=== PATIENT | female | born 1965 | race African-American/Black ===

== ENCOUNTER 2016-03-13 13:42 | Inpatient (IN) | payer MEDICARE, OTHER ==
[~2016-03-13] VITALS: Ht 157.5 cm; Wt 138.0 kg
[~2016-03-13 13:42] MED LIST: ALBUAER3 INH; ALPR0.5T3 PO; BUME1TAB26 PO; CYCL1TAB29 PO; FLUTI110I INH; GABA800T PO; MORP1SOL PO; OMEP20TA PO; TERA1CAP3 PO; WARF-20 PO
[2016-03-13 13:47] VITALS: BP 153/72; PULSE 105; RESP 17; TEMP 98.3; O2SAT 100
[2016-03-13] MEDS ORDERED: SODIUM CHLORIDE 0.9% FLUSH 5 ML FLUSH IVF PRN (14:15)
--- NOTE | 2016-03-13 14:19 | PD ---
HPI Chief Complaint: Dizziness Time Seen by Provider: 13:55 Travel History International Travel<30 days: No Contact w/Intl Traveler<30days: No Traveled to known affect area: No History of Present Illness HPI The patient is a 50-year-old [place] female who presents emergency department via EMS for dizziness and generalized weakness. The patient states her symptoms started last night with dizziness. The patient then developed right sided weakness and numbness. The patient states that her symptoms improve last night, however, returned this morning. The patient states that she notices right facial droop, worse than normal on the right side as well as right arm and right leg weakness. The patient is unable to ambulate, but does transition at home with her daughter. However, patient was too weak this morning to transition secondary to the weakness and numbness of the right arm and leg. The patient also complains of dizziness and vertigo. She denies any current headache. The patient denies any previous history of CVA or TIA. The patient states her primary physician is Dr. Junior Magdaleno. Symptoms are moderate, there are no known alleviating or exacerbating factors. 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) Endocrine: No Gastrointestinal Disorders: Yes (IBS) GERD: Yes Glaucoma: No Genitourinary: Yes (STRESS INCONTINENCE/ URINARY RETENTION ) Hepatitis: No Hiatal Hernia: Yes Hypertension: No Immune Disorder: No Implanted Vascular Access Dvce: Yes Kidney Stones: No Medical other: No Musculoskeletal: Yes Neurologic: No Psychiatric: No Reproductive: No Respiratory: Yes (asthma) Immunizations Current: No Migraines: No Renal Failure: No Seizures: No Sickle Cell Disease: No Sleep Apnea: Yes Thyroid Disease: No Ulcer: No PNEUMOCCOCAL Vaccine (Year): 2 ?: Not Menopausal: Yes : 2 Para: 2 Past Surgical History Abdominal Surgery: Yes (GASTRIC BYPASS 1997, LAP MARIA G) AICD: No Arteriovenous Shunt: No Body Medical Devices: DILAUDID pump implanted in left abd.; HARDWARE IN SPINE Cardiac Surgery: Yes (CARDIAC CATH (NO INTERVENTION)) Cholecystectomy: Yes (IN 1987) Ear Surgery: No Endocrine Surgery: No Eye Surgery: No Genitourinary Surgery: No Gynecologic Surgery: No Insulin Pump: No Joint Replacement: No Neurologic Surgery: No Oral Surgery: No Pacemaker: No Thoracic Surgery: No Other Surgery: Yes (DILAUDID PUMP) Social History Alcohol Use: No Tobacco Use: No Substance Use: No Allergies-Medications (Allergen,Severity, Reaction): Coded Allergies: MRI PRECAUTION (Verified Adverse Reaction, Severe, SPINAL CORD STIMULATOR , 02/01/16) PER DR BOND Reported Meds & Prescriptions Reported Meds & Active Scripts Active Reported Alprazolam 0.5 Mg Tab 0.5 Mg PO Q8H PRN Morphine Sulfate PF Inj (Morphine Sulfate/Sodium Chloride) 0.5 Mg/Ml Syr 7.5 Ml PO Q4HR Flovent Hfa 12 GM Inh (Fluticasone Propionate) 110 Mcg/Act Inh 2 Puff INH BID Proair Hfa 8.5 GM Inh (Albuterol Sulfate) 90 Mcg/Act Aer 2 Puff INH Q4-6H PRN 108 mcg/actuation Omeprazole 20 Mg Tab 20 Mg PO BID Bumex (Bumetanide) 1 Mg Tab 1 Mg PO BID Terazosin (Terazosin HCl) 1 Mg Cap 1 Mg PO TID Flexeril (Cyclobenzaprine HCl) 10 Mg Tab 10 Mg PO TID PRN Warfarin 4 Mg Tab 8 Mg PO DAILY Gabapentin 800 Mg Tab 800 Mg PO QID PRN Review of Systems Except as stated in HPI: all other systems reviewed are Neg General / Constitutional: No: Fever HENT: Positive: Headaches, Vertigo, No: Lightheadedness Cardiovascular: No: Chest Pain or Discomfort Respiratory: No: Shortness of Breath Gastrointestinal: No: Vomiting Genitourinary: Positive: Other (chronic indwelling Wilks catheter) Musculoskeletal: Positive: Weakness Neurologic: Positive: Weakness, Dizziness, Focal Abnormalities, Paresthesia, Sensory Disturbance Physical Exam Narrative GENERAL: Awake, alert, pleasant 50-year-old female who appears her stated age and is in no acute respiratory distress. SKIN: Warm and dry. HEAD: Atraumatic. Normocephalic. EYES: Pupils equal and round. Pupils are 3 mm bilateral and reactive. EOMs are intact. Patient is able to see fingers at a distance of 2 feet without difficulty. ENT: No nasal bleeding or discharge. Mucous membranes pink and moist. NECK: Trachea midline. No JVD. CARDIOVASCULAR: Regular rate and rhythm. No murmur appreciated. RESPIRATORY: No accessory muscle use. Clear to auscultation. Breath sounds equal bilaterally. GASTROINTESTINAL: Abdomen soft, obese, no rebound tenderness. Indwelling Wilks catheter. MUSCULOSKELETAL: Bilateral lower extremity edema. NEUROLOGICAL: Awake and alert. Mild right sided facial droop. Mild difference in right nasolabial fold. No drift of the upper extremity. Unable to raise the right leg off of the bed. Sensation is decreased sensation of the right arm and right leg when compared to the left. No dysarthria noted. PSYCHIATRIC: Appropriate mood and affect; insight and judgment normal. Data Data Last Documented VS Vital Signs Date Time Temp Pulse Resp B/P Pulse Ox O2 Delivery O2 Flow Rate FiO2 03/13/16 15:32 93 Room Air 03/13/16 15:20 90 18 154/67 2 03/13/16 13:47 98.3 Orders Electrocardiogram (03/13/16 ) Prothrombin Time / Inr (Pt) (03/13/16 14:12) Act Partial Throm Time (Ptt) (03/13/16 14:12) Complete Blood Count With Diff (03/13/16 14:12) Comprehensive Metabolic Panel (03/13/16 14:12) Creatine Kinase (Cpk) (03/13/16 14:12) Troponin I (03/13/16 14:12) Urinalysis - C+S If Indicated (03/13/16 14:12) Ct Brain W/O Iv Contrast(Rout) (03/13/16 14:12) Chest, Single Ap (03/13/16 14:12) Ecg Monitoring (03/13/16 14:12) Iv Access Insert/Monitor (03/13/16 14:12) Oximetry (03/13/16 14:12) Sodium Chloride 0.9% Flush (Ns Flush) (03/13/16 14:15) Potassium Chloride Eff (K-Lyte Cl Eff) (03/13/16 15:30) Aspirin Chew (Aspirin Chew) (03/13/16 15:30) Admit Order (Ed Use Only) (03/13/16 15:43) Labs Laboratory Tests Test 03/13/16 03/13/16 14:21 14:24 White Blood Count 8.6 TH/MM3 Red Blood Count 4.45 MIL/MM3 Hemoglobin 12.0 GM/DL Hematocrit 37.2 % Mean Corpuscular Volume 83.7 FL Mean Corpuscular Hemoglobin 26.9 PG Mean Corpuscular Hemoglobin 32.1 % Concent Red Cell Distribution Width 14.8 % Platelet Count 255 TH/MM3 Mean Platelet Volume 8.1 FL Neutrophils (%) (Auto) 82.5 % Lymphocytes (%) (Auto) 12.0 % Monocytes (%) (Auto) 4.9 % Eosinophils (%) (Auto) 0.3 % Basophils (%) (Auto) 0.3 % Neutrophils # (Auto) 7.1 TH/MM3 Lymphocytes # (Auto) 1.0 TH/MM3 Monocytes # (Auto) 0.4 TH/MM3 Eosinophils # (Auto) 0.0 TH/MM3 Basophils # (Auto) 0.0 TH/MM3 CBC Comment DIFF FINAL Differential Comment Prothrombin Time 50.1 SEC Prothromb Time International 4.3 RATIO Ratio Activated Partial 45.8 SEC Thromboplast Time Sodium Level 138 MEQ/L Potassium Level 3.1 MEQ/L Chloride Level 98 MEQ/L Carbon Dioxide Level 33.2 MEQ/L Anion Gap 7 MEQ/L Blood Urea Nitrogen 12 MG/DL Creatinine 0.83 MG/DL Estimat Glomerular Filtration 88 ML/MIN Rate Random Glucose 101 MG/DL Calcium Level 8.4 MG/DL Total Bilirubin 0.5 MG/DL Aspartate Amino Transf 23 U/L (AST/SGOT) Alanine Aminotransferase 14 U/L (ALT/SGPT) Alkaline Phosphatase 117 U/L Total Creatine Kinase 142 U/L Troponin I LESS THAN 0.02 NG/ML Total Protein 9.0 GM/DL Albumin 3.0 GM/DL Urine Color LIGHT-YELLOW Urine Turbidity HAZY Urine pH 6.0 Urine Specific [place] 1.006 Urine Protein NEG mg/dL Urine Glucose (UA) NEG mg/dL Urine Ketones NEG mg/dL Urine Occult Blood TRACE Urine Nitrite NEG Urine Bilirubin NEG Urine Urobilinogen LESS THAN 2.0 MG/DL Urine Leukocyte Esterase MOD Urine RBC 16 /hpf Urine WBC 2 /hpf Urine Squamous Epithelial 2 /hpf Cells Urine Bacteria RARE /hpf Urine Hyaline Casts 1 /lpf Urine Mucus FEW /lpf Urine Yeast (Budding) MOD Microscopic Urinalysis Comment CULT NOT INDICATED MDM Medical Decision Making Medical Screen Exam Complete: Yes Emergency Medical Condition: Yes Medical Record Reviewed: Yes Interpretation(s) EKG reveals sinus rhythm with first-degree AV block, NE 231 ms. Nonspecific T- wave changes. Laboratory Tests Test 03/13/16 03/13/16 14:21 14:24 White Blood Count 8.6 TH/MM3 Red Blood Count 4.45 MIL/MM3 Hemoglobin 12.0 GM/DL Hematocrit 37.2 % Mean Corpuscular Volume 83.7 FL Mean Corpuscular Hemoglobin 26.9 PG Mean Corpuscular Hemoglobin 32.1 % Concent Red Cell Distribution Width 14.8 % Platelet Count 255 TH/MM3 Mean Platelet Volume 8.1 FL Neutrophils (%) (Auto) 82.5 % Lymphocytes (%) (Auto) 12.0 % Monocytes (%) (Auto) 4.9 % Eosinophils (%) (Auto) 0.3 % Basophils (%) (Auto) 0.3 % Neutrophils # (Auto) 7.1 TH/MM3 Lymphocytes # (Auto) 1.0 TH/MM3 Monocytes # (Auto) 0.4 TH/MM3 Eosinophils # (Auto) 0.0 TH/MM3 Basophils # (Auto) 0.0 TH/MM3 CBC Comment DIFF FINAL Differential Comment Prothrombin Time 50.1 SEC Prothromb Time International 4.3 RATIO Ratio Activated Partial 45.8 SEC Thromboplast Time Sodium Level 138 MEQ/L Potassium Level 3.1 MEQ/L Chloride Level 98 MEQ/L Carbon Dioxide Level 33.2 MEQ/L Anion Gap 7 MEQ/L Blood Urea Nitrogen 12 MG/DL Creatinine 0.83 MG/DL Estimat Glomerular Filtration 88 ML/MIN Rate Random Glucose 101 MG/DL Calcium Level 8.4 MG/DL Total Bilirubin 0.5 MG/DL Aspartate Amino Transf 23 U/L (AST/SGOT) Alanine Aminotransferase 14 U/L (ALT/SGPT) Alkaline Phosphatase 117 U/L Total Creatine Kinase 142 U/L Troponin I LESS THAN 0.02 NG/ML Total Protein 9.0 GM/DL Albumin 3.0 GM/DL Urine Color LIGHT-YELLOW Urine Turbidity HAZY Urine pH 6.0 Urine Specific [place] 1.006 Urine Protein NEG mg/dL Urine Glucose (UA) NEG mg/dL Urine Ketones NEG mg/dL Urine Occult Blood TRACE Urine Nitrite NEG Urine Bilirubin NEG Urine Urobilinogen LESS THAN 2.0 MG/DL Urine Leukocyte Esterase MOD Urine RBC 16 /hpf Urine WBC 2 /hpf Urine Squamous Epithelial 2 /hpf Cells Urine Bacteria RARE /hpf Urine Hyaline Casts 1 /lpf Urine Mucus FEW /lpf Urine Yeast (Budding) MOD Microscopic Urinalysis Comment CULT NOT INDICATED Last Impressions Head CT 03/13/16 1412 Signed Impressions: Service Date/Time: March 14:50 - CONCLUSION: No acute disease. Edy Severino MD Chest X-Ray 03/13/16 1412 Signed Impressions: Service Date/Time: March 14:11 - CONCLUSION: No acute disease. Lori Gleason MD Differential Diagnosis Differential diagnosis includes TIA, CVA, intracranial hemorrhage, subdural hemorrhage, hypocalcemia, transient neurologic deficit, vertigo. Narrative Course IV was established, labs are drawn and sent, and the patient was placed on cardiac telemetry monitoring and continuous pulse oximetry monitoring. EKG was ordered and interpreted. CT of the brain was ordered. Stroke alert was not called as the patient's symptoms started last night and have been transient on and off, and then once again worsen this morning, greater than 6 hours ago, as it started at 4:30 AM with dizziness. However, headache did start last night. The patient's CT the brain is negative for hemorrhage, INR slightly high at 4.3. The patient has right sided weakness/numbness and is unable to transition. The patient may have suffered a CVA/TIA. Patient will need neurology evaluation, possible echocardiogram, telemetry monitoring, and PT/OT assessment. Patient's primary physician is Dr. Junior Magdaleno, through [facility], therefore, the on-call [facility] physician was paged for admission/ observation. Physician Communication Physician Communication The on-call [facility] physician was paged for admission. I discussed the patient Dr. Serna who agrees with admission. Diagnosis Primary Impression: CVA (cerebral vascular accident) Qualified Code: I63.9 - Cerebrovascular accident (CVA), unspecified mechanism Admitting Information Admitting Physician Requests: Admit Condition: Stable Ivan Saini MD Mar 13, 2016 14:19
--- NOTE | 2016-03-13 14:36 | RADRPT ---
EXAM DATE/TIME: 03/13/2016 14:11 [facility] COMPARISON: CT THORAX W/O CONTRAST, April 30, 2015, 11:09. US LEG RIGHT VENOUS DOPPLER, October 21, 2015, 14:0 9. INDICATIONS : Short of breath. MEDICAL HISTORY : None. SURGICAL HISTORY : None. ENCOUNTER: Initial ACUITY: 2 days PAIN SCORE: 0/10 LOCATION: Bilateral chest FINDINGS: Stable elevation of the right hemidiaphragm with adjacent compressive atelectasis. The imaged right l jaren apex appears clear. The left hemithorax is clear. The heart size is grossly normal. Osseous struc tures are unremarkable. CONCLUSION: No acute disease. Lori Gleason MD on March 13, 2016 at 14:33 Board Certified Radiologist. This report was verified electronically.
[2016-03-13 14:39] LABS: AUTOMATED NEUTROPHIL # 7.1 TH/MM3 (1.8-7.7); BASOPHIL % 0.3 % (0.0-2.0); EOSINOPHIL % 0.3 % (0.0-4.0); HEMATOCRIT 37.2 % (35.0-46.0); HEMO FLAGS DIFF FINAL; MEAN CELL VOLUME 83.7 FL (80.0-100.0); MEAN CORPUSCULAR HEMOGLOBIN 26.9 PG (27.0-34.0); MEAN CORPUSCULAR HGB CONC 32.1 % (32.0-36.0); MONO % 4.9 % (0.0-8.0); NEUT % 82.5 % (16.0-70.0); PLATELET COUNT 255 TH/MM3 (150-450); RED BLOOD COUNT 4.45 MIL/MM3 (4.00-5.30); RED CELL DISTRIBUTION WIDTH 14.8 % (11.6-17.2); WHITE BLOOD COUNT 8.6 TH/MM3 (4.0-11.0)
[2016-03-13 14:41] LABS: BACTERIA, URINE RARE /hpf; BLOOD, URINE TRACE (NEG); COMMENT (UR) CULT NOT INDICATED; CULTURE IF INDICATED CULT NOT INDICATED; GLUCOSE,URINE NEG (NEG); HYALINE CAST, URINE 1 /lpf (RARE); KETONE, URINE NEG (NEG); MUCUS URINE FEW /lpf (OCC); NITRITE,URINE NEG (NEG); SQUAMOUS EPITHELIAL CELL URINE 2 /hpf (0-5); URINE COLOR LIGHT-YELLOW (YELLW/STRAW)
[2016-03-13 14:46] LABS: APTT (PATIENT) 45.8 SEC (24.3-30.1); INTERNATIONAL NORMALIZED RATIO 4.3 RATIO; PROTHROMBIN TIME - PATIENT 50.1 SEC (9.8-11.6)
[2016-03-13 15:06] LABS: ALKALINE PHOSPHATASE 117 U/L (45-117); ALT (GPT) 14 U/L (10-53); ANION GAP 7 MEQ/L (5-15); AST (GOT) 23 U/L (15-37); BICARBONATE 33.2 MEQ/L (21.0-32.0); BLOOD UREA NITROGEN 12 MG/DL (7-18); CHLORIDE 98 MEQ/L (98-107); CREATINE KINASE 142 U/L (26-192); GLOMERULAR FILTRATION RATE 88 ML/MIN (>89); SODIUM (NA) 138 MEQ/L (136-145); TOTAL BILIRUBIN ADULT 0.5 MG/DL (0.2-1.0)
[2016-03-13 15:10] LABS: POTASSIUM 3.1 MEQ/L (3.5-5.1)
--- NOTE | 2016-03-13 15:14 | RADRPT ---
EXAM DATE/TIME: 03/13/2016 14:50 [facility] COMPARISON: CT BRAIN W/O CONTRAST, December 17, 2013, 0:50. INDICATIONS : Cephalgia with dizziness. RADIATION DOSE: 56.35 CTDIvol (mGy) MEDICAL HISTORY : Cardiovascular disease. Chronic obstructive pulmonary disease. SURGICAL HISTORY : Gastric bypass. Cholecystectomy.C1 fusion. ENCOUNTER: Initial ACUITY: 1 day PAIN SCALE: 3/10 LOCATION: cranial TECHNIQUE: Multiple contiguous axial images were obtained of the head. Using automated exposure control and adj ustment of the mA and/or kV according to patient size, radiation dose was kept as low as reasonably a chievable to obtain optimal diagnostic quality images. FINDINGS: CEREBRUM: The ventricles are normal for age. No evidence of midline shift, mass lesion, hemorrhage or acute in farction. No extra-axial fluid collections are seen. POSTERIOR FOSSA: The cerebellum and brainstem are intact. The 4th ventricle is midline. The cerebellopontine angle i s unremarkable. EXTRACRANIAL: The visualized portion of the orbits is intact. SKULL: The calvaria is intact. No evidence of skull fracture. CONCLUSION: No acute disease. Edy Severino MD on March 13, 2016 at 15:09 Board Certified Radiologist. This report was verified electronically.
[2016-03-13 15:20] VITALS: BP 154/67; PULSE 90; RESP 18; O2SAT 98
[2016-03-13] MEDS ORDERED: POTASSIUM CHLORIDE 25 MEQ EFFERVESCENT TAB PO ONE (15:30)
[2016-03-13] MEDS ORDERED: ASPIRIN 81 MG CHEW TAB CHEW ONE (15:30)
[2016-03-13 15:32] VITALS: O2SAT 93
--- NOTE | 2016-03-13 17:14 | HHI.HP ---
HPI Service [facility] Hospitalists Primary Care Physician Junior Magdaleno Admission Diagnosis right sided weakness Chief Complaint: right side weakness Travel History International Travel<30 Days: No Contact w/Intl Traveler <30 Da: No Traveled to Known Affected Are: No History of Present Illness Pt is 50 with chronic back pain and implanted pain pump. She had low back surgery in and had hardware placed. Pt in wheelchair bound with left foot drop and chronic weakness in rle. She says that chronic parasthesia and numbness was present until injuring her back a few months ago..then parasthesia resolved and her "bladder stopped working". Now she had chronic indwelling mosquera being followed by [facility]. Yesterday she had right side headache and neck pains. She had intermittent numbness/weakness of rue and some new weakness of her chronically weak right foot.She also complaint of some heaviness over right chest when breathing. her inr was supratherapeutic. ct head neg for cva. Review of Systems Other right side weakness Past Family Social History Past Medical History chronic lymphedema failed back syndrome with implanted pain pump multiple past laminectomies obstructive sleep apnea irritable bowel syndrome chronic headaches chronic low back pain gastroparesis GERD history of DVTs and bilateral pulmonary emboli COPD gastric bypass 2) cholecystectomy history of spinal surgery Reported Medications Alprazolam 0.5 Mg Tab 0.5 Mg PO Q8H PRN Morphine Sulfate PF Inj (Morphine Sulfate/Sodium Chloride) 0.5 Mg/Ml Syr 7.5 Ml PO Q4HR Flovent Hfa 12 GM Inh (Fluticasone Propionate) 110 Mcg/Act Inh 2 Puff INH BID Proair Hfa 8.5 GM Inh (Albuterol Sulfate) 90 Mcg/Act Aer 2 Puff INH Q4-6H PRN 108 mcg/actuation Omeprazole 20 Mg Tab 20 Mg PO BID Bumex (Bumetanide) 1 Mg Tab 1 Mg PO BID Terazosin (Terazosin HCl) 1 Mg Cap 1 Mg PO TID Flexeril (Cyclobenzaprine HCl) 10 Mg Tab 10 Mg PO TID PRN Warfarin 4 Mg Tab 8 Mg PO DAILY Gabapentin 800 Mg Tab 800 Mg PO QID PRN Allergies: Coded Allergies: MRI PRECAUTION (Verified Adverse Reaction, Severe, SPINAL CORD STIMULATOR , 02/01/16) PER DR BOND Family History nc Social History no etoh/tob Physical Exam Vital Signs nad oriented neuro. no facial droop.cn 2-12 grossly intact no rue weakness. chronic weakness in both legs. foot drop left chronic weak plantar and dorsiflexion of rle heart reg lung cta abd s/nt ext no edema Vital Signs Date Time Temp Pulse Resp B/P Pulse Ox O2 Delivery O2 Flow Rate FiO2 03/13/16 15:32 93 Room Air 03/13/16 15:20 90 18 154/67 98 Nasal Cannula 2 03/13/16 13:55 97 19 97 2 03/13/16 13:47 98.3 105 17 153/72 100 Laboratory Laboratory Tests Test 03/13/16 03/13/16 14:21 14:24 White Blood Count 8.6 Red Blood Count 4.45 Hemoglobin 12.0 Hematocrit 37.2 Mean Corpuscular Volume 83.7 Mean Corpuscular Hemoglobin 26.9 Mean Corpuscular Hemoglobin 32.1 Concent Red Cell Distribution Width 14.8 Platelet Count 255 Mean Platelet Volume 8.1 Neutrophils (%) (Auto) 82.5 Lymphocytes (%) (Auto) 12.0 Monocytes (%) (Auto) 4.9 Eosinophils (%) (Auto) 0.3 Basophils (%) (Auto) 0.3 Neutrophils # (Auto) 7.1 Lymphocytes # (Auto) 1.0 Monocytes # (Auto) 0.4 Eosinophils # (Auto) 0.0 Basophils # (Auto) 0.0 CBC Comment DIFF FINAL Differential Comment Prothrombin Time 50.1 Prothromb Time International 4.3 Ratio Activated Partial 45.8 Thromboplast Time Sodium Level 138 Potassium Level 3.1 Chloride Level 98 Carbon Dioxide Level 33.2 Anion Gap 7 Blood Urea Nitrogen 12 Creatinine 0.83 Estimat Glomerular Filtration 88 Rate Random Glucose 101 Calcium Level 8.4 Total Bilirubin 0.5 Aspartate Amino Transf 23 (AST/SGOT) Alanine Aminotransferase 14 (ALT/SGPT) Alkaline Phosphatase 117 Total Creatine Kinase 142 Troponin I LESS THAN 0.02 Total Protein 9.0 Albumin 3.0 Urine Color LIGHT-YELLOW Urine Turbidity HAZY Urine pH 6.0 Urine Specific [place] 1.006 Urine Protein NEG Urine Glucose (UA) NEG Urine Ketones NEG Urine Occult Blood TRACE Urine Nitrite NEG Urine Bilirubin NEG Urine Urobilinogen LESS THAN 2.0 Urine Leukocyte Esterase MOD Urine RBC 16 Urine WBC 2 Urine Squamous Epithelial 2 Cells Urine Bacteria RARE Urine Hyaline Casts 1 Urine Mucus FEW Urine Yeast (Budding) MOD Microscopic Urinalysis Comment CULT NOT INDICATED Result Diagram: 03/13/16 1421 03/13/16 1421 Assessment and Plan Problem List: (1) Neurological deficit, transient Status: Acute Plan: Pt is 50 with chronic back pain and implanted pain pump. She had low back surgery in and had hardware placed. Pt in wheelchair bound with left foot drop and chronic weakness in rle. She says that chronic parasthesia and numbness was present until injuring her back a few months ago..then parasthesia resolved and her "bladder stopped working". Now she had chronic indwelling mosquera being followed by [facility]. Yesterday she had right side headache and neck pains. She had intermittent numbness/weakness of rue and some new weakness of her chronically weak right foot.She also complaint of some heaviness over right chest when breathing. her inr was supratherapeutic. ct head neg for cva. I don't believe she had a tia or cva neurology is consulted and neuroimaging is likely to evaluate her spinal column. will hold the coumadin and recheck inr dvt prophylaxis PT eval pain control ordered. (2) Spinal stenosis Status: Chronic Plan: see above (3) Supratherapeutic INR Status: Acute Plan: see above (4) Chronic pain Status: Chronic Plan: chronic back pain has implanted morphine pump (5) Anxiety Status: Chronic (6) COPD (chronic obstructive pulmonary disease) Status: Chronic (7) Obese Status: Chronic Physician Certification 2 Midnight Certification Type: Admission for Inpatient Services Order for Inpatient Services 3The services are ordered in accordance with Medicare regulations or non- Medicare payer requirements, as applicable. In the case of services not specified as inpatient-only, they are appropriately provided as inpatient services in accordance with the 2-midnight benchmark. Estimated LOS (days): 3 3 days is the estimated time the patient will need to remain in the hospital, assuming treatment plan goals are met and no additional complications. Post-Hospital Plan: Not yet determined Arben Serna MD Mar 13, 2016 17:14
[2016-03-13] MEDS ORDERED: GABAPENTIN 400 MG CAP PO PRN (17:30)
[2016-03-13 18:00] VITALS: BP 126/99; PULSE 83; RESP 18; O2SAT 97
[2016-03-13] MEDS: BUMETANIDE 1 MG TAB PO SCH (19:24)
[2016-03-13] MEDS: TERAZOSIN HCL 1 MG CAP PO SCH (19:24)
[2016-03-13 19:26] VITALS: BP 129/87; PULSE 83; RESP 18; O2SAT 97
[2016-03-13 21:54] VITALS: BP 117/83; PULSE 87; RESP 18; TEMP 97.5; O2SAT 93
[2016-03-13] MEDS: PANTOPRAZOLE SOD 20 MG DELAYED RELEASE TAB PO SCH (23:25)
[2016-03-13] MEDS: ALPRAZolam 0.5 MG TAB PO PRN (23:25)
[2016-03-13] MEDS: CYCLOBENZAPRINE HCL 10 MG TAB PO PRN (23:25)
[2016-03-14] VITALS (7 sets, daily range): BP systolic 99–115; BP diastolic 58–71; PULSE 84–99; RESP 16–18; TEMP 96.9–97.9; O2SAT 93–97
--- NOTE | 2016-03-14 00:27 | RADRPT ---
EXAM DATE/TIME: 03/13/2016 23:48 [facility] COMPARISON: No previous studies available for comparison. INDICATIONS : Neck pain, evaluate for spinal hematoma. RADIATION DOSE: 35.65 CTDIvol (mGy) MEDICAL HISTORY : Hernia, hiatal. Gastroesophageal reflux disease. Deep venous thrombosis.COPD, CHF SURGICAL HISTORY : Cholecystectomy. cardiac cath, pain pump, spinal fusion/rods, gastric bypass ENCOUNTER: Initial ACUITY: 1 day PAIN SCALE: 10/10 LOCATION: neck TECHNIQUE: Volumetric scanning of the cervical spine was performed. Multiplanar reconstructions in the sagittal, coronal and oblique axial planes were performed. Using automated exposure control and adjustment o f the mA and/or kV according to patient size, radiation dose was kept as low as reasonably achievable to obtain optimal diagnostic quality images. FINDINGS: Sagittal images demonstrate normal vertebral body alignment and curvature though the cervical lordosi s is pronounced.. The odontoid is intact. The occipital condyles and lateral masses of C1 are intact. Axial images were performed from C2-C3 to C7-T1. C2-C3: A small central protrusion is present impinging on the thecal sac but not significantly deforming the cord. There is no significant spinal canal stenosis. The neural foramina are clear bilaterally. C3-C4: There is uncovertebral joint hypertrophy on the right side. There is moderate right sided neural fora hola narrowing. C4-C5: There is uncovertebral joint hypertrophy on the right side. There is mild right sided neural foramina l narrowing. There is no significant spinal canal stenosis. C5-C6: There is osteophytic ridging asymmetric to the right. There is uncovertebral joint hypertrophy on the right side. There is mild right sided neural foraminal narrowing. There is mild spinal canal stenosi s asymmetric to the right. C6-C7: No significant abnormalities identified. C7-T1: No significant abnormalities identified. CONCLUSION: 1. Multilevel degenerative disc disease asymmetric to the right with mild stenosis maximal at C5-C6. 2. There is no evidence of acute fracture. Fernando Hook MD on March 14, 2016 at 0:21 Board Certified Radiologist. This report was verified electronically.
--- NOTE | 2016-03-14 00:43 | RADRPT ---
EXAM DATE/TIME: 03/13/2016 23:56 [facility] COMPARISON: CHEST SINGLE AP, March 13, 2016, 14:11. INDICATIONS : Back pain, evaluate for spinal hematoma. RADIATION DOSE: 36.18 CTDIvol (mGy) ; Combined studies - Thoracic Spine/Lumbar Spine MEDICAL HISTORY : Deep venous thrombosis. Gastroesophageal reflux disease. Hernia, hiatal.CHF, COPD SURGICAL HISTORY : Cholecystectomy. cardiac cath, gastric bypass, spinal fusion/rods, pain pump ENCOUNTER: Initial ACUITY: 1 day PAIN SCALE: 10/10 LOCATION: back TECHNIQUE: Volumetric scanning of the lumbar spine was performed. Multiplanar reconstructions in the sagittal, coronal and oblique axial planes were performed. Using automated exposure control and adjustment of the mA and/or kV according to patient size, radiation dose was kept as low as reasonably achievable t o obtain optimal diagnostic quality images. FINDINGS: Sagittal images demostrate normal vertebral body alignment and curvature. No fractures are identified . Axial images performed from T12-L1 through L5-S1. Moderate scoliotic deformity is present to the le ft with a rotatory component with the apex at L2-L3. There is anterior and posterior fusion with pedi shaw screws and interbody graft from L4-S1. Intrathecal infusion catheter is present. Tip is at the th oracolumbar junction. No epidural hematoma is identified but MRI is a more sensitive test. T12-L1: Posterior fusion is present. There is no significant spinal canal stenosis. The neural foramina are c lear bilaterally. L1-L2: There is posterior fusion with severe hypertrophy of the ligamentum flavum causing moderate to marked spinal canal stenosis. L2-L3: Severe ligament flavum hypertrophy causes moderate to marked stenosis. There is broad-based annular b ulge of the disc. L3-L4: There is mild annular bulge of the disc. There is moderate facet arthritis bilaterally with ligamentu m flavum hypertrophy. There is mild spinal canal stenosis. L4-L5: There is no significant spinal canal stenosis. Laminectomy defect is present. The neural foramina are clear bilaterally. L5-S1: There is no significant spinal canal stenosis. Laminectomy defect is present. The neural foramina are clear bilaterally. CONCLUSION: 1. Severe spinal canal stenosis at L2-L3 and slightly less prominent at L1-L2 secondary to severely h ypertrophied ligamentum flavum. 2. Post surgical changes in the lower lumbar spine without stenosis. No hematoma is identified. Fernando Hook MD on March 14, 2016 at 0:32 Board Certified Radiologist. This report was verified electronically.
--- NOTE | 2016-03-14 00:53 | RADRPT ---
EXAM DATE/TIME: 03/13/2016 23:56 [facility] COMPARISON: No previous studies available for comparison. INDICATIONS : Back pain, evaluate for spinal hematoma. RADIATION DOSE: 36.18 CTDIvol (mGy) ; Combined studies - Thoracic Spine/Lumbar Spine MEDICAL HISTORY : Gastroesophageal reflux disease. Deep venous thrombosis. Hernia, hiatal.CHF, COPD SURGICAL HISTORY : Cholecystectomy. cardiac cath, gastric bypass, spinal fusion/rods, pain pump ENCOUNTER: Initial ACUITY: 1 day PAIN SCALE: 10/10 LOCATION: back TECHNIQUE: Volumetric scanning of the thoracic spine was performed. Multiplanar reconstructions in the sagittal , coronal and oblique axial planes were performed. Using automated exposure control and adjustment o f the mA and/or kV according to patient size, radiation dose was kept as low as reasonably achievable to obtain optimal diagnostic quality images. FINDINGS: Sagittal images demonstrate normal vertebral body alignment and curvature. No focal area of marrow re placement are identified. The cord itself is normal in caliber and signal intensity. The conus termin ates normally. Axial images were performed from T1-T2 through T12-L1. There is mild scoliotic deformi ty convex to the right. Intrathecal catheter terminates at the thoracolumbar junction. There is marke d elevation of the right hemidiaphragm with right basilar atelectasis. T1-T2: No significant abnormalities identified. T2-T3: No significant abnormalities identified. T3-T4: There is no significant spinal canal stenosis. There is ligamentum flavum hypertrophy in the midline. T4-T5: There is mild facet arthritis bilaterally. There is no significant spinal canal stenosis. T5-T6: There is mild facet arthritis bilaterally. The neural foramina are clear bilaterally. T6-T7: There is mild facet arthritis bilaterally. There is no significant spinal canal stenosis. T7-T8: There is central osteophytic spur. There is mild spinal canal stenosis. T8-T9: There is no evidence of disc protrusion or spinal canal stenosis. There is mild facet arthritis bilat erally. T9-T10: No significant abnormalities identified. T10-T11: There is mild facet arthritis bilaterally. Mild ligamentum flavum calcification is presentThere is mi ld left sided neural foraminal narrowing. T11-T12: There is mild spinal canal stenosis. Prominent ligamentum flavum calcification is present. There is m ild neural foraminal narrowing bilaterally. T12-L1: There is mild spinal canal stenosis. Extensive calcification of ligamentum flavum is present. CONCLUSION: 1. Mild stenosis in the lower lumbar spine at T11-12 and T12-L1 secondary to hypertrophic ligamentum flavum. There are similar findings at the T7-T8 level. Fernando Hook MD on March 14, 2016 at 0:41 Board Certified Radiologist. This report was verified electronically.
[2016-03-14 06:58] LABS: INTERNATIONAL NORMALIZED RATIO 4.2 RATIO; PROTHROMBIN TIME - PATIENT 49.9 SEC (9.8-11.6)
[2016-03-14] MEDS: CYCLOBENZAPRINE HCL 10 MG TAB PO PRN (08:22)
[2016-03-14] MEDS: ALPRAZolam 0.5 MG TAB PO PRN ×2 (08:22→17:08)
[2016-03-14] MEDS: TERAZOSIN HCL 1 MG CAP PO SCH ×3 (08:23→17:09)
[2016-03-14] MEDS: BUMETANIDE 1 MG TAB PO SCH ×2 (08:23→17:09)
[2016-03-14] MEDS: PANTOPRAZOLE SOD 20 MG DELAYED RELEASE TAB PO SCH ×2 (08:24→21:44)
[2016-03-14] MEDS: FLUTICASONE PROPIONATE 110 MCG/ACT 12 GM INHALER INH SCH ×2 (08:25→21:45)
[2016-03-14 09:34] LABS: BICARBONATE 28.6 MEQ/L (21.0-32.0); POTASSIUM 4.1 MEQ/L (3.5-5.1)
--- NOTE | 2016-03-14 15:37 | HHI.PR ---
Subjective Remarks no new events overnight Objective Vitals heart reg lung cta abd s/nt ext no edema mosquera no facial droop, no rue weakness dorsi/plantar flexion seems at baseline on right chronic left drop foot. Vital Signs Date Time Temp Pulse Resp B/P Pulse Ox O2 Delivery O2 Flow Rate FiO2 03/14/16 13:16 97.3 84 18 115/71 97 03/14/16 12:43 84 03/14/16 08:29 97.3 86 18 115/62 94 03/14/16 04:42 96.9 88 18 101/58 94 03/14/16 00:56 97.5 95 16 99/61 93 03/13/16 21:54 97.5 87 18 117/83 93 03/13/16 19:26 83 18 129/87 97 Nasal Cannula 2 03/13/16 18:00 83 18 126/99 97 Nasal Cannula 2 03/13/16 03/13/16 03/14/16 15:00 23:00 07:00 Output Total 1150 ml Balance -1150 ml Output Urine Total 1150 ml # Bowel Movements 0 Result Diagram: 03/13/16 1421 03/14/16 0836 A/P Problem List: (1) Neurological deficit, transient Status: Acute Plan: Pt is 50 with chronic back pain and implanted pain pump. She had low back surgery in [place] and had hardware placed. Pt in wheelchair bound with left foot drop and chronic weakness in rle. She says that chronic parasthesia and numbness was present until injuring her back a few months ago..then parasthesia resolved and her "bladder stopped working". Now she had chronic indwelling mosquera being followed by urollogy. Yesterday she had right side headache and neck pains. She had intermittent numbness/weakness of rue and some new weakness of her chronically weak right foot.She also complaint of some heaviness over right chest when breathing. her inr was supratherapeutic. ct head neg for cva. I don't believe she had a tia or cva neurology is consulted and neuroimaging of her spinal column ordered per neurology confirms some areas of stenosis but most severe in lumbar spine..which is probably not new and wouldn't account for all of her presenting sx's....await official neuro consult and decide on disposition will hold the coumadin and recheck inr dvt prophylaxis PT eval pain control ordered. (2) Spinal stenosis Status: Chronic Plan: see above (3) Supratherapeutic INR Status: Acute Plan: see above (4) Chronic pain Status: Chronic Plan: chronic back pain has implanted morphine pump (5) Anxiety Status: Chronic (6) COPD (chronic obstructive pulmonary disease) Status: Chronic (7) Obese Status: Chronic Arben Serna MD Mar 14, 2016 15:37
[2016-03-14] MEDS: ACETAMINOPHEN/HYDROcodone 325 MG/7.5 MG TAB PO PRN ×2 (15:38→21:45)
--- NOTE | 2016-03-14 16:44 | MB ---
cc: KEV CAMPBELL M.D. DATE OF CONSULTATION: 03/14/2016 DATE OF : 1965, 50 years old. REASON FOR CONSULTATION: Facial droop, right side. 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 Has chronic left foot drop, chronic weakness, only transfers, does not ambulate. He states the other day. She woke up feeling her head was very heavy, she open her eyes and the room was spinning. She started feeling some numbness in her face in her right arm that has resolved except for minimal tingling. She states in the tips of the fingers and knee of the antecubital region of her right arm. She states that she has a pain pump that is compatible with an MRI and has had that before [facility] they will not do it here. She states that she is out of medicine in her pain pump and is going through what she describes as withdrawal symptoms sweating from not getting her medicine. 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 HOME MEDICATIONS: Alprazolam. Morphine Flovent ProAir. Omeprazole Bumex Terazosin Flexeril Warfarin Gabapentin. ALLERGIES NO MEDICATION ALLERGIES. As stated MRI precautions. However, she stating that she has had MRIs in the past with her pain pump except the fact that she needs to have the pain doctor evaluate for malfunction. FAMILY HISTORY Noncontributory. SOCIAL HISTORY , does not smoke or drink. PHYSICAL EXAMINATION: VITAL SIGNS: On exam vitals were temperature is 97.3, pulse 84, respiratory rate 18, blood pressure 115/71 satting at 97%. NECK: Neck is supple. There are no bruits. HEART: The heart is regular. IN GENERAL: She has a she is a 50-year-old woman, morbidly obese, lying in bed in no distress. HEAD, EYES, EARS, NOSE, AND THROAT: Her pupils reactive. His nose nystagmus. Face symmetrical. Tongue is midline. NEUROLOGIC: She has chronic weakness in the legs with severe with significant edema chronic left foot drop. Reflexes are blunted throughout. Toes right toe tends to go up, this is likely old, Left toe downgoing. She cannot lift her legs off the bed arms or moving his strength is symmetrical bilaterally. I do not see any significant drift. Cerebellar is normal. Gait is withheld. LABORATORY FINDINGS: I am able to assess her labs today. CBC is really unremarkable. Coag panel. Her INR on admission was 4.3 today is 4.2. Urinalysis no cultures indicated. Chemistries today, calcium is a bit low 7.9 yesterday, potassium was low, today is normal. GFR is 114 IMAGING STUDIES Chest x-ray No acute process. CT HEAD No acute process as well. CT spine multilevel degenerative disease asymmetric the right with mild stenosis maximally C5-C6 no fracture. Lumbar spine; Severe canal stenosis, L2-3, As well as L1-2 secondary to hypertrophic Ligamentum flavum. postsurgical changes seen. No hematoma. Thoracic spine mild stenosis lower lumbar T11-12, C12-L1 IMPRESSION 50-year-old woman with chronic low back pain with some dysesthesias to the right face and arm. Onset was she did have a headache the day this occurred, there may be a complicated migraine. Certainly I do not think she has had a stroke. However, her INR is supratherapuetic. Continue her Coumadin for DVT, PE history and just will obtain a CT of the [place] to make sure that there is no intracranial stenosis. Vertebral basilar disease given that she has some vertigo may have very well been just his peripheral vertigo. Continue her home medicines that she does not withdrawal from pain medication. She will need to see her pain doctor to refill her pump. Get her out of bed in the wheelchair and if her CTA is normal discharge planning she can certainly if compatible have an MRI as an outpatient to further delineate any chronic findings. Thank you MD OSORIO Lynne/kwabena /4:19 PM /4:33 PM
--- NOTE | 2016-03-14 16:53 | EKG ---
Date Performed: 03/13/2016 Time Performed: 13:57:22 PTAGE: 50 years EKG: Sinus rhythm WITH FIRST DEGREE AV BLOCK MODERATE INTRAVENTRICULAR CONDUCTION DELAY NONSPECIFIC T-WAVE ABNORMALITY Prolongation of the QT interval for the heart rate. When compared to previous tracing, there has bee n some slight Variation in ST-T wave changes, but no other significant serial Change. ABNORMAL ECG PREVIOUS TRACING : 04/30/2015 11.42 DOCTOR: Mavis Clemens Interpretating Date/Time 03/14/2016 16:53:03
[2016-03-15] VITALS (7 sets, daily range): BP systolic 104–132; BP diastolic 56–70; PULSE 73–102; RESP 16–20; TEMP 96–97.8; O2SAT 94–99
[2016-03-15] MEDS: ACETAMINOPHEN/HYDROcodone 325 MG/7.5 MG TAB PO PRN ×4 (04:07→20:12)
[2016-03-15] MEDS: ALPRAZolam 0.5 MG TAB PO PRN (04:07)
[2016-03-15] MEDS: CYCLOBENZAPRINE HCL 10 MG TAB PO PRN (06:56)
[2016-03-15] MEDS: BUMETANIDE 1 MG TAB PO SCH ×2 (08:15→17:35)
[2016-03-15] MEDS: TERAZOSIN HCL 1 MG CAP PO SCH ×3 (08:15→17:35)
[2016-03-15] MEDS: FLUTICASONE PROPIONATE 110 MCG/ACT 12 GM INHALER INH SCH ×2 (08:16→20:12)
[2016-03-15] MEDS: PANTOPRAZOLE SOD 20 MG DELAYED RELEASE TAB PO SCH ×2 (08:16→20:12)
[2016-03-15 09:06] LABS: INTERNATIONAL NORMALIZED RATIO 3.1 RATIO; PROTHROMBIN TIME - PATIENT 36.2 SEC (9.8-11.6)
[2016-03-15] MEDS ORDERED: IOHEXOL 350 MG/ML 10 ML VIAL (for RAD DIAG) IV ONE (10:04)
--- NOTE | 2016-03-15 10:53 | RADRPT ---
EXAM DATE/TIME: 03/15/2016 09:29 [facility] COMPARISON: No previous studies available for comparison. INDICATIONS : Right side weakness; evaluate for occlusion. IV CONTRAST: 100 cc Omnipaque 350 (iohexol) IV RADIATION DOSE: 14.75 CTDIvol (mGy) MEDICAL HISTORY : Cardiovascular disease. Deep venous thrombosis. Chronic obstructive pulmonary disease. SURGICAL HISTORY : None. ENCOUNTER: Initial ACUITY: 3 days PAIN SCALE: 0/10 LOCATION: Cranial TECHNIQUE: Volumetric scanning was performed using a multi-row detector CT scanner. The data was post processed with a variety of visualization algorithms including full volume maximum intensity projection, multi -planar sliding thin slab reformation, curved planar reformation, and surface rendering techniques. Using automated exposure control and adjustment of the mA and/or kV according to patient size, radiat ion dose was kept as low as reasonably achievable to obtain optimal diagnostic quality images. FINDINGS: CTA of the brain was performed with 3D reconstructions. The IV contrast is limited. Both vertebral arteries are patent. They form a normal sized basilar artery. The basilar bifurcatio n gives bilaterally small posterior cerebral vessels. There is a prominent left posterior communicat ing artery contributing a significant amount of the flow to the left posterior cerebral circulation. The P2 segments are small bilaterally. The internal carotid arteries are both patent. The left ICA bifurcation is unremarkable. The right middle cerebral artery and right anterior cerebral artery are both small. Even on the source images, the right middle cerebral artery is quite small. Because of the poor contrast opacification, it is difficult for the reformatted images. On the axial source images, there may be some developing hypodensity to the right side of the brain. CONCLUSION: 1. The right middle cerebral artery is quite small although it is a suboptimal study due to poor con trast opacification of the vessels. Correlate for right middle cerebral artery stroke. 2. Small but intact left middle and anterior cerebral arteries. Sav Givens MD on March 15, 2016 at 10:44 Board Certified Radiologist. This report was verified electronically.
--- NOTE | 2016-03-15 11:17 | HHI.PR ---
Subjective Remarks crying. says her right lat neck/back painful and at times makes it hard to swallow Objective Vitals crying neck supple no swelling or pain to palpation over right lat neck or upper shoulder/back moving rue/and rle baseline chronic mosquera Vital Signs Date Time Temp Pulse Resp B/P Pulse Ox O2 Delivery O2 Flow Rate FiO2 03/15/16 08:53 81 03/15/16 08:49 96.1 79 20 132/67 95 03/15/16 04:00 96.8 73 16 109/70 98 03/14/16 20:09 97.9 99 18 112/64 94 03/14/16 17:01 97.5 86 18 112/68 94 03/14/16 16:39 18 03/14/16 13:16 97.3 84 18 115/71 97 03/14/16 12:43 84 03/14/16 03/14/16 03/15/16 15:00 23:00 07:00 Output Total 300 ml Balance -300 ml Output Urine Total 300 ml Result Diagram: 03/13/16 1421 03/14/16 0836 A/P Problem List: (1) Neurological deficit, transient Status: Acute Plan: Pt is 50 with chronic back pain and implanted pain pump. She had low back surgery in and had hardware placed. Pt in wheelchair bound with left foot drop and chronic weakness in rle. She says that chronic parasthesia and numbness was present until injuring her back a few months ago..then parasthesia resolved and her "bladder stopped working". Now she had chronic indwelling mosquera being followed by urollogy. Yesterday she had right side headache and neck pains. She had intermittent numbness/weakness of rue and some new weakness of her chronically weak right foot.She also complaint of some heaviness over right chest when breathing. her inr was supratherapeutic. ct head neg for cva. I don't believe she had a tia or cva neurology is consulted and neuroimaging of her spinal column ordered per neurology confirms some areas of stenosis but most severe in lumbar spine..which is probably not new and wouldn't account for all of her presenting sx's..neurology evaluating her today with cta head. will hold the coumadin and recheck inr dvt prophylaxis PT eval pain control ordered...pt says her pain pump is empty and she needs to f/u this week at [facility] to refill it. (2) Spinal stenosis Status: Chronic Plan: see above (3) Supratherapeutic INR Status: Acute Plan: see above (4) Chronic pain Status: Chronic Plan: chronic back pain has implanted morphine pump (5) Anxiety Status: Chronic (6) COPD (chronic obstructive pulmonary disease) Status: Chronic (7) Obese Status: Chronic Arben Serna MD Mar 15, 2016 11:16
[2016-03-15] MEDS ORDERED: methylPREDNISolone SOD SUCC 125 MG/2 ML VIAL IV PUSH ONE (14:00)
[2016-03-16 00:45] VITALS: BP 129/79; PULSE 94; RESP 19; TEMP 98.1; O2SAT 95
[2016-03-16] MEDS: CYCLOBENZAPRINE HCL 10 MG TAB PO PRN ×3 (01:26→14:59)
[2016-03-16] MEDS: ALPRAZolam 0.5 MG TAB PO PRN (01:29)
[2016-03-16] MEDS: ACETAMINOPHEN/HYDROcodone 325 MG/7.5 MG TAB PO PRN ×3 (04:16→15:00)
[2016-03-16 04:30] VITALS: BP 120/68; PULSE 100; RESP 18; TEMP 98; O2SAT 94
[2016-03-16 08:52] VITALS: BP 134/84; PULSE 90; RESP 20; TEMP 95.6; O2SAT 94
[2016-03-16] MEDS: BUMETANIDE 1 MG TAB PO SCH ×2 (08:55→18:00)
[2016-03-16] MEDS: TERAZOSIN HCL 1 MG CAP PO SCH ×3 (08:55→18:00)
[2016-03-16] MEDS: PANTOPRAZOLE SOD 20 MG DELAYED RELEASE TAB PO SCH (08:55)
[2016-03-16] MEDS: FLUTICASONE PROPIONATE 110 MCG/ACT 12 GM INHALER INH SCH (08:55)
--- NOTE | 2016-03-16 11:40 | HHI.PR ---
Subjective Remarks says the solumedrol relieved all of her prsenting sx's and she wants to go home. Objective Vitals heart reg lung cta abd s/nt ext no edema mosquera Vital Signs Date Time Temp Pulse Resp B/P Pulse Ox O2 Delivery O2 Flow Rate FiO2 03/16/16 08:52 95.6 90 20 134/84 94 03/16/16 04:30 98.0 100 18 120/68 94 03/16/16 00:45 98.1 94 19 129/79 95 03/15/16 22:39 99 03/15/16 20:45 97.8 102 17 128/67 94 03/15/16 16:19 96.0 84 20 104/56 95 03/15/16 12:51 96.5 85 20 111/58 99 03/15/16 03/15/16 03/16/16 15:00 23:00 07:00 Intake Total 1010 ml 800 ml Output Total 850 ml 550 ml 400 ml Balance -850 ml 460 ml 400 ml Intake Oral 1010 ml 800 ml Output Urine Total 850 ml 550 ml 400 ml # Bowel Movements 0 0 Result Diagram: 03/13/16 1421 03/14/16 0836 A/P Problem List: (1) Neurological deficit, transient Status: Acute Plan: Pt is 50 with chronic back pain and implanted pain pump. She had low back surgery in [place] 1990s and had hardware placed. Pt in wheelchair bound with left foot drop and chronic weakness in rle. She says that chronic parasthesia and numbness was present until injuring her back a few months ago..then parasthesia resolved and her "bladder stopped working". Now she had chronic indwelling mosquera being followed by urollogy. Yesterday she had right side headache and neck pains. She had intermittent numbness/weakness of rue and some new weakness of her chronically weak right foot.She also complaint of some heaviness over right chest when breathing. her inr was supratherapeutic. ct head neg for cva. I don't believe she had a tia or cva neurology is consulted and neuroimaging of her spinal column ordered per neurology confirms some areas of stenosis but most severe in lumbar spine..which is probably not new and wouldn't account for all of her presenting sx's.. cta noted resume coumadin dvt prophylaxis PT eval pt today says her sx's are resolved after the dose of solumedrol she has pain meds at home but will call her pain doctor for refill on pump this week (2) Spinal stenosis Status: Chronic Plan: see above (3) Supratherapeutic INR Status: Acute Plan: see above (4) Chronic pain Status: Chronic Plan: chronic back pain has implanted morphine pump (5) Anxiety Status: Chronic (6) COPD (chronic obstructive pulmonary disease) Status: Chronic (7) Obese Status: Chronic Arben Serna MD Mar 16, 2016 11:39
--- NOTE | 2016-03-16 11:40 | HHI.DCPOC ---
Discharge Care Plan Diagnosis: (1) Neurological deficit, transient (2) Supratherapeutic INR (3) Spinal stenosis (4) COPD (chronic obstructive pulmonary disease) (5) Urinary retention (6) Chronic back pain Goals to Promote Your Health * To prevent worsening of your condition and complications * To maintain your health at the optimal level Directions to Meet Your Goals Take your medications as prescribed Follow your dietary instruction Follow activity as directed Keep your appointments as scheduled Take your immunizations and boosters as scheduled If your symptoms worsen call your PCP, if no PCP go to Urgent Care Center or Emergency Room Smoking is Dangerous to Your Health. Avoid second hand smoke Call the 24-hour hour crisis hotline for domestic abuse at Arben Serna MD Mar 16, 2016 11:40
[2016-03-16 12:53] VITALS: BP 136/72; PULSE 86; RESP 20; TEMP 96.4; O2SAT 91
[2016-03-16 17:26] VITALS: BP 101/60; PULSE 110; RESP 20; TEMP 97.6; O2SAT 96
== END 2016-03-16 19:19 | disposition home or self-care (01) | DRG 93 ==
LOC: NEPA 13:42 → NEDA 15:44 → N05A 21:22
PROVIDERS: ADMIT Hospitalist; ATTEND Hospitalist
DX: R29.818 Other symptoms and signs involving the nervous system (principal); K31.84 Gastroparesis; J44.9 Chronic obstructive pulmonary disease, unspecified; G89.29 Other chronic pain; M21.372 Foot drop, left foot; R79.1 Abnormal coagulation profile; F41.9 Anxiety disorder, unspecified; E66.9 Obesity, unspecified; Z99.3 Dependence on wheelchair; M48.06 Spinal stenosis, lumbar region; G47.33 Obstructive sleep apnea (adult) (pediatric); H81.399 Other peripheral vertigo, unspecified ear; J45.909 Unspecified asthma, uncomplicated; K21.9 Gastro-esophageal reflux disease without esophagitis; K58.9 Irritable bowel syndrome, unspecified; M19.90 Unspecified osteoarthritis, unspecified site; Z86.711 Personal history of pulmonary embolism; Z98.1 Arthrodesis status; Z98.84 Bariatric surgery status
CPT/HCPCS: 70450; 70496; 71010; 72125; 72128; 72131; 76937; 80048; 80053; 81001; 82550; 84484; 85025; 85610; 85730; 93005; J2930; Q9967

== ENCOUNTER 2016-04-16 01:18 | Inpatient (IN) | payer MEDICARE, OTHER ==
[~2016-04-16] VITALS: Ht 157.5 cm; Wt 138.9 kg
[2016-04-16] VITALS (7 sets, daily range): BP systolic 103–148; BP diastolic 68–95; PULSE 81–120; RESP 18–25; TEMP 97.9–98.3; O2SAT 92–98
[2016-04-16] MEDS ORDERED: METO25TA3 PO (01:28)
--- NOTE | 2016-04-16 01:39 | PD ---
HPI Chief Complaint: Back/ Neck Pain or Injury Time Seen by Provider: 01:21 Travel History International Travel<30 days: No Contact w/Intl Traveler<30days: No Traveled to known affect area: No History of Present Illness HPI The patient is a 50 year old female who presents to the [facility] emergency department with a history of back pain that she reports became severe and hour and a half prior to arrival. She reports that at the onset she did take her usual dose of morphine and Flexeril. The patient reports that the pain was not improving, therefore ambulance services were called. Ambulance services reported to the patient's nurse on intake that the patient was noted to have a pressure ulcer on her back that the patient was not aware of and that the patient had purulent urine noted and her catheter bag that was empty prior to arrival. The same catheter has been in place for approximately one month. The patient is followed by Dr. Santos for urinary retention that she reports began approximately 4 months ago. 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 She has an implanted pain pump. The patient reports that this pain is different. She reports that the pain is in the low back and present more on the right side. She denies having any known fevers, however the shoe associate reported that her temperature was 99.7 axillary. Related to the patient's prior back surgeries and back pain the patient is not able to weight-bear at all on her legs. She uses an electric wheelchair to get around. The patient lives at home with her family. The patient denies cough, congestion, neck pain, chest pain, shortness of breath, abdominal pain, vomiting, diarrhea, new neurologic symptoms. 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 Hx Anticoagulant Therapy: Yes (warfarin) Anemia: Yes Arthritis: Yes Asthma: No Autoimmune Disease: No Blood Disorders: No Anxiety: Yes Depression: Yes Heart Rhythm Problems: No Cancer: No Cardiac Catheterization: Yes (NORMAL REPORTS ) Cardiovascular Problems: Yes High Cholesterol: No Chest Pain: No Congestive Heart Failure: Yes COPD: Yes Cerebrovascular Accident: No Diabetes: No Diminished Hearing: No Deep Vein Thrombosis: Yes (BILATERAL LOWER EXT) Endocrine: No Gastrointestinal Disorders: Yes (IBS) GERD: Yes Glaucoma: No Genitourinary: Yes (STRESS INCONTINENCE/ URINARY RETENTION ) Hepatitis: No Hiatal Hernia: Yes Hypertension: No Immune Disorder: No Implanted Vascular Access Dvce: Yes Kidney Stones: No Musculoskeletal: Yes Neurologic: No Psychiatric: No Reproductive: No Respiratory: Yes (asthma) Immunizations Current: No Migraines: No Renal Failure: No Seizures: No Sickle Cell Disease: No Sleep Apnea: Yes Thyroid Disease: No Ulcer: No PNEUMOCCOCAL Vaccine (Year): 2 Menopausal: Yes : 2 Para: 2 Past Surgical History Narrative Surgical The patient's past surgical history is significant for multiple past laminectomies, implanted pain pump placement, gastric bypass, cholecystectomy. Abdominal Surgery: Yes (GASTRIC BYPASS 1997, LAP MARIA G) AICD: No Arteriovenous Shunt: No Body Medical Devices: DILAUDID pump implanted in left abd.; HARDWARE IN SPINE Cardiac Surgery: Yes (CARDIAC CATH (NO INTERVENTION)) Cholecystectomy: Yes (IN 1987) Ear Surgery: No Endocrine Surgery: No Eye Surgery: No Genitourinary Surgery: No Gynecologic Surgery: No Insulin Pump: No Joint Replacement: No Neurologic Surgery: No Oral Surgery: No Pacemaker: No Thoracic Surgery: No Other Surgery: Yes (DILAUDID PUMP) Social History Alcohol Use: No Tobacco Use: No Substance Use: No Allergies-Medications (Allergen,Severity, Reaction): Coded Allergies: MRI PRECAUTION (Verified Adverse Reaction, Severe, SPINAL CORD STIMULATOR , 04/16/16) PER DR BOND Reported Meds & Prescriptions Reported Meds & Active Scripts Active Reported Metoprolol Tartrate 25 Mg Tab 25 Mg PO BID Alprazolam 0.5 Mg Tab 0.5 Mg PO Q8H PRN Morphine Sulfate PF Inj (Morphine Sulfate/Sodium Chloride) 0.5 Mg/Ml Syr 7.5 Ml PO Q4HR Flovent Hfa 12 GM Inh (Fluticasone Propionate) 110 Mcg/Act Inh 2 Puff INH BID Proair Hfa 8.5 GM Inh (Albuterol Sulfate) 90 Mcg/Act Aer 2 Puff INH Q4-6H PRN 108 mcg/actuation Omeprazole 20 Mg Tab 20 Mg PO BID Flexeril (Cyclobenzaprine HCl) 10 Mg Tab 10 Mg PO TID PRN Warfarin 4 Mg Tab 8 Mg PO DAILY Gabapentin 800 Mg Tab 800 Mg PO QID PRN Review of Systems Except as stated in HPI: all other systems reviewed are Neg General / Constitutional: No: Fever Eyes: No: Visual changes HENT: No: Headaches Cardiovascular: No: Chest Pain or Discomfort Respiratory: No: Shortness of Breath Gastrointestinal: Positive: Constipation, Other (last bowel movement was 4 days ago), No: Nausea, Vomiting, Diarrhea, Abdominal Pain, Changes in Bowel Habits, Loss of Appetite Genitourinary: Positive: Flank Pain, Other (cloudy urine in her Wilks catheter bag), No: Dysuria Musculoskeletal: Positive: Myalgias, Pain Skin: No Rash Neurologic: No: Weakness Psychiatric: No: Depression Endocrine: No: Polydipsia Hematologic/Lymphatic: No: Easy Bruising Physical Exam Narrative General: The patient is a well-developed well-nourished female in no acute distress patient has a sinus tachycardia noted on the monitor at 119, O2 saturation on room air is 88. Head and Neck exam: Head is normocephalic atraumatic. Eyes: EOMI, pupils are equal round and reactive to light. Nose: Midline septum with pink mucous membranes Mouth: Dentition unremarkable. Moist mucus membranes. Posterior oropharynx is not erythematous. No tonsillar hypertrophy. Uvula midline. Airway patent. Neck: No palpable lymphadenopathy. No nuchal rigidity. No thyromegaly. Cardiovascular: Sinus tachycardia in the low 100 without murmurs, gallops, or rubs. No pulse deficit to the extremities and simultaneous auscultation and palpation of her radial artery. Lungs: Decreased air movement in the bases, no wheezes, rhonchi, or crackles are audible Abdomen: Soft, without tenderness to palpation in all 4 quadrants of the abdomen. No guarding, rebound, or rigidity. Normal bowel sounds are audible. No tenderness on palpation of McBurney's point. Negative Bob's sign. Extremities: No clubbing or cyanosis. The patient has trace to 1+ pedal edema bilateral lower extremities. 2+ pulses in bilateral upper extremities. Back: No spinous process tenderness to palpation. No costovertebral angle tenderness to palpation. The patient was rolled from side to side to fully examine her back. The patient is noted to have an abrasion, superficial on the right buttock, no areas of ulceration or drainage. Skin Exam: No rash noted. Intact skin that is warm and dry. Data Data Last Documented VS Vital Signs Date Time Temp Pulse Resp B/P Pulse Ox O2 Delivery O2 Flow Rate FiO2 04/16/16 01:35 120 25 144/95 96 Orders Complete Blood Count With Diff (04/16/16 01:27) Comprehensive Metabolic Panel (04/16/16 01:27) C-Reactive Protein (Crp) (04/16/16 01:27) Lipase (04/16/16 01:27) Urinalysis - C+S If Indicated (04/16/16 01:27) Chest, Single Ap (04/16/16 01:27) Iv Access Insert/Monitor (04/16/16 01:27) Ecg Monitoring (04/16/16 01:27) Oximetry (04/16/16 01:27) Lactic Acid Sepsis Protocol (04/16/16 01:56) Blood Culture (04/16/16 01:56) Urinary Catheter Insert/Apply (04/16/16 02:29) Sodium Chlorid 0.9% 500 Ml Inj (Ns 500 M (04/16/16 02:30) Morphine Inj (Morphine Inj) (04/16/16 02:30) Ondansetron Inj (Zofran Inj) (04/16/16 02:30) Ct Abd/Pel W/O Iv Contrast (04/16/16 03:58) Cefepime Inj (Maxipime Inj) (04/16/16 03:59) Admit Order (Ed Use Only) (04/16/16 04:09) Labs Laboratory Tests Test 04/16/16 04/16/16 04/16/16 02:20 02:45 03:30 White Blood Count 18.5 TH/MM3 Red Blood Count 4.12 MIL/MM3 Hemoglobin 11.2 GM/DL Hematocrit 34.1 % Mean Corpuscular Volume 82.7 FL Mean Corpuscular Hemoglobin 27.2 PG Mean Corpuscular Hemoglobin 32.9 % Concent Red Cell Distribution Width 14.6 % Platelet Count 330 TH/MM3 Mean Platelet Volume 7.9 FL Neutrophils (%) (Auto) 88.9 % Lymphocytes (%) (Auto) 3.8 % Monocytes (%) (Auto) 6.8 % Eosinophils (%) (Auto) 0.1 % Basophils (%) (Auto) 0.4 % Neutrophils # (Auto) 16.4 TH/MM3 Lymphocytes # (Auto) 0.7 TH/MM3 Monocytes # (Auto) 1.3 TH/MM3 Eosinophils # (Auto) 0.0 TH/MM3 Basophils # (Auto) 0.1 TH/MM3 CBC Comment DIFF FINAL Differential Comment Sodium Level 140 MEQ/L Potassium Level 3.4 MEQ/L Chloride Level 100 MEQ/L Carbon Dioxide Level 32.2 MEQ/L Anion Gap 8 MEQ/L Blood Urea Nitrogen 25 MG/DL Creatinine 1.47 MG/DL Random Glucose 159 MG/DL Calcium Level 8.6 MG/DL Total Bilirubin 0.7 MG/DL Aspartate Amino Transf 13 U/L (AST/SGOT) Alanine Aminotransferase 8 U/L (ALT/SGPT) Alkaline Phosphatase 111 U/L C-Reactive Protein 21.40 MG/DL Total Protein 8.4 GM/DL Albumin 2.3 GM/DL Lipase 47 U/L Lactic Acid Level 1.2 mmol/L Urine Color LIGHT-BROWN Urine Turbidity CLOUDY Urine pH 8.5 Urine Specific [place] 1.035 Urine Protein 300 mg/dL Urine Glucose (UA) 150 mg/dL Urine Ketones NEG mg/dL Urine Occult Blood LARGE Urine Nitrite NEG Urine Bilirubin NEGATIVE Urine Urobilinogen LESS THAN 2.0 MG/DL Urine Leukocyte Esterase SMALL Urine RBC /hpf Urine WBC 155 /hpf Urine WBC Clumps FEW Urine Squamous Epithelial 5 /hpf Cells Urine Bacteria FEW /hpf Urine Mucus FEW /lpf Microscopic Urinalysis Comment CULTURE INDICATED MDM Medical Decision Making Medical Screen Exam Complete: Yes Emergency Medical Condition: Yes Medical Record Reviewed: Yes Interpretation(s) Last Impressions Abdomen/Pelvis CT 04/16/16 0358 Signed Impressions: Service Date/Time: Saturday, April 16, 2016 04:53 - CONCLUSION: 1. No evidence of acute abdominal or pelvic process. No masses are identified. 2. Constipation 3. Right lower lobe atelectasis versus pneumonia. Fernando Hook MD Chest X-Ray 04/16/16 0127 Signed Impressions: Service Date/Time: Saturday, April 16, 2016 01:43 - CONCLUSION: 1. Cardiomegaly. Subsegmental atelectasis right base. Fernando Hook MD Differential Diagnosis Exacerbation of chronic back pain, versus pyelonephritis, versus kidney stone, versus sepsis Narrative Course During the course of the patients emergency department visit, the patients history, examination, and differential diagnosis were reviewed with the patient. The patient had IV access obtained and blood work sent for analysis. The patient was placed on a environmental monitoring specialist with oximetry and blood pressure monitoring. The patient was provided morphine for pain, Zofran for nausea. Normal saline 500 mL bolus 1. The patient was started on cefepime 2 g IV after white count was noted to be elevated and the patient met sepsis criteria. A 30 mL per KG IV fluid bolus was ordered. The patients laboratory studies were reviewed and remarkable for a white count of 18.5, hemoglobin 11.2, platelets 3:30 with 88.9 neutrophils, CMP is remarkable for potassium of 3.4, CO2 32.2, BUN 25, creatinine 1.47, glucose 159 , AST 13, ALT 8, C-reactive protein 21.4, lipase 47, lactic acid 1.2, urinalysis shows small leukocyte esterase innumerable rbc's wbc's 1 55 units clumps noted to bacteria, culture indicated. Radiology studies were reviewed and remarkable for a chest x-ray that shows cardiomegaly, subsegmental atelectasis at the right base, CT scan of the abdomen and pelvis shows no evidence of acute abdominal or pelvic process, no masses are identified, constipation is noted, right lower lobe atelectasis versus pneumonia noted. The patients results were discussed with the patient, including the plan of care. I explained that further testing and/ or monitoring is indicated based on the patients history, examination, and/ or laboratory findings. Therefore, I recommended admission for additional evaluation. The patient expressed understanding and was agreeable with this plan. The patient was admitted to the hospital in stable condition and sent to a bed under the care of the [facility]. Sepsis Criteria SIRS Criteria (2 or more): Heart rate over 90, RR > 20 or PaCO2 < 32, WBC > 49101, < 4000 or > 10% bands Sepsis Criteria (SIRS+source): Infect source susp/known Criteria Outcome: Meets SIRS criteria, Meets sepsis criteria Physician Communication Physician Communication the patient's case was discussed with Dr. Clement who did agree to admit the patient to Dr. Knight service. Diagnosis Primary Impression: Sepsis Qualified Code: A41.9 - Sepsis, due to unspecified organism Additional Impression: Urinary tract infection Qualified Code: T83.511A - Urinary tract infection associated with indwelling urethral catheter, initial encounter Admitting Information Admitting Physician Requests: Admit Olya Iniguez MD Apr 16, 2016 01:39
--- NOTE | 2016-04-16 02:16 | RADRPT ---
EXAM DATE/TIME: 04/16/2016 01:43 [facility] COMPARISON: CT THORACIC SPINE W/O CONTRAST, March 13, 2016, 23:56. CHEST SINGLE AP, [facility] 2016, 14:11. INDICATIONS : Patient has been constipated for four days. She states pain in back and chest start ing yesterday, 04/15. MEDICAL HISTORY : Deep venous thrombosis. Gastroesophageal reflux disease. Hernia, SURGICAL HISTORY : Cholecystectomy. cardiac cath, gastric bypass, spinal fusion/rods, pain pum p ENCOUNTER: Initial ACUITY: 1 day PAIN SCORE: 8/10 LOCATION: Bilateral Back and Chest. FINDINGS: The cardiac silhouette is enlarged in transverse diameter. There is elevation of the right hemidiaphr agm. There has been no significant change when compared to the prior exam. There is subsegmental atel ectasis in the right base.No effusions are identified. CONCLUSION: 1. Cardiomegaly. Subsegmental atelectasis right base. Fernando Hook MD on April 16, 2016 at 2:13 Board Certified Radiologist. This report was verified electronically.
[2016-04-16] MEDS ORDERED: MORPHINE SULFATE 4 MG/ML INJ IV PUSH ONE (02:30)
[2016-04-16] MEDS ORDERED: SODIUM CHLORID 0.9% 500 ML INJ 500 ML IV ONE (02:30)
[2016-04-16] MEDS ORDERED: ONDANSETRON HCL 4 MG/2 ML VIAL IV PUSH ONE (02:30)
[2016-04-16 02:38] LABS: AUTOMATED NEUTROPHIL # 16.4 TH/MM3 (1.8-7.7); BASOPHIL # 0.1 TH/MM3 (0-0.2); BASOPHIL % 0.4 % (0.0-2.0); EOSINOPHIL % 0.1 % (0.0-4.0); HEMATOCRIT 34.1 % (35.0-46.0); HEMO FLAGS DIFF FINAL; LYMPH % 3.8 % (9.0-44.0); LYMPHOCYTE # 0.7 TH/MM3 (1.0-4.8); MEAN CELL VOLUME 82.7 FL (80.0-100.0); MEAN CORPUSCULAR HEMOGLOBIN 27.2 PG (27.0-34.0); MEAN CORPUSCULAR HGB CONC 32.9 % (32.0-36.0); MONO % 6.8 % (0.0-8.0); NEUT % 88.9 % (16.0-70.0); PLATELET COUNT 330 TH/MM3 (150-450); RED BLOOD COUNT 4.12 MIL/MM3 (4.00-5.30); RED CELL DISTRIBUTION WIDTH 14.6 % (11.6-17.2); WHITE BLOOD COUNT 18.5 TH/MM3 (4.0-11.0)
[2016-04-16 03:06] LABS: ALT (GPT) 8 U/L (10-53); ANION GAP 8 MEQ/L (5-15); AST (GOT) 13 U/L (15-37); BICARBONATE 32.2 MEQ/L (21.0-32.0); BLOOD UREA NITROGEN 25 MG/DL (7-18); CHLORIDE 100 MEQ/L (98-107); POTASSIUM 3.4 MEQ/L (3.5-5.1); SODIUM (NA) 140 MEQ/L (136-145)
[2016-04-16 03:13] LABS: ALKALINE PHOSPHATASE 111 U/L (45-117); TOTAL BILIRUBIN ADULT 0.7 MG/DL (0.2-1.0)
[2016-04-16] MEDS ORDERED: CEFEPIME INJ 2,000 MG in SODIUM CHLORIDE 0.9% INJ 100 ML IV STA (03:59)
[2016-04-16 04:10] LABS: BACTERIA, URINE FEW /hpf; MUCUS URINE FEW /lpf (OCC); SQUAMOUS EPITHELIAL CELL URINE 5 /hpf (0-5)
[2016-04-16] MEDS ORDERED: SODIUM CHLOR 0.9% 1000 ML INJ 900 ML IV ONE (04:12)
[2016-04-16] MEDS ORDERED: SODIUM CHLOR 0.9% 1000 ML INJ 1,000 ML IV ONE ×3 (04:12)
[2016-04-16 04:13] LABS: BLOOD, URINE LARGE (NEG); GLUCOSE,URINE 150 mg/dL (NEG); KETONE, URINE NEG (NEG); NITRITE,URINE NEG (NEG); PH, URINE 8.5 (5.0-8.5); URINE COLOR LIGHT-BROWN (YELLW/STRAW)
[2016-04-16 04:14] LABS: COMMENT (UR) CULTURE INDICATED; CULTURE IF INDICATED CULTURE INDICATED
[2016-04-16] MEDS ORDERED: SODIUM CHLOR 0.9% 1000 ML INJ 1,000 ML IV SCH (04:30)
[2016-04-16] MEDS ORDERED: MORPHINE SULFATE 4 MG/ML INJ IV PRN ×2 (04:30)
[2016-04-16] MEDS ORDERED: NALOXONE HCL 0.4 MG/ML AMP IV PRN (04:30)
--- NOTE | 2016-04-16 05:19 | RADRPT ---
EXAM DATE/TIME: 04/16/2016 04:53 [facility] COMPARISON: CT ABDOMEN & PELVIS W/O CONTRAST, June 01, 2011, 22:07. INDICATIONS : Back pain, evaluate for renal stone. ORAL CONTRAST: No oral contrast ingested. RADIATION DOSE: 32.19 CTDIvol (mGy) MEDICAL HISTORY : Cardiovascular disease. Deep venous thrombosis. Hernia, hiatal.GERD SURGICAL HISTORY : Fusion, lumbar. Gastric bypass. Cholecystectomy. ENCOUNTER: Initial ACUITY: 1 day PAIN SCALE: 10/10 LOCATION: Back TECHNIQUE: Volumetric scanning of the abdomen and pelvis was performed. Using automated exposure control and ad justment of the mA and/or kV according to patient size, radiation dose was kept as low as reasonably achievable to obtain optimal diagnostic quality images. FINDINGS: There is right lower lobe atelectasis versus pneumonia. The left lung is free of acute parenchymal op acity. Moderate scoliotic deformity is present to the left with a rotatory component with the apex at L2-L3 intrathecal pain pump is present with the reservoir in the left lower quadrant. The liver and spleen are normal in size and no focal defects are identified. There is elevation of th e right hemidiaphragm. The gallbladder is absent. The pancreas demonstrates normal contour without ev idence of mass or ductal dilatation. The adrenal glands and kidneys appear normal bilaterally. No hyd ronephrosis or mass lesions are identified. Examination of the pelvis demonstrates no evidence of free fluid or pelvic mass. No abnormally enlarg ed inguinal or retroperitoneal lymph nodes are present. A Wilks catheter is present within the bladde r which does not allow for evaluation. There is a large amount of fecal material throughout the colon consistent with constipation. CONCLUSION: 1. No evidence of acute abdominal or pelvic process. No masses are identified. 2. Constipation 3. Right lower lobe atelectasis versus pneumonia. Fernando Hook MD on April 16, 2016 at 5:12 Board Certified Radiologist. This report was verified electronically.
[2016-04-16] MEDS ORDERED: POTASSIUM CHLORIDE 20 MEQ CONTROLLED RELEASE TAB PO ONE (06:15)
[2016-04-16] MEDS ORDERED: ALPRAZolam 0.5 MG TAB PO PRN (06:15)
[2016-04-16] MEDS ORDERED: RESP: ALBUTEROL 2.5 MG/3 ML NEB (PRN) NEB (06:45)
[2016-04-16] MEDS: SODIUM CHLOR 0.9% 1000 ML INJ 1,000 ML IV SCH ×3 (08:58→23:40)
[2016-04-16] MEDS: GABAPENTIN 400 MG CAP PO SCH ×2 (08:58→20:53)
[2016-04-16] MEDS: METOPROLOL TARTRATE 25 MG TAB PO SCH ×2 (08:58→20:53)
[2016-04-16] MEDS: PANTOPRAZOLE SOD 20 MG DELAYED RELEASE TAB PO SCH ×2 (08:59→20:53)
--- NOTE | 2016-04-16 10:12 | MH ---
cc: CAROLANN VASQUEZ M.D. DATE OF ADMISSION: 04/16/2016 DATE OF : 1965 ADMISSION DIAGNOSIS 1. Possible sepsis. 2. Possible left pyelonephritis. 3. Urinary tract infection. 4. Leukocytosis. 5. COPD/asthma. 6. Morbid obesity. 7. Gastroesophageal reflux disease/hiatal hernia. 8. Chronic low back pain with failed back syndrome and prior lumbar surgery on more than one occasion. 9. History of borderline sleep apnea. 10.Irritable bowel syndrome. 11.Osteoarthritis. 12.History of chronic DVT and history of pulmonary embolism on chronic warfarin therapy. PERTINENT HISTORY This is a 50-year-old black female with chronic low back pain who has a pain pump that she gets Dilaudid through. She started with worsening left lower back pain in the left CVA area yesterday that became much more severe. She had no nausea or vomiting. No abdominal pain. She has a chronic indwelling catheter for about four to five months due to inability to urinate. She sees Dr. Santos. She is overdue on changing her catheter, been over a month since it was changed out. She had no obvious fever. Her temperature was 99.7 axillary when the ambulance picked her up. In the ED she had tachycardia of 120. Pulse ox was good at 96%. Her white count was elevated at 18.5. There was concern that she had sepsis syndrome and possible urosepsis and was admitted. For this reason she was given cefepime in the ED. She has no pulmonary symptoms, no diarrhea, no chest pain. PAST MEDICAL HISTORY 1. COPD/asthma; she states from secondhand smoke. 2. 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 3. Questionable diagnosis of sleep apnea. She states she was never told she needed CPAP. 4. Gastroesophageal reflux disease/hiatal hernia. 5. Anxiety. 6. Gastritis on a prior EGD in 2009. 7. Chronic back problems with left foot drop and weakness in both lower extremities, pretty much to the point that she is not ambulatory and uses an electric wheelchair. 8. Chronic pain, on a chronic pain pump with Dilaudid that she sees . 9. Arthritis. She has never been treated for hypertension, diabetes or thyroid disease. No cancer. No liver or kidney disease. No peptic ulcer disease. She denies any colon disease but states she has had a colonoscopy. Denies any polyps. Denies having had a stroke. No seizures. PAST SURGICAL HISTORY 1. Gastric bypass in the . 2. Cardiac cath 05/19/2008 that showed widely patent coronary arteries. 3. Colonoscopy around 2 years ago. 4. Open cholecystectomy. 5. At least 3-4 lumbar surgeries, the last one around 2012 according to the patient. 6. Placement of a Dilaudid pump for several years. ALLERGIES None. MEDICATIONS 1. Metoprolol 25 mg twice a day. 2. Albuterol nebulizer solution at home that she uses maybe once a day. 3. Albuterol inhaler that she uses 1-2 times a day. 4. Flovent HFA inhaler 110 mcg, two puffs twice a day. 5. Omeprazole 20 mg twice a day. 6. Flexeril 10 mg, 2-3 times a day for back spasm. 7. Gabapentin 800 mg four times a day. 8. Warfarin, total dose of 6 mg a day, takes a 4 mg tablet daily and two 1 mg tablets daily. She was on bumetanide in the past but has been off of that. She was on terazosin in the past but was stopped by the counter tacker, Dr. Clemons, who she had seen recently. FAMILY HISTORY Her mother is living at 75, has diabetes and hypothyroidism. Father at 87 with complications of diabetes. SOCIAL HISTORY She has never smoked, does not use alcohol, is on Disability. She has had two children. REVIEW OF SYSTEMS GENERAL: She is not aware of any fever, chills or sweats. HEENT: Denies any sore throat or runny nose. No visual complaints. CARDIOVASCULAR: No chest pain or palpitations. PULMONARY: Denies any cough or wheezing. GI: She recently had some constipation and took some magnesium citrate. Her last bowel movement was yesterday. No vomiting. No heartburn. No melena or rectal bleeding. : She has a catheter in place that apparently was showing foul-looking urine. EXTREMITIES: Denies any edema. She has weakness in her legs. NEUROLOGIC: No headache or new complaints. PHYSICAL EXAMINATION GENERAL: A morbidly obese female in no acute distress. VITAL SIGNS: Her vital signs done earlier, pulses 120, respiration 25, blood pressure 144/95. O2 sat was 96%. HEENT: TMs clear. Pupils equal. Sclera non-icteric. Nose negative. Mouth without inflammation or lesion. NECK: Without JVD. Has a transmitted murmur heard in the left carotid. HEART: Regular rate and rhythm with a grade 1-2/6 systolic murmur at the left upper sternal border. LUNGS: Clear. ABDOMEN: Soft. No significant tenderness. BACK: She has some tenderness that is mild to moderate in the left CVA region. EXTREMITIES: No edema. Pulses palpated. SKIN: Without rash. NEUROLOGIC: No weakness in the upper extremities. She has some weakness in the lower extremities and decreased sensation in the lower extremities. LABORATORY White count 18.5, hemoglobin 11.2, hematocrit 34.1; 88.9% neutrophils, 3.8% lymphocytes. Urinalysis: 155 wbc's, few bacteria, few clumps. Sodium 140, potassium 3.4, chloride 100, CO2 32.2, BUN 25, creatinine 1.47, glucose 159. C-reactive protein was elevated. Total protein 8.4, albumin 2.3, lipase 47, lactic acid 1.2, calcium 8.6, bilirubin 0.7, AST and ALT normal. IMAGING A CT scan of the abdomen showed no evidence of acute abdominal or pelvic process. There was noted to be some right lower lobe atelectasis versus pneumonia. Her chest x-ray showed just some subsegmental atelectasis of the right base and some cardiomegaly. ASSESSMENT As noted. PLAN 1. She has been admitted and put on cefepime IV for possible urosepsis. Blood cultures have been done. Urine culture has been sent as well. 2. She will be maintained on her home meds. Her warfarin will serve as her DVT prophylaxis. 3. Will check a PT/INR. 4. She will be continued on her pain medication. She does use morphine orally as needed as well; she did not know the milligrams. 5. She will be maintained on her inhalers for her COPD/asthma. I Will put her on an albuterol nebulizer solution q.6h. as needed. Dr. Miguel Knight will be seeing her later today. MD KOMAL Cooney/DESMOND /5:54 AM /9:39 AM
[2016-04-16] MEDS: FLUTICASONE PROPIONATE 110 MCG/ACT 12 GM INHALER INH SCH ×2 (10:25→23:40)
[2016-04-16 12:28] LABS: INTERNATIONAL NORMALIZED RATIO 1.3 RATIO
--- NOTE | 2016-04-16 13:09 | EC ---
Study Study Date:04/16/2016 STUDY CONCLUSIONS SUMMARY - Procedure narrative: Transthoracic echocardiography. Image quality was fair. Scanning was performed from the parasternal, apical, and subcostal acoustic windows. - Left ventricle: The cavity size was normal. Wall thickness was normal. Systolic function was normal. The estimated ejection fraction was in the range of 60% to 65%. Although no diagnostic regional wall motion abnormality was identified, this possibility cannot be completely excluded on the basis of this study. - Right ventricle: Apical and subcostal views inadequate, cannot rule out right ventricular enlargement. If LV function is below 40, please consider prescribing an ACEI or ARB or document rationale for non-use. PROCEDURE DATA STUDY STATUS: Elective. Procedure: Transthoracic echocardiography. Image quality was fair. Scanning was performed from the parasternal, apical, and subcostal acoustic windows. Study completion: The patient tolerated the procedure well. Transthoracic echocardiography. M-mode, complete 2D, complete spectral Doppler, and color Doppler. Height: Height: 62in. Weight: Weight: 286.4lb. Body mass index: BMI: 52.5kg/m^2. Body surface area: BSA: 2.23m^2. Patient status: Inpatient. CARDIAC ANATOMY LEFT VENTRICLE: The cavity size was normal. Wall thickness was normal. Systolic function was normal. The estimated ejection fraction was in the range of 60% to 65%. Although no diagnostic regional wall motion abnormality was identified, this possibility cannot be completely excluded on the basis of this study. AORTIC VALVE: Trileaflet; normal thickness leaflets. Doppler: Transvalvular velocity was within the normal range. There was no stenosis. No regurgitation. Valve area: 2.5cm^2(VTI). Indexed valve area: 1.12cm^2/m^2 (VTI). Valve area: 2.32cm^2 (Vmax). Indexed valve area: 1.04cm^2/m^2 (Vmax). Mean gradient: 2mm Hg (S). AORTA: Aortic root: The aortic root was normal in size. MITRAL VALVE: Structurally normal valve. Doppler: Transvalvular velocity was within the normal range. There was no evidence for stenosis. No regurgitation. Peak gradient: 2mm Hg (D). LEFT ATRIUM: The atrium was normal in size. RIGHT VENTRICLE: Apical and subcostal views inadequate, cannot rule out right ventricular enlargement. PULMONIC VALVE: Doppler: Transvalvular velocity was within the normal range. There was no evidence for stenosis. No regurgitation. TRICUSPID VALVE: Structurally normal valve. Doppler: Transvalvular velocity was within the normal range. No regurgitation. PULMONARY ARTERY: The main pulmonary artery was normal-sized. Systolic pressure was within the normal range. RIGHT ATRIUM: The atrium was normal in size. PERICARDIUM: There was no pericardial effusion. SYSTEMIC VEINS: Inferior vena cava: The vessel was normal in size. Patient weight: 286.4lb _Ejection fraction:_ 65-75% _Fractional shortening:_ 32% up to 5Kg 5-11.5Kg 11.6-22.9Kg 23-45Kg 45-57Kg Aortic Root 7-13 <17 13-22 17-27 17-27 LA diam 6-13 <23 24-38 33-47 37-40 RVID 10-17 7-15 7-15 7-18 8-17 LVIDd 12-22 <32 24-38 33-47 37-40 LVPW 2-4 3-6 5-7 6-8 7-8 IVS 2-4 3-6 5-7 6-8 7-8 BASIC MEASUREMENTS ADULT NORMAL Left ventricle LV internal dimension, ED, chordal 46 mm 43-52 level, PLAX LV internal dimension, ES, chordal 28.7 mm 23-38 level, PLAX Fractional shortening, chordal level, 38 % >29 PLAX LV posterior wall thickness, ED 9.78 mm IVS/LVPW ratio, ED 0.99 <1.3 Ventricular septum Septal thickness, ED 9.72 mm Aortic valve Leaflet separation 17 mm 15-26 Aorta Root diameter, ED 33 mm Left atrium Anterior-posterior dimension 35 mm Anterior-posterior dimension index 1.57 cm/m^2 <2.2 BASIC MEASUREMENTS ADULT NORMAL Aortic valve Leaflet separation 17 mm 15-26 DOPPLER MEASUREMENTS ADULT NORMAL Aortic valve Peak velocity, S 96.5 cm/s Mean velocity, S 70.1 cm/s VTI, S 14.7 cm Mean gradient, S 2 mm Hg Valve area, VTI 2.5 cm^2 Valve area index, VTI 1.12 cm^2/m^2 Valve area, Vmax 2.32 cm^2 Valve area index, Vmax 1.04 cm^2/m^2 Mitral valve Peak E-wave velocity 72.1 cm/s Peak A-wave velocity 57.3 cm/s Peak gradient, D 2 mm Hg Peak E/A ratio 1.3 Pulmonic valve Peak velocity, S 79 cm/s LEGEND: Mean values are shown as u=mean value. Asterisk (*) mcdonald values outside specified normal range. Prepared and signed by Tevin Prince [id number]
[2016-04-16] MEDS: WARFARIN SOD 6 MG TAB PO SCH (18:07)
[2016-04-16] MEDS: CEFEPIME INJ 2,000 MG in SODIUM CHLORIDE 0.9% INJ 100 ML IV SCH (18:09)
[2016-04-16] MEDS: CYCLOBENZAPRINE HCL 10 MG TAB PO PRN (21:05)
[2016-04-17 05:32] VITALS: BP 106/57; PULSE 82; RESP 18; TEMP 98.1; O2SAT 94
[2016-04-17] MEDS: SODIUM CHLOR 0.9% 1000 ML INJ 1,000 ML IV SCH ×3 (06:15→21:35)
[2016-04-17] MEDS: CEFEPIME INJ 2,000 MG in SODIUM CHLORIDE 0.9% INJ 100 ML IV SCH ×2 (06:16→18:36)
[2016-04-17 06:49] LABS: AUTOMATED NEUTROPHIL # 9.8 TH/MM3 (1.8-7.7); BASOPHIL # 0.1 TH/MM3 (0-0.2); BASOPHIL % 0.4 % (0.0-2.0); EOSINOPHIL # 0.2 TH/MM3 (0-0.4); EOSINOPHIL % 1.6 % (0.0-4.0); HEMATOCRIT 29.6 % (35.0-46.0); HEMO FLAGS DIFF FINAL; LYMPH % 12.7 % (9.0-44.0); LYMPHOCYTE # 1.6 TH/MM3 (1.0-4.8); MEAN CELL VOLUME 84.6 FL (80.0-100.0); MEAN CORPUSCULAR HEMOGLOBIN 26.3 PG (27.0-34.0); MEAN CORPUSCULAR HGB CONC 31.1 % (32.0-36.0); MONO % 8.2 % (0.0-8.0); NEUT % 77.1 % (16.0-70.0); PLATELET COUNT 269 TH/MM3 (150-450); RED CELL DISTRIBUTION WIDTH 15.2 % (11.6-17.2); WHITE BLOOD COUNT 12.7 TH/MM3 (4.0-11.0)
[2016-04-17 07:00] LABS: BICARBONATE 29.7 MEQ/L (21.0-32.0); POTASSIUM 3.6 MEQ/L (3.5-5.1)
[2016-04-17 08:00] VITALS: BP 100/57; PULSE 82; RESP 20; TEMP 98.2; O2SAT 95
[2016-04-17] MEDS: METOPROLOL TARTRATE 25 MG TAB PO SCH ×2 (09:57→21:35)
[2016-04-17] MEDS: PANTOPRAZOLE SOD 20 MG DELAYED RELEASE TAB PO SCH ×2 (09:57→21:35)
[2016-04-17] MEDS: GABAPENTIN 400 MG CAP PO SCH ×2 (09:57→21:35)
[2016-04-17] MEDS: FLUTICASONE PROPIONATE 110 MCG/ACT 12 GM INHALER INH SCH ×2 (09:58→21:36)
[2016-04-17 12:00] VITALS: BP_SYST 102; BP_SYST 126; BP_DIAS 49; BP_DIAS 68; PULSE 75; PULSE 86; RESP 20; TEMP 97.5; TEMP 97.9; O2SAT 95; O2SAT 96
[2016-04-17] MEDS: CYCLOBENZAPRINE HCL 10 MG TAB PO PRN ×2 (14:04→21:35)
[2016-04-17 16:00] VITALS: BP 113/66; PULSE 82; RESP 20; TEMP 98.3; O2SAT 97
[2016-04-17] MEDS ORDERED: MORPHINE SULFATE 4 MG/ML INJ IV PRN (16:30)
--- NOTE | 2016-04-17 17:14 | HHI.PR ---
Subjective Remarks No fever or chills. Pt is tolerating PO intake. Objective Vitals Vital Signs Date Time Temp Pulse Resp B/P Pulse Ox O2 Delivery O2 Flow Rate FiO2 04/17/16 12:00 97.5 86 20 126/68 95 04/17/16 12:00 97.9 75 20 102/49 96 04/17/16 08:00 98.2 82 20 100/57 95 04/17/16 05:32 98.1 82 18 106/57 94 04/17/16 05:32 Room Air 04/16/16 23:49 Room Air 04/16/16 23:49 97.9 81 18 108/68 94 04/16/16 19:42 Room Air 04/16/16 19:42 98.3 87 18 103/72 92 04/16/16 18:09 92 18 148/72 98 Nasal Cannula 2 04/16/16 04/16/16 04/17/16 15:00 23:00 07:00 Intake Total 240 ml 480 ml Output Total 750 ml 300 ml Balance -510 ml 180 ml Intake Oral 240 ml 480 ml Output Urine Total 750 ml 300 ml # Bowel Movements 0 0 Result Diagram: 04/17/16 0608 04/17/16 0608 Imaging Last Impressions Abdomen/Pelvis CT 04/16/16 0358 Signed Impressions: Service Date/Time: Saturday, April 16, 2016 04:53 - CONCLUSION: 1. No evidence of acute abdominal or pelvic process. No masses are identified. 2. Constipation 3. Right lower lobe atelectasis versus pneumonia. Fernando Hook MD Chest X-Ray 04/16/16 0127 Signed Impressions: Service Date/Time: Saturday, April 16, 2016 01:43 - CONCLUSION: 1. Cardiomegaly. Subsegmental atelectasis right base. Fernando Hook MD Objective Remarks GENERAL: This is a well-nourished, well-developed patient, in no apparent distress. CARDIOVASCULAR: Regular rate and rhythm without murmurs, gallops, or rubs. RESPIRATORY: Clear to auscultation. Breath sounds equal bilaterally. No wheezes , rales, or rhonchi. GASTROINTESTINAL: Abdomen soft, non-tender, nondistended. Normal active bowel sounds MUSCULOSKELETAL: Extremities without clubbing, cyanosis, or edema. NEURO: Alert & Oriented x4 to person, place, time, situation. Moves all ext x4 A/P Problem List: (1) Bacteremia Status: Acute Plan: - Pt has chronic indwelling catheter x 5months d/t inability to urinate - Pt follows with Dr. Santos - Pt was overdue on changing her catheter - Pt also with h/o dilaudid pain pump - Cefepime (started 04/16/16) - Blood Cx Aerobic (04/16/16) --> gram positive cocci, staph epidermis - Blood Cx anaerobic (04/16/16) --> gram positive cocci x 2 bottles - Urine Cx (04/16/16) --> Group D enterococcus - request ID consult (2) Urinary tract infection Status: Acute Plan: - see above (3) COPD (chronic obstructive pulmonary disease) Status: Chronic Plan: - flovent - albuterol Neb prn Problem Qualifiers (1) Urinary tract infection: Qualified Code: T83.511A - Urinary tract infection associated with indwelling urethral catheter, initial encounter Conner Knight DO Apr 17, 2016 17:14
[2016-04-17] MEDS ORDERED: ACETAMINOPHEN/HYDROcodone 325 MG/5 MG TAB PO ONE (17:30)
[2016-04-17] MEDS: WARFARIN SOD 6 MG TAB PO SCH (18:33)
[2016-04-17 20:00] VITALS: BP 115/78; PULSE 74; RESP 20; TEMP 98.1; O2SAT 95
[2016-04-18] VITALS (8 sets, daily range): BP systolic 95–115; BP diastolic 54–66; PULSE 67–83; RESP 18–20; TEMP 97–98.1; O2SAT 94–97
[2016-04-18] MEDS: SODIUM CHLOR 0.9% 1000 ML INJ 1,000 ML IV SCH ×3 (04:09→21:43)
[2016-04-18] MEDS: CEFEPIME INJ 2,000 MG in SODIUM CHLORIDE 0.9% INJ 100 ML IV SCH (04:09)
[2016-04-18 08:45] LABS: AUTOMATED NEUTROPHIL # 5.6 TH/MM3 (1.8-7.7); BASOPHIL % 0.5 % (0.0-2.0); EOSINOPHIL # 0.2 TH/MM3 (0-0.4); EOSINOPHIL % 2.1 % (0.0-4.0); HEMATOCRIT 26.8 % (35.0-46.0); HEMO FLAGS DIFF FINAL; LYMPH % 17.5 % (9.0-44.0); LYMPHOCYTE # 1.4 TH/MM3 (1.0-4.8); MEAN CORPUSCULAR HGB CONC 32.2 % (32.0-36.0); MONO % 8.2 % (0.0-8.0); NEUT % 71.7 % (16.0-70.0); PLATELET COUNT 254 TH/MM3 (150-450); RED BLOOD COUNT 3.19 MIL/MM3 (4.00-5.30); RED CELL DISTRIBUTION WIDTH 14.7 % (11.6-17.2); WHITE BLOOD COUNT 7.8 TH/MM3 (4.0-11.0)
[2016-04-18] MEDS: GABAPENTIN 400 MG CAP PO SCH ×2 (09:17→21:37)
[2016-04-18] MEDS: FLUTICASONE PROPIONATE 110 MCG/ACT 12 GM INHALER INH SCH ×2 (09:17→21:43)
[2016-04-18] MEDS: PANTOPRAZOLE SOD 20 MG DELAYED RELEASE TAB PO SCH ×2 (09:17→21:37)
[2016-04-18] MEDS: METOPROLOL TARTRATE 25 MG TAB PO SCH (09:17)
[2016-04-18 09:20] LABS: BICARBONATE 26.3 MEQ/L (21.0-32.0)
[2016-04-18 09:21] LABS: POTASSIUM 3.4 MEQ/L (3.5-5.1)
--- NOTE | 2016-04-18 14:39 | PD.CONS ---
History of Present Illness Service Infectious disease Consult Requested By Dr. Ester Knight Reason for Consult Evaluate patient with positive blood culture Primary Care Physician Junior Magdaleno Diagnoses: History of Present Illness Patient seen and examined. Records reviewed. Patient is a 50-year-old female presented to the hospital complaining of pain on the left side of her abdomen and goes to the left flank. It progressively worsened so she presented to the hospital for further evaluation and treatment. She denies any nausea or vomiting. Patient has a chronic Wilks catheter in place in the last 4 months due to inability to urinate. She follows with a urologist, and has not really been tried on a voiding trial. Highest temperature has been 99.7 in the emergency room. Her Wilks catheter gets change once a month but it has been overdue for change. When she came in it was change. Her urinalysis showed evidence of UTI. She had some leukocytosis. She has not had any fever since admission. 2 blood cultures done on admission is growing coag negative staph, final ID is still pending. Urine culture is growing enterococcus. CT of the abdomen and pelvis did not show any intra-abdominal process for infection. She denies any respiratory complaint. Patient has a pain pump on the left side which was last changed in 2012. She has not really had any problem with it. The last time it was filled was in January 2016. Patient states that the pain she had on admission has resolved. Infectious disease consultation is requested to evaluate the patient. Review of Systems Constitutional: DENIES: Fever, Chills Eyes: DENIES: Eye pain Ears, nose, mouth, throat: DENIES: Nasal discharge, Oral lesions, Throat pain, Ear Pain, Sinus Pain, Toothache Respiratory: DENIES: Cough, Shortness of breath Cardiovascular: DENIES: Chest pain, Palpitations Gastrointestinal: DENIES: Abdominal pain, Diarrhea, Nausea, Vomiting, Difficulty Swallowing Genitourinary: DENIES: Hematuria Musculoskeletal: COMPLAINS OF: Joint pain, Back pain Integumentary: DENIES: Rash Neurologic: COMPLAINS OF: Localized weakness, DENIES: Headache Psychiatric: DENIES: Hallucinations Past Family Social History Allergies: Coded Allergies: MRI PRECAUTION (Verified Adverse Reaction, Severe, SPINAL CORD STIMULATOR , 04/16/16) PER DR BOND Past Medical History COPD/asthma 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 Questionable diagnosis of sleep apnea. She states she was never told she needed CPAP. Gastroesophageal reflux disease/hiatal hernia. Anxiety. Gastritis on a prior EGD in 2009. Chronic back problems with left foot drop and weakness in both lower extremities , pretty much to the point that she is not ambulatory and uses an electric wheelchair. Chronic pain, on a chronic pain pump with Dilaudid Arthritis. Past Surgical History Gastric bypass in the . Cardiac cath 05/19/2008 that showed widely patent coronary arteries. Colonoscopy around 2 years ago. Open cholecystectomy. At least 3-4 lumbar surgeries Placement of a Dilaudid pump for several years. Active Ordered Medications Albuterol Xanax Cefepime Flexeril Flovent Neurontin Lopressor Morphine Protonix Coumadin Social History , on disability No smoking history Alcohol abuse No illicit drug use Physical Exam Vital Signs Vital Signs Date Time Temp Pulse Resp B/P Pulse Ox O2 Delivery O2 Flow Rate FiO2 04/18/16 12:00 97.5 71 18 95/66 94 04/18/16 08:05 69 04/18/16 08:00 97.8 68 18 103/56 96 04/18/16 04:00 97.8 68 20 100/57 96 04/18/16 04:00 Room Air 04/18/16 00:00 Room Air 04/18/16 00:00 97.3 67 20 98/64 96 04/17/16 20:00 98.1 74 20 115/78 95 04/17/16 20:00 Room Air 04/17/16 16:00 98.3 82 20 113/66 97 Physical Exam GENERAL: This is an obese, well-developed female, awake and alert, in no apparent distress. SKIN: Cool and dry. No generalized rash or ecchymosis. HEAD: Atraumatic. Normocephalic. No temporal or scalp tenderness. EYES: [place] conjunctivae, no petechia or hemorrhage. Pupils equal round and reactive. Extraocular motions intact. No scleral icterus. No injection or drainage. ENT: Nose without bleeding, or purulent drainage. Moist oral mucosa. Throat without erythema, or exudate. Uvula midline. Airway patent. NECK: Trachea midline. No JVD or lymphadenopathy. Supple, nontender, no meningeal signs. CARDIOVASCULAR: Regular rate and rhythm without murmurs, gallops, or rubs. RESPIRATORY: Clear to auscultation. Breath sounds equal bilaterally. No wheezes , rales, or rhonchi. Decreased breath sounds at the bases. GASTROINTESTINAL: Abdomen soft, obese, non-tender, nondistended. Bowel sounds are present and normoactive. No hepato-splenomegaly, or palpable masses. No guarding. No rebound. Her pain pump is in the left lower quadrant, with no evidence of infection. MUSCULOSKELETAL: Extremities without clubbing, cyanosis. Has bilateral pedal edema. No calf tenderness. Negative Homans sign bilaterally. NEUROLOGICAL: Awake and alert. Cranial nerves II through XII intact. No Babinski. No ankle clonus. PSYCH: Normal affect, calm and cooperative. LINE: PIV with no evidence of infection Laboratory Laboratory Tests Test 04/18/16 07:41 White Blood Count 7.8 Red Blood Count 3.19 Hemoglobin 8.6 Hematocrit 26.8 Mean Corpuscular Volume 84.0 Mean Corpuscular Hemoglobin 27.0 Mean Corpuscular Hemoglobin 32.2 Concent Red Cell Distribution Width 14.7 Platelet Count 254 Mean Platelet Volume 8.0 Neutrophils (%) (Auto) 71.7 Lymphocytes (%) (Auto) 17.5 Monocytes (%) (Auto) 8.2 Eosinophils (%) (Auto) 2.1 Basophils (%) (Auto) 0.5 Neutrophils # (Auto) 5.6 Lymphocytes # (Auto) 1.4 Monocytes # (Auto) 0.6 Eosinophils # (Auto) 0.2 Basophils # (Auto) 0.0 CBC Comment DIFF FINAL Differential Comment Sodium Level 141 Potassium Level 3.4 Chloride Level 106 Carbon Dioxide Level 26.3 Anion Gap 9 Blood Urea Nitrogen 19 Creatinine 1.08 Estimat Glomerular Filtration 65 Rate Random Glucose 85 Calcium Level 7.9 Magnesium Level 2.0 Date/Time Procedure Status Source Growth 04/18/16 11:19 Aerobic Blood Culture Received Blood Peripheral Pending 04/18/16 11:19 Anaerobic Blood Culture Received Blood Peripheral Pending 04/16/16 03:30 Urine Culture - Final Complete Urine Random Urine Enterococcus Faecalis 04/16/16 02:50 Aerobic Blood Culture - Preliminary Resulted Blood Peripheral Staph Sp Coagulase Negative 04/16/16 02:50 Anaerobic Blood Culture - Preliminary Resulted Staph Sp Coagulase Negative Result Diagram: 04/18/16 0741 04/18/16 0741 Imaging RADIOLOGY STUDIES/FILMS REVIEWED Last Impressions Abdomen/Pelvis CT 04/16/16 0358 Signed Impressions: Service Date/Time: Saturday, April 16, 2016 04:53 - CONCLUSION: 1. No evidence of acute abdominal or pelvic process. No masses are identified. 2. Constipation 3. Right lower lobe atelectasis versus pneumonia. Fernando Hook MD Chest X-Ray 04/16/16 0127 Signed Impressions: Service Date/Time: Saturday, April 16, 2016 01:43 - CONCLUSION: 1. Cardiomegaly. Subsegmental atelectasis right base. Fernando Hook MD Assessment and Plan Assessment and Plan IMPRESSION Wilks associated UTI, culture with enterococcus Coag negative staph bacteremia, question true versus contaminant Chronic pain syndrome, has a pain pump Obesity RECOMMENDATION Repeat blood cultures will be ordered Repeat UA and culture Change antibiotic to vancomycin Follow cultures Monitor progress I will determine course of antibiotics depending on the results of the workup and cultures Will follow along with you. Thank you for this consultation Discussed Condition With Explained plan to the patient Sylvia Posadas MD Apr 18, 2016 14:39
[2016-04-18] MEDS: MORPHINE SULFATE 4 MG/ML INJ IV PRN (15:34)
[2016-04-18] MEDS: WARFARIN SOD 6 MG TAB PO SCH (15:34)
[2016-04-18] MEDS ORDERED: Vancomycin Consult Pharmacy 1 EA OTHER SCH (16:15)
--- NOTE | 2016-04-18 16:40 | HHI.PR ---
Subjective Remarks Pt has been afebrile BP has been low/normal today Pt does not ambulate, chronically wheelchair bound Objective Vitals Vital Signs Date Time Temp Pulse Resp B/P Pulse Ox O2 Delivery O2 Flow Rate FiO2 04/18/16 12:00 97.5 71 18 95/66 94 04/18/16 08:05 69 04/18/16 08:00 97.8 68 18 103/56 96 04/18/16 04:00 97.8 68 20 100/57 96 04/18/16 04:00 Room Air 04/18/16 00:00 Room Air 04/18/16 00:00 97.3 67 20 98/64 96 04/17/16 20:00 98.1 74 20 115/78 95 04/17/16 20:00 Room Air 04/17/16 04/17/16 04/18/16 15:00 23:00 07:00 Intake Total 720 ml 1491 ml 400 ml Output Total 500 ml 125 ml 700 ml Balance 220 ml 1366 ml -300 ml Intake Oral 720 ml 360 ml 400 ml IV Total 1131 ml Output Urine Total 500 ml 125 ml 700 ml # Bowel Movements 0 0 Result Diagram: 04/18/16 0741 04/18/16 0741 Other Results Laboratory Tests Test 04/17/16 04/18/16 06:08 07:41 White Blood Count 12.7 TH/MM3 7.8 TH/MM3 Red Blood Count 3.50 MIL/MM3 3.19 MIL/MM3 Hemoglobin 9.2 GM/DL 8.6 GM/DL Hematocrit 29.6 % 26.8 % Mean Corpuscular Volume 84.6 FL 84.0 FL Mean Corpuscular Hemoglobin 26.3 PG 27.0 PG Mean Corpuscular Hemoglobin 31.1 % 32.2 % Concent Red Cell Distribution Width 15.2 % 14.7 % Platelet Count 269 TH/MM3 254 TH/MM3 Mean Platelet Volume 8.0 FL 8.0 FL Neutrophils (%) (Auto) 77.1 % 71.7 % Lymphocytes (%) (Auto) 12.7 % 17.5 % Monocytes (%) (Auto) 8.2 % 8.2 % Eosinophils (%) (Auto) 1.6 % 2.1 % Basophils (%) (Auto) 0.4 % 0.5 % Neutrophils # (Auto) 9.8 TH/MM3 5.6 TH/MM3 Lymphocytes # (Auto) 1.6 TH/MM3 1.4 TH/MM3 Monocytes # (Auto) 1.0 TH/MM3 0.6 TH/MM3 Eosinophils # (Auto) 0.2 TH/MM3 0.2 TH/MM3 Basophils # (Auto) 0.1 TH/MM3 0.0 TH/MM3 CBC Comment DIFF FINAL DIFF FINAL Differential Comment Sodium Level 138 MEQ/L 141 MEQ/L Potassium Level 3.6 MEQ/L 3.4 MEQ/L Chloride Level 102 MEQ/L 106 MEQ/L Carbon Dioxide Level 29.7 MEQ/L 26.3 MEQ/L Anion Gap 6 MEQ/L 9 MEQ/L Blood Urea Nitrogen 25 MG/DL 19 MG/DL Creatinine 1.49 MG/DL 1.08 MG/DL Estimat Glomerular Filtration 45 ML/MIN 65 ML/MIN Rate Random Glucose 90 MG/DL 85 MG/DL Calcium Level 8.3 MG/DL 7.9 MG/DL Magnesium Level 2.0 MG/DL Imaging Last Impressions Abdomen/Pelvis CT 04/16/16 0358 Signed Impressions: Service Date/Time: Saturday, April 16, 2016 04:53 - CONCLUSION: 1. No evidence of acute abdominal or pelvic process. No masses are identified. 2. Constipation 3. Right lower lobe atelectasis versus pneumonia. Fernando Hook MD Chest X-Ray 04/16/16 0127 Signed Impressions: Service Date/Time: Saturday, April 16, 2016 01:43 - CONCLUSION: 1. Cardiomegaly. Subsegmental atelectasis right base. Fernando Hook MD Objective Remarks General: NAD, AAOx3 Chest: CTA Cardiac: Regular Abd: +BS, soft obese, nontender Ext: Bilateral pedal edema A/P Problem List: (1) Bacteremia Status: Acute Plan: - Pt has chronic indwelling catheter x 5months d/t inability to urinate - Pt follows with Dr. Santos - Pt was overdue on changing her catheter - Pt also with h/o Dilaudid pain pump - Cefepime (started 04/16/16--04/18/16) - Blood Cx Aerobic (04/16/16) --> Staph sp coagulase negative, staph epidermis - Blood Cx anaerobic (04/16/16) --> Staph sp coagulase negative x 2 bottles - Urine Cx (04/16/16) --> Enterococcus faecalis - Appreciate ID consultation - Antibiotics changed to Vancomycin (started 04/18/16) - Repeat blood cultures (04/18/16) pending. - Repeat UA and culture - Pt has been afebrile - Pts BP has been low today with systolic BP in the 90's, decrease Metoprolol to 12.5mg po daily and monitor. - DVT prophylaxis with SCDs (2) Urinary tract infection Status: Acute Plan: - see above (3) COPD (chronic obstructive pulmonary disease) Status: Chronic Plan: - flovent - albuterol Neb prn Assessment and Plan Patient examined. Assessment and plan formulated with Mary Mackenzie PA-C. I agree with the above. Problem Qualifiers (1) Urinary tract infection: Qualified Code: T83.511A - Urinary tract infection associated with indwelling urethral catheter, initial encounter Mary Mackenzie Apr 18, 2016 16:40 Conner Knight DO Apr 19, 2016 14:48
[2016-04-18] MEDS ORDERED: POTASSIUM CHLORIDE 20 MEQ CONTROLLED RELEASE TAB PO ONE (16:45)
[2016-04-18] MEDS ORDERED: PILL SPLITTER OTHER PRN (17:00)
[2016-04-18] MEDS ORDERED: VANCOMYCIN INJ 1,500 MG in SODIUM CHLORID 0.9% 500 ML INJ 500 ML IV ONE (17:00)
[2016-04-18 18:24] LABS: INTERNATIONAL NORMALIZED RATIO 1.9 RATIO; PROTHROMBIN TIME - PATIENT 21.4 SEC (9.8-11.6)
[2016-04-19] VITALS: BP 110/60; PULSE 78; RESP 18; TEMP 98.2; O2SAT 93
[2016-04-19 04:00] VITALS: BP 144/68; PULSE 86; RESP 19; TEMP 98.6; O2SAT 93
[2016-04-19] MEDS: SODIUM CHLOR 0.9% 1000 ML INJ 1,000 ML IV SCH ×2 (06:15→12:33)
[2016-04-19 08:00] VITALS: BP 110/62; PULSE 87; PULSE 92; RESP 20; TEMP 98.5; O2SAT 94
[2016-04-19] MEDS ORDERED: VANCOMYCIN INJ 1,800 MG in SODIUM CHLORID 0.9% 500 ML INJ 500 ML IV SCH (08:00)
[2016-04-19 08:19] LABS: AUTOMATED NEUTROPHIL # 5.9 TH/MM3 (1.8-7.7); BASOPHIL % 0.5 % (0.0-2.0); EOSINOPHIL # 0.1 TH/MM3 (0-0.4); EOSINOPHIL % 1.9 % (0.0-4.0); HEMATOCRIT 29.1 % (35.0-46.0); HEMO FLAGS DIFF FINAL; LYMPH % 12.2 % (9.0-44.0); MEAN CORPUSCULAR HEMOGLOBIN 26.3 PG (27.0-34.0); MEAN CORPUSCULAR HGB CONC 31.3 % (32.0-36.0); MONO % 11.6 % (0.0-8.0); NEUT % 73.8 % (16.0-70.0); PLATELET COUNT 263 TH/MM3 (150-450); RED BLOOD COUNT 3.47 MIL/MM3 (4.00-5.30); RED CELL DISTRIBUTION WIDTH 15.1 % (11.6-17.2)
[2016-04-19 08:24] LABS: PROTHROMBIN TIME - PATIENT 22.9 SEC (9.8-11.6)
[2016-04-19 08:41] LABS: BICARBONATE 28.3 MEQ/L (21.0-32.0); MAGNESIUM 1.9 MG/DL (1.5-2.5); POTASSIUM 3.7 MEQ/L (3.5-5.1)
[2016-04-19] MEDS: PANTOPRAZOLE SOD 20 MG DELAYED RELEASE TAB PO SCH ×2 (09:13→22:11)
[2016-04-19] MEDS: FLUTICASONE PROPIONATE 110 MCG/ACT 12 GM INHALER INH SCH ×2 (09:13→22:11)
[2016-04-19] MEDS: GABAPENTIN 400 MG CAP PO SCH ×2 (09:13→22:11)
[2016-04-19] MEDS: METOPROLOL TARTRATE 25 MG TAB PO SCH (09:13)
[2016-04-19] MEDS: MORPHINE SULFATE 4 MG/ML INJ IV PRN ×3 (09:20→22:12)
[2016-04-19 12:00] VITALS: BP 101/68; PULSE 85; RESP 20; TEMP 97.8; O2SAT 96
--- NOTE | 2016-04-19 14:52 | HHI.PR ---
Subjective Remarks Pt c/o nausea but NO vomiting. NO diarrhea Pt states that she had abdominal pain last night which is improved today. However, pt has no appetite and has only been drinking liquids today. Objective Vitals Vital Signs Date Time Temp Pulse Resp B/P Pulse Ox O2 Delivery O2 Flow Rate FiO2 04/19/16 12:00 97.8 85 20 101/68 96 04/19/16 08:00 98.5 92 20 110/62 94 04/19/16 04:00 98.6 86 19 144/68 93 04/19/16 00:00 98.2 78 18 110/60 93 04/18/16 21:45 78 04/18/16 20:00 98.1 83 19 115/54 94 04/18/16 16:00 97.0 73 18 107/66 97 04/18/16 04/18/16 04/19/16 15:00 23:00 07:00 Intake Total 960 ml 1567 ml 280 ml Output Total 1000 ml 425 ml 350 ml Balance -40 ml 1142 ml -70 ml Intake Oral 960 ml 320 ml 280 ml IV Total 1247 ml Output Urine Total 1000 ml 425 ml 350 ml # Bowel Movements 0 0 Result Diagram: 04/19/16 0740 04/19/16 0740 Imaging Last Impressions Abdomen/Pelvis CT 04/16/16 0358 Signed Impressions: Service Date/Time: Saturday, April 16, 2016 04:53 - CONCLUSION: 1. No evidence of acute abdominal or pelvic process. No masses are identified. 2. Constipation 3. Right lower lobe atelectasis versus pneumonia. Fernando Hook MD Chest X-Ray 04/16/16 0127 Signed Impressions: Service Date/Time: Saturday, April 16, 2016 01:43 - CONCLUSION: 1. Cardiomegaly. Subsegmental atelectasis right base. Fernando Hook MD Objective Remarks General: NAD, AAOx3 Chest: CTA Cardiac: Regular Abd: +BS, soft obese, nontender Ext: Bilateral pedal edema A/P Problem List: (1) Bacteremia Status: Acute Plan: - comgmt with ID - Pt has chronic indwelling catheter x 5months d/t inability to urinate - Pt follows with Dr. Santos - Pt was overdue on changing her catheter - Pt also with h/o Dilaudid pain pump - Cefepime (started 04/16/16--04/18/16) - Blood Cx Aerobic (04/16/16) --> Staph sp coagulase negative, staph epidermis - Blood Cx anaerobic (04/16/16) --> Staph sp coagulase negative x 2 bottles - Urine Cx (04/16/16) --> Enterococcus faecalis - Repeat Blood Cx (04/18/16) --> NO growth at 1 day - repeat UA/Cx --> pending - Antibiotics changed to Vancomycin (started 04/18/16) - Pt has been afebrile - Pts BP has been low today with systolic BP in the 90's, decrease Metoprolol to 12.5mg po daily (parameters written) - observe BP readings - Will d/w ID on 04/21/16 - anticipate discharge 04/21 - DVT prophylaxis with SCDs (2) Urinary tract infection Status: Acute Plan: - see above (3) COPD (chronic obstructive pulmonary disease) Status: Chronic Plan: - flovent - albuterol Neb prn (4) Nausea Status: Acute Plan: - abdominal pain last night, but improved today - Pt tolerate PO liquids only - CBC, BMP (04/19) --> WNL this AM - obtain lipase - obtain KUB - continue PPI - observe Problem Qualifiers (1) Urinary tract infection: Qualified Code: T83.511A - Urinary tract infection associated with indwelling urethral catheter, initial encounter Conner nKight DO Apr 19, 2016 14:52
[2016-04-19] MEDS ORDERED: ONDANSETRON HCL 4 MG/2 ML VIAL IV PUSH PRN (15:15)
[2016-04-19] MEDS: 1/2 NS + KCL 20 MEQ INJ 1,000 ML IV SCH (15:37)
[2016-04-19] MEDS: WARFARIN SOD 6 MG TAB PO SCH (15:37)
[2016-04-19 16:00] VITALS: BP 99/57; PULSE 84; RESP 20; TEMP 97.7; O2SAT 95
--- NOTE | 2016-04-19 16:11 | RADRPT ---
EXAM DATE/TIME: 04/19/2016 15:25 [facility] COMPARISON: No previous studies available for comparison. INDICATIONS : Abdominal pain. MEDICAL HISTORY : None. SURGICAL HISTORY : Cholecystectomy. Appendectomy. Pain stimulator, left. ENCOUNTER: Initial ACUITY: 3 days PAIN SCORE: 4/10 LOCATION: Bilateral abdomen. FINDINGS: Supine view of the abdomen was performed. Bowel gas pattern is nonspecific without evidence for obstr uction or free air. Elevated right hemidiaphragm previous fusion lower lumbar spine. Scoliosis. Infus ion pump catheter is seen extending into the upper lumbar spinal canal. CONCLUSION: 1. Nonspecific bowel gas pattern without evidence for obstruction or free air. Cheo Mcdonald MD on April 19, 2016 at 16:08 Board Certified Radiologist. This report was verified electronically.
[2016-04-19 19:58] LABS: BACTERIA, URINE MOD /hpf; BLOOD, URINE TRACE (NEG); GLUCOSE,URINE NEG (NEG); HYALINE CAST, URINE 4 /lpf (RARE); KETONE, URINE NEG (NEG); MUCUS URINE FEW /lpf (OCC); NITRITE,URINE NEG (NEG); SQUAMOUS EPITHELIAL CELL URINE 9 /hpf (0-5); URINE COLOR YELLOW (YELLW/STRAW)
[2016-04-19 19:59] LABS: COMMENT (UR) CATH-CULTURE IND; CULTURE IF INDICATED CATH CULTURE IND
[2016-04-19 20:00] VITALS: BP 132/56; PULSE 99; RESP 18; TEMP 97.6; O2SAT 98
[2016-04-20] VITALS: BP 105/59; PULSE 103; RESP 18; TEMP 98.2; O2SAT 97
[2016-04-20] MEDS: 1/2 NS + KCL 20 MEQ INJ 1,000 ML IV SCH (04:47)
[2016-04-20] MEDS: SODIUM CHLOR 0.9% 1000 ML INJ 1,000 ML IV SCH ×2 (06:15→14:13)
[2016-04-20 08:00] VITALS: BP 109/60; PULSE 86; RESP 18; TEMP 97.3; O2SAT 100
[2016-04-20] MEDS: VANCOMYCIN INJ 1,800 MG in SODIUM CHLORID 0.9% 500 ML INJ 500 ML IV SCH (08:16)
[2016-04-20] MEDS: GABAPENTIN 400 MG CAP PO SCH ×2 (08:21→20:18)
[2016-04-20] MEDS: PANTOPRAZOLE SOD 20 MG DELAYED RELEASE TAB PO SCH ×2 (08:21→20:18)
[2016-04-20] MEDS: FLUTICASONE PROPIONATE 110 MCG/ACT 12 GM INHALER INH SCH ×2 (08:21→20:18)
[2016-04-20] MEDS: METOPROLOL TARTRATE 25 MG TAB PO SCH (08:29)
[2016-04-20 10:08] LABS: AUTOMATED NEUTROPHIL # 3.6 TH/MM3 (1.8-7.7); BASOPHIL % 0.5 % (0.0-2.0); EOSINOPHIL # 0.2 TH/MM3 (0-0.4); EOSINOPHIL % 3.7 % (0.0-4.0); HEMATOCRIT 33.3 % (35.0-46.0); HEMO FLAGS DIFF FINAL; MEAN CELL VOLUME 84.1 FL (80.0-100.0); MEAN CORPUSCULAR HEMOGLOBIN 26.8 PG (27.0-34.0); MEAN CORPUSCULAR HGB CONC 31.8 % (32.0-36.0); MONO % 8.9 % (0.0-8.0); NEUT % 55.9 % (16.0-70.0); PLATELET COUNT 323 TH/MM3 (150-450); RED BLOOD COUNT 3.96 MIL/MM3 (4.00-5.30); RED CELL DISTRIBUTION WIDTH 15.1 % (11.6-17.2); WHITE BLOOD COUNT 6.4 TH/MM3 (4.0-11.0)
[2016-04-20 10:37] LABS: BICARBONATE 26.7 MEQ/L (21.0-32.0); MAGNESIUM 1.7 MG/DL (1.5-2.5); POTASSIUM 3.7 MEQ/L (3.5-5.1)
[2016-04-20 12:00] VITALS: BP 133/85; PULSE 84; RESP 22; TEMP 98.2; O2SAT 99
[2016-04-20] MEDS: MORPHINE SULFATE 4 MG/ML INJ IV PRN ×2 (13:11→22:09)
[2016-04-20] MEDS: WARFARIN SOD 6 MG TAB PO SCH (15:22)
--- NOTE | 2016-04-20 15:23 | HHI.PR ---
Subjective Remarks Abdominal pain improved Pt is tolerating PO intake. Objective Vitals Vital Signs Date Time Temp Pulse Resp B/P Pulse Ox O2 Delivery O2 Flow Rate FiO2 04/20/16 12:00 98.2 84 22 133/85 99 04/20/16 08:00 97.3 86 18 109/60 100 04/20/16 00:00 98.2 103 18 105/59 97 04/19/16 20:00 97.6 99 18 132/56 98 04/19/16 16:00 97.7 84 20 99/57 95 04/19/16 04/19/16 04/20/16 15:00 23:00 07:00 Intake Total 2403 ml 2053 ml 588 ml Output Total 650 ml 700 ml 450 ml Balance 1753 ml 1353 ml 138 ml Intake Oral 720 ml 480 ml 120 ml IV Total 1683 ml 1573 ml 468 ml Output Urine Total 650 ml 700 ml 450 ml # Bowel Movements 0 0 Result Diagram: 04/20/16 0903 04/20/16 0903 Imaging Last Impressions Abdomen/Pelvis CT 04/16/16 0358 Signed Impressions: Service Date/Time: Saturday, April 16, 2016 04:53 - CONCLUSION: 1. No evidence of acute abdominal or pelvic process. No masses are identified. 2. Constipation 3. Right lower lobe atelectasis versus pneumonia. Fernando Hook MD Chest X-Ray 04/16/16 0127 Signed Impressions: Service Date/Time: Saturday, April 16, 2016 01:43 - CONCLUSION: 1. Cardiomegaly. Subsegmental atelectasis right base. Fernando Hook MD Objective Remarks General: NAD, AAOx3 Chest: CTA Cardiac: Regular Abd: +BS, soft obese, nontender Ext: Bilateral pedal edema A/P Problem List: (1) Bacteremia Status: Acute Plan: - comgmt with ID - Pt has chronic indwelling catheter x 5months d/t inability to urinate - Pt follows with Dr. Santos - Pt was overdue on changing her catheter - Pt also with h/o Dilaudid pain pump - Cefepime (started 04/16/16--04/18/16) - Blood Cx Aerobic (04/16/16) --> Staph sp coagulase negative, staph epidermis - Blood Cx anaerobic (04/16/16) --> Staph sp coagulase negative x 2 bottles - Urine Cx (04/16/16) --> Enterococcus faecalis - Repeat Blood Cx (04/18/16) --> NO growth at 2 day - repeat UA/Cx (04/19/16) --> pending - Antibiotics changed to Vancomycin (started 04/18/16) - Pt has been afebrile - Pts BP has been low today with systolic BP in the 90's, decrease Metoprolol to 12.5mg po daily (parameters written) - Will d/w ID on 04/21/16 - anticipate discharge 04/21 - DVT prophylaxis with SCDs (2) Urinary tract infection Status: Acute Plan: - see above (3) COPD (chronic obstructive pulmonary disease) Status: Chronic Plan: - flovent - albuterol Neb prn (4) Nausea Status: Resolved Plan: - abdominal pain improved - tolerating PO intake - KUB (04/19/16) --> NO acute findings - labs --> WNL - continue PPI - observe Problem Qualifiers (1) Urinary tract infection: Qualified Code: T83.511A - Urinary tract infection associated with indwelling urethral catheter, initial encounter Conner Knight DO Apr 20, 2016 15:23
[2016-04-20 16:00] VITALS: BP 132/77; PULSE 93; RESP 20; TEMP 98.3; O2SAT 98
[2016-04-20 20:00] VITALS: BP 161/58; PULSE 93; RESP 18; TEMP 98.2; O2SAT 95
[2016-04-21] VITALS: BP 112/64; PULSE 94; RESP 18; TEMP 98.1; O2SAT 95
[2016-04-21 04:00] VITALS: BP 118/58; PULSE 94; RESP 20; TEMP 97.8; O2SAT 100
[2016-04-21 08:00] VITALS: BP 118/58; PULSE 98; RESP 20; TEMP 97.4; O2SAT 95
[2016-04-21] MEDS: GABAPENTIN 400 MG CAP PO SCH (09:32)
[2016-04-21] MEDS: METOPROLOL TARTRATE 25 MG TAB PO SCH (09:32)
[2016-04-21] MEDS: MORPHINE SULFATE 4 MG/ML INJ IV PRN (09:32)
[2016-04-21] MEDS: PANTOPRAZOLE SOD 20 MG DELAYED RELEASE TAB PO SCH (09:32)
[2016-04-21] MEDS: FLUTICASONE PROPIONATE 110 MCG/ACT 12 GM INHALER INH SCH (09:34)
[2016-04-21] MEDS: VANCOMYCIN INJ 1,800 MG in SODIUM CHLORID 0.9% 500 ML INJ 500 ML IV SCH (09:34)
--- NOTE | 2016-04-21 10:38 | HHI.PR ---
Subjective Remarks doing ok. no new complaints. some nausea but no vomiting. Objective Vitals heart reg lung cta abd s/nt ext no pitting mosquera Vital Signs Date Time Temp Pulse Resp B/P Pulse Ox O2 Delivery O2 Flow Rate FiO2 04/21/16 08:00 97.4 98 20 118/58 95 04/21/16 04:00 97.8 94 20 118/58 100 04/21/16 00:00 98.1 94 18 112/64 95 04/20/16 20:00 98.2 93 18 161/58 95 04/20/16 16:00 98.3 93 20 132/77 98 04/20/16 12:00 98.2 84 22 133/85 99 04/20/16 04/20/16 04/21/16 15:00 23:00 07:00 Intake Total 1000 ml 480 ml 360 ml Output Total 1500 ml 650 ml 750 ml Balance -500 ml -170 ml -390 ml Intake Oral 1000 ml 480 ml 360 ml Output Urine Total 1500 ml 650 ml 750 ml # Bowel Movements 0 0 0 Result Diagram: 04/20/1690204/20/16 09 Imaging Last Impressions Abdomen/Pelvis CT 04/16/16 0358 Signed Impressions: Service Date/Time: Saturday, April 16, 2016 04:53 - CONCLUSION: 1. No evidence of acute abdominal or pelvic process. No masses are identified. 2. Constipation 3. Right lower lobe atelectasis versus pneumonia. Fernando Hook MD Chest X-Ray 04/16/16 0127 Signed Impressions: Service Date/Time: Saturday, April 16, 2016 01:43 - CONCLUSION: 1. Cardiomegaly. Subsegmental atelectasis right base. Fernando Hook MD A/P Problem List: (1) Urinary tract infection Status: Acute Plan: - comgmt with ID - Pt has chronic indwelling catheter x 5months d/t inability to urinate/ retention - Pt follows with Dr. Santos - Pt was overdue on changing her catheter - Pt also with h/o Dilaudid pain pump - Cefepime (started 04/16/16--04/18/16) - Blood Cx Aerobic (04/16/16) --> Staph sp coagulase negative, staph epidermis - Blood Cx anaerobic (04/16/16) --> Staph sp coagulase negative x 2 bottles - Urine Cx (04/16/16) --> Enterococcus faecalis - Repeat Blood Cx (04/18/16) --> NO growth to date - repeat UA/Cx (04/19/16) --> pending - Antibiotics changed to Vancomycin (started 04/18/16) - will await ID f/u today and decide on discharge abx regimen. (2) Bacteremia Status: Acute Plan: see above (3) COPD (chronic obstructive pulmonary disease) Status: Chronic Plan: - flovent - albuterol Neb prn (4) Nausea Status: Resolved Plan: -could be related to the infection. or abx. Problem Qualifiers (1) Urinary tract infection: Qualified Code: T83.511A - Urinary tract infection associated with indwelling urethral catheter, initial encounter Arben Serna MD Apr 21, 2016 10:38
[2016-04-21 12:00] VITALS: BP 127/82; PULSE 80; RESP 20; TEMP 98.2; O2SAT 92
--- NOTE | 2016-04-21 12:17 | HHI.DCPOC ---
Discharge Care Plan Diagnosis: (1) UTI (lower urinary tract infection) (2) Urinary retention (3) Nausea Goals to Promote Your Health * To prevent worsening of your condition and complications * To maintain your health at the optimal level Directions to Meet Your Goals Take your medications as prescribed Follow your dietary instruction Follow activity as directed Keep your appointments as scheduled Take your immunizations and boosters as scheduled If your symptoms worsen call your PCP, if no PCP go to Urgent Care Center or Emergency Room Smoking is Dangerous to Your Health. Avoid second hand smoke Call the 24-hour hour crisis hotline for domestic abuse at Arben Serna MD Apr 21, 2016 12:16
[2016-04-21] MEDS ORDERED: AMOX500C PO (12:22)
[2016-04-21] MEDS ORDERED: ZOFR4TAB PO (12:22)
[2016-04-21] MEDS ORDERED: WARF-60 PO (12:24)
[2016-04-22] MEDS ORDERED: PHARMACY ORDERED LAB XX ONE (08:45)
--- NOTE | 2016-05-29 20:36 | HHI.DS ---
Discharge Summary Admission Date Apr 16, 2016 at 04:11 Discharge Date: Apr 21, 2016 Admitting Diagnosis Sepsis, UTI (1) Urinary tract infection Diagnosis: Principal (2) Bacteremia Diagnosis: Principal (3) COPD (chronic obstructive pulmonary disease) Diagnosis: Secondary (4) Nausea Diagnosis: Secondary Hospital Course - Pt has chronic indwelling catheter x 5months d/t inability to urinate/ retention - Pt follows with Dr. Pan - Pt was overdue on changing her catheter - Pt also with h/o Dilaudid pain pump - Cefepime (started 04/16/16--04/18/16) - Blood Cx Aerobic (04/16/16) --> Staph sp coagulase negative, staph epidermis - Blood Cx anaerobic (04/16/16) --> Staph sp coagulase negative x 2 bottles - Urine Cx (04/16/16) --> Enterococcus faecalis - Repeat Blood Cx (04/18/16) --> NO growth to date -- Antibiotics changed to Vancomycin (started 04/18/16) then amoxacillin per ID for 1 more week at time of d/c Pt Condition on Discharge: Stable Discharge Disposition: Discharge Home Discharge Instructions DIET: Follow Instructions for: Heart Healthy Diet Activities you can perform: Regular-No Restrictions Follow up Referrals: PCP Follow-up - [address] teri [facility] - [address] pan New Medications: Amoxicillin (Amoxicillin) 500 Mg Cap 500 MG PO TID Infection Days 7 Ref 0 CAP Ondansetron (Zofran) 4 Mg Tab 4 MG PO Q6HR PRN NAUSEA OR VOMITING #15 Ref 0 TAB Continued Medications: Albuterol 8.5 GM Inh (Proair Hfa 8.5 GM Inh) 90 Mcg/Act Aer 2 PUFF INH Q4-6H 108 mcg/actuation PRN SHORTNESS OF BREATH #1 Ref 0 INHALER Alprazolam (Alprazolam) 0.5 Mg Tab 0.5 MG PO Q8H PRN ANXIETY Ref 0 TAB Cyclobenzaprine (Flexeril) 10 Mg Tab 10 MG PO TID PRN back pain #t Ref 0 TAB Fluticasone 12 GM Inh (Flovent Hfa 12 GM Inh) 110 Mcg/Act Inh 2 PUFF INH BID Asthma Management #1 Ref 0 INHALER Gabapentin (Gabapentin) 800 Mg Tab 800 MG PO QID PRN qid #90 Ref 0 TAB Metoprolol Tartrate (Metoprolol Tartrate) 25 Mg Tab 25 MG PO BID #60 Ref 0 TAB Morphine Sulfate PF Inj (Morphine Sulfate PF Inj) 0.5 Mg/Ml Syr 7.5 ML PO Q4HR Omeprazole (Omeprazole) 20 Mg Tab 20 MG PO BID #30 Ref 0 TAB Warfarin (Warfarin) 6 Mg Tab 6 MG PO DAILY Blood Clot Prevention #30 Ref 0 TAB Arben Serna MD May 29, 2016 20:36
== END 2016-04-21 16:20 | disposition home or self-care (01) | DRG 699 ==
LOC: NEPE 01:18 → NEDA 04:11 → NEDH 07:37 → N04B 18:30
PROVIDERS: ADMIT Hospitalist; ATTEND Hospitalist
PROC: 0T2BX0Z Change Drainage Device in Bladder, External Approach (ICD-10-PCS; principal; 2016-04-16)
DX: T83.511A Infection and inflammatory reaction due to indwelling urethral catheter, initial encounter (principal); Z68.43 Body mass index [BMI] 50.0-59.9, adult; R78.81 Bacteremia; J44.9 Chronic obstructive pulmonary disease, unspecified; E66.01 Morbid (severe) obesity due to excess calories; B95.2 Enterococcus as the cause of diseases classified elsewhere; R33.9 Retention of urine, unspecified; G89.4 Chronic pain syndrome; M96.1 Postlaminectomy syndrome, not elsewhere classified; Z98.1 Arthrodesis status; Z96.89 Presence of other specified functional implants; M21.372 Foot drop, left foot; Z99.3 Dependence on wheelchair; J45.909 Unspecified asthma, uncomplicated; G47.33 Obstructive sleep apnea (adult) (pediatric); K44.9 Diaphragmatic hernia without obstruction or gangrene; K21.9 Gastro-esophageal reflux disease without esophagitis; K58.9 Irritable bowel syndrome, unspecified; M19.90 Unspecified osteoarthritis, unspecified site; Z79.01 Long term (current) use of anticoagulants; Z86.711 Personal history of pulmonary embolism; Z86.718 Personal history of other venous thrombosis and embolism; F41.9 Anxiety disorder, unspecified; Z98.84 Bariatric surgery status; S30.810A Abrasion of lower back and pelvis, initial encounter; X58.XXXA Exposure to other specified factors, initial encounter
CPT/HCPCS: 71010; 74000; 74176; 76937; 80048; 80053; 81001; 83605; 83690; 83735; 85025; 85610; 86140; 86403; 87040; 87077; 87086; 87106; 87186; 87205; 93306; 96361; 96374; 96375; J0692; J2270; J2405; J3370; J7030; J7040

== ENCOUNTER 2016-11-27 07:25 | Emergency (ER) | payer MEDICARE, OTHER ==
[~2016-11-27] VITALS: Ht 165.1 cm; Wt 160.0 kg
[~2016-11-27 07:25] MED LIST changes: +AMOX500C PO; -BUME1TAB26 PO; +METO25TA3 PO; -TERA1CAP3 PO; -WARF-20 PO; +WARF-60 PO; +ZOFR4TAB PO
[2016-11-27 07:30] VITALS: BP 138/78; PULSE 82; RESP 18; TEMP 97.4; O2SAT 95
--- NOTE | 2016-11-27 07:48 | PD ---
HPI Chief Complaint: Complaint Time Seen by Provider: 07:39 Travel History International Travel<30 days: No Contact w/Intl Traveler<30days: No Traveled to known affect area: No History of Present Illness HPI 51-year-old female complains of urinary retention, nausea, lower abdominal discomfort. 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 Patient states that she history of frequent UTI. Patient states that she has decreasing urinary output for the past 3 days. Patient complaint generalized malaise and nausea. Patient denies any vomiting or diarrhea. Patient denies any headache. Patient denies any chest pain or shortness of breath. Patient states that she has low abdominal discomfort. Patient has been treated for UTI recently. Patient was put on antibiotic, Macrodantin. Last dose of antibiotic is today. Patient has history of COPD/asthma, morbid obesity, GERD, chronic back pain, sleep apnea, IBS, osteoarthritis, chronic DVT and PE. Patient was on Coumadin now on Eliquis PFS Past Medical History Hx Anticoagulant Therapy: Yes (warfarin) Anemia: Yes Arthritis: Yes Asthma: Yes Autoimmune Disease: No Blood Disorders: No Anxiety: Yes Depression: No Heart Rhythm Problems: No Cancer: No Cardiac Catheterization: Yes (NORMAL REPORTS ) Cardiovascular Problems: Yes Cerebral Palsy: No High Cholesterol: No Chemotherapy: No Chest Pain: No Congestive Heart Failure: Yes COPD: Yes Cerebrovascular Accident: No Diabetes: No Diminished Hearing: No Deep Vein Thrombosis: Yes (BILATERAL LOWER EXT) Endocrine: No Gastrointestinal Disorders: Yes (IBS) GERD: Yes Glaucoma: No Genitourinary: No Hepatitis: No Hiatal Hernia: No Hypertension: No Immune Disorder: No Implanted Vascular Access Dvce: Yes Kidney Stones: No Musculoskeletal: Yes Neurologic: No Psychiatric: No Reproductive: No Respiratory: Yes Immunizations Current: No Migraines: No Radiation Therapy: No Renal Failure: No Seizures: No Sickle Cell Disease: No Sleep Apnea: No Thyroid Disease: No Ulcer: No Tetanus Vaccination: > 5 Years Influenza Vaccination: Yes PNEUMOCCOCAL Vaccine (Year): 2 ?: Not Menopausal: Yes : 2 Para: 2 Past Surgical History Abdominal Surgery: Yes (gallbladder) AICD: No Arteriovenous Shunt: No Body Medical Devices: Pain pump Cardiac Surgery: No Cholecystectomy: Yes Ear Surgery: No Endocrine Surgery: No Eye Surgery: No Genitourinary Surgery: No Gynecologic Surgery: No Insulin Pump: No Joint Replacement: No Neurologic Surgery: No Oral Surgery: No Pacemaker: No Thoracic Surgery: No Other Surgery: Yes (DILAUDID PUMP) Social History Alcohol Use: No Tobacco Use: No Substance Use: No Allergies-Medications (Allergen,Severity, Reaction): Coded Allergies: MRI PRECAUTION (Verified Adverse Reaction, Severe, SPINAL CORD STIMULATOR , 08/28/16) PER DR BOND Reported Meds & Prescriptions Reported Meds & Active Scripts Active Cipro (Ciprofloxacin HCl) 500 Mg Tab 500 Mg PO BID Reported Eliquis (Apixaban) 2.5 Mg Tab 2.5 Mg PO BID Metoprolol Tartrate 25 Mg Tab 25 Mg PO BID Alprazolam 0.5 Mg Tab 0.5 Mg PO Q8H PRN Morphine Sulfate PF Inj (Morphine Sulfate/Sodium Chloride) 0.5 Mg/Ml Syr 7.5 Ml PO Q4HR Flovent Hfa 12 GM Inh (Fluticasone Propionate) 110 Mcg/Act Inh 2 Puff INH BID Proair Hfa 8.5 GM Inh (Albuterol Sulfate) 90 Mcg/Act Aer 2 Puff INH Q4-6H PRN 108 mcg/actuation Omeprazole 20 Mg Tab 20 Mg PO BID Flexeril (Cyclobenzaprine HCl) 10 Mg Tab 10 Mg PO TID PRN Gabapentin 800 Mg Tab 800 Mg PO QID PRN Review of Systems General / Constitutional: No: Fever Eyes: No: Visual changes HENT: No: Headaches Cardiovascular: No: Chest Pain or Discomfort Respiratory: No: Shortness of Breath Gastrointestinal: Positive: Nausea, Abdominal Pain Genitourinary: No: Dysuria Musculoskeletal: No: Pain Skin: No Rash Neurologic: No: Weakness Psychiatric: No: Depression Endocrine: No: Polydipsia Hematologic/Lymphatic: No: Easy Bruising Physical Exam Narrative GENERAL: Well-nourished, well-developed patient. SKIN: Focused skin assessment warm/dry. HEAD: Normocephalic. EYES: No scleral icterus. No injection or drainage. NECK: Supple, trachea midline. No JVD or lymphadenopathy. CARDIOVASCULAR: Regular rate and rhythm without murmurs, gallops, or rubs. RESPIRATORY: Breath sounds equal bilaterally. No accessory muscle use. GASTROINTESTINAL: Abdomen soft, non-tender, nondistended. MUSCULOSKELETAL: No cyanosis, or edema. BACK: Nontender without obvious deformity. No CVA tenderness. Neurologic exam: Patient is paraplegic. Data Data Last Documented VS Vital Signs Date Time Temp Pulse Resp B/P (MAP) Pulse Ox O2 Delivery O2 Flow Rate FiO2 11/27/16 11:14 87 18 145/76 (99) 96 Room Air 11/27/16 07:30 97.4 Orders Orders Complete Blood Count With Diff (11/27/16 07:39) Comprehensive Metabolic Panel (11/27/16 07:39) Prothrombin Time / Inr (Pt) (11/27/16 07:39) Act Partial Throm Time (Ptt) (11/27/16 07:39) Lipase (11/27/16 07:39) Urinalysis - C+S If Indicated (11/27/16 07:39) Iv Access Insert/Monitor (11/27/16 07:39) Ecg Monitoring (11/27/16 07:39) Oximetry (11/27/16 07:39) Urinary Catheter Insert/Apply (11/27/16 07:39) Urine Culture (11/27/16 08:22) Levofloxacin (Levaquin) (11/27/16 13:15) Labs Laboratory Tests Test 11/27/16 08:15 11/27/16 08:22 White Blood Count 8.9 TH/MM3 Red Blood Count 4.08 MIL/MM3 Hemoglobin 11.3 GM/DL Hematocrit 35.0 % Mean Corpuscular Volume 85.9 FL Mean Corpuscular Hemoglobin 27.7 PG Mean Corpuscular Hemoglobin Concent 32.3 % Red Cell Distribution Width 14.7 % Platelet Count 234 TH/MM3 Mean Platelet Volume 8.1 FL Neutrophils (%) (Auto) 81.1 % Lymphocytes (%) (Auto) 13.0 % Monocytes (%) (Auto) 5.3 % Eosinophils (%) (Auto) 0.3 % Basophils (%) (Auto) 0.3 % Neutrophils # (Auto) 7.2 TH/MM3 Lymphocytes # (Auto) 1.2 TH/MM3 Monocytes # (Auto) 0.5 TH/MM3 Eosinophils # (Auto) 0.0 TH/MM3 Basophils # (Auto) 0.0 TH/MM3 CBC Comment DIFF FINAL Differential Comment Prothrombin Time 11.1 SEC Prothromb Time International Ratio 1.0 RATIO Activated Partial Thromboplast Time 26.3 SEC Blood Urea Nitrogen 15 MG/DL Creatinine 0.95 MG/DL Random Glucose 137 MG/DL Total Protein 8.4 GM/DL Albumin 3.1 GM/DL Calcium Level 8.3 MG/DL Alkaline Phosphatase 103 U/L Aspartate Amino Transf (AST/SGOT) 17 U/L Alanine Aminotransferase (ALT/SGPT) 14 U/L Total Bilirubin 0.3 MG/DL Sodium Level 138 MEQ/L Potassium Level 3.5 MEQ/L Chloride Level 100 MEQ/L Carbon Dioxide Level 30.9 MEQ/L Anion Gap 7 MEQ/L Estimat Glomerular Filtration Rate 75 ML/MIN Lipase 52 U/L Urine Color LIGHT-YELLOW Urine Turbidity HAZY Urine pH 5.5 Urine Specific [place] 1.007 Urine Protein NEG mg/dL Urine Glucose (UA) NEG mg/dL Urine Ketones NEG mg/dL Urine Occult Blood TRACE Urine Nitrite NEG Urine Bilirubin NEG Urine Urobilinogen LESS THAN 2.0 MG/DL Urine Leukocyte Esterase LARGE Urine RBC 19 /hpf Urine WBC /hpf Urine WBC Clumps MOD Urine Squamous Epithelial Cells 2 /hpf Urine Bacteria MOD /hpf Microscopic Urinalysis Comment CULTURE INDICATED MDM Medical Decision Making Medical Screen Exam Complete: Yes Emergency Medical Condition: Yes Interpretation(s) CBC within normal limit. CMP within normal limits. UA positive for WBC and RBC and bacteria. Differential Diagnosis Differential diagnosis including urinary retention, UTI, pyelonephritis. Narrative Course 51-year-old female, paraplegic, complains of low abdominal discomfort and decreasing urine output for the past 3 days. Patient being treated for UTI. Levaquin 750 mg by mouth given. Diagnosis Primary Impression: UTI (lower urinary tract infection) Patient Instructions: General Instructions Additional Instructions: Cipro as directed. Follow-up with personal physician. Return if worse. Med/Other Pt SpecificInfo: Prescription(s) given Scripts Ciprofloxacin (Cipro) 500 Mg Tab 500 MG PO BID for Infection, #14 TAB 0 Refills Prov: Ermias Matthews MD 11/27/16 Disposition: 01 DISCHARGE HOME Condition: Stable Ermias Matthews MD Nov 27, 2016 07:47
[2016-11-27 08:39] VITALS: RESP 18; O2SAT 96
[2016-11-27 08:42] LABS: AUTOMATED NEUTROPHIL # 7.2 TH/MM3 (1.8-7.7); BASOPHIL % 0.3 % (0.0-2.0); EOSINOPHIL % 0.3 % (0.0-4.0); HEMO FLAGS DIFF FINAL; LYMPHOCYTE # 1.2 TH/MM3 (1.0-4.8); MEAN CELL VOLUME 85.9 FL (80.0-100.0); MEAN CORPUSCULAR HEMOGLOBIN 27.7 PG (27.0-34.0); MEAN CORPUSCULAR HGB CONC 32.3 % (32.0-36.0); MONO % 5.3 % (0.0-8.0); NEUT % 81.1 % (16.0-70.0); PLATELET COUNT 234 TH/MM3 (150-450); RED BLOOD COUNT 4.08 MIL/MM3 (4.00-5.30); RED CELL DISTRIBUTION WIDTH 14.7 % (11.6-17.2); WHITE BLOOD COUNT 8.9 TH/MM3 (4.0-11.0)
[2016-11-27 08:50] LABS: APTT (PATIENT) 26.3 SEC (24.3-30.1); PROTHROMBIN TIME - PATIENT 11.1 SEC (9.8-11.6)
[2016-11-27 08:55] LABS: BACTERIA, URINE MOD /hpf; BLOOD, URINE TRACE (NEG); COMMENT (UR) CULTURE INDICATED; CULTURE IF INDICATED CULTURE INDICATED; GLUCOSE,URINE NEG (NEG); KETONE, URINE NEG (NEG); NITRITE,URINE NEG (NEG); PH, URINE 5.5 (5.0-8.5); SQUAMOUS EPITHELIAL CELL URINE 2 /hpf (0-5); URINE COLOR LIGHT-YELLOW (YELLW/STRAW)
[2016-11-27 09:02] LABS: ANION GAP 7 MEQ/L (5-15); AST (GOT) 17 U/L (15-37); BICARBONATE 30.9 MEQ/L (21.0-32.0); BLOOD UREA NITROGEN 15 MG/DL (7-18); CHLORIDE 100 MEQ/L (98-107); GLOMERULAR FILTRATION RATE 75 ML/MIN (>89); POTASSIUM 3.5 MEQ/L (3.5-5.1); SODIUM (NA) 138 MEQ/L (136-145)
[2016-11-27 09:03] LABS: ALT (GPT) 14 U/L (10-53)
[2016-11-27 09:05] LABS: ALKALINE PHOSPHATASE 103 U/L (45-117); TOTAL BILIRUBIN ADULT 0.3 MG/DL (0.2-1.0)
[2016-11-27 11:14] VITALS: BP 145/76; PULSE 87; RESP 18; O2SAT 96
[2016-11-27] MEDS ORDERED: APIX2.5T PO (13:09)
[2016-11-27] MEDS ORDERED: CIPR-9 PO (13:10)
[2016-11-27] MEDS ORDERED: LEVOFLOXACIN 750 MG TAB PO ONE (13:15)
== END 2016-11-27 15:21 | disposition home or self-care (01) ==
LOC: NEPE 07:25
DX: N39.0 Urinary tract infection, site not specified (principal); B96.89 Other specified bacterial agents as the cause of diseases classified elsewhere; R11.0 Nausea; D64.9 Anemia, unspecified; J45.909 Unspecified asthma, uncomplicated; Z79.01 Long term (current) use of anticoagulants
CPT/HCPCS: 51702; 80053; 81001; 83690; 85025; 85610; 85730; 87077; 87086; 87186

== ENCOUNTER 2017-06-05 01:14 | Observation (INO) | payer MEDICARE, OTHER ==
[2017-06-05] VITALS (8 sets, daily range): BP systolic 125–177; BP diastolic 64–96; PULSE 65–96; RESP 14–20; TEMP 97.4–98.6; O2SAT 94–100
[~2017-06-05] VITALS: Ht 157.5 cm; Wt 140.0 kg
[~2017-06-05 01:14] MED LIST changes: -AMOX500C PO; +APIX2.5T PO; +CIPR-9 PO; +CYCL10TA PO; -CYCL1TAB29 PO; -OMEP20TA PO; +OMEP20TA93 PO; -WARF-60 PO; -ZOFR4TAB PO
[2017-06-05] MEDS ORDERED: CEFEPIME INJ 2,000 MG in SODIUM CHLORIDE 0.9% INJ 100 ML IV ONE (02:00)
[2017-06-05 02:20] LABS: AUTOMATED NEUTROPHIL # 3.5 TH/MM3 (1.8-7.7); BASOPHIL % 0.5 % (0.0-2.0); EOSINOPHIL # 0.1 TH/MM3 (0-0.4); HEMATOCRIT 31.2 % (35.0-46.0); HEMOGLOBIN 10.1 GM/DL (11.6-15.3); LYMPH % 29.6 % (9.0-44.0); LYMPHOCYTE # 1.7 TH/MM3 (1.0-4.8); MEAN CELL VOLUME 88.3 FL (80.0-100.0); MEAN CORPUSCULAR HEMOGLOBIN 28.5 PG (27.0-34.0); MEAN CORPUSCULAR HGB CONC 32.3 % (32.0-36.0); MEAN PLATELET VOLUME 8.2 FL (7.0-11.0); MONO % 7.6 % (0.0-8.0); MONOCYTE # 0.4 TH/MM3 (0-0.9); NEUT % 60.3 % (16.0-70.0); PLATELET COUNT 273 TH/MM3 (150-450); RED BLOOD COUNT 3.53 MIL/MM3 (4.00-5.30); RED CELL DISTRIBUTION WIDTH 15.6 % (11.6-17.2); WHITE BLOOD COUNT 5.9 TH/MM3 (4.0-11.0)
[2017-06-05 02:26] LABS: BACTERIA, URINE MANY /hpf; BILIRUBIN, URINE NEG (NEG); BLOOD, URINE NEG (NEG); GLUCOSE,URINE NEG (NEG); KETONE, URINE NEG (NEG); NITRITE,URINE NEG (NEG); PH, URINE 6.5 (5.0-8.5); RENAL EPITHELIAL CELLS <1 /hpf; SQUAMOUS EPITHELIAL CELL URINE 4 /hpf (0-5); URINE COLOR YELLOW (YELLW/STRAW); URINE LEUKOCYTE ESTERASE MOD (NEG)
[2017-06-05 02:36] LABS: ALBUMIN 2.6 GM/DL (3.4-5.0); ALT (GPT) 11 U/L (10-53); AST (GOT) 18 U/L (15-37); BLOOD UREA NITROGEN 10 MG/DL (7-18); CALCIUM 8.4 MG/DL (8.5-10.1); CHLORIDE 109 MEQ/L (98-107); CREATININE 0.76 MG/DL (0.50-1.00); GLOMERULAR FILTRATION RATE 97 ML/MIN (>89); GLUCOSE,RANDOM 91 MG/DL (74-106); SODIUM (NA) 145 MEQ/L (136-145)
--- NOTE | 2017-06-05 02:37 | PD ---
HPI Chief Complaint: Medical Clearance Time Seen by Provider: 01:45 Travel History International Travel<30 days: No Contact w/Intl Traveler<30days: No Traveled to known affect area: No History of Present Illness HPI pt is paraylsis and bed bound from spine injury and has had recurrent UTI and is currently on Macrobid for last five days for a UTI pt is more and more somnolent over last few days inspite of Macrobid PO , pt has had resistant bacteria in Urine before , pt also has a morphine pump inplantation , , she feels her somnolence is due to Urinary infection. Pt is lethargic but responsive and can fully awake to answer questions appropriately . pt reports that when she is geetting a UTI she can't feel the symptoms until it has progressed to sepsis. , no fever in ER . made complaint is lethargy , not improving with PO antibiotics ... PFSH Past Medical History Hx Anticoagulant Therapy: Yes (warfarin) Anemia: Yes Arthritis: Yes Asthma: Yes Autoimmune Disease: No Blood Disorders: No Anxiety: Yes Depression: No Heart Rhythm Problems: No Cancer: No Cardiac Catheterization: Yes (NORMAL REPORTS ) Cardiovascular Problems: Yes Cerebral Palsy: No High Cholesterol: No Chemotherapy: No Chest Pain: No Congestive Heart Failure: Yes COPD: Yes Cerebrovascular Accident: No Diabetes: No Diminished Hearing: No Deep Vein Thrombosis: Yes (BILATERAL LOWER EXT) Endocrine: No Gastrointestinal Disorders: Yes (IBS) GERD: Yes Glaucoma: No Genitourinary: No Hepatitis: No Hiatal Hernia: No Hypertension: No Immune Disorder: No Implanted Vascular Access Dvce: Yes Kidney Stones: No Musculoskeletal: Yes Neurologic: No Psychiatric: No Reproductive: No Respiratory: Yes Immunizations Current: No Migraines: No Radiation Therapy: No Renal Failure: No Seizures: No Sickle Cell Disease: No Sleep Apnea: No Thyroid Disease: No Ulcer: No PNEUMOCCOCAL Vaccine (Year): 2 ?: Not Menopausal: Yes : 2 Para: 2 Past Surgical History Abdominal Surgery: Yes (gallbladder) AICD: No Arteriovenous Shunt: No Body Medical Devices: Pain pump Cardiac Surgery: No Cholecystectomy: Yes Ear Surgery: No Endocrine Surgery: No Eye Surgery: No Genitourinary Surgery: No Gynecologic Surgery: No Insulin Pump: No Joint Replacement: No Neurologic Surgery: Yes (spinal cord) Oral Surgery: No Pacemaker: No Thoracic Surgery: No Other Surgery: Yes (DILAUDID PUMP) Social History Alcohol Use: No Tobacco Use: No Substance Use: No Allergies-Medications (Allergen,Severity, Reaction): Coded Allergies: MRI PRECAUTION (Verified Adverse Reaction, Severe, SPINAL CORD STIMULATOR , 06/05/17) PER DR VARUN camejo (Verified Adverse Reaction, Intermediate, Nausea/Vomitting, 06/07/17) Reported Meds & Prescriptions Reported Meds & Active Scripts Active Reported Bumetanide 2 Mg Tab 2 Mg PO BID Eliquis (Apixaban) 2.5 Mg Tab 2.5 Mg PO BID Alprazolam 0.5 Mg Tab 0.5 Mg PO Q8H PRN Morphine Sulfate PF Inj (Morphine Sulfate/Sodium Chloride) 0.5 Mg/Ml Syr 7.5 Ml PO Q4HR PRN Flovent Hfa 12 GM Inh (Fluticasone Propionate) 110 Mcg/Act Inh 2 Puff INH BID Proair Hfa 8.5 GM Inh (Albuterol Sulfate) 90 Mcg/Act Aer 2 Puff INH Q4-6H PRN 108 mcg/actuation Omeprazole 20 Mg Tab 20 Mg PO BID Flexeril (Cyclobenzaprine HCl) 10 Mg Tab 10 Mg PO TID PRN Gabapentin 800 Mg Tab 800 Mg PO QID Review of Systems Except as stated in HPI: all other systems reviewed are Neg Neurologic: Positive: Weakness (lethargy) Physical Exam Narrative GENERAL: very lethargic somnolent arousable but quick to fall asleep SKIN: Warm and dry. HEAD: Atraumatic. Normocephalic. EYES: Pupils equal and round. No scleral icterus. No injection or drainage. ENT: No nasal bleeding or discharge. Mucous membranes pink and moist. NECK: Trachea midline. No JVD. CARDIOVASCULAR: Regular rate and rhythm. RESPIRATORY: No accessory muscle use. Clear to auscultation. Breath sounds equal bilaterally. GASTROINTESTINAL: Abdomen morbidly obese in diaper . MUSCULOSKELETAL: Extremities decreased sensation and weakness to lower extremities left worse than Right NEUROLOGICAL: Awake but lethargic--> due to opioid pump overdosing or lethargic from UROSEPSIS OR COMBINATION .Psych lethargic but arouasble and OX3 Data Data Last Documented VS Vital Signs Date Time Temp Pulse Resp B/P (MAP) Pulse Ox O2 Delivery O2 Flow Rate FiO2 06/05/17 01:21 97.8 80 14 149/84 (105) 100 Orders Orders Urinalysis - C+S If Indicated (06/05/17 01:47) Complete Blood Count With Diff (06/05/17 01:47) Comprehensive Metabolic Panel (06/05/17 01:47) Lactic Acid (06/05/17 01:48) Blood Culture (06/05/17 01:48) Cefepime Inj (Maxipime Inj) (06/05/17 02:00) Urine Culture (06/05/17 01:40) Admit Order (Ed Use Only) (06/05/17 04:36) Labs Laboratory Tests Test 06/05/17 01:40 06/05/17 01:50 Urine Color YELLOW Urine Turbidity HAZY Urine pH 6.5 Urine Specific [place] 1.022 Urine Protein TRACE mg/dL Urine Glucose (UA) NEG mg/dL Urine Ketones NEG mg/dL Urine Occult Blood NEG Urine Nitrite NEG Urine Bilirubin NEG Urine Urobilinogen 4.0 MG/DL Urine Leukocyte Esterase MOD Urine RBC 1 /hpf Urine WBC 37 /hpf Urine Squamous Epithelial Cells 4 /hpf Urine Renal Epithelial Cells <1 /hpf Urine Bacteria MANY /hpf Microscopic Urinalysis Comment CULTURE INDICATED White Blood Count 5.9 TH/MM3 Red Blood Count 3.53 MIL/MM3 Hemoglobin 10.1 GM/DL Hematocrit 31.2 % Mean Corpuscular Volume 88.3 FL Mean Corpuscular Hemoglobin 28.5 PG Mean Corpuscular Hemoglobin Concent 32.3 % Red Cell Distribution Width 15.6 % Platelet Count 273 TH/MM3 Mean Platelet Volume 8.2 FL Neutrophils (%) (Auto) 60.3 % Lymphocytes (%) (Auto) 29.6 % Monocytes (%) (Auto) 7.6 % Eosinophils (%) (Auto) 2.0 % Basophils (%) (Auto) 0.5 % Neutrophils # (Auto) 3.5 TH/MM3 Lymphocytes # (Auto) 1.7 TH/MM3 Monocytes # (Auto) 0.4 TH/MM3 Eosinophils # (Auto) 0.1 TH/MM3 Basophils # (Auto) 0.0 TH/MM3 CBC Comment DIFF FINAL Differential Comment Blood Urea Nitrogen 10 MG/DL Creatinine 0.76 MG/DL Random Glucose 91 MG/DL Total Protein 8.1 GM/DL Albumin 2.6 GM/DL Calcium Level 8.4 MG/DL Alkaline Phosphatase 84 U/L Aspartate Amino Transf (AST/SGOT) 18 U/L Alanine Aminotransferase (ALT/SGPT) 11 U/L Total Bilirubin 0.2 MG/DL Sodium Level 145 MEQ/L Potassium Level 3.4 MEQ/L Chloride Level 109 MEQ/L Carbon Dioxide Level 31.0 MEQ/L Anion Gap 5 MEQ/L Estimat Glomerular Filtration Rate 97 ML/MIN Lactic Acid Level 1.1 mmol/L MDM Medical Decision Making Medical Screen Exam Complete: Yes Emergency Medical Condition: Yes Differential Diagnosis urosepsis causing lethargy or dilaudid implanted pump causing somnolence or combination causing decreased mental alertness Narrative Course UTI treated with cefipime due to prior resistance in micro cultures that I have reviewed in her PMH records Diagnosis Primary Impression: Urinary tract infection Additional Impression: Paralysis of both lower limbs Scripts Linezolid (Linezolid) 600 Mg Tab 600 MG PO Q12H for Infection for 10 Days, #20 TAB 0 Refills Prov: Mary Mackenzie 06/07/17 Metoprolol Tartrate (Metoprolol Tartrate) 25 Mg Tab 12.5 MG PO BID for tachycardia, #60 TAB 0 Refills Prov: Mary Mackenzie 06/07/17 Ronan Figueroa MD Jun 05, 2017 02:37
[2017-06-05 02:38] LABS: ALKALINE PHOSPHATASE 84 U/L (45-117); TOTAL BILIRUBIN ADULT 0.2 MG/DL (0.2-1.0); TOTAL PROTEIN 8.1 GM/DL (6.4-8.2)
[2017-06-05] MEDS ORDERED: NS + KCL 20 MEQ INJ 1,000 ML IV SCH (05:00)
[2017-06-05] MEDS ORDERED: RESP: ALBUTEROL 2.5 MG/IPRATROPIUM 0.5 MG NEB (PRN) NEB (05:00)
--- NOTE | 2017-06-05 08:59 | HHI.HP ---
HPI Service [facility] Hospitalists Primary Care Physician Junior Magdaleno D.O. Admission Diagnosis uti lethargic Chief Complaint: Decreased UOP and lethargy Travel History International Travel<30 Days: No Contact w/Intl Traveler <30 Da: No Traveled to Known Affected Are: No History of Present Illness Mrs. Cook is a 51 y/o AAF with HTN, asthma, morbid obesity, chronic back pain with implanted Dilaudid pump, and is bed bound with limited use of her LE reportedly related to previous failed back surgeries. She has had issues in the past with urinary retention and recurrent UTIs. She has required prolonged Gibbs catheter use in the past as well but reports that the last time she needed a Gibbs was around 01/2017. She follows with Dr. Santos as an outpt. Pt [place] [facility] [place] with decreased UOP and increased lethargy. She states that she has been receiving care at home from [facility] and has been treated recently for recurrent UTIs over the last several months. She has been prescribed Nitrofurantoin and Macrobid and had been receiving Rocephin injections as well. She states that the last time she took antibiotics for the UTI was around a week ago. Pt states that over the last 2 days she has had decreased UOP and has felt increasingly lethargic. She states that these symptoms are typically what happens when she has a worsening UTI. She denies any urinary urgency, urinary frequency or foul smelling urine. She denies any fevers or chills, nausea/vomiting, abdominal pain, constipation or diarrhea. She reports that around 3-4 weeks ago she had to have her pain pump moved because it was starting to erode through the skin. She states that she did not have a Gibbs placed during that surgery. In the ED pt had UA retrieved via in and out cath which noted moderate amount of leukocyte esterase and many bacteria. Urine culture is pending. Blood cultures were drawn. Pt was started on IV Cefepime. Review of Systems Constitutional: DENIES: Fever, Chills Eyes: DENIES: Vision loss Ears, nose, mouth, throat: DENIES: Hearing loss Respiratory: DENIES: Cough, Sputum production, Shortness of breath Cardiovascular: DENIES: Chest pain, Dyspnea on Exertion, Lower Extremity Edema (chronic) Gastrointestinal: DENIES: Abdominal pain, Nausea, Vomiting Genitourinary: COMPLAINS OF: Dysuria Musculoskeletal: COMPLAINS OF: Back pain (chronic), DENIES: Neck pain Integumentary: DENIES: Rash Neurologic: DENIES: Headache, Localized weakness, Paresthesias Psychiatric: DENIES: Confusion Past Family Social History Past Medical History HTN Diabetes mellitus, diet controlled Anxiety Asthma Chronic back pain/post-laminectomy syndrome and has implanted Dilaudid pain pump Failed back syndrome and prior lumbar spine surgeries IBD Osteoarthritis Myelomalacia Peripheral neuropathy GERD Morbid obesity Chronic anemia Hx of DVT in upper and lower extremities and hx of PE on Eliquis Hx of recurrent UTI and hx of urinary retention Past Surgical History Gastric bypass in the Cholecystectomy Lumbar spine surgeries Dilaudid pain pump implantation and recent surgery to move the pump as it had started eroding through her skin. Reported Medications -Eliquis 2.5 Mg PO BID -Metoprolol Tartrate 25 Mg PO BID -Alprazolam 0.5 Mg PO Q8H PRN -Morphine Sulfate PF Inj 7.5 Ml PO Q4HR PRN -Flovent Hfa 12 GM Inh 110 Mcg/Act Inh 2 Puff INH BID -Proair Hfa 8.5 GM Inh 90 Mcg/Act Aer 2 Puff INH Q4-6H PRN -Omeprazole 20 Mg PO BID -Flexeril 10 Mg PO TID PRN -Gabapentin 800 Mg PO QID ?Bumex 2mg BID Allergies: Coded Allergies: MRI PRECAUTION (Verified Adverse Reaction, Severe, SPINAL CORD STIMULATOR , 06/05/17) PER DR BOND Family History Father at 87 y/o related to complications from diabetes Social History Denies any alcohol, tobacco or illicit drug use Pt is and has two children She is on disability Physical Exam Vital Signs Vital Signs Date Time Temp Pulse Resp B/P (MAP) Pulse Ox O2 Delivery O2 Flow Rate FiO2 06/05/17 07:42 97.4 68 17 134/80 (98) 95 06/05/17 05:56 65 14 125/82 (96) 98 06/05/17 01:21 97.8 80 14 149/84 (105) 100 Physical Exam GENERAL: This is a morbidly obese female, in no apparent distress. SKIN: No rashes, ecchymoses or lesions. Cool and dry. HEENT: Atraumatic. Normocephalic. No temporal or scalp tenderness. No scleral icterus. Airway patent. NECK: Trachea midline, supple, nontender. CARDIO: Regular. RESP: CTA bilaterally. No wheezes, rales, or rhonchi. ABD: Abdomen soft, obese, non-tender, nondistended. WHSS in left mid abdomen EXT: Chronic bilateral LE edema. NEURO: Awake and alert. Motor and sensory grossly within normal limits. Normal speech. Laboratory Laboratory Tests Test 06/05/17 01:40 06/05/17 01:50 Urine Color YELLOW Urine Turbidity HAZY Urine pH 6.5 Urine Specific [place] 1.022 Urine Protein TRACE Urine Glucose (UA) NEG Urine Ketones NEG Urine Occult Blood NEG Urine Nitrite NEG Urine Bilirubin NEG Urine Urobilinogen 4.0 Urine Leukocyte Esterase MOD Urine RBC 1 Urine WBC 37 Urine Squamous Epithelial Cells 4 Urine Renal Epithelial Cells <1 Urine Bacteria MANY Microscopic Urinalysis Comment CULTURE INDICATED White Blood Count 5.9 Red Blood Count 3.53 Hemoglobin 10.1 Hematocrit 31.2 Mean Corpuscular Volume 88.3 Mean Corpuscular Hemoglobin 28.5 Mean Corpuscular Hemoglobin Concent 32.3 Red Cell Distribution Width 15.6 Platelet Count 273 Mean Platelet Volume 8.2 Neutrophils (%) (Auto) 60.3 Lymphocytes (%) (Auto) 29.6 Monocytes (%) (Auto) 7.6 Eosinophils (%) (Auto) 2.0 Basophils (%) (Auto) 0.5 Neutrophils # (Auto) 3.5 Lymphocytes # (Auto) 1.7 Monocytes # (Auto) 0.4 Eosinophils # (Auto) 0.1 Basophils # (Auto) 0.0 CBC Comment DIFF FINAL Differential Comment Blood Urea Nitrogen 10 Creatinine 0.76 Random Glucose 91 Total Protein 8.1 Albumin 2.6 Calcium Level 8.4 Alkaline Phosphatase 84 Aspartate Amino Transf (AST/SGOT) 18 Alanine Aminotransferase (ALT/SGPT) 11 Total Bilirubin 0.2 Sodium Level 145 Potassium Level 3.4 Chloride Level 109 Carbon Dioxide Level 31.0 Anion Gap 5 Estimat Glomerular Filtration Rate 97 Lactic Acid Level 1.1 Date/Time Source Procedure Growth Status 06/05/17 02:00 Blood Peripheral Aerobic Blood Culture Pending Received 06/05/17 02:00 Blood Peripheral Anaerobic Blood Culture Pending Received 06/05/17 01:40 Urine Clean Catch Urine Culture Pending Received Result Diagram: 06/05/17 0150 06/05/17 0150 Caprini VTE Risk Assessment Caprini Risk Assessment Model Point Value = 1 Point Value = 2 Point Value = 3 Point Value = 5 Age 41-60 Minor surgery BMI > 25 kg/m2 Swollen legs Varicose veins or History of unexplained or recurrent spontaneous Oral contraceptives or hormone replacement Sepsis (< 1 month) Serious lung disease, including pneumonia (< 1 month) Abnormal pulmonary function Acute myocardial infarction Congestive heart failure (< 1 month) History of inflammatory bowel disease Medical patient at bed rest Age 61-74 Arthroscopic surgery Major open surgery (> 45 min) Laparoscopic surgery (> 45 min) Malignancy Confined to bed (> 72 hours) Immobilizing plaster cast Central venous access Age >= 75 History of VTE Family history of VTE Factor V Leiden Prothrombin [id number] Lupus anticoagulant Anticardiolipin antibodies Elevated serum homocysteine Heparin-induced thrombocytopenia Other congenital or acquired thrombophilia Stroke (< 1 month) Elective arthroplasty Hip, pelvis, or leg fracture Acute spinal cord injury (< 1 month) Prophylaxis Regimen Total Risk Factor Score Risk Level Prophylaxis Regimen 0-1 Low Early ambulation 2 Moderate Order ONE of the following: *Sequential Compression Device (SCD) *Heparin 5000 units SQ BID 3-4 Higher Order ONE of the following medications: *Heparin 5000 units SQ TID *Enoxaparin/Lovenox 40 mg SQ daily (WT < 150 kg, CrCl > 30 mL/min) *Enoxaparin/Lovenox 30 mg SQ daily (WT < 150 kg, CrCl > 10-29 mL/min) *Enoxaparin/Lovenox 30 mg SQ BID (WT < 150 kg, CrCl > 30 mL/min) AND/OR *Sequential Compression Device (SCD) 5 or more Highest Order ONE of the following medications: *Heparin 5000 units SQ TID (Preferred with Epidurals) *Enoxaparin/Lovenox 40 mg SQ daily (WT < 150 kg, CrCl > 30 mL/min) *Enoxaparin/Lovenox 30 mg SQ daily (WT < 150 kg, CrCl > 10-29 mL/min) *Enoxaparin/Lovenox 30 mg SQ BID (WT < 150 kg, CrCl > 30 mL/min) AND *Sequential Compression Device (SCD) Assessment and Plan Problem List: (1) Urinary tract infection ICD Codes: N39.0 - Urinary tract infection, site not specified Status: Acute Plan: UTI, hx of recurrent UTI Urinary retention - Pt is a 51 y/o AAF with HTN, asthma, morbid obesity, chronic back pain with implanted Dilaudid pump, and is bed bound with limited use of her LE reportedly related to previous failed back surgeries. She has had issues in the past with urinary retention and recurrent UTIs. She has required prolonged Gibbs catheter use in the past as well but reports that the last time she needed a Gibbs was around 01/2017. - Pt [place] [facility] [place] with decreased UOP and increased lethargy. She states that she has recently treated for recurrent UTIs over the last several months and has been prescribed Nitrofurantoin, Macrobid and had received Rocephin injections as well. She states that the last time she took antibiotics for the UTI was around a week ago. In March 2017 outpt urine culture grew out Vancomycin resistant Enterococcus faecium. She had a repeat output UA in May 07, 2017 that did not grow out any specific organism. - Pt states that over the last 2 days she has had decreased UOP and has felt increasingly lethargic. - In the ED pt had UA retrieved via in and out cath which noted moderate amount of leukocyte esterase and many bacteria. - Urine culture is pending. - Blood cultures were drawn and are pending. - Pt was started on IV Cefepime. - IVF started - Bladder scan as pt reports that she has not had much urine output in 3 days and has been eating and drinking normally. Renal function is stable. - Repeat labs in AM - PT evaluation - Supportive care - DVT prophylaxis Hx of DVT/PE - Cont. home dose of Eliquis HTN - Cont. pts Metoprolol - She reports that she is on Bumex 2mg po BID as well Chronic back pain with implanted Dilaudid pain pump LE weakness, chronic - PT evaluation - Pt reports that since her pain pump was replaced about 3-4 weeks ago she has been able to move her LE more than previously - Pt is normally either bed bound and uses a motorized scooter to get around Diabetes Mellitus, diet controlled - Pt is diet controlled (2) Urinary retention ICD Codes: R33.9 - Retention of urine, unspecified Status: Acute (3) Chronic back pain ICD Codes: M54.9 - Dorsalgia, unspecified; G89.29 - Other chronic pain Status: Chronic (4) Paraparesis of both lower limbs ICD Codes: G82.20 - Paraplegia, unspecified Status: Chronic (5) Anxiety ICD Codes: F41.9 - Anxiety Status: Chronic Assessment and Plan Patient examined. Assessment and plan formulated with Mary Mackenzie PA-C. I agree with the above. uti with mental status change and lethargy. hx MDR uti's. f/u cx and adjust as needed 1000cc urine ret. gibbs ordered. Mary Mackenzie Jun 05, 2017 08:59 Arben Serna MD Jun 05, 2017 13:31
[2017-06-05] MEDS: APIXABAN 2.5 MG TABLET PO SCH ×2 (09:18→23:30)
[2017-06-05] MEDS: FLUTICASONE PROPIONATE 110 MCG/ACT 12 GM INHALER INH SCH ×2 (09:18→23:28)
[2017-06-05] MEDS: PANTOPRAZOLE SOD 20 MG DELAYED RELEASE TAB PO SCH ×2 (09:19→23:29)
[2017-06-05] MEDS: METOPROLOL TARTRATE 25 MG TAB PO SCH ×2 (09:19→23:30)
[2017-06-05] MEDS ORDERED: CYCLOBENZAPRINE HCL 10 MG TAB PO PRN (13:00)
[2017-06-05] MEDS ORDERED: BUME2TAB PO (13:00)
[2017-06-05] MEDS ORDERED: MORPHINE SULFATE PO PRN (13:00)
[2017-06-05] MEDS: GABAPENTIN 400 MG CAP PO SCH ×3 (14:51→23:30)
[2017-06-05] MEDS: CEFEPIME INJ 2,000 MG in SODIUM CHLORIDE 0.9% INJ 100 ML IV SCH (14:51)
[2017-06-05] MEDS: ALPRAZolam 0.5 MG TAB PO PRN (17:40)
[2017-06-05] MEDS: BUMETANIDE 1 MG TAB PO SCH (23:37)
[2017-06-06] VITALS (7 sets, daily range): BP systolic 91–117; BP diastolic 50–65; PULSE 71–96; RESP 16–20; TEMP 98–98.5; O2SAT 94–96
[2017-06-06] MEDS: CEFEPIME INJ 2,000 MG in SODIUM CHLORIDE 0.9% INJ 100 ML IV SCH ×2 (02:06→13:41)
--- NOTE | 2017-06-06 08:36 | HHI.PR ---
Subjective Remarks Pt feeling better this morning. She had out about 4450mL of urine since Wilks was placed yesterday evening. Pt has been afebrile BP is low this morning Reports that her back pain is about the same as it usually is, not any worse. Objective Vitals Vital Signs Date Time Temp Pulse Resp B/P (MAP) Pulse Ox O2 Delivery O2 Flow Rate FiO2 06/06/17 04:11 98.3 72 20 100/57 (71) 94 06/06/17 00:53 75 16 108/59 (75) 94 06/05/17 23:25 96 18 95 06/05/17 22:49 98.0 75 20 127/64 (85) 94 06/05/17 20:13 98.6 85 20 146/73 (97) 97 06/05/17 15:44 97.8 68 20 172/96 (121) 97 06/05/17 11:34 98.0 65 18 177/93 (121) 95 06/06/17 06/06/17 06/07/17 15:00 23:00 07:00 Output Total 750 ml Balance -750 ml Output Urine Total 750 ml Result Diagram: 06/05/17 0150 06/05/17 0150 Other Results Laboratory Tests Test 06/05/17 01:40 06/05/17 01:50 Urine Color YELLOW Urine Turbidity HAZY Urine pH 6.5 Urine Specific [place] 1.022 Urine Protein TRACE mg/dL Urine Glucose (UA) NEG mg/dL Urine Ketones NEG mg/dL Urine Occult Blood NEG Urine Nitrite NEG Urine Bilirubin NEG Urine Urobilinogen 4.0 MG/DL Urine Leukocyte Esterase MOD Urine RBC 1 /hpf Urine WBC 37 /hpf Urine Squamous Epithelial Cells 4 /hpf Urine Renal Epithelial Cells <1 /hpf Urine Bacteria MANY /hpf Microscopic Urinalysis Comment CULTURE INDICATED White Blood Count 5.9 TH/MM3 Red Blood Count 3.53 MIL/MM3 Hemoglobin 10.1 GM/DL Hematocrit 31.2 % Mean Corpuscular Volume 88.3 FL Mean Corpuscular Hemoglobin 28.5 PG Mean Corpuscular Hemoglobin Concent 32.3 % Red Cell Distribution Width 15.6 % Platelet Count 273 TH/MM3 Mean Platelet Volume 8.2 FL Neutrophils (%) (Auto) 60.3 % Lymphocytes (%) (Auto) 29.6 % Monocytes (%) (Auto) 7.6 % Eosinophils (%) (Auto) 2.0 % Basophils (%) (Auto) 0.5 % Neutrophils # (Auto) 3.5 TH/MM3 Lymphocytes # (Auto) 1.7 TH/MM3 Monocytes # (Auto) 0.4 TH/MM3 Eosinophils # (Auto) 0.1 TH/MM3 Basophils # (Auto) 0.0 TH/MM3 CBC Comment DIFF FINAL Differential Comment Blood Urea Nitrogen 10 MG/DL Creatinine 0.76 MG/DL Random Glucose 91 MG/DL Total Protein 8.1 GM/DL Albumin 2.6 GM/DL Calcium Level 8.4 MG/DL Alkaline Phosphatase 84 U/L Aspartate Amino Transf (AST/SGOT) 18 U/L Alanine Aminotransferase (ALT/SGPT) 11 U/L Total Bilirubin 0.2 MG/DL Sodium Level 145 MEQ/L Potassium Level 3.4 MEQ/L Chloride Level 109 MEQ/L Carbon Dioxide Level 31.0 MEQ/L Anion Gap 5 MEQ/L Estimat Glomerular Filtration Rate 97 ML/MIN Lactic Acid Level 1.1 mmol/L Objective Remarks General: NAD, AAOx3 Chest: CTA bilaterally Cardica: Regular Abd: +BS, soft ND/NT Ext: Bilateral LE edema, chronic A/P Problem List: (1) Urinary tract infection ICD Codes: N39.0 - Urinary tract infection, site not specified Status: Acute Plan: UTI, hx of recurrent UTI Urinary retention - Pt is a 51 y/o AAF with HTN, asthma, morbid obesity, chronic back pain with implanted Dilaudid pump, and is bed bound with limited use of her LE reportedly related to previous failed back surgeries. She has had issues in the past with urinary retention and recurrent UTIs. She has required prolonged Wilks catheter use in the past as well but reports that the last time she needed a Wilks was around 01/2017. - Pt presented to the ED at [facility] on 06/05/17 with decreased UOP and increased lethargy. She states that she has recently treated for recurrent UTIs over the last several months and has been prescribed Nitrofurantoin, Macrobid and had received Rocephin injections as well. She states that the last time she took antibiotics for the UTI was around a week ago. In March 2017 outpt urine culture grew out Vancomycin resistant Enterococcus faecium. She had a repeat output UA in May 07, 2017 that did not grow out any specific organism. - Pt states that over the last 2 days she has had decreased UOP and has felt increasingly lethargic. - In the ED pt had UA retrieved via in and out cath which noted moderate amount of leukocyte esterase and many bacteria. - Urine culture is pending. - Blood cultures were drawn and are pending. - Pt was started on IV Cefepime. - Wilks placed on 06/05 with 4450mL of urine output overnight - Repeat labs this AM - PT evaluation - Supportive care - DVT prophylaxis Hx of DVT/PE - Cont. home dose of Eliquis HTN - Cont. pts Metoprolol - She reports that she is on Bumex 2mg po BID as well Chronic back pain with implanted Dilaudid pain pump LE weakness, chronic - PT evaluation - Pt reports that since her pain pump was replaced about 3-4 weeks ago she has been able to move her LE more than previously - Pt is normally either bed bound and uses a motorized scooter to get around Diabetes Mellitus, diet controlled - Pt is diet controlled (2) Urinary retention ICD Codes: R33.9 - Retention of urine, unspecified Status: Acute (3) Chronic back pain ICD Codes: M54.9 - Dorsalgia, unspecified; G89.29 - Other chronic pain Status: Chronic (4) Paraparesis of both lower limbs ICD Codes: G82.20 - Paraplegia, unspecified Status: Chronic (5) Anxiety ICD Codes: F41.9 - Anxiety Status: Chronic Mary Mackenzie Jun 06, 2017 08:36
[2017-06-06] MEDS: GABAPENTIN 400 MG CAP PO SCH ×4 (10:02→19:57)
[2017-06-06] MEDS: FLUTICASONE PROPIONATE 110 MCG/ACT 12 GM INHALER INH SCH ×2 (10:03→19:59)
[2017-06-06] MEDS: METOPROLOL TARTRATE 25 MG TAB PO SCH ×2 (10:03→19:59)
[2017-06-06] MEDS: BUMETANIDE 1 MG TAB PO SCH ×2 (10:03→19:59)
[2017-06-06] MEDS: APIXABAN 2.5 MG TABLET PO SCH ×2 (10:03→19:58)
[2017-06-06] MEDS: PANTOPRAZOLE SOD 20 MG DELAYED RELEASE TAB PO SCH ×2 (10:03→19:57)
[2017-06-06] MEDS: MORPHINE SULFATE 2 MG/ML SYRINGE IV PRN ×2 (10:09→20:03)
[2017-06-06 12:15] LABS: AUTOMATED NEUTROPHIL # 3.4 TH/MM3 (1.8-7.7); BASOPHIL % 0.4 % (0.0-2.0); EOSINOPHIL # 0.1 TH/MM3 (0-0.4); EOSINOPHIL % 1.5 % (0.0-4.0); HEMATOCRIT 31.9 % (35.0-46.0); HEMOGLOBIN 10.3 GM/DL (11.6-15.3); LYMPH % 25.3 % (9.0-44.0); LYMPHOCYTE # 1.3 TH/MM3 (1.0-4.8); MEAN CELL VOLUME 88.2 FL (80.0-100.0); MEAN CORPUSCULAR HEMOGLOBIN 28.4 PG (27.0-34.0); MEAN CORPUSCULAR HGB CONC 32.2 % (32.0-36.0); MEAN PLATELET VOLUME 8.2 FL (7.0-11.0); MONO % 8.3 % (0.0-8.0); MONOCYTE # 0.4 TH/MM3 (0-0.9); NEUT % 64.5 % (16.0-70.0); PLATELET COUNT 274 TH/MM3 (150-450); RED BLOOD COUNT 3.62 MIL/MM3 (4.00-5.30); RED CELL DISTRIBUTION WIDTH 15.6 % (11.6-17.2); WHITE BLOOD COUNT 5.3 TH/MM3 (4.0-11.0)
[2017-06-06 12:33] LABS: BICARBONATE 29.2 MEQ/L (21.0-32.0); CALCIUM 8.1 MG/DL (8.5-10.1); CREATININE 0.75 MG/DL (0.50-1.00)
[2017-06-06] MEDS ORDERED: POTASSIUM CHLORIDE 20 MEQ CONTROLLED RELEASE TAB PO ONE (13:45)
[2017-06-06] MEDS: ALPRAZolam 0.5 MG TAB PO PRN (13:48)
[2017-06-06] MEDS: POTASSIUM CHLORIDE 10 MEQ CAP PO SCH (19:58)
[2017-06-06] MEDS ORDERED: POTASSIUM CHLORIDE 10 MEQ CAP PO SCH (21:00)
[2017-06-07] MEDS: CEFEPIME INJ 2,000 MG in SODIUM CHLORIDE 0.9% INJ 100 ML IV SCH ×2 (02:32→13:25)
[2017-06-07 02:36] VITALS: BP 106/59; PULSE 74; RESP 18; TEMP 97.8; O2SAT 92
[2017-06-07] MEDS: FLUTICASONE PROPIONATE 110 MCG/ACT 12 GM INHALER INH SCH (07:57)
[2017-06-07] MEDS: GABAPENTIN 400 MG CAP PO SCH ×2 (07:58→13:25)
[2017-06-07] MEDS: METOPROLOL TARTRATE 25 MG TAB PO SCH (07:58)
[2017-06-07] MEDS: PANTOPRAZOLE SOD 20 MG DELAYED RELEASE TAB PO SCH (07:59)
[2017-06-07] MEDS: APIXABAN 2.5 MG TABLET PO SCH (07:59)
[2017-06-07] MEDS: BUMETANIDE 1 MG TAB PO SCH (07:59)
[2017-06-07 08:00] VITALS: BP 105/51; PULSE 77; RESP 18; TEMP 98.1; O2SAT 93
[2017-06-07] MEDS: POTASSIUM CHLORIDE 10 MEQ CAP PO SCH (08:00)
--- NOTE | 2017-06-07 09:09 | HHI.PR ---
Subjective Remarks No new complaints Pt is anxious for discharge Mosquera cath in place with about 100cc of urine presently in bag Afebrile Objective Vitals Vital Signs Date Time Temp Pulse Resp B/P (MAP) Pulse Ox O2 Delivery O2 Flow Rate FiO2 06/07/17 08:00 98.1 77 18 105/51 (69) 93 06/07/17 02:36 97.8 74 18 106/59 (75) 92 06/06/17 22:50 98.1 71 16 96/54 (68) 95 06/06/17 19:38 98.0 96 20 113/51 (71) 94 06/06/17 16:00 98.2 77 18 91/54 (66) 95 06/06/17 12:00 98.5 76 18 100/50 (67) 96 06/06/17 10:41 20 Result Diagram: 06/06/17 1109 06/06/17 1109 Other Results Laboratory Tests Test 06/06/17 11:09 White Blood Count 5.3 TH/MM3 Red Blood Count 3.62 MIL/MM3 Hemoglobin 10.3 GM/DL Hematocrit 31.9 % Mean Corpuscular Volume 88.2 FL Mean Corpuscular Hemoglobin 28.4 PG Mean Corpuscular Hemoglobin Concent 32.2 % Red Cell Distribution Width 15.6 % Platelet Count 274 TH/MM3 Mean Platelet Volume 8.2 FL Neutrophils (%) (Auto) 64.5 % Lymphocytes (%) (Auto) 25.3 % Monocytes (%) (Auto) 8.3 % Eosinophils (%) (Auto) 1.5 % Basophils (%) (Auto) 0.4 % Neutrophils # (Auto) 3.4 TH/MM3 Lymphocytes # (Auto) 1.3 TH/MM3 Monocytes # (Auto) 0.4 TH/MM3 Eosinophils # (Auto) 0.1 TH/MM3 Basophils # (Auto) 0.0 TH/MM3 CBC Comment DIFF FINAL Differential Comment Blood Urea Nitrogen 9 MG/DL Creatinine 0.75 MG/DL Random Glucose 104 MG/DL Calcium Level 8.1 MG/DL Sodium Level 141 MEQ/L Potassium Level 3.2 MEQ/L Chloride Level 105 MEQ/L Carbon Dioxide Level 29.2 MEQ/L Anion Gap 7 MEQ/L Estimat Glomerular Filtration Rate 98 ML/MIN Objective Remarks General: NAD, AAOx3 Chest: CTA bilaterally Cardica: Regular Abd: +BS, soft ND/NT Ext: Bilateral LE edema, chronic A/P Problem List: (1) Urinary tract infection ICD Codes: N39.0 - Urinary tract infection, site not specified Status: Acute Plan: UTI, hx of recurrent UTI Urinary retention - Pt is a 51 y/o AAF with HTN, asthma, morbid obesity, chronic back pain with implanted Dilaudid pump, and is bed bound with limited use of her LE reportedly related to previous failed back surgeries. She has had issues in the past with urinary retention and recurrent UTIs. She has required prolonged Mosquera catheter use in the past as well but reports that the last time she needed a Mosquera was around 01/2017. - Pt presented to the ED at [facility] on 06/05/17 with decreased UOP and increased lethargy. She states that she has recently treated for recurrent UTIs over the last several months and has been prescribed Nitrofurantoin, Macrobid and had received Rocephin injections as well. She states that the last time she took antibiotics for the UTI was around a week ago. In March 2017 outpt urine culture grew out Vancomycin resistant Enterococcus faecium. She had a repeat output UA in May 07, 2017 that did not grow out any specific organism. - Pt states that over the last 2 days she has had decreased UOP and has felt increasingly lethargic. - In the ED pt had UA retrieved via in and out cath which noted moderate amount of leukocyte esterase and many bacteria. - Urine culture growing VRE. Sensitivity to Zyvox and Daptomycin - Blood cultures with NGTD - Pt was started on IV Cefepime at admission. - Once culture sensitivities resulted Abx were changed to Zyvox 600mg Q12H, first dose given prior to discharge. - pt will continue on Zyvox for 10 days. CBC and BMP to be checked on with results to Dr. Magdaleno. - Mosquera placed on 06/05 and pt to be discharged with Mosquera and will followup with Dr. Santos in the next week with regards to removing the Mosquera cath. Hx of DVT/PE - Cont. home dose of Eliquis HTN Hx of tachycardia - Cont. pts Metoprolol, but decrease dose to 12.5mg po BID as pts BP has been low/normal and HR has been controlled. Pt questioning why she was started on Metoprolol so outpt records reviewed and this was started in 04/2016 due to tachycardia but was also recommended to be stopped on Terazosin and Bumex at that time. Pt is still taking her Bumex and therefore we will have her followup with her PCP, Dr. Magdaleno, and address continuation of the Metoprolol as an otupt. - Cont. Bumex 2mg po BID Chronic back pain with implanted Dilaudid pain pump LE weakness, chronic - PT evaluation - Pt reports that since her pain pump was replaced about 3-4 weeks ago she has been able to move her LE more than previously - Pt is normally either bed bound and uses a motorized scooter to get around Diabetes Mellitus, diet controlled - Pt is diet controlled (2) Urinary retention ICD Codes: R33.9 - Retention of urine, unspecified Status: Acute (3) Chronic back pain ICD Codes: M54.9 - Dorsalgia, unspecified; G89.29 - Other chronic pain Status: Chronic (4) Paraparesis of both lower limbs ICD Codes: G82.20 - Paraplegia, unspecified Status: Chronic (5) Anxiety ICD Codes: F41.9 - Anxiety Status: Chronic Assessment and Plan Patient examined. Assessment and plan formulated with Mary Mackenzie PA-C. I agree with the above. enterococcus uti with 1000ml urine retention d/c with mosquera and close urology f/u and removal await final sensitivity on cx today then d/c home with [facility] she has [facility] home doc Mary Mackenzie Jun 07, 2017 09:09 Arben Serna MD Jun 07, 2017 12:51
--- NOTE | 2017-06-07 09:12 | HHI.FF ---
Face to Face Verification Diagnosis: (1) Urinary retention (2) UTI (lower urinary tract infection) (3) Chronic back pain (4) Anxiety (5) Obese (6) COPD (chronic obstructive pulmonary disease) Physical Therapy Order: Evaluate and Treat, Improve ambulation, Strength and gait training Home Health Nursing Order: Nursing assessment with vital signs Wilks catheter maintenance Instructions: CBC and BMP to be checked on 06/11/17 with results to be sent to her PCP , Dr. Magdaleno. I have seen patient Asha Cook on 06/07/17. My clinical findings support the need for the requested home health care services because: Deconditioned w/ increased weakness Limited ability to care for self I certify that my clinical findings support that this patient is homebound because: Unsteady gait/balance Mary Mackenzie Jun 07, 2017 09:12 Conner Knight DO Jun 09, 2017 13:17
[2017-06-07] MEDS: MORPHINE SULFATE 2 MG/ML SYRINGE IV PRN ×2 (09:34→13:29)
[2017-06-07 11:27] LABS: BICARBONATE 28.1 MEQ/L (21.0-32.0); CALCIUM 8.3 MG/DL (8.5-10.1); CREATININE 0.86 MG/DL (0.50-1.00)
[2017-06-07 12:00] VITALS: BP 113/57; PULSE 80; RESP 18; TEMP 98.2; O2SAT 96
[2017-06-07] MEDS ORDERED: METO25TA3 PO (13:10)
[2017-06-07] MEDS ORDERED: LINE1TAB PO (14:35)
--- NOTE | 2017-06-07 14:41 | HHI.DCPOC ---
Discharge Care Plan Diagnosis: (1) UTI (lower urinary tract infection) (2) Urinary retention (3) COPD (chronic obstructive pulmonary disease) (4) Obese (5) Chronic back pain (6) Anxiety Goals to Promote Your Health * To prevent worsening of your condition and complications * To maintain your health at the optimal level Directions to Meet Your Goals Take your medications as prescribed Follow your dietary instruction Follow activity as directed Keep your appointments as scheduled Take your immunizations and boosters as scheduled If your symptoms worsen call your PCP, if no PCP go to Urgent Care Center or Emergency Room Smoking is Dangerous to Your Health. Avoid second hand smoke Call the 24-hour hour crisis hotline for domestic abuse at Mary Mackenzie Jun 07, 2017 14:41
[2017-06-07] MEDS ORDERED: POTA10TA2 PO (14:47)
[2017-06-07] MEDS ORDERED: LINEZOLID 600 MG TAB PO ONE (15:00)
[2017-06-07] MEDS ORDERED: METOPROLOL TARTRATE 25 MG TAB PO SCH (21:00)
== END 2017-06-07 17:11 | disposition home or self-care (01) ==
LOC: NEPE 01:14 → NEDA 04:38 → NEDH 08:34 → NEPFCDU 15:35
PROVIDERS: ADMIT Hospitalist; ATTEND Hospitalist
DX: N39.0 Urinary tract infection, site not specified (principal); R33.9 Retention of urine, unspecified; B95.2 Enterococcus as the cause of diseases classified elsewhere; J44.9 Chronic obstructive pulmonary disease, unspecified; M54.9 Dorsalgia, unspecified; G89.29 Other chronic pain; F41.9 Anxiety disorder, unspecified; G82.20 Paraplegia, unspecified; R00.0 Tachycardia, unspecified; I11.0 Hypertensive heart disease with heart failure; I50.9 Heart failure, unspecified; E66.01 Morbid (severe) obesity due to excess calories; Z68.43 Body mass index [BMI] 50.0-59.9, adult; E11.9 Type 2 diabetes mellitus without complications
CPT/HCPCS: 80048; 80053; 81001; 83605; 85025; 87040; 87077; 87086; 87186; 96361; 96365; 96366; 96375; 96376; 97163; 99285; G0378; G8987; G8988; J0692; J2270; J3480

== ENCOUNTER 2017-06-12 13:56 | Observation (INO) | payer MEDICARE, OTHER ==
[~2017-06-12] VITALS: Ht 157.5 cm; Wt 142.0 kg
[~2017-06-12 13:56] MED LIST changes: +BUME2TAB PO; -CIPR-9 PO; +LINE1TAB PO; +POTA10TA2 PO
[2017-06-12 14:00] VITALS: BP 146/93; PULSE 117; RESP 20; RESP 24; TEMP 98.3; O2SAT 97
[2017-06-12] MEDS ORDERED: TERA1CAP3 PO (14:42)
[2017-06-12] MEDS ORDERED: BETH25TA2 PO (14:42)
[2017-06-12 14:43] VITALS: PULSE 116; RESP 17; O2SAT 100
[2017-06-12 15:10] LABS: AUTOMATED NEUTROPHIL # 4.5 TH/MM3 (1.8-7.7); BASOPHIL % 0.4 % (0.0-2.0); EOSINOPHIL # 0.1 TH/MM3 (0-0.4); EOSINOPHIL % 1.7 % (0.0-4.0); HEMATOCRIT 35.4 % (35.0-46.0); HEMOGLOBIN 11.4 GM/DL (11.6-15.3); LYMPH % 27.8 % (9.0-44.0); MEAN CELL VOLUME 88.4 FL (80.0-100.0); MEAN CORPUSCULAR HEMOGLOBIN 28.4 PG (27.0-34.0); MEAN CORPUSCULAR HGB CONC 32.2 % (32.0-36.0); MEAN PLATELET VOLUME 8.3 FL (7.0-11.0); MONO % 7.5 % (0.0-8.0); MONOCYTE # 0.5 TH/MM3 (0-0.9); NEUT % 62.6 % (16.0-70.0); PLATELET COUNT 300 TH/MM3 (150-450); RED BLOOD COUNT 4.01 MIL/MM3 (4.00-5.30); RED CELL DISTRIBUTION WIDTH 15.7 % (11.6-17.2); WHITE BLOOD COUNT 7.2 TH/MM3 (4.0-11.0)
[2017-06-12 15:37] LABS: ALBUMIN 3.3 GM/DL (3.4-5.0); AST (GOT) 34 U/L (15-37); BICARBONATE 29.5 MEQ/L (21.0-32.0); BLOOD UREA NITROGEN 27 MG/DL (7-18); CALCIUM 9.1 MG/DL (8.5-10.1); CHLORIDE 99 MEQ/L (98-107); CREATININE 1.34 MG/DL (0.50-1.00); GLOMERULAR FILTRATION RATE 50 ML/MIN (>89); GLUCOSE,RANDOM 102 MG/DL (74-106); SODIUM (NA) 139 MEQ/L (136-145)
[2017-06-12 15:40] LABS: ALKALINE PHOSPHATASE 107 U/L (45-117); ALT (GPT) 19 U/L (10-53); TOTAL BILIRUBIN ADULT 0.3 MG/DL (0.2-1.0); TOTAL PROTEIN 9.7 GM/DL (6.4-8.2)
[2017-06-12] MEDS ORDERED: SODIUM CHLOR 0.9% 1000 ML INJ 1,000 ML IV SCH ×2 (15:45→18:00)
[2017-06-12] MEDS ORDERED: SODIUM CHLORID 0.9% 500 ML INJ 500 ML IV ONE (15:45)
--- NOTE | 2017-06-12 15:47 | RADRPT ---
EXAM DATE/TIME: 06/12/2017 14:45 [place] COMPARISON: CT ABDOMEN & PELVIS W/O CONTRAST, April 16, 2016, 4:53. CT THORAX W/O CONTRAST, April 30, 2015 , 11:09. CT ABDOMEN & PELVIS W/O CONTRAST, April 16, 2016, 4:53CHEST SINGLE AP, April 16, 2016 , 1:43. INDICATIONS : Wheezing. MEDICAL HISTORY : Chronic obstructive pulmonary disease. SURGICAL HISTORY : Cholecystectomy. Appendectomy. Pain stimulator, ENCOUNTER: Initial ACUITY: 2 days PAIN SCORE: 0/10 LOCATION: Bilateral chest FINDINGS: Persistent elevation of the right hemidiaphragm with a focal 1.5 cm nodular opacity in the right lowe r lung zone. Cardiomediastinal contours are within normal limits. Bony thorax is intact. CONCLUSION: 1. Chronic elevation of the right hemidiaphragm. 2. 1.5 cm nodular opacity in the right lower lung zone in a region of recent airspace consolidation. Consider CT examination on outpatient basis for further evaluation. Manuel Cummings MD on June 12, 2017 at 15:06 Board Certified Radiologist. This report was verified electronically.
[2017-06-12 16:03] LABS: BACTERIA, URINE OCC /hpf; BILIRUBIN, URINE NEG (NEG); BLOOD, URINE MOD (NEG); GLUCOSE,URINE NEG (NEG); HYALINE CAST, URINE 30 /lpf (RARE); KETONE, URINE NEG (NEG); NITRITE,URINE NEG (NEG); SQUAMOUS EPITHELIAL CELL URINE 1 /hpf (0-5); URINE COLOR YELLOW (YELLW/STRAW); URINE LEUKOCYTE ESTERASE TRACE (NEG)
--- NOTE | 2017-06-12 16:37 | PD ---
HPI Chief Complaint: Abnormal Results Time Seen by Provider: 14:28 Travel History International Travel<30 days: No Contact w/Intl Traveler<30days: No Traveled to known affect area: No History of Present Illness HPI This is a 51-year-old female with a history of spinal cord injury with resultant neurogenic bladder and bilateral lower extremity weakness, recent UTI , who is was sent here by her primary care physician for abnormal labs. Patient reportedly was recently admitted to the hospital for UTI and altered mental status. At that time patient was found to have a resistant urinary tract infection. She was sent home on Zyvox. Patient presents today stating that she had blood work drawn yesterday and was told by her primary care doctor to come to the hospital for admission for increasing creatinine. Patient had normal creatinine when she was discharged. PFSH Past Medical History Hx Anticoagulant Therapy: Yes (warfarin) Anemia: Yes Arthritis: Yes Asthma: Yes (inhaler) Autoimmune Disease: No Blood Disorders: No Anxiety: Yes Depression: No Heart Rhythm Problems: No Cancer: No Cardiac Catheterization: Yes (NORMAL REPORTS ) Cardiovascular Problems: Yes Cerebral Palsy: No High Cholesterol: Yes Chemotherapy: No Chest Pain: No Congestive Heart Failure: No COPD: Yes Cerebrovascular Accident: No Diabetes: No Diminished Hearing: No Deep Vein Thrombosis: Yes (BILATERAL LOWER EXT) Endocrine: No Gastrointestinal Disorders: Yes (IBS) GERD: Yes Glaucoma: No Genitourinary: Yes (RETENTION, UTI) Hepatitis: No Hiatal Hernia: No Hypertension: Yes Immune Disorder: No Implanted Vascular Access Dvce: Yes Kidney Stones: No Musculoskeletal: Yes (degenerative disc disease) Neurologic: No Psychiatric: Yes Reproductive: No Respiratory: Yes Immunizations Current: No Migraines: No Radiation Therapy: No Renal Failure: No Seizures: No Sickle Cell Disease: No Sleep Apnea: No Thyroid Disease: No Ulcer: No Tetanus Vaccination: > 5 Years Influenza Vaccination: Yes PNEUMOCCOCAL Vaccine (Year): 2 ?: Not Menopausal: Yes : 2 Para: 2 Past Surgical History Abdominal Surgery: Yes (gallbladder) AICD: No Arteriovenous Shunt: No Body Medical Devices: PAIN PUMP, ANDRES RODS Cardiac Surgery: No Cholecystectomy: Yes Ear Surgery: No Endocrine Surgery: No Eye Surgery: No Genitourinary Surgery: No Gynecologic Surgery: No Insulin Pump: No Joint Replacement: No Neurologic Surgery: Yes (spinal cord) Oral Surgery: No Pacemaker: No Thoracic Surgery: No Other Surgery: Yes (DILAUDID PUMP) Social History Alcohol Use: No Tobacco Use: No Substance Use: No Allergies-Medications (Allergen,Severity, Reaction): Coded Allergies: MRI PRECAUTION (Verified Adverse Reaction, Severe, SPINAL CORD STIMULATOR , 06/05/17) PER DR VARUN camejo (Verified Adverse Reaction, Intermediate, Nausea/Vomitting, 06/07/17) Reported Meds & Prescriptions Reported Meds & Active Scripts Active Linezolid 600 Mg Tab 600 Mg PO Q12H 10 Days Metoprolol Tartrate 25 Mg Tab 12.5 Mg PO BID Reported Bethanechol 25 Mg Tab 25 Mg PO Q8HR Terazosin (Terazosin HCl) 1 Mg Cap 1 Mg PO HS Potassium Chloride ER (Potassium Chloride) 10 Meq Tab 10 Meq PO DAILY Bumetanide 2 Mg Tab 2 Mg PO BID Eliquis (Apixaban) 2.5 Mg Tab 2.5 Mg PO BID Alprazolam 0.5 Mg Tab 0.5 Mg PO Q8H PRN Morphine Sulfate PF Inj (Morphine Sulfate/Sodium Chloride) 0.5 Mg/Ml Syr 7.5 Ml PO Q4HR PRN Flovent Hfa 12 GM Inh (Fluticasone Propionate) 110 Mcg/Act Inh 2 Puff INH BID Proair Hfa 8.5 GM Inh (Albuterol Sulfate) 90 Mcg/Act Aer 2 Puff INH Q4-6H PRN 108 mcg/actuation Omeprazole 20 Mg Tab 20 Mg PO BID Flexeril (Cyclobenzaprine HCl) 10 Mg Tab 10 Mg PO TID PRN Gabapentin 800 Mg Tab 800 Mg PO QID Review of Systems Except as stated in HPI: all other systems reviewed are Neg General / Constitutional: No: Fever, Chills HENT: No: Headaches, Lightheadedness Cardiovascular: No: Chest Pain or Discomfort, Palpitations Respiratory: No: Cough, Shortness of Breath Gastrointestinal: No: Nausea, Vomiting, Abdominal Pain Genitourinary: Positive: Other (Wilks catheter in place being treated for UTI) , No: Dysuria (Patient does not feel herself urinate) Musculoskeletal: Positive: Weakness (Bilateral lower extremity secondary to old spinal cord injury) Neurologic: Positive: Other (Neurogenic bladder) Physical Exam Narrative GENERAL: Well-developed well-nourished obese female in no acute respiratory distress. SKIN: Focused skin assessment warm/dry. HEAD: Atraumatic. Normocephalic. EYES: Pupils equal and round. No scleral icterus. No injection or drainage. ENT: No nasal bleeding or discharge. Mucous membranes pink and moist. NECK: Trachea midline. Supple. CARDIOVASCULAR: Heart rate 120. Sinus tach on the monitor. No murmur appreciated. RESPIRATORY: No accessory muscle use. Clear to auscultation. Breath sounds equal bilaterally. GASTROINTESTINAL: Abdomen soft, obese, non-tender. MUSCULOSKELETAL: Bilateral chronic edema. No deformity. NEUROLOGICAL: Awake and alert. No obvious cranial nerve deficits. Patient has paralysis of her bilateral lower extremities from her previous back issues. PSYCHIATRIC: Appropriate mood and affect; insight and judgment normal. Data Data Last Documented VS Vital Signs Date Time Temp Pulse Resp B/P (MAP) Pulse Ox O2 Delivery O2 Flow Rate FiO2 06/12/17 14:43 116 17 100 Room Air 06/12/17 14:00 98.3 146/93 (110) Orders Orders Complete Blood Count With Diff (06/12/17 14:28) Comprehensive Metabolic Panel (06/12/17 14:28) Urinalysis - C+S If Indicated (06/12/17 14:28) Chest, Single Ap (06/12/17 14:28) Iv Access Insert/Monitor (06/12/17 14:28) Ecg Monitoring (06/12/17 14:28) Oximetry (06/12/17 14:28) Sodium Chlorid 0.9% 500 Ml Inj (Ns 500 M (06/12/17 15:45) Sodium Chlor 0.9% 1000 Ml Inj (Ns 1000 M (06/12/17 15:45) Urine Culture (06/12/17 14:45) Admit Order (Ed Use Only) (06/12/17 16:52) Labs Laboratory Tests Test 06/12/17 14:40 06/12/17 14:45 White Blood Count 7.2 TH/MM3 Red Blood Count 4.01 MIL/MM3 Hemoglobin 11.4 GM/DL Hematocrit 35.4 % Mean Corpuscular Volume 88.4 FL Mean Corpuscular Hemoglobin 28.4 PG Mean Corpuscular Hemoglobin Concent 32.2 % Red Cell Distribution Width 15.7 % Platelet Count 300 TH/MM3 Mean Platelet Volume 8.3 FL Neutrophils (%) (Auto) 62.6 % Lymphocytes (%) (Auto) 27.8 % Monocytes (%) (Auto) 7.5 % Eosinophils (%) (Auto) 1.7 % Basophils (%) (Auto) 0.4 % Neutrophils # (Auto) 4.5 TH/MM3 Lymphocytes # (Auto) 2.0 TH/MM3 Monocytes # (Auto) 0.5 TH/MM3 Eosinophils # (Auto) 0.1 TH/MM3 Basophils # (Auto) 0.0 TH/MM3 CBC Comment DIFF FINAL Differential Comment Blood Urea Nitrogen 27 MG/DL Creatinine 1.34 MG/DL Random Glucose 102 MG/DL Total Protein 9.7 GM/DL Albumin 3.3 GM/DL Calcium Level 9.1 MG/DL Alkaline Phosphatase 107 U/L Aspartate Amino Transf (AST/SGOT) 34 U/L Alanine Aminotransferase (ALT/SGPT) 19 U/L Total Bilirubin 0.3 MG/DL Sodium Level 139 MEQ/L Potassium Level 4.1 MEQ/L Chloride Level 99 MEQ/L Carbon Dioxide Level 29.5 MEQ/L Anion Gap 11 MEQ/L Estimat Glomerular Filtration Rate 50 ML/MIN Urine Color YELLOW Urine Turbidity HAZY Urine pH 6.0 Urine Specific [place] 1.022 Urine Protein 300 mg/dL Urine Glucose (UA) NEG mg/dL Urine Ketones NEG mg/dL Urine Occult Blood MOD Urine Nitrite NEG Urine Bilirubin NEG Urine Urobilinogen 2.0 MG/DL Urine Leukocyte Esterase TRACE Urine RBC 63 /hpf Urine WBC 21 /hpf Urine Squamous Epithelial Cells 1 /hpf Urine Bacteria OCC /hpf Urine Hyaline Casts 30 /lpf Microscopic Urinalysis Comment CULTURE INDICATED MDM Medical Decision Making Medical Screen Exam Complete: Yes Emergency Medical Condition: Yes Differential Diagnosis Acute renal failure versus metabolic derangement versus persistent UTI Narrative Course 51-year-old female with a history of paralysis to bilateral lower extremity secondary to an old spinal injury, recent UTI, tachycardia, spinal stenosis, neurogenic bladder, who presents at the request of her primary care physician for admission for increasing creatinine. Patient had normal creatinine of 0.8 on discharge from the hospital last week. Her creatinine here is 1.37. Her BUN is also elevated. She has been started on IV fluids. She has been given a 500 cc bolus and is currently at 125 cc/h. Urinalysis shows persistent UTI despite being on Zyvox. There is a call out to the [facility] hospitalist, Dr. Miguel Knight. Patient will be continued on IV fluids. Antibiotic decision will be discussed with Dr. Knight. Diagnosis Primary Impression: Acute kidney injury Additional Impressions: Persistent UTI Paralysis of both lower limbs Tachycardia Chronic pain Spinal stenosis Admitting Information Admitting Physician Requests: Observation Rupesh Dobson MD Jun 12, 2017 16:37
[2017-06-12] MEDS ORDERED: ONDANSETRON HCL 4 MG/2 ML VIAL IVP PRN (17:15)
[2017-06-12] MEDS ORDERED: ALBUTEROL SULFATE 90 MCG/ACT HFA 8 GM INHALER INH PRN (17:15)
[2017-06-12] MEDS ORDERED: MAGNESIUM HYDROXIDE SUSP 30 ML CUP PO PRN (17:15)
[2017-06-12] MEDS ORDERED: NALOXONE HCL 0.4 MG/ML AMP IV PUSH PRN (17:15)
[2017-06-12] MEDS ORDERED: CYCLOBENZAPRINE HCL 10 MG TAB PO PRN (17:15)
[2017-06-12] MEDS ORDERED: SODIUM CHLORIDE 0.9% FLUSH 10 ML FLUSH IV FLUSH PRN (17:15)
[2017-06-12] MEDS ORDERED: ACETAMINOPHEN 325 MG TAB PO PRN (17:15)
--- NOTE | 2017-06-12 17:16 | HHI.HP ---
HPI Service [facility] Hospitalists Primary Care Physician Junior Magdaleno D.O. Admission Diagnosis acute kidney injury, persistant uti, history of neurogenic bladder Chief Complaint: sent by PCP Travel History International Travel<30 Days: No Contact w/Intl Traveler <30 Da: No Traveled to Known Affected Are: No History of Present Illness Mrs. Cook is a 51 y/o AAF with HTN, asthma, morbid obesity, chronic back pain with implanted Dilaudid pump, and is bed bound with limited use of her LE reportedly related to previous failed back surgeries. She has had issues in the past with urinary retention and recurrent UTIs. She has required prolonged Gibbs catheter use in the past as well but reports that the last time she needed a Gibbs was around 01/2017. She follows with Dr. Santos as an outpt. Patient was treated at [facility] from 06/05/17 to 06/07/17 for UTI. Urine culture 06/05 grew VRE. Sensitivity to Zyvox and Daptomycin Patient discharged home on Zyvox for 10 days. Patient's outpatient labs revealed elevated BUN and creatine. Patient was then sent by her PCP to the ER for further evaluation and treatment. Patient reports she feels well and offers no complaints at this time. Patient denies fever, chills, N/V/D/C, chest pain or SOB. Review of Systems Constitutional: DENIES: Fatigue, Fever, Chills Eyes: DENIES: Blurred vision, Vision loss, Double Vision Respiratory: DENIES: Cough, Sputum production, Shortness of breath Cardiovascular: DENIES: Chest pain, Dyspnea on Exertion, Lower Extremity Edema Gastrointestinal: DENIES: Abdominal pain, Constipation, Diarrhea, Nausea, Vomiting Neurologic: DENIES: Abnormal gait, Headache, Speech Problems Psychiatric: DENIES: Anxiety, Confusion, Depression Past Family Social History Past Medical History HTN Diabetes mellitus, diet controlled Anxiety Asthma Chronic back pain/post-laminectomy syndrome and has implanted Dilaudid pain pump Failed back syndrome and prior lumbar spine surgeries IBD Osteoarthritis Myelomalacia Peripheral neuropathy GERD Morbid obesity Chronic anemia Hx of DVT in upper and lower extremities and hx of PE on Eliquis Hx of recurrent UTI and hx of urinary retention Past Surgical History Gastric bypass in the Cholecystectomy Lumbar spine surgeries Dilaudid pain pump implantation and recent surgery to move the pump as it had started eroding through her skin. Reported Medications Linezolid 600 Mg Tab 600 Mg PO Q12H 10 Days Metoprolol Tartrate 25 Mg Tab 12.5 Mg PO BID Bethanechol 25 Mg Tab 25 Mg PO Q8HR Terazosin (Terazosin HCl) 1 Mg Cap 1 Mg PO HS Potassium Chloride ER (Potassium Chloride) 10 Meq Tab 10 Meq PO DAILY Bumetanide 2 Mg Tab 2 Mg PO BID Eliquis (Apixaban) 2.5 Mg Tab 2.5 Mg PO BID Alprazolam 0.5 Mg Tab 0.5 Mg PO Q8H PRN Morphine Sulfate PF Inj (Morphine Sulfate/Sodium Chloride) 0.5 Mg/Ml Syr 7.5 Ml PO Q4HR PRN Flovent Hfa 12 GM Inh (Fluticasone Propionate) 110 Mcg/Act Inh 2 Puff INH BID Proair Hfa 8.5 GM Inh (Albuterol Sulfate) 90 Mcg/Act Aer 2 Puff INH Q4-6H PRN 108 mcg/actuation Omeprazole 20 Mg Tab 20 Mg PO BID Flexeril (Cyclobenzaprine HCl) 10 Mg Tab 10 Mg PO TID PRN Gabapentin 800 Mg Tab 800 Mg PO QID Allergies: Coded Allergies: MRI PRECAUTION (Verified Adverse Reaction, Severe, SPINAL CORD STIMULATOR , 06/05/17) PER DR VARUN camejo (Verified Adverse Reaction, Intermediate, Nausea/Vomitting, 06/07/17) Family History Father at 87 y/o related to complications from diabetes Social History Denies any alcohol, tobacco or illicit drug use Pt is and has two children She is on disability Physical Exam Vital Signs Vital Signs Date Time Temp Pulse Resp B/P (MAP) Pulse Ox O2 Delivery O2 Flow Rate FiO2 06/12/17 14:43 116 17 100 Room Air 06/12/17 14:33 118 20 98 Room Air 06/12/17 14:00 98.3 117 24 146/93 (110) 97 Physical Exam GENERAL: This is a morbidly obese female, in no apparent distress. SKIN: No rashes, ecchymoses or lesions. Cool and dry. HEENT: Atraumatic. Normocephalic. No temporal or scalp tenderness. No scleral icterus. Airway patent. NECK: Trachea midline, supple, nontender. CARDIO: Regular. RESP: CTA bilaterally. No wheezes, rales, or rhonchi. ABD: Abdomen soft, obese, non-tender, nondistended. WHSS in left mid abdomen EXT: Chronic bilateral LE edema. NEURO: Awake and alert. 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 Laboratory Laboratory Tests Test 06/12/17 14:40 06/12/17 14:45 White Blood Count 7.2 Red Blood Count 4.01 Hemoglobin 11.4 Hematocrit 35.4 Mean Corpuscular Volume 88.4 Mean Corpuscular Hemoglobin 28.4 Mean Corpuscular Hemoglobin Concent 32.2 Red Cell Distribution Width 15.7 Platelet Count 300 Mean Platelet Volume 8.3 Neutrophils (%) (Auto) 62.6 Lymphocytes (%) (Auto) 27.8 Monocytes (%) (Auto) 7.5 Eosinophils (%) (Auto) 1.7 Basophils (%) (Auto) 0.4 Neutrophils # (Auto) 4.5 Lymphocytes # (Auto) 2.0 Monocytes # (Auto) 0.5 Eosinophils # (Auto) 0.1 Basophils # (Auto) 0.0 CBC Comment DIFF FINAL Differential Comment Blood Urea Nitrogen 27 Creatinine 1.34 Random Glucose 102 Total Protein 9.7 Albumin 3.3 Calcium Level 9.1 Alkaline Phosphatase 107 Aspartate Amino Transf (AST/SGOT) 34 Alanine Aminotransferase (ALT/SGPT) 19 Total Bilirubin 0.3 Sodium Level 139 Potassium Level 4.1 Chloride Level 99 Carbon Dioxide Level 29.5 Anion Gap 11 Estimat Glomerular Filtration Rate 50 Urine Color YELLOW Urine Turbidity HAZY Urine pH 6.0 Urine Specific [place] 1.022 Urine Protein 300 Urine Glucose (UA) NEG Urine Ketones NEG Urine Occult Blood MOD Urine Nitrite NEG Urine Bilirubin NEG Urine Urobilinogen 2.0 Urine Leukocyte Esterase TRACE Urine RBC 63 Urine WBC 21 Urine Squamous Epithelial Cells 1 Urine Bacteria OCC Urine Hyaline Casts 30 Microscopic Urinalysis Comment CULTURE INDICATED Date/Time Source Procedure Growth Status 06/12/17 14:45 Urine Clean Catch Urine Culture Pending Received Result Diagram: 06/12/17 1440 06/12/17 1440 Imaging Last Impressions Chest X-Ray 06/12/17 1428 Signed Impressions: Service Date/Time: Monday, June 12, 2017 14:45 - CONCLUSION: 1. Chronic elevation of the right hemidiaphragm. 2. 1.5 cm nodular opacity in the right lower lung zone in a region of recent airspace consolidation. Consider CT examination on outpatient basis for further evaluation. MD Demetrius Bradley VTE Risk Assessment Capalbert VTE Risk Assessment: Mod/High Risk (score >= 2) Caprini Risk Assessment Model Point Value = 1 Point Value = 2 Point Value = 3 Point Value = 5 Age 41-60 Minor surgery BMI > 25 kg/m2 Swollen legs Varicose veins or History of unexplained or recurrent spontaneous Oral contraceptives or hormone replacement Sepsis (< 1 month) Serious lung disease, including pneumonia (< 1 month) Abnormal pulmonary function Acute myocardial infarction Congestive heart failure (< 1 month) History of inflammatory bowel disease Medical patient at bed rest Age 61-74 Arthroscopic surgery Major open surgery (> 45 min) Laparoscopic surgery (> 45 min) Malignancy Confined to bed (> 72 hours) Immobilizing plaster cast Central venous access Age >= 75 History of VTE Family history of VTE Factor V Leiden Prothrombin [id number] Lupus anticoagulant Anticardiolipin antibodies Elevated serum homocysteine Heparin-induced thrombocytopenia Other congenital or acquired thrombophilia Stroke (< 1 month) Elective arthroplasty Hip, pelvis, or leg fracture Acute spinal cord injury (< 1 month) Prophylaxis Regimen Total Risk Factor Score Risk Level Prophylaxis Regimen 0-1 Low Early ambulation 2 Moderate Order ONE of the following: *Sequential Compression Device (SCD) *Heparin 5000 units SQ BID 3-4 Higher Order ONE of the following medications: *Heparin 5000 units SQ TID *Enoxaparin/Lovenox 40 mg SQ daily (WT < 150 kg, CrCl > 30 mL/min) *Enoxaparin/Lovenox 30 mg SQ daily (WT < 150 kg, CrCl > 10-29 mL/min) *Enoxaparin/Lovenox 30 mg SQ BID (WT < 150 kg, CrCl > 30 mL/min) AND/OR *Sequential Compression Device (SCD) 5 or more Highest Order ONE of the following medications: *Heparin 5000 units SQ TID (Preferred with Epidurals) *Enoxaparin/Lovenox 40 mg SQ daily (WT < 150 kg, CrCl > 30 mL/min) *Enoxaparin/Lovenox 30 mg SQ daily (WT < 150 kg, CrCl > 10-29 mL/min) *Enoxaparin/Lovenox 30 mg SQ BID (WT < 150 kg, CrCl > 30 mL/min) AND *Sequential Compression Device (SCD) Assessment and Plan Problem List: (1) Acute kidney injury ICD Codes: N17.9 - Acute kidney failure, unspecified Status: Acute Plan: MICHAEL UTI, hx of recurrent UTI Urinary retention - Pt is a 51 y/o AAF with HTN, asthma, morbid obesity, chronic back pain with implanted Dilaudid pump, and is bed bound with limited use of her LE reportedly related to previous failed back surgeries. She has had issues in the past with urinary retention and recurrent UTIs. She has required prolonged Gibbs catheter use in the past as well. Last Gibbs change was 06/05/17 - Patient was treated at [facility] from 06/05/17 to 06/07/17 for UTI. Patient discharged home on Zyvox for 10 days - Urine culture 06/05 grew VRE. Sensitivity to Zyvox and Daptomycin - BMP to be 06/11/17 revealed MICHAEL patient was then sent to the ER by PCP - Patient has not yet followup with Dr. Santos, will have patient follow up as outpatient after DC - continue Zyvox - IV hydration - Hold bumex - recheck BMP in AM, if renal function improved plan to DC in AM DVT prophylaxis patient on Eliquis (2) Hx of deep venous thrombosis ICD Codes: Z86.718 - Personal history of other venous thrombosis and embolism Plan: Hx of DVT/PE - Cont. home dose of Eliquis (3) Tachycardia ICD Codes: R00.0 - Tachycardia, unspecified Plan: Tachycardia - Cont. pts Metoprolol 12.5mg po BID as (4) Chronic back pain ICD Codes: M54.9 - Dorsalgia, unspecified; G89.29 - Other chronic pain Status: Chronic Plan: Chronic back pain with implanted Dilaudid pain pump LE weakness, chronic - Chronic indwelling pain pump - Pt is normally either bed bound and uses a motorized scooter to get around (5) Diabetes mellitus ICD Codes: E11.9 - Type 2 diabetes mellitus without complications Plan: Diabetes Mellitus, diet controlled - Pt is diet controlled Assessment and Plan Patient examined. Assessment and plan formulated with Elva Culp PA-C. I agree with the above. - increased cr likely d/t diuretics - hold bumex - hydrate overnight - repeat labs in AM - if pt remains stable, anticipate d/c to home with HHC in AM - IVFs overnight. Elva Culp Jun 12, 2017 17:16 Conner Knight DO Jun 12, 2017 22:25
[2017-06-12 18:32] VITALS: BP 148/86; TEMP 97.8
[2017-06-12] MEDS ORDERED: PILL SPLITTER OTHER PRN (19:15)
[2017-06-12 20:00] VITALS: BP 109/67; PULSE 103; RESP 20; TEMP 97.8; O2SAT 91
[2017-06-12] MEDS: ALPRAZolam 0.5 MG TAB PO PRN (20:42)
[2017-06-12] MEDS: BETHANECHOL CHL 25 MG TAB PO SCH (20:43)
[2017-06-12] MEDS: APIXABAN 2.5 MG TABLET PO SCH (20:43)
[2017-06-12] MEDS: LINEZOLID 600 MG TAB PO SCH (20:43)
[2017-06-12] MEDS: GABAPENTIN 400 MG CAP PO SCH (20:43)
[2017-06-12] MEDS: DOCUSATE SODIUM 50 MG/SENNA 8.6 MG TAB PO SCH (20:43)
[2017-06-12] MEDS: PANTOPRAZOLE SOD 20 MG DELAYED RELEASE TAB PO SCH (20:43)
[2017-06-12] MEDS: METOPROLOL TARTRATE 25 MG TAB PO SCH (20:43)
[2017-06-12] MEDS: SODIUM CHLORIDE 0.9% FLUSH 10 ML FLUSH IV FLUSH SCH (20:44)
[2017-06-12] MEDS ORDERED: FLUTICASONE PROPIONATE 110 MCG/ACT 12 GM INHALER INH SCH (21:00)
[2017-06-12] MEDS ORDERED: TERAZOSIN HCL 1 MG CAP PO SCH (21:00)
[2017-06-12] MEDS: MORPHINE SULFATE ORAL SOLN 10 MG/0.5 ML SYRINGE PO PRN (22:29)
[2017-06-13] VITALS: BP 108/61; PULSE 84; RESP 18; TEMP 97.4; O2SAT 92
[2017-06-13] MEDS: BETHANECHOL CHL 25 MG TAB PO SCH ×2 (04:32→13:44)
[2017-06-13] MEDS: MORPHINE SULFATE ORAL SOLN 10 MG/0.5 ML SYRINGE PO PRN ×3 (05:10→14:59)
[2017-06-13 06:10] LABS: BICARBONATE 28.2 MEQ/L (21.0-32.0); CREATININE 1.41 MG/DL (0.50-1.00)
[2017-06-13 08:00] VITALS: BP 101/56; PULSE 81; RESP 19; TEMP 97; O2SAT 100
[2017-06-13] MEDS: PANTOPRAZOLE SOD 20 MG DELAYED RELEASE TAB PO SCH (08:56)
[2017-06-13] MEDS: APIXABAN 2.5 MG TABLET PO SCH (08:56)
[2017-06-13] MEDS: ALPRAZolam 0.5 MG TAB PO PRN (08:56)
[2017-06-13] MEDS: GABAPENTIN 400 MG CAP PO SCH (08:56)
[2017-06-13] MEDS: METOPROLOL TARTRATE 25 MG TAB PO SCH (08:56)
[2017-06-13] MEDS: LINEZOLID 600 MG TAB PO SCH (08:56)
[2017-06-13] MEDS: DOCUSATE SODIUM 50 MG/SENNA 8.6 MG TAB PO SCH (08:56)
[2017-06-13] MEDS: SODIUM CHLORIDE 0.9% FLUSH 10 ML FLUSH IV FLUSH SCH (09:00)
--- NOTE | 2017-06-13 10:47 | HHI.DCPOC ---
Discharge Care Plan Diagnosis: (1) UTI (lower urinary tract infection) (2) Urinary retention (3) Acute kidney injury Goals to Promote Your Health * To prevent worsening of your condition and complications * To maintain your health at the optimal level Directions to Meet Your Goals Take your medications as prescribed Follow your dietary instruction Follow activity as directed Keep your appointments as scheduled Take your immunizations and boosters as scheduled If your symptoms worsen call your PCP, if no PCP go to Urgent Care Center or Emergency Room Smoking is Dangerous to Your Health. Avoid second hand smoke Call the 24-hour hour crisis hotline for domestic abuse at Elva Culp Jun 13, 2017 10:47
--- NOTE | 2017-06-13 10:49 | HHI.FF ---
Face to Face Verification Diagnosis: (1) Urinary tract infection (2) Acute kidney injury (3) Urinary retention Physical Therapy Order: Strength and gait training Instructions: Continue current HHC and PT Home Health Nursing Order: Medical education Nursing assessment with vital signs Wilks catheter maintenance Instructions: Continue current HHC and PT BMP in 1 week with results to PCP Dr. Magdaleno I have seen patient Asha Cook on 06/13/17. My clinical findings support the need for the requested home health care services because: Ltd mobility - disease progression Limited ability to care for self I certify that my clinical findings support that this patient is homebound because: Unsafe to leave home unassisted Elva Culp Jun 13, 2017 10:49 Conner nKight DO Jun 13, 2017 17:00
[2017-06-13 12:00] VITALS: BP 102/54; PULSE 71; RESP 17; TEMP 97.9; O2SAT 93
--- NOTE | 2017-06-13 14:39 | HHI.DS ---
Discharge Summary Admission Date Jun 12, 2017 at 17:00 Discharge Date: Jun 13, 2017 Admitting Diagnosis acute kidney injury, persistant uti, history of neurogenic bladder (1) Acute kidney injury Diagnosis: Principal ICD Codes: N17.9 - Acute kidney failure, unspecified Status: Acute (2) Hx of deep venous thrombosis Diagnosis: Secondary ICD Codes: Z86.718 - Personal history of other venous thrombosis and embolism (3) Tachycardia Diagnosis: Secondary ICD Codes: R00.0 - Tachycardia, unspecified (4) Chronic back pain Diagnosis: Secondary ICD Codes: M54.9 - Dorsalgia, unspecified; G89.29 - Other chronic pain Status: Chronic (5) Diabetes mellitus Diagnosis: Secondary ICD Codes: E11.9 - Type 2 diabetes mellitus without complications Consultants none Procedures none Brief History Mrs. Cook is a 51 y/o AAF with HTN, asthma, morbid obesity, chronic back pain with implanted Dilaudid pump, and is bed bound with limited use of her LE reportedly related to previous failed back surgeries. She has had issues in the past with urinary retention and recurrent UTIs. She has required prolonged Gibbs catheter use in the past as well but reports that the last time she needed a Gibbs was around 01/2017. She follows with Dr. Santos as an outpt. Patient was treated at [facility] from 06/05/17 to 06/07/17 for UTI. Urine culture 06/05 grew VRE. Sensitivity to Zyvox and Daptomycin Patient discharged home on Zyvox for 10 days. Patient's outpatient labs revealed elevated BUN and creatine. Patient was then sent by her PCP to the ER for further evaluation and treatment. Patient reports she feels well and offers no complaints at this time. Patient denies fever, chills, N/V/D/C, chest pain or SOB. CBC/BMP: 06/12/17 1440 06/13/17 0430 Significant Findings Laboratory Tests Test 06/12/17 14:40 06/12/17 14:45 06/13/17 04:30 Hemoglobin 11.4 GM/DL (11.6-15.3) Blood Urea Nitrogen 27 MG/DL (7-18) 24 MG/DL (7-18) Creatinine 1.34 MG/DL (0.50-1.00) 1.41 MG/DL (0.50-1.00) Total Protein 9.7 GM/DL (6.4-8.2) Albumin 3.3 GM/DL (3.4-5.0) Estimat Glomerular Filtration Rate 50 ML/MIN (>89) 47 ML/MIN (>89) Urine Turbidity HAZY (CLEAR) Urine Protein 300 mg/dL (NEG-TRACE) Urine Occult Blood MOD (NEG) Urine Leukocyte Esterase TRACE (NEG) Urine RBC 63 /hpf (0-3) Urine WBC 21 /hpf (0-5) Urine Bacteria OCC /hpf (NONE) Calcium Level 8.0 MG/DL (8.5-10.1) Imaging Last Impressions Chest X-Ray 06/12/17 5958 Signed Impressions: Service Date/Time: Monday, June 12, 2017 14:45 - CONCLUSION: 1. Chronic elevation of the right hemidiaphragm. 2. 1.5 cm nodular opacity in the right lower lung zone in a region of recent airspace consolidation. Consider CT examination on outpatient basis for further evaluation. Manuel Cummings MD PE at Discharge GENERAL: This is a morbidly obese female, in no apparent distress. SKIN: No rashes, ecchymoses or lesions. Cool and dry. HEENT: Atraumatic. Normocephalic. No temporal or scalp tenderness. No scleral icterus. Airway patent. NECK: Trachea midline, supple, nontender. CARDIO: Regular. RESP: CTA bilaterally. No wheezes, rales, or rhonchi. ABD: Abdomen soft, obese, non-tender, nondistended. WHSS in left mid abdomen EXT: Chronic bilateral LE edema. NEURO: Awake and alert. 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 She has had issues in the past with urinary retention and recurrent UTIs. She has required prolonged Gibbs catheter use in the past as well. Last Gibbs change was 06/05/17 - Patient was treated at [facility] from 06/05/17 to 06/07/17 for UTI. Patient discharged home on Zyvox for 10 days - Urine culture 06/05 grew VRE. Sensitivity to Zyvox and Daptomycin - BMP to be 06/11/17 revealed MICHAEL patient was then sent to the ER by PCP - Patient has not yet followup with Dr. Santos, will have patient follow up as outpatient after DC - on admission BUN 27, creatinine 1.34, GFR 50 -> (06/13) BUN 24, creatinine 1.41 , GFR 47 - continue Zyvox - IV hydration while in hospital, encourage PO hydration after DC - decrease bumex to 2 mg once a day - recheck BMP in 2-3 days with results to PCP DVT prophylaxis patient on Eliquis Hx of DVT/PE - Cont. home dose of Eliquis Tachycardia - Cont. pts Metoprolol 12.5mg po BID as Chronic back pain with implanted Dilaudid pain pump LE weakness, chronic - Chronic indwelling pain pump - Pt is normally either bed bound and uses a motorized scooter to get around Diabetes Mellitus, diet controlled - Pt is diet controlled Pt Condition on Discharge: Stable Discharge Disposition: Disch w/ Home Health Serv Discharge Instructions DIET: Follow Instructions for: Diabetic Diet, Weight Management Activities you can perform: Regular-No Restrictions Follow up Referrals: PCP Follow-up - [address] Magdaleno [facility] - 3-[address] Santos New Orders: BASIC METABOLIC PROF - 2-3 Days New Medications: Bumetanide (Bumetanide) 2 Mg Tab 2 MG PO DAILY for fluid retention, #7 TAB 0 Refills Continued Medications: Albuterol 8.5 GM Inh (Proair Hfa 8.5 GM Inh) 90 Mcg/Act Aer 2 PUFF INH Q4-6H PRN for SHORTNESS OF BREATH, #1 INHALER 0 Refills 108 mcg/actuation Alprazolam (Alprazolam) 0.5 Mg Tab 0.5 MG PO Q8H PRN for ANXIETY, TAB 0 Refills Apixaban (Eliquis) 2.5 Mg Tab 2.5 MG PO BID for Blood Clot Prevention, TAB 0 Refills Bethanechol (Bethanechol) 25 Mg Tab 25 MG PO Q8HR for Urinary Symptom Managemen, TAB 0 Refills Cyclobenzaprine (Flexeril) 10 Mg Tab 10 MG PO TID PRN for back spasm, #t TAB 0 Refills Fluticasone 12 GM Inh (Flovent Hfa 12 GM Inh) 110 Mcg/Act Inh 2 PUFF INH BID for Asthma Management, #1 INHALER 0 Refills Gabapentin (Gabapentin) 800 Mg Tab 800 MG PO QID, #90 TAB 0 Refills Linezolid (Linezolid) 600 Mg Tab 600 MG PO Q12H for Infection for 10 Days, #20 TAB 0 Refills Metoprolol Tartrate (Metoprolol Tartrate) 25 Mg Tab 12.5 MG PO BID for tachycardia, #60 TAB 0 Refills Morphine Sulfate PF Inj (Morphine Sulfate PF Inj) 0.5 Mg/Ml Syr 7.5 ML PO Q4HR PRN for PAIN SCALE 4 TO 10 Omeprazole (Omeprazole) 20 Mg Tab 20 MG PO BID, #30 TAB 0 Refills Terazosin (Terazosin) 1 Mg Cap 1 MG PO HS, #30 CAP 0 Refills Discontinued Medications: Bumetanide (Bumetanide) 2 Mg Tab 2 MG PO BID, TAB 0 Refills Potassium Chloride ER (Potassium Chloride ER) 10 Meq Tab 10 MEQ PO DAILY for Electrolyte Replacement, #30 TAB 0 Refills Additional Information Patient examined. Assessment and plan formulated with Elva Culp PA-C. I agree with the above. Elva Culp Jun 13, 2017 14:39 Conner Knight DO Jun 16, 2017 10:20
[2017-06-13 16:00] VITALS: BP 102/53; PULSE 78; RESP 18; TEMP 98; O2SAT 98
[2017-06-13] MEDS ORDERED: BUME2TAB PO (17:01)
[2017-06-13] MEDS ORDERED: GABAPENTIN 400 MG CAP PO SCH (21:00)
== END 2017-06-13 18:58 | disposition home or self-care (01) ==
LOC: NEPC 13:56 → NEDA 17:00 → N07A 18:42
PROVIDERS: ADMIT Hospitalist; ATTEND Hospitalist
DX: N39.0 Urinary tract infection, site not specified (principal); B96.89 Other specified bacterial agents as the cause of diseases classified elsewhere; N17.9 Acute kidney failure, unspecified; N31.9 Neuromuscular dysfunction of bladder, unspecified; R00.0 Tachycardia, unspecified; G82.20 Paraplegia, unspecified; M54.9 Dorsalgia, unspecified; G89.29 Other chronic pain; R53.1 Weakness; I10 Essential (primary) hypertension; J44.9 Chronic obstructive pulmonary disease, unspecified; E11.9 Type 2 diabetes mellitus without complications; E66.01 Morbid (severe) obesity due to excess calories; E78.00 Pure hypercholesterolemia, unspecified; K21.9 Gastro-esophageal reflux disease without esophagitis; M48.00 Spinal stenosis, site unspecified; Z74.01 Bed confinement status; Z79.01 Long term (current) use of anticoagulants; Z86.718 Personal history of other venous thrombosis and embolism; Z83.3 Family history of diabetes mellitus; Z86.711 Personal history of pulmonary embolism; Z98.84 Bariatric surgery status; Z68.43 Body mass index [BMI] 50.0-59.9, adult
CPT/HCPCS: 71045; 80048; 80053; 81001; 85025; 87077; 87086; 87186; 96360; 96361; 99285; G0378; J7030; J7040

== ENCOUNTER 2017-07-17 14:33 | Inpatient (IN) | payer MEDICARE, OTHER ==
[~2017-07-17] VITALS: Ht 157.5 cm; Wt 136.2 kg
[2017-07-17] VITALS (9 sets, daily range): BP systolic 96–138; BP diastolic 44–58; PULSE 78–106; RESP 16–20; TEMP 99.2–103.1; O2SAT 93–99
[~2017-07-17 14:33] MED LIST changes: +BETH25TA2 PO; -POTA10TA2 PO; +TERA1CAP3 PO
[2017-07-17] MEDS ORDERED: SODIUM CHLOR 0.9% 1000 ML INJ 1,000 ML IV ONE ×2 (14:41→17:00)
[2017-07-17] MEDS ORDERED: PIPERACIL-TAZO 4.5 GM PREMIX 100 ML IV STA (14:41)
[2017-07-17] MEDS ORDERED: ACETAMINOPHEN 325 MG TAB PO ONE (14:45)
--- NOTE | 2017-07-17 15:10 | PD ---
HPI Chief Complaint: Fever Time Seen by Provider: 14:41 Travel History International Travel<30 days: No Contact w/Intl Traveler<30days: No Traveled to known affect area: No History of Present Illness HPI 51-year-old female patient with history of multiple medical issues, presents to the ER today brought in by EMS because she has not been feeling well and according to the family is appearing more disoriented, feeling weak. She appears fatigued but denies any chest pains or other issues. EMS had gotten an initial EKG and had ST elevations seen on V1 and V2 concerning for possible ST elevation MA although the changes look equivocal and no ST depressions were identified. STEMI alert was initially called by EMS. It was noted in the ER that she is running a fever of 102. However, case was discussed with Dr. Clemons , patient's public service director and he states that the patient likely has other issues going on with her altered mental status and does not think that ST elevation MA is the cause of her current issues. He states that we should continue with the altered mental status and septic workup first and that need to be treated first. Modifying Factors: None Associated Signs & Symptoms: Altered mental status, fevers Risk Factors: Multiple medical issues, diabetic PFSH Past Medical History Medical History: Unable to Obtain Hx Anticoagulant Therapy: Yes (warfarin) Anemia: Yes Arthritis: Yes Asthma: Yes Autoimmune Disease: No Blood Disorders: No Anxiety: Yes Depression: No Heart Rhythm Problems: No Cancer: No Cardiac Catheterization: Yes Cardiovascular Problems: Yes Cerebral Palsy: No High Cholesterol: Yes Chemotherapy: No Chest Pain: No Congestive Heart Failure: No COPD: Yes Cerebrovascular Accident: No Diabetes: No Diminished Hearing: No Deep Vein Thrombosis: Yes (BILATERAL LOWER EXT) Endocrine: No Gastrointestinal Disorders: Yes GERD: Yes Glaucoma: No Genitourinary: Yes Hepatitis: No Hiatal Hernia: No Hypertension: Yes Immune Disorder: No Implanted Vascular Access Dvce: Yes Kidney Stones: No Musculoskeletal: Yes Neurologic: No Psychiatric: Yes Reproductive: No Respiratory: Yes Immunizations Current: No Migraines: No Radiation Therapy: No Renal Failure: No Seizures: No Sickle Cell Disease: No Sleep Apnea: No Thyroid Disease: No Ulcer: No Tetanus Vaccination: > 5 Years Influenza Vaccination: Yes PNEUMOCCOCAL Vaccine (Year): 2 ?: Not Menopausal: Yes : 2 Para: 2 Past Surgical History Surgical History: Unable to Obtain Abdominal Surgery: Yes (gallbladder) AICD: No Arteriovenous Shunt: No Body Medical Devices: PAIN PUMP, ANDRES RODS Cardiac Surgery: No Cholecystectomy: Yes Ear Surgery: No Endocrine Surgery: No Eye Surgery: No Genitourinary Surgery: No Gynecologic Surgery: No Insulin Pump: No Joint Replacement: No Neurologic Surgery: Yes (SPINAL CORD/ANDRES RODS) Oral Surgery: No Pacemaker: No Thoracic Surgery: No Other Surgery: Yes (DILAUDID PUMP) Social History Alcohol Use: No Tobacco Use: No Substance Use: No Allergies-Medications (Allergen,Severity, Reaction): Coded Allergies: MRI PRECAUTION (Verified Adverse Reaction, Severe, SPINAL CORD STIMULATOR , 06/05/17) PER DR BOND egg (Verified Adverse Reaction, Intermediate, Nausea/Vomitting, 06/07/17) Reported Meds & Prescriptions Reported Meds & Active Scripts Active Bumetanide 2 Mg Tab 2 Mg PO DAILY Metoprolol Tartrate 25 Mg Tab 12.5 Mg PO BID Reported Bethanechol 25 Mg Tab 25 Mg PO Q8HR Terazosin (Terazosin HCl) 1 Mg Cap 1 Mg PO HS Eliquis (Apixaban) 2.5 Mg Tab 2.5 Mg PO BID Alprazolam 0.5 Mg Tab 0.5 Mg PO Q8H PRN Morphine Sulfate PF Inj (Morphine Sulfate/Sodium Chloride) 0.5 Mg/Ml Syr 7.5 Ml PO Q4HR PRN Flovent Hfa 12 GM Inh (Fluticasone Propionate) 110 Mcg/Act Inh 2 Puff INH BID Proair Hfa 8.5 GM Inh (Albuterol Sulfate) 90 Mcg/Act Aer 2 Puff INH Q4-6H PRN 108 mcg/actuation Omeprazole 20 Mg Tab 20 Mg PO BID Flexeril (Cyclobenzaprine HCl) 10 Mg Tab 10 Mg PO TID PRN Gabapentin 800 Mg Tab 800 Mg PO QID Review of Systems ROS Limitations: Altered Mental Status Physical Exam Narrative GENERAL: Well-developed middle-age obese female patient currently and moderate distress. Awake and lethargic. SKIN: Focused skin assessment warm/dry. HEAD: Atraumatic. Normocephalic. EYES: Pupils equal and round. No scleral icterus. No injection or drainage. ENT: No nasal bleeding or discharge. Mucous membranes pink and moist. NECK: Trachea midline. No JVD. CARDIOVASCULAR: Regular rate and rhythm. No murmur appreciated. RESPIRATORY: No accessory muscle use. Clear to auscultation. Breath sounds equal bilaterally. GASTROINTESTINAL: Abdomen soft, non-tender, nondistended. Hepatic and splenic margins not palpable. MUSCULOSKELETAL: No obvious deformities. No clubbing. No cyanosis. No edema. NEUROLOGICAL: Awake and alert. No obvious cranial nerve deficits. Motor grossly within normal limits. Normal speech. PSYCHIATRIC: Appropriate mood and affect; insight and judgment normal. Data Data Last Documented VS Vital Signs Date Time Temp Pulse Resp B/P (MAP) Pulse Ox O2 Delivery O2 Flow Rate FiO2 07/17/17 17:00 99.8 96 16 102/49 (66) 96 07/17/17 16:00 Room Air 07/17/17 14:49 2.00 Orders Orders Sepsis Workup Initiated (07/17/17 ) Complete Blood Count With Diff (07/17/17 14:41) Comprehensive Metabolic Panel (07/17/17 14:41) Prothrombin Time / Inr (Pt) (07/17/17 14:41) Act Partial Throm Time (Ptt) (07/17/17 14:41) Lactic Acid Sepsis Protocol (07/17/17 14:41) Ckmb (Isoenzyme) Profile (07/17/17 14:41) Troponin I (07/17/17 14:41) Urinalysis - C+S If Indicated (07/17/17 14:41) Blood Culture (07/17/17 14:41) Chest, Single Ap (07/17/17 14:41) Blood Glucose (07/17/17 14:41) Ecg Monitoring (07/17/17 14:41) Iv Access Insert/Monitor (07/17/17 14:41) Oximetry (07/17/17 14:41) Oxygen Administration (07/17/17 14:41) Acetaminophen (Tylenol) (07/17/17 14:45) Ct Brain W/O Iv Contrast(Rout) (07/17/17 14:41) Sodium Chlor 0.9% 1000 Ml Inj (Ns 1000 M (07/17/17 14:41) Piperacil-Tazo 4.5 Gm Premix (Zosyn 4.5 (07/17/17 14:41) Urine Culture (07/17/17 14:50) CKMB (07/17/17 14:45) CKMB% (07/17/17 14:45) Sodium Chlor 0.9% 1000 Ml Inj (Ns 1000 M (07/17/17 17:00) Admit Order (Ed Use Only) (07/17/17 16:54) Labs Laboratory Tests Test 07/17/17 14:45 07/17/17 14:50 Blood Urea Nitrogen 19 MG/DL Creatinine 1.42 MG/DL Random Glucose 99 MG/DL Total Protein 8.7 GM/DL Albumin 2.8 GM/DL Calcium Level 7.8 MG/DL Alkaline Phosphatase 111 U/L Aspartate Amino Transf (AST/SGOT) 19 U/L Alanine Aminotransferase (ALT/SGPT) 14 U/L Total Bilirubin 0.6 MG/DL Sodium Level 138 MEQ/L Potassium Level 3.4 MEQ/L Chloride Level 100 MEQ/L Carbon Dioxide Level 29.3 MEQ/L Anion Gap 9 MEQ/L Estimat Glomerular Filtration Rate 47 ML/MIN Total Creatine Kinase 183 U/L Creatine Kinase MB 0.6 NG/ML Troponin I LESS THAN 0.02 NG/ML White Blood Count 15.2 TH/MM3 Red Blood Count 4.09 MIL/MM3 Hemoglobin 11.2 GM/DL Hematocrit 35.5 % Mean Corpuscular Volume 86.7 FL Mean Corpuscular Hemoglobin 27.3 PG Mean Corpuscular Hemoglobin Concent 31.6 % Red Cell Distribution Width 14.7 % Platelet Count 283 TH/MM3 Mean Platelet Volume 9.2 FL Neutrophils (%) (Auto) 76.2 % Lymphocytes (%) (Auto) 13.1 % Monocytes (%) (Auto) 10.2 % Eosinophils (%) (Auto) 0.3 % Basophils (%) (Auto) 0.2 % Neutrophils # (Auto) 11.6 TH/MM3 Lymphocytes # (Auto) 2.0 TH/MM3 Monocytes # (Auto) 1.6 TH/MM3 Eosinophils # (Auto) 0.1 TH/MM3 Basophils # (Auto) 0.0 TH/MM3 CBC Comment DIFF FINAL Differential Comment Prothrombin Time 12.7 SEC Prothromb Time International Ratio 1.3 RATIO Activated Partial Thromboplast Time 30.8 SEC Urine Color YELLOW Urine Turbidity CLOUDY Urine pH 6.0 Urine Specific [place] 1.020 Urine Protein 300 mg/dL Urine Glucose (UA) NEG mg/dL Urine Ketones TRACE mg/dL Urine Occult Blood LARGE Urine Nitrite NEG Urine Bilirubin SMALL Urine Urobilinogen 4.0 MG/DL Urine Leukocyte Esterase LARGE Urine RBC 35 /hpf Urine WBC /hpf Urine WBC Clumps MANY Urine Squamous Epithelial Cells 5 /hpf Urine Bacteria MANY /hpf Urine Hyaline Casts 37 /lpf Urine Mucus FEW /lpf Urine Yeast (Budding) OCC Microscopic Urinalysis Comment CATH-CULTURE IND Lactic Acid Level 1.3 mmol/L MDM Medical Decision Making Medical Screen Exam Complete: Yes Emergency Medical Condition: Yes Medical Record Reviewed: Yes Interpretation(s) EKG shows sinus tachycardia rate of [address] elevations notable in the septal leads. I am not seeing significant ST depressions. Laboratory Tests Test 07/17/17 14:45 07/17/17 14:50 Blood Urea Nitrogen 19 MG/DL (7-18) Creatinine 1.42 MG/DL (0.50-1.00) Total Protein 8.7 GM/DL (6.4-8.2) Albumin 2.8 GM/DL (3.4-5.0) Calcium Level 7.8 MG/DL (8.5-10.1) Potassium Level 3.4 MEQ/L (3.5-5.1) Estimat Glomerular Filtration Rate 47 ML/MIN (>89) Troponin I LESS THAN 0.02 NG/ML White Blood Count 15.2 TH/MM3 (4.0-11.0) Hemoglobin 11.2 GM/DL (11.6-15.3) Mean Corpuscular Hemoglobin Concent 31.6 % (32.0-36.0) Neutrophils (%) (Auto) 76.2 % (16.0-70.0) Monocytes (%) (Auto) 10.2 % (0.0-8.0) Neutrophils # (Auto) 11.6 TH/MM3 (1.8-7.7) Monocytes # (Auto) 1.6 TH/MM3 (0-0.9) Prothrombin Time 12.7 SEC (9.8-11.6) Activated Partial Thromboplast Time 30.8 SEC (24.3-30.1) Urine Turbidity CLOUDY (CLEAR) Urine Protein 300 mg/dL (NEG-TRACE) Urine Ketones TRACE mg/dL (NEG) Urine Occult Blood LARGE (NEG) Urine Bilirubin SMALL (NEG) Urine Urobilinogen 4.0 MG/DL (LESS THAN Urine Leukocyte Esterase LARGE (NEG) Urine RBC 35 /hpf (0-3) Urine WBC Clumps MANY (NONE) Urine Bacteria MANY /hpf (NONE) Urine Mucus FEW /lpf (OCC) Urine Yeast (Budding) OCC (NONE) Last [address] 07/17/17 1441 Signed Impressions: Service Date/Time: Monday, July 17, 2017 15:41 - CONCLUSION: Normal examination. José Miguel Brown MD Chest X-Ray 07/17/17 1441 Signed Impressions: Service Date/Time: Monday, July 17, 2017 14:57 - CONCLUSION: 1. Very low lung volumes which significantly limit evaluation for early airspace process. 2. Persistent elevation of the right hemidiaphragm with minimal airspace disease at the lung bases which may be due to suboptimal lung expansion. Manuel Cummings MD Differential Diagnosis ST elevation MA versus non-ST elevation MA versus electrolyte abnormalities versus dehydration versus sepsis versus acute intracranial processes Narrative Course Lab work shows significant leukocytosis with UTI concerning for underlying UTI and sepsis. IV antibiotics were initiated after cultures were drawn. Her temperature is 103 here and she was given Tylenol as well in the ER. Cardiac enzymes are negative. EKG did show changes which was discussed with cardiology , and they do not think that this is secondary to cardiac causes at this point. My plan would be to admit the patient for further treatment. Case was discussed with Dr. Serna for admission. Diagnosis Primary Impression: Urinary tract infection Additional Impression: Sepsis Admitting Information Admitting Physician Requests: Admit Pina Witt MD July 17, 2017 15:10
[2017-07-17 15:25] LABS: AUTOMATED NEUTROPHIL # 11.6 TH/MM3 (1.8-7.7); BASOPHIL % 0.2 % (0.0-2.0); EOSINOPHIL # 0.1 TH/MM3 (0-0.4); EOSINOPHIL % 0.3 % (0.0-4.0); HEMATOCRIT 35.5 % (35.0-46.0); HEMOGLOBIN 11.2 GM/DL (11.6-15.3); LYMPH % 13.1 % (9.0-44.0); MEAN CELL VOLUME 86.7 FL (80.0-100.0); MEAN CORPUSCULAR HEMOGLOBIN 27.3 PG (27.0-34.0); MEAN CORPUSCULAR HGB CONC 31.6 % (32.0-36.0); MEAN PLATELET VOLUME 9.2 FL (7.0-11.0); MONO % 10.2 % (0.0-8.0); MONOCYTE # 1.6 TH/MM3 (0-0.9); NEUT % 76.2 % (16.0-70.0); PLATELET COUNT 283 TH/MM3 (150-450); RED BLOOD COUNT 4.09 MIL/MM3 (4.00-5.30); RED CELL DISTRIBUTION WIDTH 14.7 % (11.6-17.2); WHITE BLOOD COUNT 15.2 TH/MM3 (4.0-11.0)
--- NOTE | 2017-07-17 15:25 | RADRPT ---
EXAM DATE/TIME: 07/17/2017 14:57 [facility] COMPARISON: CHEST SINGLE AP, June 12, 2017, 14:45. INDICATIONS : Fever and shortness of breath. MEDICAL HISTORY : Cardiovascular disease. SURGICAL HISTORY : Cholecystectomy. ENCOUNTER: Initial ACUITY: 1 day PAIN SCORE: 0/10 LOCATION: chest FINDINGS: Low lung volumes which accentuate interstitial markings. Bibasilar airspace disease with significant elevated right hemidiaphragm. Cardiomediastinal contours are within normal limits given differences i n technique. Remainder of exam is unchanged. CONCLUSION: 1. Very low lung volumes which significantly limit evaluation for early airspace process. 2. Persistent elevation of the right hemidiaphragm with minimal airspace disease at the lung bases wh ich may be due to suboptimal lung expansion. Manuel Cummings MD on July 17, 2017 at 15:18 Board Certified Radiologist. This report was verified electronically.
[2017-07-17 15:39] LABS: BACTERIA, URINE MANY /hpf; BILIRUBIN, URINE SMALL (NEG); BLOOD, URINE LARGE (NEG); GLUCOSE,URINE NEG (NEG); HYALINE CAST, URINE 37 /lpf (RARE); KETONE, URINE TRACE mg/dL (NEG); MUCUS URINE FEW /lpf (OCC); NITRITE,URINE NEG (NEG); SQUAMOUS EPITHELIAL CELL URINE 5 /hpf (0-5); URINE COLOR YELLOW (YELLW/STRAW); URINE LEUKOCYTE ESTERASE LARGE (NEG); WHITE BLOOD CELL CLUMPS MANY
[2017-07-17 15:51] LABS: ALBUMIN 2.8 GM/DL (3.4-5.0); ALT (GPT) 14 U/L (10-53); AST (GOT) 19 U/L (15-37); BICARBONATE 29.3 MEQ/L (21.0-32.0); BLOOD UREA NITROGEN 19 MG/DL (7-18); CALCIUM 7.8 MG/DL (8.5-10.1); CREATININE 1.42 MG/DL (0.50-1.00); GLOMERULAR FILTRATION RATE 47 ML/MIN (>89); GLUCOSE,RANDOM 99 MG/DL (74-106)
[2017-07-17 15:57] LABS: ALKALINE PHOSPHATASE 111 U/L (45-117); CHLORIDE 100 MEQ/L (98-107); SODIUM (NA) 138 MEQ/L (136-145); TOTAL BILIRUBIN ADULT 0.6 MG/DL (0.2-1.0); TOTAL PROTEIN 8.7 GM/DL (6.4-8.2); TROPONIN I LESS THAN 0.02 NG/ML (0.02-0.05)
--- NOTE | 2017-07-17 16:41 | RADRPT ---
EXAM DATE/TIME: 07/17/2017 15:41 [facility] COMPARISON: CT BRAIN W/O CONTRAST, March 13, 2016, 14:50. INDICATIONS : Altered mental status. RADIATION DOSE: 64.63 CTDIvol (mGy) MEDICAL HISTORY : Cardiovascular disease. Hypertension. Deep venous thrombosis. SURGICAL HISTORY : Gastric bypass. ENCOUNTER: Initial ACUITY: 1 day PAIN SCALE: 5/10 LOCATION: Bilateral cranial TECHNIQUE: Multiple contiguous axial images were obtained of the head. Using automated exposure control and adj ustment of the mA and/or kV according to patient size, radiation dose was kept as low as reasonably a chievable to obtain optimal diagnostic quality images. DICOM format image data is available electro nically for review and comparison. FINDINGS: CEREBRUM: The ventricles are normal for age. No evidence of midline shift, mass lesion, hemorrhage or acute in farction. No extra-axial fluid collections are seen. POSTERIOR FOSSA: The cerebellum and brainstem are intact. The 4th ventricle is midline. The cerebellopontine angle i s unremarkable. EXTRACRANIAL: The visualized portion of the orbits is intact. SKULL: The calvaria is intact. No evidence of skull fracture. CONCLUSION: Normal examination. José Miguel Brown MD on July 17, 2017 at 16:39 Board Certified Radiologist. This report was verified electronically.
[2017-07-17 16:56] LABS: INTERNATIONAL NORMALIZED RATIO 1.3 RATIO; PROTHROMBIN TIME - PATIENT 12.7 SEC (9.8-11.6)
--- NOTE | 2017-07-17 17:11 | HHI.HP ---
HPI Service [facility] Hospitalists Primary Care Physician Junior Magdaleno D.O. Admission Diagnosis UTI/sepsis/altered mental status Chief Complaint: Abnormal urine, lethargy Travel History International Travel<30 Days: No Contact w/Intl Traveler <30 Da: No Traveled to Known Affected Are: No History of Present Illness Mrs. Cook is a 51 y/o AAF with HTN, asthma, morbid obesity, chronic back pain with implanted Dilaudid pump, and is bed bound with limited use of her LE reportedly related to previous failed back surgeries. She has had issues in the past with urinary retention and recurrent UTIs. In May 2017 she had VRE which was treated with Vyvox/ Pt had a Wilks cath placed during that admission and she follows with Dr. Santos for this. Pt reports that she had a Wilks catheter change on Thursday. She felt that she had some more cloudy urine starting about a week ago, prior to the Wilks change. She did not notice any improvement after the Wilks change. She started running some fevers yesterday and was more lethargic. Denies any vomiting or diarrhea but has not been eating or drinking much. She is very lethargic at the time of the examination but able to provide some history. She has had some nausea with taking her medications. Pt was brought to the ED at [facility] on 07/17/17 due to increased lethargy and weakness. Pt was noted to have a fever of 103 in the ED. her WBC count was 15.2. She was noted to have some MICHAEL with Cr 1.42 and BUN 19. Initially prior to arrival EMS had gotten an initial EKG and had ST elevations seen on V1 and V2 concerning for possible ST elevation VT although the changes look equivocal and there were no ST depressions identified. Per the ER documentation, the case was discussed between the ED physician and Dr. Clemons, the patient's tone artist apprentice , and he felt that the patient likely has other issues going on with her altered mental status and does not think that ST elevation VT is the cause of her current issues. Pt denies any chest pain, palpitations, SOB, dizziness or headache. Pt is being admitted for UTI and possible sepsis. Review of Systems Constitutional: COMPLAINS OF: Fatigue, Fever Cardiovascular: COMPLAINS OF: Lower Extremity Edema (chronic), DENIES: Chest pain, Palpitations Gastrointestinal: COMPLAINS OF: Nausea, DENIES: Abdominal pain, Diarrhea, Vomiting Genitourinary: DENIES: Hematuria Integumentary: DENIES: Rash Neurologic: DENIES: Headache Psychiatric: DENIES: Confusion Past Family Social History Past Medical History HTN Diabetes mellitus, diet controlled Anxiety Asthma Chronic back pain/post-laminectomy syndrome and has implanted Dilaudid pain pump Failed back syndrome and prior lumbar spine surgeries IBD Osteoarthritis Myelomalacia Peripheral neuropathy GERD Morbid obesity Chronic anemia Hx 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 Reported Medications Bumetanide 2 Mg Tab 2 Mg PO DAILY Metoprolol Tartrate 25 Mg Tab 12.5 Mg PO BID Bethanechol 25 Mg Tab 25 Mg PO Q8HR Terazosin (Terazosin HCl) 1 Mg Cap 1 Mg PO HS Eliquis (Apixaban) 2.5 Mg Tab 2.5 Mg PO BID Alprazolam 0.5 Mg Tab 0.5 Mg PO Q8H PRN Morphine Sulfate PF Inj (Morphine Sulfate/Sodium Chloride) 0.5 Mg/Ml Syr 7.5 Ml PO Q4HR PRN Flovent Hfa 12 GM Inh (Fluticasone Propionate) 110 Mcg/Act Inh 2 Puff INH BID Proair Hfa 8.5 GM Inh (Albuterol Sulfate) 90 Mcg/Act Aer 2 Puff INH Q4-6H PRN 108 mcg/actuation Omeprazole 20 Mg Tab 20 Mg PO BID Flexeril (Cyclobenzaprine HCl) 10 Mg Tab 10 Mg PO TID PRN Gabapentin 800 Mg Tab 800 Mg PO QID Allergies: Coded Allergies: MRI PRECAUTION (Verified Adverse Reaction, Severe, SPINAL CORD STIMULATOR , 06/05/17) PER DR VARUN camejo (Verified Adverse Reaction, Intermediate, Nausea/Vomitting, 06/07/17) Family History Father at 87 y/o related to complications from diabetes Social History Denies any alcohol, tobacco or illicit drug use Pt is and has two children She is on disability Physical Exam Vital Signs Vital Signs Date Time Temp Pulse Resp B/P (MAP) Pulse Ox O2 Delivery O2 Flow Rate FiO2 07/17/17 16:00 98 18 96/44 (61) 99 Room Air 07/17/17 15:00 106 18 104/53 (70) 99 Room Air 07/17/17 14:51 106 18 99 Room Air 07/17/17 14:49 16 93 Room Air 07/17/17 14:49 98 Nasal Cannula 2.00 07/17/17 14:44 97 Nasal Cannula 3.00 07/17/17 14:44 97 3.00 07/17/17 14:41 103.1 106 16 138/58 (84) 99 Physical Exam GENERAL: This is an obese female, lethargic, NAD SKIN: No rashes, ecchymoses or lesions. Cool and dry. HEENT: Atraumatic. Normocephalic. No temporal or scalp tenderness. No scleral icterus. Airway patent. NECK: Trachea midline, supple, nontender. CARDIO: Regular. RESP: CTA bilaterally. No wheezes, rales, or rhonchi. ABD: +BS, soft, obese, non-tender, nondistended. : Wilks in place with cloudy urine noted EXT: Chronic bilateral LE edema. NEURO: Lethargic but arousable. Normal speech. Laboratory Laboratory Tests Test 07/17/17 14:45 07/17/17 14:50 Blood Urea Nitrogen 19 Creatinine 1.42 Random Glucose 99 Total Protein 8.7 Albumin 2.8 Calcium Level 7.8 Alkaline Phosphatase 111 Aspartate Amino Transf (AST/SGOT) 19 Alanine Aminotransferase (ALT/SGPT) 14 Total Bilirubin 0.6 Sodium Level 138 Potassium Level 3.4 Chloride Level 100 Carbon Dioxide Level 29.3 Anion Gap 9 Estimat Glomerular Filtration Rate 47 Total Creatine Kinase 183 Creatine Kinase MB 0.6 Troponin I LESS THAN 0.02 White Blood Count 15.2 Red Blood Count 4.09 Hemoglobin 11.2 Hematocrit 35.5 Mean Corpuscular Volume 86.7 Mean Corpuscular Hemoglobin 27.3 Mean Corpuscular Hemoglobin Concent 31.6 Red Cell Distribution Width 14.7 Platelet Count 283 Mean Platelet Volume 9.2 Neutrophils (%) (Auto) 76.2 Lymphocytes (%) (Auto) 13.1 Monocytes (%) (Auto) 10.2 Eosinophils (%) (Auto) 0.3 Basophils (%) (Auto) 0.2 Neutrophils # (Auto) 11.6 Lymphocytes # (Auto) 2.0 Monocytes # (Auto) 1.6 Eosinophils # (Auto) 0.1 Basophils # (Auto) 0.0 CBC Comment DIFF FINAL Differential Comment Prothrombin Time 12.7 Prothromb Time International Ratio 1.3 Activated Partial Thromboplast Time 30.8 Urine Color YELLOW Urine Turbidity CLOUDY Urine pH 6.0 Urine Specific [place] 1.020 Urine Protein 300 Urine Glucose (UA) NEG Urine Ketones TRACE Urine Occult Blood LARGE Urine Nitrite NEG Urine Bilirubin SMALL Urine Urobilinogen 4.0 Urine Leukocyte Esterase LARGE Urine RBC 35 Urine WBC Urine WBC Clumps MANY Urine Squamous Epithelial Cells 5 Urine Bacteria MANY Urine Hyaline Casts 37 Urine Mucus FEW Urine Yeast (Budding) OCC Microscopic Urinalysis Comment CATH-CULTURE IND Lactic Acid Level 1.3 Date/Time Source Procedure Growth Status 07/17/17 14:50 Blood Peripheral Aerobic Blood Culture Pending Received 07/17/17 14:50 Blood Peripheral Anaerobic Blood Culture Pending Received 07/17/17 14:50 Urine Clean Catch Urine Culture Pending Received Result Diagram: 07/17/17 1450 07/17/17 1445 Imaging Last Impressions Head CT 07/17/17 1441 Signed Impressions: Service Date/Time: Monday, July 17, 2017 15:41 - CONCLUSION: Normal examination. José Miguel Brown MD Chest X-Ray 07/17/17 144 Signed Impressions: Service Date/Time: Monday, July 17, 2017 14:57 - CONCLUSION: 1. Very low lung volumes which significantly limit evaluation for early airspace process. 2. Persistent elevation of the right hemidiaphragm with minimal airspace disease at the lung bases which may be due to suboptimal lung expansion. MD Surjit Bradleyi VTE Risk Assessment Caprini VTE Risk Assessment: Mod/High Risk (score >= 2) Caprini Risk Assessment Model Point Value = 1 Point Value = 2 Point Value = 3 Point Value = 5 Age 41-60 Minor surgery BMI > 25 kg/m2 Swollen legs Varicose veins or History of unexplained or recurrent spontaneous Oral contraceptives or hormone replacement Sepsis (< 1 month) Serious lung disease, including pneumonia (< 1 month) Abnormal pulmonary function Acute myocardial infarction Congestive heart failure (< 1 month) History of inflammatory bowel disease Medical patient at bed rest Age 61-74 Arthroscopic surgery Major open surgery (> 45 min) Laparoscopic surgery (> 45 min) Malignancy Confined to bed (> 72 hours) Immobilizing plaster cast Central venous access Age >= 75 History of VTE Family history of VTE Factor V Leiden Prothrombin [id number] Lupus anticoagulant Anticardiolipin antibodies Elevated serum homocysteine Heparin-induced thrombocytopenia Other congenital or acquired thrombophilia Stroke (< 1 month) Elective arthroplasty Hip, pelvis, or leg fracture Acute spinal cord injury (< 1 month) Prophylaxis Regimen Total Risk Factor Score Risk Level Prophylaxis Regimen 0-1 Low Early ambulation 2 Moderate Order ONE of the following: *Sequential Compression Device (SCD) *Heparin 5000 units SQ BID 3-4 Higher Order ONE of the following medications: *Heparin 5000 units SQ TID *Enoxaparin/Lovenox 40 mg SQ daily (WT < 150 kg, CrCl > 30 mL/min) *Enoxaparin/Lovenox 30 mg SQ daily (WT < 150 kg, CrCl > 10-29 mL/min) *Enoxaparin/Lovenox 30 mg SQ BID (WT < 150 kg, CrCl > 30 mL/min) AND/OR *Sequential Compression Device (SCD) 5 or more Highest Order ONE of the following medications: *Heparin 5000 units SQ TID (Preferred with Epidurals) *Enoxaparin/Lovenox 40 mg SQ daily (WT < 150 kg, CrCl > 30 mL/min) *Enoxaparin/Lovenox 30 mg SQ daily (WT < 150 kg, CrCl > 10-29 mL/min) *Enoxaparin/Lovenox 30 mg SQ BID (WT < 150 kg, CrCl > 30 mL/min) AND *Sequential Compression Device (SCD) Assessment and Plan Problem List: (1) Urinary tract infection ICD Codes: N39.0 - Urinary tract infection, site not specified Status: Acute Plan: UTI with recent hx of VRE MICHAEL AMS, possible sepsis - Pt is a 51 y/o AAF with HTN, asthma, morbid obesity, chronic back pain with implanted Dilaudid pump, and is bed bound with limited use of her LE reportedly related to previous failed back surgeries. - She has had issues in the past with urinary retention and recurrent UTIs. In May 2017 she had VRE which was treated with Zyvox. Pt had a Wilks cath placed during that admission and she follows with Dr. Santos for this. Pt reports that she had a Wilks catheter change on Thursday. She felt that she had some more cloudy urine starting about a week ago , prior to the Wilks change. She did not notice any improvement after the Wilks change. She started running some fevers yesterday and was more lethargic. - Pt was brought to the ED at [facility] on 07/17/17 due to increased lethargy and weakness. Pt was noted to have a fever of 103 in the ED. Her WBC count was 15.2. Her UA was abnormal. - She was noted to have some MICHAEL with Cr 1.42 and BUN 19. - Urine culture is pending - Blood cultures drawn in the ED - Pt was given a dose of Zosyn in the ED - We will continued Zyvox and renal dose Cipro - IVF bolus given in the ED and we will continue IVF - Pt requests her Morphine be restarted, this can be given as BP allows - Consider ID consult depending on urine culture results - Hold Bumex - Recheck BMP in AM DVT prophylaxis patient on Eliquis Hx of DVT/PE - Cont. home dose of Eliquis Tachycardia - Cont. pts Metoprolol 12.5mg po BID as BP allows Chronic back pain with implanted Dilaudid pain pump LE weakness, chronic - Chronic indwelling pain pump - Pt is normally either bed bound and uses a motorized scooter to get around Diabetes Mellitus, diet controlled - Pt is diet controlled (2) MICHAEL (acute kidney injury) ICD Codes: N17.9 - Acute kidney failure, unspecified (3) Chronic pain ICD Codes: G89.29 - Chronic pain Status: Chronic (4) Diabetes mellitus ICD Codes: E11.9 - Type 2 diabetes mellitus without complications (5) Tachycardia ICD Codes: R00.0 - Tachycardia, unspecified Physician Certification 2 Midnight Certification Type: Admission for Inpatient Services Order for Inpatient Services The services are ordered in accordance with Medicare regulations or non- Medicare payer requirements, as applicable. In the case of services not specified as inpatient-only, they are appropriately provided as inpatient services in accordance with the 2-midnight benchmark. Estimated LOS (days): 2 2 days is the estimated time the patient will need to remain in the hospital, assuming treatment plan goals are met and no additional complications. Post-Hospital Plan: Not yet determined Problem Qualifiers (1) Urinary tract infection: Mary Mackenzie July 17, 2017 17:11
[2017-07-17] MEDS ORDERED: ALBUTEROL SULFATE 90 MCG/ACT HFA 8 GM INHALER INH PRN (17:15)
[2017-07-17] MEDS ORDERED: RESP: ALBUTEROL 2.5 MG/IPRATROPIUM 0.5 MG NEB (PRN) NEB (17:15)
[2017-07-17] MEDS ORDERED: PILL SPLITTER OTHER PRN (17:30)
[2017-07-17] MEDS: LINEZOLID 600 MG PREMIX 300 ML IV SCH (17:30)
[2017-07-17] MEDS ORDERED: MORPHINE SULFATE ORAL SOLN 10 MG/0.5 ML SYRINGE PO PRN (17:30)
[2017-07-17] MEDS: NS + KCL 20 MEQ INJ 1,000 ML IV SCH (17:30)
[2017-07-17] MEDS: GABAPENTIN 400 MG CAP PO SCH ×2 (17:31→20:59)
[2017-07-17] MEDS: CIPROFLOXACIN 200 MG PREMIX 100 ML IV SCH (18:02)
[2017-07-17] MEDS: PANTOPRAZOLE SOD 20 MG DELAYED RELEASE TAB PO SCH (20:59)
[2017-07-17] MEDS: APIXABAN 2.5 MG TABLET PO SCH (20:59)
[2017-07-18] VITALS (10 sets, daily range): BP systolic 101–123; BP diastolic 55–67; PULSE 81–96; RESP 14–22; TEMP 97.9–99.5; O2SAT 94–100
[2017-07-18] MEDS: NS + KCL 20 MEQ INJ 1,000 ML IV SCH ×2 (05:21→10:00)
[2017-07-18] MEDS: LINEZOLID 600 MG PREMIX 300 ML IV SCH ×2 (05:21→17:27)
[2017-07-18 08:01] LABS: AUTOMATED NEUTROPHIL # 9.5 TH/MM3 (1.8-7.7); BASOPHIL # 0.1 TH/MM3 (0-0.2); BASOPHIL % 0.5 % (0.0-2.0); EOSINOPHIL # 0.2 TH/MM3 (0-0.4); EOSINOPHIL % 1.5 % (0.0-4.0); HEMATOCRIT 30.8 % (35.0-46.0); HEMOGLOBIN 9.7 GM/DL (11.6-15.3); LYMPH % 10.3 % (9.0-44.0); LYMPHOCYTE # 1.2 TH/MM3 (1.0-4.8); MEAN CELL VOLUME 87.3 FL (80.0-100.0); MEAN CORPUSCULAR HEMOGLOBIN 27.5 PG (27.0-34.0); MEAN CORPUSCULAR HGB CONC 31.5 % (32.0-36.0); MEAN PLATELET VOLUME 8.7 FL (7.0-11.0); MONOCYTE # 1.1 TH/MM3 (0-0.9); NEUT % 78.7 % (16.0-70.0); PLATELET COUNT 195 TH/MM3 (150-450); RED BLOOD COUNT 3.53 MIL/MM3 (4.00-5.30); RED CELL DISTRIBUTION WIDTH 14.5 % (11.6-17.2); WHITE BLOOD COUNT 12.1 TH/MM3 (4.0-11.0)
[2017-07-18 08:27] LABS: BICARBONATE 27.8 MEQ/L (21.0-32.0); CALCIUM 7.4 MG/DL (8.5-10.1); CREATININE 1.4 MG/DL (0.50-1.00); MAGNESIUM 1.4 MG/DL (1.5-2.5)
[2017-07-18 08:47] LABS: TOTAL PROTEIN 7.5 GM/DL (6.4-8.2)
[2017-07-18 08:53] LABS: CALCIUM-PROTEIN CORRECTED 7.3 MG/DL (8.5-10.1)
--- NOTE | 2017-07-18 08:57 | HHI.PR ---
Subjective Remarks more awake asking for her pain meds. Objective Vitals heart reg lung cta abd s/nt ext no pitting mosquera. cloudy urine Vital Signs Date Time Temp Pulse Resp B/P (MAP) Pulse Ox O2 Delivery O2 Flow Rate FiO2 07/18/17 04:00 96 07/18/17 04:00 99.2 95 14 110/61 (77) 95 07/18/17 00:00 95 07/18/17 00:00 97.9 95 15 110/56 (74) 94 07/17/17 20:00 93 07/17/17 20:00 99.2 86 19 97/55 (69) 94 07/17/17 20:00 78 07/17/17 19:00 99.7 95 20 97/56 (70) 97 07/17/17 18:40 07/17/17 18:00 92 16 106/56 (73) 95 Room Air 07/17/17 17:00 99.8 96 16 102/49 (66) 96 07/17/17 16:00 98 18 96/44 (61) 99 Room Air 07/17/17 15:00 106 18 104/53 (70) 99 Room Air 07/17/17 14:51 106 18 99 Room Air 07/17/17 14:49 16 93 Room Air 07/17/17 14:49 98 Nasal Cannula 2.00 07/17/17 14:44 97 Nasal Cannula 3.00 07/17/17 14:44 97 3.00 07/17/17 14:41 103.1 106 16 138/58 (84) 99 Result Diagram: 07/18/17 0745 07/18/17 0745 Imaging Last Impressions Head CT 07/17/17 1441 Signed Impressions: Service Date/Time: Monday, July 17, 2017 15:41 - CONCLUSION: Normal examination. José Miguel Brown MD Chest X-Ray 07/17/17 1441 Signed Impressions: Service Date/Time: Monday, July 17, 2017 14:57 - CONCLUSION: 1. Very low lung volumes which significantly limit evaluation for early airspace process. 2. Persistent elevation of the right hemidiaphragm with minimal airspace disease at the lung bases which may be due to suboptimal lung expansion. Manuel Cummings MD A/P Problem List: (1) Urinary tract infection ICD Codes: N39.0 - Urinary tract infection, site not specified Status: Acute Plan: UTI with recent hx of VRE MICHAEL AMS, possible sepsis - Pt is a 51 y/o AAF with HTN, asthma, morbid obesity, chronic back pain with implanted Dilaudid pump, and is bed bound with limited use of her LE reportedly related to previous failed back surgeries. - She has had issues in the past with urinary retention and recurrent UTIs. In May 2017 she had VRE which was treated with Zyvox. Pt had a Mosquera cath placed during that admission and she follows with Dr. Santos for this. Pt reports that she had a Mosquera catheter change on Thursday. She felt that she had some more cloudy urine starting about a week ago , prior to the Mosquera change. She did not notice any improvement after the Mosquera change. She started running some fevers yesterday and was more lethargic. - Pt was brought to the ED at [facility] on 07/17/17 due to increased lethargy and weakness. Pt was noted to have a fever of 103 in the ED. Her WBC count was 15.2. Her UA was abnormal. - She was noted to have some MICHAEL with Cr 1.42 and BUN 19. - Urine culture is pending - Blood cultures drawn in the ED - Pt was given a dose of Zosyn in the ED - continued Zyvox and renal dose Cipro - IVF bolus given in the ED and we will continue IVF. lower rate today - replace hypokalemia/hypomag - Consider ID consult depending on urine culture results - Hold Bumex DVT prophylaxis patient on Eliquis Hx of DVT/PE - Cont. home dose of Eliquis Tachycardia - Cont. pts Metoprolol 12.5mg po BID as BP allows Chronic back pain with implanted Dilaudid pain pump LE weakness, chronic - Chronic indwelling pain pump - Pt is normally either bed bound and uses a motorized scooter to get around Diabetes Mellitus, diet controlled - Pt is diet controlled (2) MICHAEL (acute kidney injury) ICD Codes: N17.9 - Acute kidney failure, unspecified Status: Acute (3) Chronic pain ICD Codes: G89.29 - Chronic pain Status: Chronic (4) Diabetes mellitus ICD Codes: E11.9 - Type 2 diabetes mellitus without complications Status: Chronic (5) Tachycardia ICD Codes: R00.0 - Tachycardia, unspecified Status: Acute Problem Qualifiers (1) Urinary tract infection: Arben Serna MD July 18, 2017 08:57
[2017-07-18] MEDS ORDERED: MORPHINE SULFATE ORAL SOLN 10 MG/0.5 ML SYRINGE PO PRN (09:00)
[2017-07-18] MEDS: METOPROLOL TARTRATE 25 MG TAB PO SCH ×2 (09:14→21:40)
[2017-07-18] MEDS: APIXABAN 2.5 MG TABLET PO SCH ×2 (09:15→21:40)
[2017-07-18] MEDS: GABAPENTIN 400 MG CAP PO SCH ×4 (09:15→21:40)
[2017-07-18] MEDS: PANTOPRAZOLE SOD 20 MG DELAYED RELEASE TAB PO SCH ×2 (09:15→21:40)
[2017-07-18] MEDS ORDERED: POTASSIUM CHLORIDE 20 MEQ CONTROLLED RELEASE TAB PO ONE (10:00)
[2017-07-18] MEDS: MAGNESIUM SULFATE 1 GM PREMIX 100 ML IV SCH ×2 (10:30→11:23)
--- NOTE | 2017-07-18 11:19 | EKG ---
Date Performed: 07/18/2017 Time Performed: 06:13:16 PTAGE: 51 years EKG: Sinus rhythm . Anterior T wave changes are nonspecific Low QRS voltages in precordial leads Borderline ECG PREVIOUS TRACING : 07/17/2017 14.40 Compared to previous tracing, T wave abnormalities are les s prominent DOCTOR: Keven Goodman Interpretating Date/Time 07/18/2017 11:16:54
[2017-07-18] MEDS: MORPHINE SULFATE ORAL SOLN 10 MG/0.5 ML SYRINGE PO PRN ×3 (11:22→21:41)
--- NOTE | 2017-07-18 13:57 | EKG ---
Date Performed: 07/17/2017 Time Performed: 14:40:41 PTAGE: 51 years EKG: SINUS TACHYCARDIA NONSPECIFIC ST-T ABNORMALITIES PREVIOUS TRACING : 07/17/2017 14.38 Since the previous tracing, no significant change not ed DOCTOR: Keven Goodman Interpretating Date/Time 07/18/2017 13:54:54
[2017-07-18] MEDS: CIPROFLOXACIN 200 MG PREMIX 100 ML IV SCH (17:27)
[2017-07-19] VITALS (13 sets, daily range): BP systolic 95–113; BP diastolic 55–65; PULSE 69–90; RESP 15–20; TEMP 97.4–99.3; O2SAT 94–97
[2017-07-19] MEDS: MORPHINE SULFATE ORAL SOLN 10 MG/0.5 ML SYRINGE PO PRN ×5 (03:53→21:11)
[2017-07-19] MEDS: LINEZOLID 600 MG PREMIX 300 ML IV SCH ×2 (06:05→17:20)
[2017-07-19] MEDS: NS + KCL 20 MEQ INJ 1,000 ML IV SCH (06:05)
[2017-07-19 06:39] LABS: BICARBONATE 24.5 MEQ/L (21.0-32.0); CALCIUM 7.7 MG/DL (8.5-10.1); CREATININE 1.14 MG/DL (0.50-1.00)
[2017-07-19 07:38] LABS: BASOPHIL % 0.5 % (0.0-2.0); EOSINOPHIL # 0.2 TH/MM3 (0-0.4); EOSINOPHIL % 2.8 % (0.0-4.0); HEMATOCRIT 28.5 % (35.0-46.0); HEMOGLOBIN 9.4 GM/DL (11.6-15.3); LYMPH % 15.3 % (9.0-44.0); LYMPHOCYTE # 1.3 TH/MM3 (1.0-4.8); MEAN CELL VOLUME 86.2 FL (80.0-100.0); MEAN CORPUSCULAR HEMOGLOBIN 28.4 PG (27.0-34.0); MEAN CORPUSCULAR HGB CONC 32.9 % (32.0-36.0); MEAN PLATELET VOLUME 9.4 FL (7.0-11.0); MONO % 10.1 % (0.0-8.0); MONOCYTE # 0.9 TH/MM3 (0-0.9); NEUT % 71.3 % (16.0-70.0); PLATELET COUNT 196 TH/MM3 (150-450); RED BLOOD COUNT 3.31 MIL/MM3 (4.00-5.30); RED CELL DISTRIBUTION WIDTH 14.2 % (11.6-17.2); WHITE BLOOD COUNT 8.4 TH/MM3 (4.0-11.0)
[2017-07-19] MEDS: METOPROLOL TARTRATE 25 MG TAB PO SCH ×2 (08:22→21:10)
[2017-07-19] MEDS: PANTOPRAZOLE SOD 20 MG DELAYED RELEASE TAB PO SCH ×2 (08:22→21:10)
[2017-07-19] MEDS: APIXABAN 2.5 MG TABLET PO SCH ×2 (08:22→21:10)
[2017-07-19] MEDS: GABAPENTIN 400 MG CAP PO SCH ×4 (08:22→21:10)
--- NOTE | 2017-07-19 13:54 | HHI.PR ---
Objective Vitals Vital Signs Date Time Temp Pulse Resp B/P (MAP) Pulse Ox O2 Delivery O2 Flow Rate FiO2 07/19/17 12:38 70 07/19/17 12:38 94 Room Air 07/19/17 12:00 98.2 76 18 109/60 (76) 94 07/19/17 09:22 83 07/19/17 09:22 97 Room Air 07/19/17 08:00 98.6 83 18 113/65 (81) 97 07/19/17 04:00 99.3 83 20 113/56 (75) 95 07/19/17 04:00 Room Air 07/19/17 03:40 86 07/19/17 00:11 82 07/19/17 00:00 Room Air 07/19/17 00:00 99.3 90 20 101/59 (73) 97 07/18/17 20:03 93 07/18/17 20:00 99.0 96 20 101/56 (71) 100 07/18/17 16:47 100 Room Air 07/18/17 16:47 91 07/18/17 16:00 99.3 94 20 123/67 (85) 100 Result Diagram: 07/19/17 0558 07/19/17 0558 Imaging Last Impressions Head CT 07/17/17 1441 Signed Impressions: Service Date/Time: Monday, July 17, 2017 15:41 - CONCLUSION: Normal examination. José Miguel Brown MD Chest X-Ray 07/17/17 1441 Signed Impressions: Service Date/Time: Monday, July 17, 2017 14:57 - CONCLUSION: 1. Very low lung volumes which significantly limit evaluation for early airspace process. 2. Persistent elevation of the right hemidiaphragm with minimal airspace disease at the lung bases which may be due to suboptimal lung expansion. Manuel Cummings MD A/P Problem List: (1) Urinary tract infection ICD Codes: N39.0 - Urinary tract infection, site not specified Status: Acute Plan: UTI with recent hx of VRE MICHAEL AMS, possible sepsis - Pt is a 51 y/o AAF with HTN, asthma, morbid obesity, chronic back pain with implanted Dilaudid pump, and is bed bound with limited use of her LE reportedly related to previous failed back surgeries. - She has had issues in the past with urinary retention and recurrent UTIs. In May 2017 she had VRE which was treated with Zyvox. Pt had a Wilks cath placed during that admission and she follows with Dr. Santos for this. Pt reports that she had a Wilks catheter change on Thursday. She felt that she had some more cloudy urine starting about a week ago , prior to the Wilks change. She did not notice any improvement after the Wilks change. She started running some fevers yesterday and was more lethargic. - Pt was brought to the ED at [facility] on 07/17/17 due to increased lethargy and weakness. Pt was noted to have a fever of 103 in the ED. Her WBC count was 15.2. Her UA was abnormal. - She was noted to have some MICHAEL with Cr 1.42 and BUN 19. - Urine culture is pending - Blood cultures drawn in the ED - Pt was given a dose of Zosyn in the ED - continued Zyvox and renal dose Cipro - IVF bolus given in the ED and we will continue IVF. lower rate today - replace hypokalemia/hypomag - Consider ID consult depending on urine culture results - Hold Bumex DVT prophylaxis patient on Eliquis Hx of DVT/PE - Cont. home dose of Eliquis Tachycardia - Cont. pts Metoprolol 12.5mg po BID as BP allows Chronic back pain with implanted Dilaudid pain pump LE weakness, chronic - Chronic indwelling pain pump - Pt is normally either bed bound and uses a motorized scooter to get around Diabetes Mellitus, diet controlled - Pt is diet controlled (2) MICHAEL (acute kidney injury) ICD Codes: N17.9 - Acute kidney failure, unspecified Status: Acute (3) Chronic pain ICD Codes: G89.29 - Chronic pain Status: Chronic (4) Diabetes mellitus ICD Codes: E11.9 - Type 2 diabetes mellitus without complications Status: Chronic (5) Tachycardia ICD Codes: R00.0 - Tachycardia, unspecified Status: Acute Problem Qualifiers (1) Urinary tract infection: Conner Knight DO July 19, 2017 13:54
[2017-07-19] MEDS: CIPROFLOXACIN 200 MG PREMIX 100 ML IV SCH (17:20)
[2017-07-20] VITALS (11 sets, daily range): BP systolic 98–156; BP diastolic 50–74; PULSE 72–89; RESP 17–18; TEMP 98.2–98.9; O2SAT 93–98
[2017-07-20] MEDS: NS + KCL 20 MEQ INJ 1,000 ML IV SCH (02:40)
[2017-07-20] MEDS: MORPHINE SULFATE ORAL SOLN 10 MG/0.5 ML SYRINGE PO PRN ×5 (02:41→21:37)
[2017-07-20] MEDS: LINEZOLID 600 MG PREMIX 300 ML IV SCH (05:34)
[2017-07-20] MEDS: GABAPENTIN 400 MG CAP PO SCH ×4 (08:44→21:36)
[2017-07-20] MEDS: APIXABAN 2.5 MG TABLET PO SCH ×2 (08:44→21:37)
[2017-07-20] MEDS: PANTOPRAZOLE SOD 20 MG DELAYED RELEASE TAB PO SCH ×2 (08:45→21:36)
[2017-07-20] MEDS: METOPROLOL TARTRATE 25 MG TAB PO SCH ×2 (08:45→21:37)
--- NOTE | 2017-07-20 14:20 | PD.CONS ---
History of Present Illness Service Infectious Disease Consult Requested By Verna Fortune Reason for Consult Evaluate patient with UTI and (+) Primary Care Physician Junior Magdaleno D.O. Diagnoses: History of Present Illness Patient seen and examined. Records reviewed. Patient is a 51-year-old female, brought into the hospital for evaluation of fevers and lethargy. Patient has had problem with recurrent UTI. She has urinary retention, and has required a chronic Mosquera catheter. The catheter gets change at least once a month. She has had recurrent UTI and has had infection with some resistant organisms including VRE. Her Mosquera was recently change about 4 days prior to admission. However she had noted that her urine has been more cloudy. Changing the Mosquera did not really produce any improvement in the cloudiness of her urine. Recently she started having fevers , and she was noted to be more lethargic. She has had decreased p.o. intake. There is been no nausea or vomiting. She has had some intermittent epigastric pain. Clinically she has improved. Her white count was initially elevated and is down to normal. She had 2 blood cultures on admission 1 has Klebsiella, and the second had MSSA and a coag negative staph. Her urine culture is showing E. coli and Klebsiella. Her urinalysis shows significant pyuria. Patient has been on Cipro and Zyvox. Infectious disease consultation has been requested to evaluate the patient. Review of Systems Constitutional: COMPLAINS OF: Fever, Chills, Change in appetite Eyes: DENIES: Eye pain Ears, nose, mouth, throat: DENIES: Nasal discharge, Oral lesions, Throat pain, Hoarseness, Ear Pain, Sinus Pain Respiratory: DENIES: Cough, Sputum production, Shortness of breath Cardiovascular: DENIES: Chest pain, Palpitations, Dyspnea on Exertion Gastrointestinal: COMPLAINS OF: Abdominal pain, DENIES: Diarrhea, Nausea, Vomiting, Difficulty Swallowing Musculoskeletal: COMPLAINS OF: Joint Swelling Integumentary: DENIES: Rash Neurologic: COMPLAINS OF: Localized weakness, DENIES: Headache Psychiatric: DENIES: Hallucinations Past Family Social History Allergies: Coded Allergies: MRI PRECAUTION (Verified Adverse Reaction, Severe, SPINAL CORD STIMULATOR , 06/05/17) PER DR BOND Past Medical History HTN Diabetes mellitus, diet controlled Anxiety Asthma Chronic back pain/post-laminectomy syndrome and has implanted Dilaudid pain pump Failed back syndrome and prior lumbar spine surgeries IBD Osteoarthritis Myelomalacia Peripheral neuropathy GERD Morbid obesity Chronic anemia Hx 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 Active Ordered Medications Current Medications Medications (Trade) Dose Ordered Sig/Lissette Route Start Time Stop Time Status Last Admin (Proair Hfa Inh) 2 puff Q4H PRN INH 07/17/17 17:15 (Eliquis) 2.5 mg BID PO 07/17/17 21:00 07/20/17 08:44 (Neurontin) 800 mg QID PO 07/17/17 18:00 07/20/17 12:40 (Protonix) 20 mg BID PO 07/17/17 21:00 07/20/17 08:45 Linezolid 300 ml @ 300 mls/hr Q12H IV 07/17/17 18:00 07/20/17 05:34 Ciprofloxacin/ Dextrose 100 ml @ 100 mls/hr Q24H IV 07/17/17 18:00 07/19/17 17:20 (Duoneb Neb) 1 ampule Q2HR NEB PRN NEB 07/17/17 17:15 (Lopressor) 12.5 mg Q12HR PO 07/18/17 09:00 07/20/17 08:45 (Pill Splitter) 1 ea UNSCH PRN OTHER 07/17/17 17:30 Potassium Chloride/Sodium Chloride 1,000 ml @ 50 mls/hr Q20H IV 07/18/17 10:00 07/20/17 02:40 (Roxanol Liq) 10 mg Q4H PRN PO 07/19/17 14:30 07/20/17 12:42 Family History Non-contributory to current ID problem Social History Denies any alcohol, tobacco or illicit drug use Pt is and has two children She is on disability Physical Exam Vital Signs Vital Signs Date Time Temp Pulse Resp B/P (MAP) Pulse Ox O2 Delivery O2 Flow Rate FiO2 07/20/17 12:08 98.9 81 18 116/71 (86) 98 07/20/17 12:00 79 07/20/17 08:08 98.9 73 18 156/74 (101) 93 07/20/17 08:00 77 07/20/17 08:00 Room Air 07/20/17 04:00 98.4 78 17 106/74 (85) 96 07/20/17 04:00 Room Air 07/20/17 03:45 76 07/20/17 00:00 98.2 72 17 98/66 (77) 96 07/20/17 00:00 Room Air 07/19/17 23:55 69 07/19/17 20:01 78 07/19/17 20:00 97.4 72 15 95/55 (68) 94 07/19/17 20:00 Room Air 07/19/17 17:00 97 Room Air 07/19/17 17:00 79 07/19/17 16:00 98.5 71 18 109/63 (78) 97 Physical Exam GENERAL: Patient is an obese, well-developed female, awake and alert, not in respiratory distress. SKIN: Cool and dry. No generalized rash, no ecchymoses and no evidence of embolic lesions. HEAD: Atraumatic. Normocephalic. No temporal wasting, or tenderness. EYES: [place] conjunctiva. No petechia or hemorrhage. Pupils equal, round and reactive to light. Extraocular movements full and intact. No scleral icterus. No injection or drainage. EARS, NOSE AND THROAT: Nose without bleeding or purulent nasal discharge. No sinus tenderness. Mucous membranes pink and moist. No oral lesions noted. No exudate. No oral thrush. NECK: Trachea midline. Supple and not tender, no meningeal signs CARDIOVASCULAR: Regular rate and rhythm. No murmurs, rubs or gallops heard RESPIRATORY: Clear to auscultation. Breath sounds equal bilaterally. No rales , wheezing or rhonchi ABDOMEN: Soft, obese, non-tender, nondistended. Bowel sounds present and normoactive. No guarding. No rebound. No organomegaly. : Mosquera cath in place, with sediment EXTREMITIES: No clubbing, cyanosis. Has some pedal edema. No joint effusion , has good ROM. No calf tenderness. Well perfused and warm. NEUROLOGICAL: Awake and alert. Cranial nerves grossly intact. Motor grossly within normal limits. PSYCHIATRIC: Normal affect, calm and cooperative. LINE: No evidence of infection Laboratory Date/Time Source Procedure Growth Status 07/17/17 14:50 Blood Peripheral Aerobic Blood Culture - Final Staph Sp Coagulase Negative Complete 07/17/17 14:50 Anaerobic Blood Culture - Final Staphylococcus Aureus Complete 07/17/17 14:50 Urine Clean Catch Urine Culture - Final Escherichia Coli Klebsiella Pneumoniae Complete Result Diagram: 07/19/17 0558 07/19/17 0558 Imaging RADIOLOGY STUDIES/FILMS REVIEWED RADIOLOGY STUDIES/FILMS REVIEWED Head CT 07/17/17 1441 Signed Impressions: Service Date/Time: Monday, July 17, 2017 15:41 - CONCLUSION: Normal examination. José Miguel Brown MD Chest X-Ray 07/17/17 144 Signed Impressions: Service Date/Time: Monday, July 17, 2017 14:57 - CONCLUSION: 1. Very low lung volumes which significantly limit evaluation for early airspace process. 2. Persistent elevation of the right hemidiaphragm with minimal airspace disease at the lung bases which may be due to suboptimal lung expansion. Manuel Cummings MD Assessment and Plan Assessment and Plan IMPRESSION Sepsis due to source UTI, mosquera cath associated Kleb, MSSA sepsis Renal insufficiency due to sepsis, better Obesity Previous Gastric bypass RECOMMENDATION Change to IV Rocephin Renal US May need CT A/P Repeat BC Follow C/S Monitor progress Will determine course of Abx once work-up is completed I will follow along with you Thank you for this consultation Discussed Condition With Explained plan to the patient Sylvia Posadas MD July 20, 2017 14:20
[2017-07-20] MEDS: cefTRIAXone INJ 2,000 MG in SODIUM CHLORIDE 0.9% INJ 100 ML IV SCH (15:05)
--- NOTE | 2017-07-20 15:07 | HHI.PR ---
Subjective Remarks Pt complains of some intermittent dysphagia for the last 6months which seems to be worse lately She reports that it happens sporadically and she will feel like the food gets stopped in her lower esophagus and she will have dry heaving and vomiting to try to get the food back up Objective Vitals Vital Signs Date Time Temp Pulse Resp B/P (MAP) Pulse Ox O2 Delivery O2 Flow Rate FiO2 07/20/17 12:08 98.9 81 18 116/71 (86) 98 07/20/17 12:00 79 07/20/17 08:08 98.9 73 18 156/74 (101) 93 07/20/17 08:00 77 07/20/17 08:00 Room Air 07/20/17 04:00 98.4 78 17 106/74 (85) 96 07/20/17 04:00 Room Air 07/20/17 03:45 76 07/20/17 00:00 98.2 72 17 98/66 (77) 96 07/20/17 00:00 Room Air 07/19/17 23:55 69 07/19/17 20:01 78 07/19/17 20:00 97.4 72 15 95/55 (68) 94 07/19/17 20:00 Room Air 07/19/17 17:00 97 Room Air 07/19/17 17:00 79 07/19/17 16:00 98.5 71 18 109/63 (78) 97 Result Diagram: 07/19/17 0558 07/19/17 0558 Other Results Laboratory Tests Test 07/19/17 05:58 White Blood Count 8.4 TH/MM3 Red Blood Count 3.31 MIL/MM3 Hemoglobin 9.4 GM/DL Hematocrit 28.5 % Mean Corpuscular Volume 86.2 FL Mean Corpuscular Hemoglobin 28.4 PG Mean Corpuscular Hemoglobin Concent 32.9 % Red Cell Distribution Width 14.2 % Platelet Count 196 TH/MM3 Mean Platelet Volume 9.4 FL Neutrophils (%) (Auto) 71.3 % Lymphocytes (%) (Auto) 15.3 % Monocytes (%) (Auto) 10.1 % Eosinophils (%) (Auto) 2.8 % Basophils (%) (Auto) 0.5 % Neutrophils # (Auto) 6.0 TH/MM3 Lymphocytes # (Auto) 1.3 TH/MM3 Monocytes # (Auto) 0.9 TH/MM3 Eosinophils # (Auto) 0.2 TH/MM3 Basophils # (Auto) 0.0 TH/MM3 CBC Comment DIFF FINAL Differential Comment Blood Urea Nitrogen 18 MG/DL Creatinine 1.14 MG/DL Random Glucose 84 MG/DL Calcium Level 7.7 MG/DL Sodium Level 139 MEQ/L Potassium Level 4.0 MEQ/L Chloride Level 106 MEQ/L Carbon Dioxide Level 24.5 MEQ/L Anion Gap 9 MEQ/L Estimat Glomerular Filtration Rate 61 ML/MIN Imaging Last Impressions Head CT 07/17/17 1441 Signed Impressions: Service Date/Time: Monday, July 17, 2017 15:41 - CONCLUSION: Normal examination. José Miguel Brown MD Chest X-Ray 07/17/171440 Signed Impressions: Service Date/Time: Monday, July 17, 2017 14:57 - CONCLUSION: 1. Very low lung volumes which significantly limit evaluation for early airspace process. 2. Persistent elevation of the right hemidiaphragm with minimal airspace disease at the lung bases which may be due to suboptimal lung expansion. Manuel Cummings MD Objective Remarks General: NAD, AAOx3 Chest: CTA Cardiac: Regular Abd: +BS, soft, obese, ND/NT Ext: Mild bilateral LE edema, chronic, unchanged A/P Problem List: (1) Urinary tract infection ICD Codes: N39.0 - Urinary tract infection, site not specified Status: Acute Plan: UTI with recent hx of VRE MICHAEL AMS, possible sepsis - Pt is a 51 y/o AAF with HTN, asthma, morbid obesity, chronic back pain with implanted Dilaudid pump, and is bed bound with limited use of her LE reportedly related to previous failed back surgeries. - She has had issues in the past with urinary retention and recurrent UTIs. In May 2017 she had VRE which was treated with Zyvox. Pt had a Wilks cath placed during that admission and she follows with Dr. Santos for this. Pt reports that she had a Wilks catheter change on Thursday. She felt that she had some more cloudy urine starting about a week ago, prior to the Wilks change. She did not notice any improvement after the Wilks change. She started running some fevers yesterday and was more lethargic. - Pt was brought to the ED at [facility] on 07/17/17 due to increased lethargy, AMS and weakness. Pt was noted to have a fever of 103 in the ED. Her WBC count was 15.2. Her UA was abnormal. - She was noted to have some MICHAEL with Cr 1.42 and BUN 19. - Urine culture growing Klebsiella pneumoniae and E. coli - Blood cultures (07/17) --> Staph aureus and Klebsiella pneumoniae - Pt was given a dose of Zosyn in the ED - She was continued Zyvox and renal dose Cipro - Stop IVF, pt eating and drinking better but with some complaints of dysphagia - Consult ID - Barium swallow - Hold Bumex DVT prophylaxis patient on Eliquis Hx of DVT/PE - Cont. home dose of Eliquis Tachycardia - Cont. pts Metoprolol 12.5mg po BID as BP allows Chronic back pain with implanted Dilaudid pain pump LE weakness, chronic - Chronic indwelling pain pump - Morphine resumed - Xanax resumed - Pt is normally either bed bound and uses a motorized scooter to get around Diabetes Mellitus, diet controlled - Pt is diet controlled (2) MICHAEL (acute kidney injury) ICD Codes: N17.9 - Acute kidney failure, unspecified Status: Acute (3) Chronic pain ICD Codes: G89.29 - Chronic pain Status: Chronic (4) Diabetes mellitus ICD Codes: E11.9 - Type 2 diabetes mellitus without complications Status: Chronic (5) Tachycardia ICD Codes: R00.0 - Tachycardia, unspecified Status: Acute Problem Qualifiers (1) Urinary tract infection: Mary Mackenzie July 20, 2017 15:07
[2017-07-20 15:31] LABS: BILIRUBIN, URINE NEG (NEG); BLOOD, URINE MOD (NEG); GLUCOSE,URINE NEG (NEG); KETONE, URINE NEG (NEG); NITRITE,URINE NEG (NEG); PH, URINE 5.5 (5.0-8.5); URINE COLOR YELLOW (YELLW/STRAW); URINE LEUKOCYTE ESTERASE LARGE (NEG)
[2017-07-20 15:39] LABS: AMORPHOUS SEDIMENT, URINE RARE; BACTERIA, URINE FEW /hpf; HYALINE CAST, URINE 11 /lpf (RARE); SQUAMOUS EPITHELIAL CELL URINE 14 /hpf (0-5)
--- NOTE | 2017-07-20 16:45 | RADRPT ---
EXAM DATE/TIME: 07/20/2017 15:10 [facility] COMPARISON: CT ABDOMEN & PELVIS W/O CONTRAST, April 16, 2016, 4:53. INDICATIONS : Urinary retention. Urinary tract infection. MEDICAL HISTORY : Hypertension. Osteoarthritis. Asthma. Chronic back pain. Diabetes. Peripheral neuropathy. Myelomalacia. Chronic anemia. SURGICAL HISTORY : Gastric bypass. Cholecystectomy. Dilaudid pump. Laminectomy lumbar surgery. Wilks catheter. ENCOUNTER: Initial ACUITY: 1 day PAIN SCORE: 6/10 LOCATION: Bilateral flank MEASUREMENTS: RIGHT KIDNEY: 11.0 x 4.9 x 6.3 cm LEFT KIDNEY: 9.5 x 5.3 x 4.9 cm FINDINGS: RIGHT KIDNEY: Mild prominence of the renal collecting system. No renal calculi or gross mass. LEFT KIDNEY: Minimal prominence of the renal collecting system. No renal calculi or gross mass. BLADDER: Decompressed secondary to Wilks catheter. CONCLUSION: 1. Limited examination due to bowel gas and patient's body habitus. 2. Mild prominence of the renal collecting systems, right greater than left. This finding is nonspeci fic and may reflect residual calyceal prominence if patient has a history of prior hydronephrosis gabriela desiree bladder outlet obstruction/neurogenic bladder and chronic reflux. Manuel Cummings MD on July 20, 2017 at 16:39 Board Certified Radiologist. This report was verified electronically.
[2017-07-20] MEDS: ALPRAZolam 0.5 MG TAB PO PRN (21:36)
[2017-07-21] VITALS (9 sets, daily range): BP systolic 92–126; BP diastolic 54–86; PULSE 75–92; RESP 18–20; TEMP 97.2–99; O2SAT 93–99
[2017-07-21] MEDS: MORPHINE SULFATE ORAL SOLN 10 MG/0.5 ML SYRINGE PO PRN ×4 (06:56→17:42)
[2017-07-21 07:43] LABS: AUTOMATED NEUTROPHIL # 4.9 TH/MM3 (1.8-7.7); BASOPHIL % 0.3 % (0.0-2.0); EOSINOPHIL # 0.3 TH/MM3 (0-0.4); EOSINOPHIL % 3.4 % (0.0-4.0); HEMATOCRIT 31.5 % (35.0-46.0); LYMPH % 17.8 % (9.0-44.0); LYMPHOCYTE # 1.3 TH/MM3 (1.0-4.8); MEAN CELL VOLUME 86.8 FL (80.0-100.0); MEAN CORPUSCULAR HEMOGLOBIN 27.6 PG (27.0-34.0); MEAN CORPUSCULAR HGB CONC 31.8 % (32.0-36.0); MEAN PLATELET VOLUME 9.3 FL (7.0-11.0); MONO % 12.6 % (0.0-8.0); MONOCYTE # 0.9 TH/MM3 (0-0.9); NEUT % 65.9 % (16.0-70.0); PLATELET COUNT 242 TH/MM3 (150-450); RED BLOOD COUNT 3.62 MIL/MM3 (4.00-5.30); RED CELL DISTRIBUTION WIDTH 14.7 % (11.6-17.2); WHITE BLOOD COUNT 7.5 TH/MM3 (4.0-11.0)
[2017-07-21 08:25] LABS: CALCIUM 8.3 MG/DL (8.5-10.1); CREATININE 0.97 MG/DL (0.50-1.00)
[2017-07-21] MEDS: METOPROLOL TARTRATE 25 MG TAB PO SCH ×2 (08:40→20:56)
[2017-07-21] MEDS: PANTOPRAZOLE SOD 20 MG DELAYED RELEASE TAB PO SCH ×2 (08:40→20:56)
[2017-07-21] MEDS: GABAPENTIN 400 MG CAP PO SCH ×4 (08:40→20:56)
[2017-07-21] MEDS: APIXABAN 2.5 MG TABLET PO SCH ×2 (08:41→20:56)
[2017-07-21] MEDS: ALPRAZolam 0.5 MG TAB PO PRN ×2 (08:44→18:53)
--- NOTE | 2017-07-21 10:24 | RADRPT ---
EXAM DATE: 07/21/2017 10:07 AM EDT AGE/SEX: 51 years / Female INDICATIONS: Dysphagia CLINICAL DATA: This is the patient's initial encounter. Patient reports that signs and symptoms have been present for 2 weeks and indicates a pain score of 0/10. MEDICAL/SURGICAL HISTORY: None. . gastric bypass 1996 COMPARISON: No prior [facility] exams available for comparison. FLUORO TIME: 3.2 minutes IMAGE COUNT: 14 FINDINGS: Air-contrast views of the hypopharynx demonstrate a normal mucosal surface without filling defect. Rapid sequence images of the hypopharynx and cervical esophagus during the passage of bariu m demonstrate a normal swallowing function. No evidence of aspiration. . Patient is status post a p revious gastric bypass surgery. There is a prominent hiatal hernia at the level of the GE junction. T here is some esophageal dysmotility of the thoracic esophagus. No fixed strictures or mechanical obst ruction is demonstrated. There is moderate gastroesophageal reflux in the supine position. Patient wa s given a barium tablet which was initially delayed in the lower cervical esophagus. However, with an additional swallow the tablet moved into the gastric pouch/hiatal hernia. There is good flow of cont rast from the gastric pouch into the proximal small bowel. There is no evidence of mechanical obstruc tion or leak. CONCLUSION: 1. No evidence of any fixed strictures or mechanical obstruction. 2. Status post previous gastric bypass surgery 3. Hiatal hernia the GE junction. The hiatal hernia appears to be essentially the gastric pouch. 4. Esophageal dysmotility with tertiary contractions. 5. Moderate gastroesophageal reflux in the supine position. Electronically signed by: Buddy Coreas MD 07/21/2017 10:23 AM EDT
--- NOTE | 2017-07-21 10:56 | HHI.IDPN ---
Subjective Subjective Remarks Patient is a 51-year-old female, brought into the hospital for evaluation of fevers and lethargy. Patient has had problem with recurrent UTI. She has urinary retention, and has required a chronic Mosquera catheter. The catheter gets change at least once a month. She has had recurrent UTI and has had infection with some resistant organisms including VRE. Her Mosquera was recently change about 4 days prior to admission. However she had noted that her urine has been more cloudy. Changing the Mosquera did not really produce any improvement in the cloudiness of her urine. Recently she started having fevers , and she was noted to be more lethargic. She has had decreased p.o. intake. There is been no nausea or vomiting. She has had some intermittent epigastric pain. Clinically she has improved. Her white count was initially elevated and is down to normal. She had 2 blood cultures on admission 1 has Klebsiella, and the second had MSSA and a coag negative staph. Her urine culture is showing E. coli and Klebsiella. Her urinalysis shows significant pyuria. Patient has been on Cipro and Zyvox. Infectious disease consultation has been requested to evaluate the patient. Notes reviewed Afebrile BP ok Renal US not a good study Creatinine down to normal WBC down to normal Repeat BC pending Repeat UA still with significant pyuria Antibiotics Rocephin Current Medications Medications (Trade) Dose Ordered Sig/Lissette Route Start Time Stop Time Status Last Admin (Proair Hfa Inh) 2 puff Q4H PRN INH 07/17/17 17:15 (Eliquis) 2.5 mg BID PO 07/17/17 21:00 07/21/17 08:41 (Neurontin) 800 mg QID PO 07/17/17 18:00 07/21/17 08:40 (Protonix) 20 mg BID PO 07/17/17 21:00 07/21/17 08:40 (Duoneb Neb) 1 ampule Q2HR NEB PRN NEB 07/17/17 17:15 (Lopressor) 12.5 mg Q12HR PO 07/18/17 09:00 07/21/17 08:40 (Pill Splitter) 1 ea UNSCH PRN OTHER 07/17/17 17:30 (Roxanol Liq) 10 mg Q4H PRN PO 07/19/17 14:30 07/21/17 06:56 Ceftriaxone Sodium 2000 mg/ Sodium Chloride 100 ml @ 200 mls/hr Q24H IV 07/20/17 15:00 07/20/17 15:05 (Xanax) 0.5 mg Q8H PRN PO 07/20/17 15:00 07/21/17 08:44 Lines PIV with no evidence of infection Past Medical History HTN Diabetes mellitus, diet controlled Anxiety Asthma Chronic back pain/post-laminectomy syndrome and has implanted Dilaudid pain pump Failed back syndrome and prior lumbar spine surgeries IBD Osteoarthritis Myelomalacia Peripheral neuropathy GERD Morbid obesity Chronic anemia Hx 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 Allergies: Coded Allergies: MRI PRECAUTION (Verified Adverse Reaction, Severe, SPINAL CORD STIMULATOR , 06/05/17) PER DR BOND Objective . Vital Signs Date Time Temp Pulse Resp B/P (MAP) Pulse Ox O2 Delivery O2 Flow Rate FiO2 07/21/17 08:00 Room Air 07/21/17 08:00 83 07/21/17 05:15 97.3 81 18 126/80 (95) 98 07/21/17 04:00 Room Air 07/21/17 03:57 79 07/21/17 00:50 98.3 81 18 108/69 (82) 95 07/21/17 00:05 78 07/21/17 00:00 Room Air 07/20/17 22:03 98.9 78 18 100/50 (67) 97 07/20/17 20:09 89 07/20/17 20:00 Room Air 07/20/17 16:08 98.9 78 18 105/56 (72) 95 07/20/17 16:00 86 07/20/17 12:08 98.9 81 18 116/71 (86) 98 07/20/17 12:00 79 . Laboratory Tests Test 07/21/17 05:35 White Blood Count 7.5 TH/MM3 Red Blood Count 3.62 MIL/MM3 Hemoglobin 10.0 GM/DL Hematocrit 31.5 % Mean Corpuscular Volume 86.8 FL Mean Corpuscular Hemoglobin 27.6 PG Mean Corpuscular Hemoglobin Concent 31.8 % Red Cell Distribution Width 14.7 % Platelet Count 242 TH/MM3 Mean Platelet Volume 9.3 FL Neutrophils (%) (Auto) 65.9 % Lymphocytes (%) (Auto) 17.8 % Monocytes (%) (Auto) 12.6 % Eosinophils (%) (Auto) 3.4 % Basophils (%) (Auto) 0.3 % Neutrophils # (Auto) 4.9 TH/MM3 Lymphocytes # (Auto) 1.3 TH/MM3 Monocytes # (Auto) 0.9 TH/MM3 Eosinophils # (Auto) 0.3 TH/MM3 Basophils # (Auto) 0.0 TH/MM3 CBC Comment DIFF FINAL Differential Comment Laboratory Tests Test 07/21/17 05:35 Blood Urea Nitrogen 12 MG/DL Creatinine 0.97 MG/DL Random Glucose 73 MG/DL Calcium Level 8.3 MG/DL Magnesium Level 2.0 MG/DL Sodium Level 138 MEQ/L Potassium Level 4.7 MEQ/L Chloride Level 106 MEQ/L Carbon Dioxide Level 24.0 MEQ/L Anion Gap 8 MEQ/L Estimat Glomerular Filtration Rate 73 ML/MIN Microbiology Date/Time Source Procedure Growth Status 07/20/17 18:20 Blood Peripheral Aerobic Blood Culture Pending Received 07/20/17 18:20 Blood Peripheral Anaerobic Blood Culture Pending Received 07/20/17 18:13 Blood Peripheral Aerobic Blood Culture Pending Received 07/20/17 18:13 Blood Peripheral Anaerobic Blood Culture Pending Received Imaging Last Impressions Barium Swallow X-Ray 07/21/17 0000 Signed Impressions: CONCLUSION: Renal Ultrasound 07/20/17 0000 Signed Impressions: Service Date/Time: Thursday, July 20, 2017 15:10 - CONCLUSION: 1. Limited examination due to bowel gas and patient's body habitus. 2. Mild prominence of the renal collecting systems, right greater than left. This finding is nonspecific and may reflect residual calyceal prominence if patient has a history of prior hydronephrosis versus bladder outlet obstruction/neurogenic bladder and chronic reflux. Manuel Cummings MD Head CT 07/17/17 1441 Signed Impressions: Service Date/Time: Monday, July 17, 2017 15:41 - CONCLUSION: Normal examination. José Miguel Brown MD Chest X-Ray 07/17/17 1441 Signed Impressions: Service Date/Time: Monday, July 17, 2017 14:57 - CONCLUSION: 1. Very low lung volumes which significantly limit evaluation for early airspace process. 2. Persistent elevation of the right hemidiaphragm with minimal airspace disease at the lung bases which may be due to suboptimal lung expansion. Manuel Cummings MD Physical Exam GENERAL: Patient is an obese, well-developed female, awake and alert, not in respiratory distress. SKIN: Cool and dry. No generalized rash, no ecchymoses and no evidence of embolic lesions. HEAD: Atraumatic. Normocephalic. No temporal wasting, or tenderness. EYES: [place] conjunctiva. No petechia or hemorrhage. Pupils equal, round and reactive to light. Extraocular movements full and intact. No scleral icterus. No injection or drainage. EARS, NOSE AND THROAT: Nose without bleeding or purulent nasal discharge. No sinus tenderness. Mucous membranes pink and moist. No oral lesions noted. NECK: Trachea midline. Supple and not tender, no meningeal signs CARDIOVASCULAR: Regular rate and rhythm. No murmurs, rubs or gallops heard RESPIRATORY: Clear to auscultation. Decreased breath sounds at the bases ABDOMEN: Soft, obese, non-tender, nondistended. Bowel sounds present and normoactive. No guarding. No rebound. No organomegaly. : Mosquera cath in place, with sediment EXTREMITIES: No clubbing, cyanosis. Has some pedal edema. No joint effusion , has good ROM. No calf tenderness. Well perfused and warm. NEUROLOGICAL: Awake and alert. Cranial nerves grossly intact. Motor grossly within normal limits. PSYCHIATRIC: Normal affect, calm and cooperative. LINE: No evidence of infection Assessment & Plan Remarks IMPRESSION Sepsis due to source UTI, mosquera cath associated Kleb, MSSA sepsis Renal insufficiency due to sepsis, better Obesity Previous Gastric bypass RECOMMENDATION Continue IV Rocephin CT A/P Repeat BC Follow C/S Monitor progress Will determine course of Abx once work-up is completed Explained plan to the patient Sylvia Posadas MD July 21, 2017 10:56
[2017-07-21] MEDS: DIATRIZOATE MEGLUM/DIATRIZOATE SOD 9 ML CUP PO ONE ×2 (12:10→12:20)
[2017-07-21] MEDS: cefTRIAXone INJ 2,000 MG in SODIUM CHLORIDE 0.9% INJ 100 ML IV SCH (15:17)
--- NOTE | 2017-07-21 16:06 | HHI.PR ---
Subjective Remarks No new complaints. Objective Vitals Vital Signs Date Time Temp Pulse Resp B/P (MAP) Pulse Ox O2 Delivery O2 Flow Rate FiO2 07/21/17 12:00 80 07/21/17 12:00 98.4 75 20 97/54 (68) 99 07/21/17 08:00 Room Air 07/21/17 08:00 97.2 89 20 112/86 (95) 97 07/21/17 08:00 83 07/21/17 05:15 97.3 81 18 126/80 (95) 98 07/21/17 04:00 Room Air 07/21/17 03:57 79 07/21/17 00:50 98.3 81 18 108/69 (82) 95 07/21/17 00:05 78 07/21/17 00:00 Room Air 07/20/17 22:03 98.9 78 18 100/50 (67) 97 07/20/17 20:09 89 07/20/17 20:00 Room Air 07/20/17 16:08 98.9 78 18 105/56 (72) 95 Result Diagram: 07/21/17 0535 07/21/17 0535 Imaging Last Impressions Barium Swallow X-Ray 07/21/17 0000 Signed Impressions: CONCLUSION: Renal Ultrasound 07/20/17 0000 Signed Impressions: Service Date/Time: Thursday, July 20, 2017 15:10 - CONCLUSION: 1. Limited examination due to bowel gas and patient's body habitus. 2. Mild prominence of the renal collecting systems, right greater than left. This finding is nonspecific and may reflect residual calyceal prominence if patient has a history of prior hydronephrosis versus bladder outlet obstruction/neurogenic bladder and chronic reflux. Manuel Cummings MD Head CT 07/17/17 1441 Signed Impressions: Service Date/Time: Monday, July 17, 2017 15:41 - CONCLUSION: Normal examination. José Miguel Brown MD Chest X-Ray 07/17/17 144 Signed Impressions: Service Date/Time: Monday, July 17, 2017 14:57 - CONCLUSION: 1. Very low lung volumes which significantly limit evaluation for early airspace process. 2. Persistent elevation of the right hemidiaphragm with minimal airspace disease at the lung bases which may be due to suboptimal lung expansion. Manuel Cummings MD Objective Remarks General: NAD, AAOx3 Chest: CTA Cardiac: Regular Abd: +BS, soft, obese, ND/NT Ext: Mild bilateral LE edema, chronic, unchanged A/P Problem List: (1) Urinary tract infection ICD Codes: N39.0 - Urinary tract infection, site not specified Status: Acute Plan: UTI with recent hx of VRE MICHAEL AMS, possible sepsis - Pt is a 51 y/o AAF with HTN, asthma, morbid obesity, chronic back pain with implanted Dilaudid pump, and is bed bound with limited use of her LE reportedly related to previous failed back surgeries. - She has had issues in the past with urinary retention and recurrent UTIs. In May 2017 she had VRE which was treated with Zyvox. Pt had a Wilks cath placed during that admission and she follows with Dr. Santos for this. Pt reports that she had a Wilks catheter change on Thursday. She felt that she had some more cloudy urine starting about a week ago, prior to the Wilks change. She did not notice any improvement after the Wilks change. She started running some fevers yesterday and was more lethargic. - Pt was brought to the ED at [facility] [place] on 07/17/17 due to increased lethargy, AMS and weakness. Pt was noted to have a fever of 103 in the ED. Her WBC count was 15.2. Her UA was abnormal. - She was noted to have some MICHAEL with Cr 1.42 and BUN 19. - Urine culture growing Klebsiella pneumoniae and E. coli - Blood cultures (07/17) --> Staph aureus and Klebsiella pneumoniae - Repeat Blood Cx (07/20) --> NGTD - Zyvox (07/17 - 07/20) - Cipro (07/17 - 07/19) - Rocephin (07/20 - present) per ID - Barium swallow --> esophageal dysmotility - Hold Bumex - CT A/P per ID DVT prophylaxis patient on Eliquis Hx of DVT/PE - Cont. home dose of Eliquis Tachycardia - Cont. pts Metoprolol 12.5mg po BID as BP allows Chronic back pain with implanted Dilaudid pain pump LE weakness, chronic - Chronic indwelling pain pump - Morphine resumed - Xanax resumed - Pt is normally either bed bound and uses a motorized scooter to get around Diabetes Mellitus, diet controlled - Pt is diet controlled (2) MICHAEL (acute kidney injury) ICD Codes: N17.9 - Acute kidney failure, unspecified Status: Acute (3) Chronic pain ICD Codes: G89.29 - Chronic pain Status: Chronic (4) Diabetes mellitus ICD Codes: E11.9 - Type 2 diabetes mellitus without complications Status: Chronic (5) Tachycardia ICD Codes: R00.0 - Tachycardia, unspecified Status: Acute Problem Qualifiers (1) Urinary tract infection: Conner Knight DO July 21, 2017 16:06
[2017-07-21] MEDS ORDERED: MAGNESIUM HYDROXIDE SUSP 30 ML CUP PO PRN (16:30)
[2017-07-21] MEDS: NYSTATIN 100,000 U/GM PWD 15 GM BTL TOPICAL SCH ×2 (17:40→20:59)
--- NOTE | 2017-07-21 20:28 | RADRPT ---
EXAM DATE: 07/21/2017 8:16 PM EDT AGE/SEX: 51 years / Female INDICATIONS: Abdominal pain; possible obstruction. CLINICAL DATA: This is the patient's initial encounter. Patient reports that signs and symptoms have been present for 1 day and indicates a pain score of 5/10. MEDICAL/SURGICAL HISTORY: Cardiovascular disease. Hypertension. Chronic obstructive pulmonary disease. DVT, Anemia, Asthma Cholecystectomy. RADIATION DOSE: 28.59 CTDI (mGy) ; Patient body habitus COMPARISON: [facility] [place] ABDOMEN & PELVIS W/O CONTRAST, 04/16/2016. . TECHNIQUE: Multiple contiguous axial images were obtained through the abdomen. Images were obtained using multiple row detector helical technique. Using dose reduction techniques, radiation dose was ke pt as low as reasonably achievable to obtain optimal diagnostic quality images. FINDINGS: There is oral contrast within the distal small bowel and colon from a prior barium swallow. This does cause artifact over the abdomen around the ileum, ascending colon, transverse colon, and p roximal descending colon. Lower Lungs: There is very prominent elevation of the right hemidiaphragm with the liver seen in the right lower chest. This appearance is unchanged from the prior exam. Liver: The liver has a homogeneous density without space-occupying lesion. There is no dilation of th e biliary tree. Spleen: Homogeneous density without enlargement. Pancreas: Unremarkable without mass or calcification. Kidneys: Normal in size and shape. No evidence of mass or hydronephrosis. Adrenal Glands: Unremarkable. Aorta: The aorta and proximal iliac vessels are grossly unremarkable without aneurysmal dilation. Bowel/Mesentery: Again noted is the oral contrast in the ileum and the colon. Dilated small bowel is not seen. There appears to be a bowel suture line over the stomach likely from prior gastric bypass. Abdominal Wall: There is a mild umbilical hernia containing mesenteric fat. Retroperitoneum: No evidence of adenopathy in the retrocrural, para-aortic, or deep pelvic regions. Bladder: There is a Wilks catheter within the urinary bladder. Air seen within the urinary bladder w hich can be seen with placement of the Wilks catheter. Reproductive Organs: No abnormal masses or calcifications seen. Inguinal: The inguinal region is unremarkable without evidence of adenopathy. Bony Structures: There is a levocurvature of the thoracic lumbar region. There is postsurgical christiansen e with transpedicular screws in the lower lumbar spine. There appears to be postoperative change in t he upper lumbar spine with fusion of the posterior elements. There is a left-sided device seen in the left upper pelvis region with a lead extending into the spinal canal. CONCLUSION: 1. Persistent elevation of the right hemidiaphragm with the liver extending into the mid right chest . This appearance was present previously. 2. Oral contrast in the distal small bowel and the colon. There is no sign of obstruction or bowel d ilatation. 3. Mild umbilical hernia containing mesenteric fat. 4. Postoperative change in the spine. Electronically signed by: Francis Villasenor MD 07/21/2017 8:27 PM EDT
[2017-07-21] MEDS: DOCUSATE SODIUM 100 MG CAP PO SCH (20:56)
[2017-07-22] VITALS: BP 97/74; PULSE 78; RESP 17; TEMP 97.8; O2SAT 94
[2017-07-22 04:00] VITALS: BP 96/66; PULSE 80; RESP 17; TEMP 97.6; O2SAT 94
[2017-07-22] MEDS: MORPHINE SULFATE ORAL SOLN 10 MG/0.5 ML SYRINGE PO PRN ×4 (04:17→20:06)
[2017-07-22] MEDS: NYSTATIN 100,000 U/GM PWD 15 GM BTL TOPICAL SCH ×3 (04:19→20:07)
[2017-07-22 08:00] VITALS: BP 97/50; PULSE 83; RESP 20; TEMP 97.9; O2SAT 98
[2017-07-22] MEDS: METOPROLOL TARTRATE 25 MG TAB PO SCH ×2 (10:51→20:07)
[2017-07-22] MEDS: APIXABAN 2.5 MG TABLET PO SCH ×2 (10:51→20:07)
[2017-07-22] MEDS: DOCUSATE SODIUM 100 MG CAP PO SCH ×2 (10:52→20:07)
[2017-07-22] MEDS: PANTOPRAZOLE SOD 20 MG DELAYED RELEASE TAB PO SCH ×2 (10:52→20:07)
[2017-07-22] MEDS: GABAPENTIN 400 MG CAP PO SCH ×4 (10:52→20:07)
[2017-07-22] MEDS: ALPRAZolam 0.5 MG TAB PO PRN ×2 (10:59→18:41)
--- NOTE | 2017-07-22 11:08 | HHI.IDPN ---
Subjective Subjective Remarks Patient is a 51-year-old female, brought into the hospital for evaluation of fevers and lethargy. Patient has had problem with recurrent UTI. She has urinary retention, and has required a chronic Mosquera catheter. The catheter gets change at least once a month. She has had recurrent UTI and has had infection with some resistant organisms including VRE. Her Mosquera was recently change about 4 days prior to admission. However she had noted that her urine has been more cloudy. Changing the Mosquera did not really produce any improvement in the cloudiness of her urine. Recently she started having fevers , and she was noted to be more lethargic. She has had decreased p.o. intake. There is been no nausea or vomiting. She has had some intermittent epigastric pain. Clinically she has improved. Her white count was initially elevated and is down to normal. She had 2 blood cultures on admission 1 has Klebsiella, and the second had MSSA and a coag negative staph. Her urine culture is showing E. coli and Klebsiella. Her urinalysis shows significant pyuria. Patient has been on Cipro and Zyvox. Infectious disease consultation has been requested to evaluate the patient. Notes reviewed Afebrile BP ok Ct A/P no hydro Creatinine down to normal WBC down to normal Repeat BC negative Repeat UA still with significant pyuria Antibiotics Rocephin Current Medications Medications (Trade) Dose Ordered Sig/Lissette Route Start Time Stop Time Status Last Admin (Proair Hfa Inh) 2 puff Q4H PRN INH 07/17/17 17:15 (Eliquis) 2.5 mg BID PO 07/17/17 21:00 07/22/17 10:51 (Neurontin) 800 mg QID PO 07/17/17 18:00 07/22/17 10:52 (Protonix) 20 mg BID PO 07/17/17 21:00 07/22/17 10:52 (Duoneb Neb) 1 ampule Q2HR NEB PRN NEB 07/17/17 17:15 07/21/17 22:12 (Lopressor) 12.5 mg Q12HR PO 07/18/17 09:00 07/22/17 10:51 (Pill Splitter) 1 ea UNSCH PRN OTHER 07/17/17 17:30 (Roxanol Liq) 10 mg Q4H PRN PO 07/19/17 14:30 07/22/17 10:59 Ceftriaxone Sodium 2000 mg/ Sodium Chloride 100 ml @ 200 mls/hr Q24H IV 07/20/17 15:00 07/21/17 15:17 (Xanax) 0.5 mg Q8H PRN PO 07/20/17 15:00 07/22/17 10:59 (Mycostatin Powder) 1 applic Q8HR TOPICAL 07/21/17 16:30 07/22/17 04:19 (Colace) 100 mg BID PO 07/21/17 21:00 07/22/17 10:52 (Milk Of Magnesia Liq) 30 ml DAILY PRN PO 07/21/17 16:30 Lines PIV with no evidence of infection Past Medical History HTN Diabetes mellitus, diet controlled Anxiety Asthma Chronic back pain/post-laminectomy syndrome and has implanted Dilaudid pain pump Failed back syndrome and prior lumbar spine surgeries IBD Osteoarthritis Myelomalacia Peripheral neuropathy GERD Morbid obesity Chronic anemia Hx 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 Allergies: Coded Allergies: MRI PRECAUTION (Verified Adverse Reaction, Severe, SPINAL CORD STIMULATOR , 06/05/17) PER DR BOND Objective . Vital Signs Date Time Temp Pulse Resp B/P (MAP) Pulse Ox O2 Delivery O2 Flow Rate FiO2 07/22/17 08:00 97.9 83 20 97/50 (66) 98 07/22/17 04:00 80 07/22/17 04:00 Room Air 07/22/17 04:00 97.6 80 17 96/66 (76) 94 07/22/17 00:00 78 07/22/17 00:00 94 Room Air 07/22/17 00:00 97.8 78 17 97/74 (82) 94 07/21/17 22:16 93 Nasal Cannula 1.00 07/21/17 21:00 89 Nasal Cannula 1.00 07/21/17 20:00 99.0 87 20 113/81 (92) 97 07/21/17 20:00 92 07/21/17 16:00 85 07/21/17 16:00 98.5 84 20 92/73 (79) 94 07/21/17 12:00 80 07/21/17 12:00 98.4 75 20 97/54 (68) 99 . Laboratory Tests Test 07/21/17 05:35 White Blood Count 7.5 TH/MM3 Red Blood Count 3.62 MIL/MM3 Hemoglobin 10.0 GM/DL Hematocrit 31.5 % Mean Corpuscular Volume 86.8 FL Mean Corpuscular Hemoglobin 27.6 PG Mean Corpuscular Hemoglobin Concent 31.8 % Red Cell Distribution Width 14.7 % Platelet Count 242 TH/MM3 Mean Platelet Volume 9.3 FL Neutrophils (%) (Auto) 65.9 % Lymphocytes (%) (Auto) 17.8 % Monocytes (%) (Auto) 12.6 % Eosinophils (%) (Auto) 3.4 % Basophils (%) (Auto) 0.3 % Neutrophils # (Auto) 4.9 TH/MM3 Lymphocytes # (Auto) 1.3 TH/MM3 Monocytes # (Auto) 0.9 TH/MM3 Eosinophils # (Auto) 0.3 TH/MM3 Basophils # (Auto) 0.0 TH/MM3 CBC Comment DIFF FINAL Differential Comment Laboratory Tests Test 07/21/17 05:35 Blood Urea Nitrogen 12 MG/DL Creatinine 0.97 MG/DL Random Glucose 73 MG/DL Calcium Level 8.3 MG/DL Magnesium Level 2.0 MG/DL Sodium Level 138 MEQ/L Potassium Level 4.7 MEQ/L Chloride Level 106 MEQ/L Carbon Dioxide Level 24.0 MEQ/L Anion Gap 8 MEQ/L Estimat Glomerular Filtration Rate 73 ML/MIN Microbiology Date/Time Source Procedure Growth Status 07/20/17 18:20 Blood Peripheral Aerobic Blood Culture - Preliminary NO GROWTH IN 1 DAY Resulted 07/20/17 18:20 Blood Peripheral Anaerobic Blood Culture - Preliminary NO GROWTH IN 1 DAY Resulted 07/20/17 18:13 Blood Peripheral Aerobic Blood Culture - Preliminary NO GROWTH IN 1 DAY Resulted 07/20/17 18:13 Blood Peripheral Anaerobic Blood Culture - Preliminary NO GROWTH IN 1 DAY Resulted Imaging Last Impressions Barium Swallow X-Ray 07/21/17 0000 Signed Impressions: CONCLUSION: Renal Ultrasound 07/20/17 0000 Signed Impressions: Service Date/Time: Thursday, July 20, 2017 15:10 - CONCLUSION: 1. Limited examination due to bowel gas and patient's body habitus. 2. Mild prominence of the renal collecting systems, right greater than left. This finding is nonspecific and may reflect residual calyceal prominence if patient has a history of prior hydronephrosis versus bladder outlet obstruction/neurogenic bladder and chronic reflux. Manuel Cummings MD Head CT [id number] Signed Impressions: Service Date/Time: Monday, July 17, 2017 15:41 - CONCLUSION: Normal examination. José Miguel Brown MD Chest X-Ray [id number] Signed Impressions: Service Date/Time: Monday, July 17, 2017 14:57 - CONCLUSION: 1. Very low lung volumes which significantly limit evaluation for early airspace process. 2. Persistent elevation of the right hemidiaphragm with minimal airspace disease at the lung bases which may be due to suboptimal lung expansion. Maneul Cummings MD Physical Exam GENERAL: Patient is an obese, well-developed female, awake and alert, not in respiratory distress. SKIN: Cool and dry. No generalized rash, no ecchymoses and no evidence of embolic lesions. HEAD: Atraumatic. Normocephalic. No temporal wasting, or tenderness. EYES: [place] conjunctiva. No petechia or hemorrhage. Pupils equal, round and reactive to light. Extraocular movements full and intact. No scleral icterus. No injection or drainage. EARS, NOSE AND THROAT: Nose without bleeding or purulent nasal discharge. No sinus tenderness. Mucous membranes pink and moist. No oral lesions noted. NECK: Trachea midline. Supple and not tender, no meningeal signs CARDIOVASCULAR: Regular rate and rhythm. No murmurs, rubs or gallops heard RESPIRATORY: Clear to auscultation. Decreased breath sounds at the bases ABDOMEN: Soft, obese, non-tender, nondistended. Bowel sounds present and normoactive. No guarding. No rebound. No organomegaly. : Mosquera cath in place, with sediment EXTREMITIES: No clubbing, cyanosis. Has some pedal edema. No joint effusion , has good ROM. No calf tenderness. Well perfused and warm. NEUROLOGICAL: Awake and alert. Cranial nerves grossly intact. Motor grossly within normal limits. PSYCHIATRIC: Normal affect, calm and cooperative. LINE: No evidence of infection Assessment & Plan Remarks IMPRESSION Sepsis due to source UTI, mosquera cath associated Kleb, MSSA sepsis Renal insufficiency due to sepsis, better Obesity Previous Gastric bypass RECOMMENDATION Ok to D/C home Give 10 more days of Levaquin Explained plan to patient D/W Sylvia Garcia MD July 22, 2017 11:07
[2017-07-22 12:00] VITALS: BP 120/79; PULSE 92; RESP 20; TEMP 97.8; O2SAT 96
[2017-07-22] MEDS: LEVOFLOXACIN 500 MG TAB PO SCH (14:09)
[2017-07-22 16:00] VITALS: BP 114/59; PULSE 81; PULSE 87; RESP 20; TEMP 98.1; O2SAT 97
--- NOTE | 2017-07-22 16:28 | HHI.DCPOC ---
Discharge Care Plan Diagnosis: (1) UTI (lower urinary tract infection) (2) Bacteremia (3) Diabetes mellitus Goals to Promote Your Health * To prevent worsening of your condition and complications * To maintain your health at the optimal level Directions to Meet Your Goals Take your medications as prescribed Follow your dietary instruction Follow activity as directed Keep your appointments as scheduled Take your immunizations and boosters as scheduled If your symptoms worsen call your PCP, if no PCP go to Urgent Care Center or Emergency Room Smoking is Dangerous to Your Health. Avoid second hand smoke Call the 24-hour hour crisis hotline for domestic abuse at Evla Culp July 22, 2017 16:28
--- NOTE | 2017-07-22 16:33 | HHI.PR ---
Subjective Remarks no new concerns/complaints Objective Vitals Vital Signs Date Time Temp Pulse Resp B/P (MAP) Pulse Ox O2 Delivery O2 Flow Rate FiO2 07/22/17 12:00 97.8 92 20 120/79 (93) 96 07/22/17 08:00 97.9 83 20 97/50 (66) 98 07/22/17 04:00 80 07/22/17 04:00 Room Air 07/22/17 04:00 97.6 80 17 96/66 (76) 94 07/22/17 00:00 78 07/22/17 00:00 94 Room Air 07/22/17 00:00 97.8 78 17 97/74 (82) 94 07/21/17 22:16 93 Nasal Cannula 1.00 07/21/17 21:00 89 Nasal Cannula 1.00 07/21/17 20:00 99.0 87 20 113/81 (92) 97 07/21/17 20:00 92 Result Diagram: 07/21/17 0535 07/21/17 0535 Other Results Laboratory Tests Test 07/20/17 15:10 07/21/17 05:35 Urine Color YELLOW Urine Turbidity CLOUDY Urine pH 5.5 Urine Specific [place] 1.015 Urine Protein 100 mg/dL Urine Glucose (UA) NEG mg/dL Urine Ketones NEG mg/dL Urine Occult Blood MOD Urine Nitrite NEG Urine Bilirubin NEG Urine Urobilinogen 1.0 MG/DL Urine Leukocyte Esterase LARGE Urine RBC 70 /hpf Urine WBC /hpf Urine Squamous Epithelial Cells 14 /hpf Urine Amorphous Sediment RARE Urine Bacteria FEW /hpf Urine Hyaline Casts 11 /lpf White Blood Count 7.5 TH/MM3 Red Blood Count 3.62 MIL/MM3 Hemoglobin 10.0 GM/DL Hematocrit 31.5 % Mean Corpuscular Volume 86.8 FL Mean Corpuscular Hemoglobin 27.6 PG Mean Corpuscular Hemoglobin Concent 31.8 % Red Cell Distribution Width 14.7 % Platelet Count 242 TH/MM3 Mean Platelet Volume 9.3 FL Neutrophils (%) (Auto) 65.9 % Lymphocytes (%) (Auto) 17.8 % Monocytes (%) (Auto) 12.6 % Eosinophils (%) (Auto) 3.4 % Basophils (%) (Auto) 0.3 % Neutrophils # (Auto) 4.9 TH/MM3 Lymphocytes # (Auto) 1.3 TH/MM3 Monocytes # (Auto) 0.9 TH/MM3 Eosinophils # (Auto) 0.3 TH/MM3 Basophils # (Auto) 0.0 TH/MM3 CBC Comment DIFF FINAL Differential Comment Blood Urea Nitrogen 12 MG/DL Creatinine 0.97 MG/DL Random Glucose 73 MG/DL Calcium Level 8.3 MG/DL Magnesium Level 2.0 MG/DL Sodium Level 138 MEQ/L Potassium Level 4.7 MEQ/L Chloride Level 106 MEQ/L Carbon Dioxide Level 24.0 MEQ/L Anion Gap 8 MEQ/L Estimat Glomerular Filtration Rate 73 ML/MIN Imaging Last Impressions Barium Swallow X-Ray 07/21/17 0000 Signed Impressions: CONCLUSION: Renal Ultrasound 07/20/17 0000 Signed Impressions: Service Date/Time: Thursday, July 20, 2017 15:10 - CONCLUSION: 1. Limited examination due to bowel gas and patient's body habitus. 2. Mild prominence of the renal collecting systems, right greater than left. This finding is nonspecific and may reflect residual calyceal prominence if patient has a history of prior hydronephrosis versus bladder outlet obstruction/neurogenic bladder and chronic reflux. Manuel Cummings MD Head CT 07/17/17 144 Signed Impressions: Service Date/Time: Monday, July 17, 2017 15:41 - CONCLUSION: Normal examination. José Miguel Brown MD Chest X-Ray [id number]/17/[id number] Signed Impressions: Service Date/Time: Monday, July 17, 2017 14:57 - CONCLUSION: 1. Very low lung volumes which significantly limit evaluation for early airspace process. 2. Persistent elevation of the right hemidiaphragm with minimal airspace disease at the lung bases which may be due to suboptimal lung expansion. Manuel Cummings MD Objective Remarks General: NAD, AAOx3 Chest: CTA Cardiac: Regular Abd: +BS, soft, obese, ND/NT Ext: Mild bilateral LE edema, chronic, unchanged A/P Problem List: (1) Urinary tract infection ICD Codes: N39.0 - Urinary tract infection, site not specified Status: Acute Plan: UTI with recent hx of VRE MICHAEL AMS, possible sepsis - Pt is a 51 y/o AAF with HTN, asthma, morbid obesity, chronic back pain with implanted Dilaudid pump, and is bed bound with limited use of her LE reportedly related to previous failed back surgeries. - She has had issues in the past with urinary retention and recurrent UTIs. In May 2017 she had VRE which was treated with Zyvox. Pt had a Wilks cath placed during that admission and she follows with Dr. Santos for this. Pt reports that she had a Wilks catheter change on Thursday. She felt that she had some more cloudy urine starting about a week ago, prior to the Wilks change. She did not notice any improvement after the Wilks change. She started running some fevers yesterday and was more lethargic. - Pt was brought to the ED at [facility] [place] on 07/17/17 due to increased lethargy, AMS and weakness. Pt was noted to have a fever of 103 in the ED. Her WBC count was 15.2. Her UA was abnormal. - She was noted to have some MICHAEL with Cr 1.42 and BUN 19. - Urine culture growing Klebsiella pneumoniae and E. coli - Blood cultures (07/17) --> Staph aureus and Klebsiella pneumoniae - Repeat Blood Cx (07/20) --> NGTD - Zyvox (07/17 - 07/20) - Cipro (07/17 - 07/19) - Rocephin (07/20 - 07/22) per ID - ID started Levaquin PO - (07/22) ID recommending Levaquin PO for an additional 10 days and cleared for DC - Barium swallow --> esophageal dysmotility - Hold Bumex DVT prophylaxis patient on Eliquis Hx of DVT/PE - Cont. home dose of Eliquis Tachycardia - Cont. pts Metoprolol 12.5mg po BID as BP allows Chronic back pain with implanted Dilaudid pain pump LE weakness, chronic - Chronic indwelling pain pump - Morphine resumed - Xanax resumed - Pt is normally either bed bound and uses a motorized scooter to get around Diabetes Mellitus, diet controlled - Pt is diet controlled Plan to DC in AM (2) MICHAEL (acute kidney injury) ICD Codes: N17.9 - Acute kidney failure, unspecified Status: Acute (3) Chronic pain ICD Codes: G89.29 - Chronic pain Status: Chronic (4) Diabetes mellitus ICD Codes: E11.9 - Type 2 diabetes mellitus without complications Status: Chronic (5) Tachycardia ICD Codes: R00.0 - Tachycardia, unspecified Status: Acute Problem Qualifiers (1) Urinary tract infection: Elva Culp July 22, 2017 16:33
[2017-07-22] MEDS ORDERED: LEVA500T33 PO (16:35)
[2017-07-22] MEDS ORDERED: Nystatin Powder TOPICAL (16:39)
--- NOTE | 2017-07-22 16:41 | HHI.FF ---
Face to Face Verification Diagnosis: (1) Bacteremia (2) UTI (lower urinary tract infection) (3) Tachycardia (4) Diabetes mellitus (5) Urinary retention (6) Chronic pain (7) Spinal stenosis (8) Obese (9) Anxiety (10) COPD (chronic obstructive pulmonary disease) Physical Therapy Order: Evaluate and Treat, Improve ambulation, Strength and gait training Home Health Nursing Order: Medical education Signs/symptoms of disease process Medication education-adverse effect Nursing assessment with vital signs Home Health Aide Order: To Assist In: Bathing and personal care Chief Pilot Order: To Evaluate: Living conditions/environment, Support services Order: To Provide: Long range planning, Community services I have seen patient Asha Cook on 07/22/17. My clinical findings support the need for the requested home health care services because: Ltd mobility - disease progression Deconditioned w/ increased weakness Med compliance is questionable Limited ability to care for self Need for psychosocial assistance I certify that my clinical findings support that this patient is homebound because: Unsteady gait/balance Unsafe to leave home unassisted Need for psychosocial assistance [id number] bed/chair Unable to use public transportation Conner Knight DO July 22, 2017 16:41
--- NOTE | 2017-07-22 16:42 | HHI.DS ---
Discharge Summary Admission Date July 17, 2017 at 17:01 Discharge Date: July 23, 2017 Admitting Diagnosis UTI/sepsis/altered mental status (1) Urinary tract infection ICD Codes: N39.0 - Urinary tract infection, site not specified Status: Acute (2) MICHAEL (acute kidney injury) ICD Codes: N17.9 - Acute kidney failure, unspecified Status: Acute (3) Chronic pain ICD Codes: G89.29 - Chronic pain Status: Chronic (4) Diabetes mellitus ICD Codes: E11.9 - Type 2 diabetes mellitus without complications Status: Chronic (5) Tachycardia ICD Codes: R00.0 - Tachycardia, unspecified Status: Acute Consultants Dr. Posadas Procedures None Brief History Mrs. Cook is a 51 y/o AAF with HTN, asthma, morbid obesity, chronic back pain with implanted Dilaudid pump, and is bed bound with limited use of her LE reportedly related to previous failed back surgeries. She has had issues in the past with urinary retention and recurrent UTIs. In May 2017 she had VRE which was treated with Vyvox/ Pt had a Wilks cath placed during that admission and she follows with Dr. Santos for this. Pt reports that she had a Wilks catheter change on Thursday. She felt that she had some more cloudy urine starting about a week ago, prior to the Wilks change. She did not notice any improvement after the Wilks change. She started running some fevers yesterday and was more lethargic. Denies any vomiting or diarrhea but has not been eating or drinking much. She is very lethargic at the time of the examination but able to provide some history. She has had some nausea with taking her medications. Pt was [place] the [place] [facility] [place] due to increased lethargy and weakness. Pt was noted to have a fever of 103 in the ED. her WBC count was 15.2. She was noted to have some MICHAEL with Cr 1.42 and BUN 19. Initially prior to arrival EMS had gotten an initial EKG and had ST elevations seen on V1 and V2 concerning for possible ST elevation VT although the changes look equivocal and there were no ST depressions identified. Per the ER documentation, the case was discussed between the ED physician and Dr. Clemons, the patient's office messenger , and he felt that the patient likely has other issues going on with her altered mental status and does not think that ST elevation VT is the cause of her current issues. Pt denies any chest pain, palpitations, SOB, dizziness or headache. Pt is being admitted for UTI and possible sepsis. CBC/BMP: 07/21/17 0535 07/21/17 0535 Significant Findings Laboratory Tests Test 07/20/17 15:10 07/21/17 05:35 Urine Turbidity CLOUDY (CLEAR) Urine Protein 100 mg/dL (NEG-TRACE) Urine RBC 70 /hpf (0-3) Urine Bacteria FEW /hpf (NONE) Red Blood Count 3.62 MIL/MM3 (4.00-5.30) Hemoglobin 10.0 GM/DL (11.6-15.3) Hematocrit 31.5 % (35.0-46.0) Mean Corpuscular Hemoglobin Concent 31.8 % (32.0-36.0) Monocytes (%) (Auto) 12.6 % (0.0-8.0) Random Glucose 73 MG/DL (74-106) Calcium Level 8.3 MG/DL (8.5-10.1) Estimat Glomerular Filtration Rate 73 ML/MIN (>89) Imaging Last Impressions Barium Swallow X-Ray 07/21/17 0000 Signed Impressions: CONCLUSION: 1. No evidence of any fixed strictures or mechanical obstruction. 2. Status post previous gastric bypass surgery 3. Hiatal hernia the GE junction. The hiatal hernia appears to be essentially the gastric pouch. 4. Esophageal dysmotility with tertiary contractions. 5. Moderate gastroesophageal reflux in the supine position. Abdomen/Pelvis CT 07/21/17 0000 Signed Impressions: CONCLUSION: 1. Persistent elevation of the right hemidiaphragm with the liver extending in to the mid right chest. This appearance was present previously. 2. Oral contrast in the distal small bowel and the colon. There is no sign of obstruction or bowel dilatation. 3. Mild umbilical hernia containing mesenteric fat. 4. Postoperative change in the spine. Renal Ultrasound 07/20/17 0000 Signed Impressions: Service Date/Time: Thursday, July 20, 2017 15:10 - CONCLUSION: 1. Limited examination due to bowel gas and patient's body habitus. 2. Mild prominence of the renal collecting systems, right greater than left. This finding is nonspecific and may reflect residual calyceal prominence if patient has a history of prior hydronephrosis versus bladder outlet obstruction/neurogenic bladder and chronic reflux. Manuel Cummings MD Head CT 07/17/17 1441 Signed Impressions: Service Date/Time: Monday, July 17, 2017 15:41 - CONCLUSION: Normal examination. José Miguel Brown MD Chest X-Ray 07/17/17 1441 Signed Impressions: Service Date/Time: Monday, July 17, 2017 14:57 - CONCLUSION: 1. Very low lung volumes which significantly limit evaluation for early airspace process. 2. Persistent elevation of the right hemidiaphragm with minimal airspace disease at the lung bases which may be due to suboptimal lung expansion. Manuel Cummings MD PE at Discharge General: NAD, AAOx3 Chest: CTA Cardiac: Regular Abd: +BS, soft, obese, ND/NT Ext: Mild bilateral LE edema, chronic, unchanged Hospital Course UTI with recent hx of VRE MICHAEL AMS, possible sepsis - Pt is a 51 y/o AAF with HTN, asthma, morbid obesity, chronic back pain with implanted Dilaudid pump, and is bed bound with limited use of her LE reportedly related to previous failed back surgeries. - She has had issues in the past with urinary retention and recurrent UTIs. In May 2017 she had VRE which was treated with Zyvox. Pt had a Wilks cath placed during that admission and she follows with Dr. Santos for this. Pt reports that she had a Wilks catheter change on Thursday. She felt that she had some more cloudy urine starting about a week ago, prior to the Wilks change. She did not notice any improvement after the Wilks change. She started running some fevers yesterday and was more lethargic. - Pt was brought to the ED at [facility] [place]17[place]17 due to increased lethargy, AMS and weakness. Pt was noted to have a fever of 103 in the ED. Her WBC count was 15.2. Her UA was abnormal. - She was noted to have some MICHAEL with Cr 1.42 and BUN 19. - Urine culture growing Klebsiella pneumoniae and E. 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 pts Metoprolol 12.5mg po BID as BP allows Chronic back pain with implanted Dilaudid pain pump LE weakness, chronic - Chronic indwelling pain pump - Morphine resumed - Xanax resumed - Pt is normally either bed bound and uses a motorized scooter to get around Diabetes Mellitus, diet controlled - Pt is diet controlled Pt Condition on Discharge: Stable Discharge Disposition: Disch w/ Home Health Serv Discharge Instructions DIET: Follow Instructions for: Diabetic Diet Activities you can perform: Weight Bearing as Nakul Follow up Referrals: PCP Follow-up - [address] Magdaleno PCP Follow-up New Medications: Levofloxacin (Levaquin) 500 Mg Tablet 500 MG PO DAILY for antibiotic for 10 Days, #10 TAB 0 Refills [Nystatin Powder] () 15 APPLIC/15 GM POWD 1 APPLIC TOPICAL Q8HR for antifungal for 10 Days apply to effected area Continued Medications: Albuterol 8.5 GM Inh (Proair Hfa 8.5 GM Inh) 90 Mcg/Act Aer 2 PUFF INH Q4-6H PRN for SHORTNESS OF BREATH, #1 INHALER 0 Refills 108 mcg/actuation Alprazolam (Alprazolam) 0.5 Mg Tab 0.5 MG PO Q8H PRN for ANXIETY, TAB 0 Refills Apixaban (Eliquis) 2.5 Mg Tab 2.5 MG PO BID for Blood Clot Prevention, TAB 0 Refills Bethanechol (Bethanechol) 25 Mg Tab 25 MG PO Q8HR for Urinary Symptom Managemen, TAB 0 Refills Fluticasone 12 GM Inh (Flovent Hfa 12 GM Inh) 110 Mcg/Act Inh 2 PUFF INH BID for Asthma Management, #1 INHALER 0 Refills Gabapentin (Gabapentin) 800 Mg Tab 800 MG PO QID, #90 TAB 0 Refills Metoprolol Tartrate (Metoprolol Tartrate) 25 Mg Tab 12.5 MG PO BID for tachycardia, #60 TAB 0 Refills Morphine Sulfate PF Inj (Morphine Sulfate PF Inj) 0.5 Mg/Ml Syr 7.5 ML PO Q4HR PRN for PAIN SCALE 4 TO 10 Omeprazole (Omeprazole) 20 Mg Tab 20 MG PO BID, #30 TAB 0 Refills Discontinued Medications: Bumetanide (Bumetanide) 2 Mg Tab 2 MG PO DAILY for fluid retention, #7 TAB 0 Refills Cyclobenzaprine (Flexeril) 10 Mg Tab 10 MG PO TID PRN for back spasm, #t TAB 0 Refills Terazosin (Terazosin) 1 Mg Cap 1 MG PO HS, #30 CAP 0 Refills Elva Culp July 22, 2017 16:41
[2017-07-22 20:00] VITALS: BP 94/52; PULSE 77; PULSE 82; RESP 20; TEMP 98.6; O2SAT 94
[2017-07-23] VITALS: BP 97/53; PULSE 79; PULSE 80; RESP 18; TEMP 98.2; O2SAT 92
[2017-07-23 04:00] VITALS: BP 101/57; PULSE 81; RESP 18; TEMP 97.9; O2SAT 96
[2017-07-23] MEDS: MORPHINE SULFATE ORAL SOLN 10 MG/0.5 ML SYRINGE PO PRN ×2 (04:13→08:15)
[2017-07-23] MEDS: NYSTATIN 100,000 U/GM PWD 15 GM BTL TOPICAL SCH (05:07)
[2017-07-23 08:00] VITALS: BP 107/56; PULSE 89; RESP 16; TEMP 98.5; O2SAT 97
[2017-07-23] MEDS: APIXABAN 2.5 MG TABLET PO SCH (08:14)
[2017-07-23] MEDS: METOPROLOL TARTRATE 25 MG TAB PO SCH (08:15)
[2017-07-23] MEDS: PANTOPRAZOLE SOD 20 MG DELAYED RELEASE TAB PO SCH (08:15)
[2017-07-23] MEDS: LEVOFLOXACIN 500 MG TAB PO SCH (08:15)
[2017-07-23] MEDS: GABAPENTIN 400 MG CAP PO SCH (08:15)
[2017-07-23] MEDS: DOCUSATE SODIUM 100 MG CAP PO SCH (08:15)
== END 2017-07-23 11:21 | disposition home health service (06) | DRG 872 ==
LOC: NEPC 14:33 → NEDA 17:01 → N04A 18:51 → N04B 07-20 08:59 → N04A 07-20 09:00
PROVIDERS: ADMIT Hospitalist; ATTEND Hospitalist
DX: A41.01 Sepsis due to Methicillin susceptible Staphylococcus aureus (principal); N17.9 Acute kidney failure, unspecified; E11.42 Type 2 diabetes mellitus with diabetic polyneuropathy; Z68.43 Body mass index [BMI] 50.0-59.9, adult; N39.0 Urinary tract infection, site not specified; E66.01 Morbid (severe) obesity due to excess calories; G89.29 Other chronic pain; B96.1 Klebsiella pneumoniae [K. pneumoniae] as the cause of diseases classified elsewhere; J44.9 Chronic obstructive pulmonary disease, unspecified; M54.9 Dorsalgia, unspecified; M96.1 Postlaminectomy syndrome, not elsewhere classified; Z96.89 Presence of other specified functional implants; R53.1 Weakness; D64.9 Anemia, unspecified; E78.00 Pure hypercholesterolemia, unspecified; E83.42 Hypomagnesemia; E87.6 Hypokalemia; F41.9 Anxiety disorder, unspecified; I10 Essential (primary) hypertension; K21.9 Gastro-esophageal reflux disease without esophagitis; K22.4 Dyskinesia of esophagus; K42.9 Umbilical hernia without obstruction or gangrene; K44.9 Diaphragmatic hernia without obstruction or gangrene; Z74.01 Bed confinement status; Z79.01 Long term (current) use of anticoagulants; Z86.711 Personal history of pulmonary embolism; Z86.718 Personal history of other venous thrombosis and embolism; Z87.440 Personal history of urinary (tract) infections; Z98.84 Bariatric surgery status; Z16.21 Resistance to vancomycin
CPT/HCPCS: 70450; 71045; 74176; 74230; 76775; 80048; 80053; 81001; 82550; 82552; 83605; 83735; 84155; 84484; 85025; 85610; 85730; 86403; 87040; 87077; 87086; 87147; 87186; 87205; 93005; 94664; 96365; J0696; J0744; J2020; J2543; J3475; J3480; J7030; Q9963

== ENCOUNTER 2017-08-16 12:40 | Emergency (ER) | payer MEDICARE, OTHER ==
[~2017-08-16] VITALS: Ht 162.6 cm; Wt 130.0 kg
[~2017-08-16 12:40] MED LIST changes: -BUME2TAB PO; -CYCL10TA PO; +LEVA500T33 PO; -LINE1TAB PO; +Nystatin Powder TOPICAL; -TERA1CAP3 PO
[2017-08-16 12:49] VITALS: BP 156/71; PULSE 82; RESP 18; TEMP 99.2; O2SAT 98
[2017-08-16] MEDS ORDERED: SODIUM CHLORIDE 0.9% FLUSH 10 ML FLUSH IV FLUSH PRN (13:00)
[2017-08-16] MEDS ORDERED: MORPHINE SULFATE 4 MG/ML INJ IV PUSH ONE (13:30)
[2017-08-16] MEDS ORDERED: METOCLOPRAMIDE HCL 10 MG/2 ML VIAL IV PUSH ONE (13:30)
[2017-08-16 13:35] LABS: AUTOMATED NEUTROPHIL # 7.9 TH/MM3 (1.8-7.7); BASOPHIL % 0.4 % (0.0-2.0); EOSINOPHIL % 0.1 % (0.0-4.0); HEMATOCRIT 34.1 % (35.0-46.0); HEMOGLOBIN 11.3 GM/DL (11.6-15.3); LYMPH % 7.3 % (9.0-44.0); LYMPHOCYTE # 0.6 TH/MM3 (1.0-4.8); MEAN CELL VOLUME 84.2 FL (80.0-100.0); MEAN CORPUSCULAR HGB CONC 33.2 % (32.0-36.0); MONO % 2.1 % (0.0-8.0); MONOCYTE # 0.2 TH/MM3 (0-0.9); NEUT % 90.1 % (16.0-70.0); PLATELET COUNT 275 TH/MM3 (150-450); RED BLOOD COUNT 4.05 MIL/MM3 (4.00-5.30); WHITE BLOOD COUNT 8.8 TH/MM3 (4.0-11.0)
[2017-08-16 13:45] VITALS: BP 186/97; PULSE 84; RESP 19; O2SAT 95
[2017-08-16 13:54] LABS: ALBUMIN 2.9 GM/DL (3.4-5.0); ALT (GPT) 14 U/L (10-53); AST (GOT) 15 U/L (15-37); BICARBONATE 23.5 MEQ/L (21.0-32.0); BLOOD UREA NITROGEN 9 MG/DL (7-18); CALCIUM 8.4 MG/DL (8.5-10.1); CHLORIDE 111 MEQ/L (98-107); CREATININE 0.77 MG/DL (0.50-1.00); GLOMERULAR FILTRATION RATE 95 ML/MIN (>89); GLUCOSE,RANDOM 140 MG/DL (74-106); SODIUM (NA) 144 MEQ/L (136-145)
[2017-08-16 13:56] LABS: ALKALINE PHOSPHATASE 108 U/L (45-117); TOTAL BILIRUBIN ADULT 0.5 MG/DL (0.2-1.0); TOTAL PROTEIN 8.5 GM/DL (6.4-8.2)
--- NOTE | 2017-08-16 14:34 | PD ---
HPI Chief Complaint: GI Complaint Time Seen by Provider: 13:26 Travel History International Travel<30 days: No Contact w/Intl Traveler<30days: No Traveled to known affect area: No History of Present Illness HPI 51-year-old female patient presents to the ER today with 2 days history of nausea, vomiting, diarrhea, and abdominal pains currently rated a 7 out of 10. She denies any recent fevers, chest pains, shortness of breath, or other symptoms. She does not know of any exacerbating or relieving factors. She has vomited multiple times and not keeping anything down this morning. She does not know of any sick contacts or bad food exposure. Modifying Factors: None Associated Signs & Symptoms: Nausea, vomiting, diarrhea, abdominal pain Risk Factors: None PFSH Past Medical History Hx Anticoagulant Therapy: Yes (warfarin) Anemia: Yes Arthritis: Yes Asthma: Yes Autoimmune Disease: No Blood Disorders: No Anxiety: Yes Depression: No Heart Rhythm Problems: No Cancer: No Cardiac Catheterization: Yes Cardiovascular Problems: Yes Cerebral Palsy: No High Cholesterol: Yes Chemotherapy: No Chest Pain: No Congestive Heart Failure: No COPD: Yes Cerebrovascular Accident: No Diabetes: No Diminished Hearing: No Deep Vein Thrombosis: Yes (BILATERAL LOWER EXT) Endocrine: No Gastrointestinal Disorders: Yes GERD: Yes Glaucoma: No Genitourinary: Yes Hepatitis: No Hiatal Hernia: No Hypertension: Yes Immune Disorder: No Implanted Vascular Access Dvce: Yes Kidney Stones: No Musculoskeletal: Yes Neurologic: No Psychiatric: Yes Reproductive: No Respiratory: Yes Immunizations Current: No Migraines: No Radiation Therapy: No Renal Failure: No Seizures: No Sickle Cell Disease: No Sleep Apnea: No Thyroid Disease: No Ulcer: No PNEUMOCCOCAL Vaccine (Year): 2 ?: Not Menopausal: Yes : 2 Para: 2 Past Surgical History Abdominal Surgery: Yes (gallbladder) AICD: No Arteriovenous Shunt: No Body Medical Devices: PAIN PUMP, ANDRES RODS Cardiac Surgery: No Cholecystectomy: Yes Ear Surgery: No Endocrine Surgery: No Eye Surgery: No Genitourinary Surgery: No Gynecologic Surgery: No Insulin Pump: No Joint Replacement: No Neurologic Surgery: Yes (SPINAL CORD/ANDRES RODS) Oral Surgery: No Pacemaker: No Thoracic Surgery: No Other Surgery: Yes (DILAUDID PUMP) Social History Alcohol Use: No Tobacco Use: No Substance Use: No Allergies-Medications (Allergen,Severity, Reaction): Coded Allergies: MRI PRECAUTION (Verified Adverse Reaction, Severe, SPINAL CORD STIMULATOR , 08/16/17) PER DR BOND furosemide (Verified Adverse Reaction, Severe, Itching, 08/16/17) Reported Meds & Prescriptions Reported Meds & Active Scripts Active [Nystatin Powder] 15 APPLIC/15 GM Powd 1 Applic TOPICAL Q8HR 10 Days apply to effected area Metoprolol Tartrate 25 Mg Tab 12.5 Mg PO BID Reported Eliquis (Apixaban) 2.5 Mg Tab 2.5 Mg PO BID Alprazolam 0.5 Mg Tab 0.5 Mg PO Q8H PRN Morphine Sulfate PF Inj (Morphine Sulfate/Sodium Chloride) 0.5 Mg/Ml Syr 7.5 Ml PO Q4HR PRN Flovent Hfa 12 GM Inh (Fluticasone Propionate) 110 Mcg/Act Inh 2 Puff INH BID Proair Hfa 8.5 GM Inh (Albuterol Sulfate) 90 Mcg/Act Aer 2 Puff INH Q4-6H PRN 108 mcg/actuation Omeprazole 20 Mg Tab 20 Mg PO BID Gabapentin 800 Mg Tab 800 Mg PO QID Review of Systems Except as stated in HPI: all other systems reviewed are Neg Physical Exam Narrative GENERAL: Well-developed obese female patient currently in moderate distress. Awake and oriented 3. SKIN: Focused skin assessment warm/dry. HEAD: Atraumatic. Normocephalic. EYES: Pupils equal and round. No scleral icterus. No injection or drainage. ENT: No nasal bleeding or discharge. Mucous membranes pink and moist. NECK: Trachea midline. No JVD. CARDIOVASCULAR: Regular rate and rhythm. No murmur appreciated. RESPIRATORY: No accessory muscle use. Clear to auscultation. Breath sounds equal bilaterally. GASTROINTESTINAL: Abdomen soft, obese, epigastric tenderness without guarding or rebound, nondistended. Hepatic and splenic margins not palpable. MUSCULOSKELETAL: No obvious deformities. No clubbing. No cyanosis. No edema. NEUROLOGICAL: Awake and alert. No obvious cranial nerve deficits. Motor grossly within normal limits. Normal speech. PSYCHIATRIC: Appropriate mood and affect; insight and judgment normal. Data Data Last Documented VS Vital Signs Date Time Temp Pulse Resp B/P (MAP) Pulse Ox O2 Delivery O2 Flow Rate FiO2 08/16/17 13:45 84 19 186/97 (126) 95 Room Air 08/16/17 12:49 99.2 Orders Orders Complete Blood Count With Diff (08/16/17 12:56) Comprehensive Metabolic Panel (08/16/17 12:56) Lipase (08/16/17 12:56) Urinalysis - C+S If Indicated (08/16/17 12:56) Iv Access Insert/Monitor (08/16/17 12:56) Ecg Monitoring (08/16/17 12:56) Oximetry (08/16/17 12:56) Sodium Chloride 0.9% Flush (Ns Flush) (08/16/17 13:00) Metoclopramide Inj (Reglan Inj) (08/16/17 13:30) Morphine Inj (Morphine Inj) (08/16/17 13:30) Ct Abd/Pel W Iv Contrast(Rout) (08/16/17 13:26) Urine Culture (08/16/17 13:24) Ketorolac Inj (Toradol Inj) (08/16/17 15:45) Iohexol 350 Inj (Omnipaque 350 Inj) (08/16/17 16:00) Ed Discharge Order (08/16/17 16:53) Labs Laboratory Tests Test 08/16/17 13:24 White Blood Count 8.8 TH/MM3 Red Blood Count 4.05 MIL/MM3 Hemoglobin 11.3 GM/DL Hematocrit 34.1 % Mean Corpuscular Volume 84.2 FL Mean Corpuscular Hemoglobin 28.0 PG Mean Corpuscular Hemoglobin Concent 33.2 % Red Cell Distribution Width 17.0 % Platelet Count 275 TH/MM3 Mean Platelet Volume 8.0 FL Neutrophils (%) (Auto) 90.1 % Lymphocytes (%) (Auto) 7.3 % Monocytes (%) (Auto) 2.1 % Eosinophils (%) (Auto) 0.1 % Basophils (%) (Auto) 0.4 % Neutrophils # (Auto) 7.9 TH/MM3 Lymphocytes # (Auto) 0.6 TH/MM3 Monocytes # (Auto) 0.2 TH/MM3 Eosinophils # (Auto) 0.0 TH/MM3 Basophils # (Auto) 0.0 TH/MM3 CBC Comment DIFF FINAL Differential Comment Urine Color YELLOW Urine Turbidity CLOUDY Urine pH 6.0 Urine Specific [place] 1.015 Urine Protein 100 mg/dL Urine Glucose (UA) NEG mg/dL Urine Ketones 20 mg/dL Urine Occult Blood SMALL Urine Nitrite NEG Urine Bilirubin NEG Urine Urobilinogen 2.0 mg/dL Urine Leukocyte Esterase LARGE Urine RBC 10 /hpf Urine WBC 155 /hpf Urine WBC Clumps MANY Urine Squamous Epithelial Cells 4 /hpf Urine Bacteria MANY /hpf Urine Mucus FEW /lpf Microscopic Urinalysis Comment CULTURE INDICATED Blood Urea Nitrogen 9 MG/DL Creatinine 0.77 MG/DL Random Glucose 140 MG/DL Total Protein 8.5 GM/DL Albumin 2.9 GM/DL Calcium Level 8.4 MG/DL Alkaline Phosphatase 108 U/L Aspartate Amino Transf (AST/SGOT) 15 U/L Alanine Aminotransferase (ALT/SGPT) 14 U/L Total Bilirubin 0.5 MG/DL Sodium Level 144 MEQ/L Potassium Level 3.5 MEQ/L Chloride Level 111 MEQ/L Carbon Dioxide Level 23.5 MEQ/L Anion Gap 10 MEQ/L Estimat Glomerular Filtration Rate 95 ML/MIN Lipase 125 U/L MDM Medical Decision Making Medical Screen Exam Complete: Yes Emergency Medical Condition: Yes Medical Record Reviewed: Yes Interpretation(s) Laboratory Tests Test 08/16/17 13:24 Hemoglobin 11.3 GM/DL (11.6-15.3) Hematocrit 34.1 % (35.0-46.0) Neutrophils (%) (Auto) 90.1 % (16.0-70.0) Lymphocytes (%) (Auto) 7.3 % (9.0-44.0) Neutrophils # (Auto) 7.9 TH/MM3 (1.8-7.7) Lymphocytes # (Auto) 0.6 TH/MM3 (1.0-4.8) Urine Turbidity CLOUDY (CLEAR) Urine Protein 100 mg/dL (NEG-TRACE) Urine Occult Blood SMALL (NEG) Urine Urobilinogen 2.0 mg/dL (LESS THAN 2) Urine Leukocyte Esterase LARGE (NEG) Urine RBC 10 /hpf (0-3) Urine WBC 155 /hpf (0-5) Urine WBC Clumps MANY (NONE) Urine Bacteria MANY /hpf (NONE) Urine Mucus FEW /lpf (OCC) Random Glucose 140 MG/DL (74-106) Total Protein 8.5 GM/DL (6.4-8.2) Albumin 2.9 GM/DL (3.4-5.0) Calcium Level 8.4 MG/DL (8.5-10.1) Chloride Level 111 MEQ/L (98-107) Last 24 hours Impressions Abdomen/Pelvis CT 08/16/17 1326 Signed Impressions: CONCLUSION: 1. Mild left hydronephrosis and ureteral dilatation above a questionable faint calcification near the left UVJ. Bladder decompressed by Wilks. 2. Otherwise no acute findings within the abdomen and pelvis. Previous gastric bypass and cholecystectomy and lumbar fusion. Canal stenosis in the lower thor acic and upper lumbar spine above the laminectomy defects with a spinal infusio n catheter extending into the lower thoracic canal. Differential Diagnosis Gastroenteritis versus gastritis versus pancreatitis Narrative Course Lab work shows significant UTI. CAT scan shows questionable tiny left-sided kidney stone but otherwise was fairly unremarkable. At this point, patient has been given medications for pain, nausea and vomiting, and IV fluids, and is feeling improved on reevaluation at 4:50 PM, my plan would be to release her with treatment for UTI and symptomatic relief for pain and follow-up to primary care physician. Return for worsening in symptoms as necessary. The plan has been discussed with her and she states understanding. Diagnosis Primary Impression: Urinary tract infection Med/Other Pt SpecificInfo: Prescription(s) given Scripts Tramadol (Tramadol) 50 Mg Tab 50 MG PO Q6H Y for PAIN, #10 TAB 0 Refills Prov: Pina Witt MD 08/16/17 Ondansetron Odt (Zofran Odt) 4 Mg Tab 4 MG SL Q6HR Y for Nausea/Vomiting, #7 TAB 0 Refills Prov: Pina Witt MD 08/16/17 Ciprofloxacin (Cipro) 500 Mg Tab 500 MG PO BID for Infection for 7 Days, #14 TAB 0 Refills Prov: Pina Witt MD 08/16/17 Disposition: 01 DISCHARGE HOME Condition: Stable Pina Witt MD Aug 16, 2017 14:34
[2017-08-16 14:45] LABS: BACTERIA, URINE MANY /hpf; BILIRUBIN, URINE NEG (NEG); BLOOD, URINE SMALL (NEG); GLUCOSE,URINE NEG (NEG); KETONE, URINE 20 mg/dL (NEG); MUCUS URINE FEW /lpf (OCC); NITRITE,URINE NEG (NEG); SQUAMOUS EPITHELIAL CELL URINE 4 /hpf (0-5); URINE COLOR YELLOW (YELLW/STRAW); URINE LEUKOCYTE ESTERASE LARGE (NEG); WHITE BLOOD CELL CLUMPS MANY
[2017-08-16] MEDS ORDERED: KETOROLAC TROMETHAMINE 30 MG/ML (IVP) VIAL IV PUSH ONE (15:45)
[2017-08-16] MEDS ORDERED: IOHEXOL 350 MG/ML 10 ML VIAL (for RAD DIAG) IVCONTRAST ONE (16:00)
--- NOTE | 2017-08-16 16:46 | RADRPT ---
EXAM DATE: 08/16/2017 4:23 PM EDT AGE/SEX: 51 years / Female INDICATIONS: Nausea, vomiting and diarrhea with upper abdomen pain today. CLINICAL DATA: This is the patient's initial encounter. Patient reports that signs and symptoms have been present for 1 day and indicates a pain score of 7/10. MEDICAL/SURGICAL HISTORY: Hypertension. Deep venous thrombosis. Gastroesophageal reflux disea se. Gastric bypass. Cholecystectomy. Dilaudid pump ORAL CONTRAST: No oral contrast ingested. RADIATION DOSE: 18.99 CTDI (mGy) COMPARISON: No prior exams available for comparison. TECHNIQUE: Multiple contiguous axial images were obtained through the abdomen and pelvis following b olus infusion of 90 ml Omnipaque 350 (iohexol) nonionic water-soluble contrast as a single exam dos e. No oral contrast ingested. Using automated exposure control and adjustment of the mA and/or kV ac cording to patient size, the radiation dose was kept as low as reasonably achievable to obtain optima l diagnostic quality images. FINDINGS: Lung bases demonstrate some compressive atelectasis at the right lung base from elevated right hemidi aphragm. Left lung bases clear. There is mild left-sided hydronephrosis with mild dilatation of the left ureter down to the bladder. A questionable faint calcification is seen in the left UVJ. The bladder is decompressed by Wilks. No acute findings in the liver, spleen, adrenals, right kidney or pancreas. Previous cholecystectomy and gastric bypass surgery. Pelvis reveals no mass or adenopathy. 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 There is canal stenosis in the lower thoracic a nd upper lumbar spine above the laminectomies with a spinal infusion pump catheter extending into the lower thoracic canal. No bowel obstruction is identified. There is a hiatal hernia. CONCLUSION: 1. Mild left hydronephrosis and ureteral dilatation above a questionable faint calcification near th e left UVJ. Bladder decompressed by Wilks. 2. Otherwise no acute findings within the abdomen and pelvis. Previous gastric bypass and cholecyste ctomy and lumbar fusion. Canal stenosis in the lower thoracic and upper lumbar spine above the nghia ctomy defects with a spinal infusion catheter extending into the lower thoracic canal. Electronically signed by: Cheo Mcdonald MD 08/16/2017 4:44 PM EDT
[2017-08-16] MEDS ORDERED: TRAM50TA PO (16:57)
[2017-08-16] MEDS ORDERED: ZOFR4TAB3 SL (16:57)
[2017-08-16] MEDS ORDERED: CIPR-9 PO (16:57)
== END 2017-08-16 17:59 | disposition home or self-care (01) ==
LOC: NEPE 12:40
DX: N39.0 Urinary tract infection, site not specified (principal); B96.1 Klebsiella pneumoniae [K. pneumoniae] as the cause of diseases classified elsewhere; R11.2 Nausea with vomiting, unspecified; R19.7 Diarrhea, unspecified; F41.9 Anxiety disorder, unspecified; I10 Essential (primary) hypertension; E78.00 Pure hypercholesterolemia, unspecified; J44.9 Chronic obstructive pulmonary disease, unspecified; K21.9 Gastro-esophageal reflux disease without esophagitis; Z86.718 Personal history of other venous thrombosis and embolism; Z79.01 Long term (current) use of anticoagulants; Z98.84 Bariatric surgery status
CPT/HCPCS: 74177; 80053; 81001; 83690; 85025; 87077; 87086; 87186; 96374; 96375; 99284; J1885; J2270; J2765; Q9967

== ENCOUNTER 2017-10-19 20:36 | Inpatient (IN) ==
[2017-10-19] MEDS ORDERED: Sod Chloride 0.9% Inj 1,000 ML IV.SIG ONE (23:04)
--- NOTE | 2017-10-19 23:29 | XR ---
EXAM DATE: 10/19/2017 11:22 PM EDT AGE/SEX: 51 years / Female INDICATIONS: Chest pain. CLINICAL DATA: This is the patient's initial encounter. Patient reports that signs and symptoms have been present for 1 day and indicates a pain score of 3/10. MEDICAL/SURGICAL HISTORY: Deep venous thrombosis. Gastroesophageal reflux disease. . Cardiac c atheterization. COMPARISON: [facility] [place], CHEST SINGLE AP, 07/17/2017. . FINDINGS: A single AP view of the chest demonstrates the lungs to be symmetrically aerated without evidence of mass, infiltrate or effusion. Chronic elevation of the right hemidiaphragm. Linear atelectasis within the right base. The cardiomediastinal contours are unremarkable. Osseous structures are intact. CONCLUSION: Chronic elevation of the right hemidiaphragm with mild linear right basilar atelectasis. No acute car diopulmonary disease. Electronically signed by: Laron Rubio MD 10/19/2017 11:28 PM EDT
[2017-10-19 23:53] LABS: Baso # (Auto) 0.1 th/mm3 (0.0-0.2); Baso % (Auto) 0.6 % (0.0-2.0); Eos # (Auto) 0.1 th/mm3 (0.0-0.4); Eos % (Auto) 0.6 % (0.0-4.0); Lymph # (Auto) 1.8 th/mm3 (1.0-4.8); Lymph % (Auto) 18.6 % (9.0-44.0); Mean Corpuscular Hemoglobin 27.9 pg (27.0-34.0); Mean Corpuscular Volume 90.5 fL (80.0-100.0); Mean Platelet Volume 8.8 fL (7.0-11.0); Mono # (Auto) 0.6 th/mm3 (0.0-0.9); Neut # (Auto) 7.2 th/mm3 (1.8-7.7); Neut % (Auto) 74.2 % (16.0-70.0); Platelet Count 312 th/mm3 (150-450); Red Blood Count 4.31 mil/mm3 (4.00-5.30); Red Cell Distribution Width 17.8 % (11.6-17.2); White Blood Count 9.7 th/mm3 (4.0-11.0)
[2017-10-19] MEDS ORDERED: Morphine Sulfate Inj 8 MG/ML Vial IV.PUSH ONE (23:56)
[2017-10-19 23:59] LABS: Mean Corpuscular HGB Conc 30.8 % (32.0-36.0)
[2017-10-20 00:02] LABS: INR 1.1 Ratio; Prothrombin Time 10.7 sec (9.8-11.6)
--- NOTE | 2017-10-20 00:05 | ED ---
HPI General Chief complaint: Pain: Chronic Stated complaint: Time Seen by Provider: 10/19/17 23:00 Source: patient Limitations: no limitations History of Present Illness HPI narrative: The patient is a 51 year old female who presents to the [facility] emergency department with a history of reportedly not feeling well since the end of August. She reports that it began with nausea, vomiting, and diarrhea that would come and go. 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 The patient reports that a week ago the Dilaudid was removed from her pain pump by her pain management doctor and replaced with saline. She reports that she has a follow-up appointment scheduled for Thursday to assess how the pump is functioning. In the meantime , this past week she was placed on fentanyl 25 mcg patch every 3 days. She last placed her patch on Thursday. She reports that it is not adhering well and she also has itchiness at the site of the patch attachment. She did discuss this with her pain management doctor. She denies having any rashes associated with this. She reports that for breakthrough pain she takes morphine liquid form 7.5 mL every 6 hours. She reports that she last took this several hours ago. She reports that she last had nausea vomiting and diarrhea 3 days ago. She reports that the pain is "all over". The patient also reports that over the last few days she has had a strong odor to her urine and clouding of her urine. The patient has a history of chronic urinary retention with a chronic indwelling Wilks catheter that was last changed approximately 3 weeks ago. She reports a concern for a possible urinary tract infection. She reports that she has frequent urinary tract infections. She reports that she did have a fever last on Thursday with a T-max of 101. On review of systems otherwise, the patient denies having any cough, congestion, new neck pain or back pain, abdominal pain, or new neurologic symptoms. The patient has a history of using an wheelchair for mobility. 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 Related Data Home Medications Medication Instructions Recorded Confirmed fentanyl 25 mcg TOPICAL TID 10/19/17 10/19/17 Allergies Allergy/AdvReac Type Severity Reaction Status Date / Time furosemide AdvReac Severe Itching Verified 10/19/17 23:40 MRI PRECAUTION AdvReac Severe SPINAL Uncoded 08/16/17 13:12 CORD STIMULATOR Review of Systems ROS: all other systems reviewed are negative [facility] Medical History Medical History History of frequent urinary tract infections (Acute) Renal failure (Acute) Sepsis (Acute) Stroke (Acute) Social History Social History Substance History: No History of Abuse Smoking Status: Former smoker How Often Do You Have a Drink Containing Alcohol: Never Recent Travel in [facility] within the Last 8 Weeks: No Recent Out of Country Travel within the Last 8 Weeks: No Exam Const General: cooperative, well developed and acute distress (Reportedly related to pain all over, intermittently tearful on exam.) mild Nutritional Appearance: obese Orientation: alert, awake and oriented x3 HENMT Head: normocephalic and atraumatic Nose: no nasal discharge and no epistaxis Mouth: moist mucous membranes Throat: posterior oropharynx normal and uvula midline Eyes Sclera: normal sclerae Pupils: PERRL Neck Neck: no meningeal signs, trachea midline and no JVD Resp Effort & Inspection: no use of accessory muscles Auscultation: clear to auscultation bilaterally Cardio Rate: regular rate Rhythm: regular rhythm Heart Sounds: no gallops, no murmurs and no rubs GI Inspection: non-distended Palpation: soft, no hepatosplenomegaly and nontender Auscultation: normal bowel sounds Back/Spine/Pelvis Back: no CVA tenderness Skin General: dry skin (warm) Neuro General: alert, awake and oriented x3 Cranial Nerves: other (No facial asymmetry.) Speech: speech normal Motor: no movement abnormalities noted Extrem General: normal to inspection (No calf tenderness on palpation. 2+ pulses in all 4 extremities.), no clubbing, no cyanosis and edema (Trace pedal edema bilaterally.) Laterality: bilaterally Psych Mood: congruent mood Affect: normal affect Judgment: judgment good Course Consultations Consultation #1: The patient's case including history, pertinent physical examination findings, and laboratory studies were discussed with Dr. Malloy. It was agreed that the patient would be admitted to the [facility] hospitalist service. Time: 02:15 Initial Documented Vital Signs Temperature 98.1 F 10/19/17 21:41 Pulse Rate 103 H 10/19/17 21:41 Respiratory Rate 18 10/19/17 21:41 Blood Pressure 110/55 L 10/19/17 21:41 Pulse Oximetry 92 L 10/19/17 21:41 Last Documented Vital Signs Temperature 98.1 F 10/19/17 21:41 Pulse Rate 96 H 10/20/17 02:00 Respiratory Rate 16 10/19/17 23:15 Blood Pressure 99/58 L 10/20/17 00:16 Pulse Oximetry 98 10/20/17 00:16 Medical Decision Making MDM Narrative Medical decision making narrative: During the course of the patient's emergency department visit, the patient's history, examination, and differential diagnosis were reviewed with the patient. 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 The patient had IV access obtained and blood work sent for analysis. The diagnostic evaluation was started regarding the patient's complaints of pain all over, urinary symptoms with a chronic indwelling Wilks catheter and a prior history of recurrent UTIs. The patient's electronic medical record was reviewed. The patient last had a urine culture done at this facility on August 16, 2017 that grew out Klebsiella from her urine. This was sensitive to ceftriaxone, therefore the patient was given Rocephin 1 g IV after blood cultures 2 were drawn, lactic acid was sent for analysis, urine was sent for analysis from her current Wilks catheter bag. The patient was initially provided normal saline 1 L IV fluid bolus, morphine 5 mg IV, Zofran 4 mg IV. The patient's diagnostic evaluation is remarkable for a white count of 9.7, platelets 312, neutrophils 74.2, hemoglobin is 12.PT 10.7, PTT 28, chemistry is remarkable for a troponin I of less than 0.02, total protein 8.8, lipase 40, GFR of 39, creatinine 1.68 which is compared to the patient's prior kidney function tests with a creatinine of 0.77. Calcium is 8.4, C-reactive protein is elevated at 2.2, BUN 21, alk phos 141, albumin 2.9, lactic acid is 1.9. Magnesium is 1.7, lipase is 40. Urinalysis shows many WBC clumps, urobilinogen 2, RBCs 34, protein 100, moderate occult blood, many mucus, moderate leukocyte esterase, trace ketones, turbid urine, small bilirubin, occasional bacteria, culture indicated. The patient's Wilks catheter was changed as she is due to have it changed. The patient was given a second normal saline 500 mL bolus x1. The patient was reexamined and resting comfortably. The patient reports that her last episode of nausea, vomiting, and diarrhea was 3 days ago. I suspect that the patient's dehydration is related to intermittent vomiting and diarrhea. As this has resolved and the patient has been hydrated in the emergency department, the patient can be discharged home. The patient is instructed to push fluids and get plenty of rest. The patient's acute kidney injury is likely related to dehydration. The patient will be continued on IV fluid resuscitation. The patient's results were discussed with the patient, including the plan of care. I explained that further testing and/ or monitoring is indicated based on the patient's history, examination, and/ or laboratory findings. Therefore, I recommended admission for additional evaluation. The patient expressed understanding and was agreeable with this plan. The patient was admitted to the hospital in stable condition and sent to a bed under the care of the [facility] hosptilist service. Medical Screen Exam Complete: Yes Emergency Medical Condition: Yes Differential Diagnosis Differential Diagnosis: Urinary tract infection, versus sepsis, versus failure of pain pump, versus dehydration, versus electrolyte derangements Medical Records Medical records reviewed: Yes I reviewed the patient's medical records. Lab Data Lab results reviewed: Yes I reviewed the patient's lab results. Result diagrams: 10/19/17 23:25 10/19/17 23:25 Lab Results 10/19/17 10/19/17 10/19/17 Range/Units 00:00 23:20 23:25 WBC (4.0-11.0) th/mm3 RBC (4.00-5.30) mil/mm3 Hgb (11.6-15.3) gm/dL Hct (35.0-46.0) % MCV (80.0-100.0) fL MCH (27.0-34.0) pg MCHC (32.0-36.0) % RDW (11.6-17.2) % Plt Count (150-450) th/mm3 MPV (7.0-11.0) fL Neut % (Auto) (16.0-70.0) % Lymph % (Auto) (9.0-44.0) % Cecil % (Auto) (0.0-8.0) % Eos % (Auto) (0.0-4.0) % Baso % (Auto) (0.0-2.0) % Neut # (Auto) (1.8-7.7) th/mm3 Lymph # (Auto) (1.0-4.8) th/mm3 Cecil # (Auto) (0.0-0.9) th/mm3 Eos # (Auto) (0.0-0.4) th/mm3 Baso # (Auto) (0.0-0.2) th/mm3 WBC Differential Differential Comment PT 10.7 (9.8-11.6) sec INR 1.1 Ratio APTT 28.0 (24.3-30.1) sec Sodium (136-145) meq/L Potassium (3.5-5.1) meq/L Chloride (98-107) meq/L Carbon Dioxide (21.0-32.0) meq/L Anion Gap (5-15) meq/L BUN (7-18) mg/dL Creatinine (0.50-1.00) mg/dL Estimated GFR (>89) mL/min Random Glucose (74-106) mg/dL Lactic Acid 1.9 (0.4-2.0) mmol/L Calcium (8.5-10.1) mg/dL Magnesium (1.5-2.5) mg/dL Total Bilirubin (0.2-1.0) mg/dL AST (15-37) U/L ALT (10-53) U/L Alkaline Phosphatase (45-117) U/L Total Creatine Kinase (26-192) U/L Troponin I (0.02-0.05) ng/mL C-Reactive Protein (0.00-0.30) mg/dL Total Protein (6.4-8.2) g/dL Albumin (3.4-5.0) g/dL Lipase (73-393) U/L Urine Color Yellow (Yellw/Straw) Urine Clarity Turbid H (Clear) Urine pH 5.0 (5.0-8.5) Ur Specific [place] 1.024 (1.002-1.035) Urine Protein 100 H (Neg-Trace) mg/dL Urine Glucose (UA) Negative (Negative) mg/dL Urine Ketones Trace H (Negative) mg/dL Urine Occult Blood Moderate H (Negative) Urine Nitrate Negative (Negative) Urine Bilirubin Small H (Negative) Urine Urobilinogen 2.0 H (Less than 2) mg/dL Ur Leukocyte Esterase Moderate H (Negative) Urine RBC 34 H (0-3) /hpf Urine WBC (0-5) /hpf Urine WBC Clumps Many H (None) Ur Squamous Epith Cells 21 (0-5) /hpf Urine Bacteria Occasional H (None) /hpf Urine Mucus Many H (Occasional) /lpf Micro UA Comment Culture indicated Urine Culture Comments Culture indicated 10/19/17 10/19/17 Range/Units 23:25 23:25 WBC 9.7 (4.0-11.0) th/mm3 RBC 4.31 (4.00-5.30) mil/mm3 Hgb 12.0 (11.6-15.3) gm/dL Hct 39.0 (35.0-46.0) % MCV 90.5 (80.0-100.0) fL MCH 27.9 (27.0-34.0) pg MCHC 30.8 L (32.0-36.0) % RDW 17.8 H (11.6-17.2) % Plt Count 312 (150-450) th/mm3 MPV 8.8 (7.0-11.0) fL Neut % (Auto) 74.2 H (16.0-70.0) % Lymph % (Auto) 18.6 (9.0-44.0) % Cecil % (Auto) 6.0 (0.0-8.0) % Eos % (Auto) 0.6 (0.0-4.0) % Baso % (Auto) 0.6 (0.0-2.0) % Neut # (Auto) 7.2 (1.8-7.7) th/mm3 Lymph # (Auto) 1.8 (1.0-4.8) th/mm3 Cecil # (Auto) 0.6 (0.0-0.9) th/mm3 Eos # (Auto) 0.1 (0.0-0.4) th/mm3 Baso # (Auto) 0.1 (0.0-0.2) th/mm3 WBC Differential . Differential Comment Auto diff final PT (9.8-11.6) sec INR Ratio APTT (24.3-30.1) sec Sodium 142 (136-145) meq/L Potassium 4.4 (3.5-5.1) meq/L Chloride 107 (98-107) meq/L Carbon Dioxide 25.2 (21.0-32.0) meq/L Anion Gap 10 (5-15) meq/L BUN 21 H (7-18) mg/dL Creatinine 1.68 H (0.50-1.00) mg/dL Estimated GFR 39 L (>89) mL/min Random Glucose 102 (74-106) mg/dL Lactic Acid (0.4-2.0) mmol/L Calcium 8.4 L (8.5-10.1) mg/dL Magnesium 1.7 (1.5-2.5) mg/dL Total Bilirubin 0.4 (0.2-1.0) mg/dL AST 17 (15-37) U/L ALT 13 (10-53) U/L Alkaline Phosphatase 141 H (45-117) U/L Total Creatine Kinase 73 (26-192) U/L Troponin I Less than 0.02 L (0.02-0.05) ng/mL C-Reactive Protein 2.20 H (0.00-0.30) mg/dL Total Protein 8.8 H (6.4-8.2) g/dL Albumin 2.9 L (3.4-5.0) g/dL Lipase 40 L (73-393) U/L Urine Color (Yellw/Straw) Urine Clarity (Clear) Urine pH (5.0-8.5) Ur Specific [place] (1.002-1.035) Urine Protein (Neg-Trace) mg/dL Urine Glucose (UA) (Negative) mg/dL Urine Ketones (Negative) mg/dL Urine Occult Blood (Negative) Urine Nitrate (Negative) Urine Bilirubin (Negative) Urine Urobilinogen (Less than 2) mg/dL Ur Leukocyte Esterase (Negative) Urine RBC (0-3) /hpf Urine WBC (0-5) /hpf Urine WBC Clumps (None) Ur Squamous Epith Cells (0-5) /hpf Urine Bacteria (None) /hpf Urine Mucus (Occasional) /lpf Micro UA Comment Urine Culture Comments Imaging Data Radiologist's impression: Chest X-Ray 10/19/17 23:03 CONCLUSION: Chronic elevation of the right hemidiaphragm with mild linear right basilar atelectasis. No acute cardiopulmonary disease. ECG Data Attestation: I personally reviewed and interpreted this ECG as follows: Interpretation: The patient had an EKG done on arrival. The patient's EKG reveals Discharge Plan Discharge Disposition Patient Disposition: 30 Still Patient Discharge Details Diagnosis: Acute kidney injury, Urinary tract infection Physicians Team ED Provider: Olya Iniguez Primary Care Provider: Junior Magdaleno Rxs /Orders / Referrals /Forms Prescriptions: No Action fentanyl 25 mcg/hr Patch 72 Hour 25 mcg Topical TID RF: 0 Discharge Interventions Interventions: Vital Signs Last Done: 10/20/17 02:00 Status ED Status: With Doctor
[2017-10-20 00:08] LABS: Albumin 2.9 g/dL (3.4-5.0); Anion Gap 10 meq/L (5-15); Aspartate Aminotransferase 17 U/L (15-37); Blood Urea Nitrogen 21 mg/dL (7-18); Calcium 8.4 mg/dL (8.5-10.1); Carbon Dioxide 25.2 meq/L (21.0-32.0); Chloride 107 meq/L (98-107); Glomerular Filtration Rate 39 mL/min (>89); Glucose,Random 102 mg/dL (74-106); Lipase 40 U/L (73-393); Magnesium 1.7 mg/dL (1.5-2.5); Potassium 4.4 meq/L (3.5-5.1); Sodium 142 meq/L (136-145)
[2017-10-20 00:09] LABS: Alanine Aminotransferase 13 U/L (10-53)
[2017-10-20 00:12] LABS: Alkaline Phosphatase 141 U/L (45-117); Total Protein 8.8 g/dL (6.4-8.2)
[2017-10-20 00:18] LABS: Creatine Kinase 73 U/L (26-192)
[2017-10-20] MEDS ORDERED: Morphine Inj 4 MG/ML Vial IV.PUSH ONE (01:00)
[2017-10-20 01:13] LABS: Bacteria,Urine Occasional /hpf; Bilirubin,Urine Small (Negative); Clarity,Urine Turbid (Clear); Color,Urine Yellow (Yellw/Straw); Glucose,Urine (UA) Negative (Negative); Leukocyte Esterase,Urine Moderate (Negative); Mucus,Urine Many /lpf (Occasional); Nitrite,Urine Negative (Negative); Specific Gravity,Urine 1.024 (1.002-1.035); Squamous Epithelial Cell,Urine 21 /hpf (0-5)
[2017-10-20] MEDS: Sod Chloride 0.9% Inj 1,000 ML IV.SIG SCH ×2 (03:00→18:38)
--- NOTE | 2017-10-20 07:55 | P.HP ---
History of Present Illness Primary Care Physician: Junior Magdaleno History of Present Illness: Mrs. Cook is a 51 y/o AAF with HTN, asthma, morbid obesity, chronic back pain with implanted Dilaudid pump, and is bed bound with limited use of her LE reportedly related to previous failed back surgeries. She has had issues in the past with urinary retention and recurrent UTIs. She has required prolonged Mosquera catheter use in the past follows with Dr. Santos. Patient presented to the ER with presents to the [facility] emergency department with a history of reportedly not feeling well since the end of August/first of September. She reports that it began with intermitted nausea, vomiting, and diarrhea. last episode of N/V/D was 4 days ago. 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 The patient reports that a week ago the Dilaudid was removed from her pain pump by her pain management doctor and replaced with saline on October 09, 2017. She reports that she has a follow-up appointment scheduled for Thursday (10/21/17) to assess how the pump is functioning. In the meantime, this past week she was placed on fentanyl 25 mcg patch every 3 days. She last placed her patch on Thursday. She reports that it is not adhering well. She reports that for breakthrough pain she takes morphine liquid form 7.5 mL every 6 hours. She reports that the pain is "all over". The patient also reports that over the last few days she has had a strong odor to her urine and clouding of her urine. The patient has a history of chronic urinary retention with a chronic indwelling Mosquera catheter that was last changed approximately 3 weeks ago. She reports a concern for a possible urinary tract infection. She reports that she has frequent urinary tract infections. She reports that she did have a fever last on Thursday with a T- max of 101. On review of systems otherwise, the patient denies having any cough , congestion, new neck pain or back pain, abdominal pain, or new neurologic symptoms. The patient has a history of using an wheelchair for mobility. Past Medical History HTN Diabetes mellitus, diet controlled Anxiety Asthma Chronic back pain/post-laminectomy syndrome and has implanted Dilaudid pain pump Failed back syndrome and prior lumbar spine surgeries IBD Osteoarthritis Myelomalacia Peripheral neuropathy GERD Morbid obesity Chronic anemia Hx of DVT in upper and lower extremities and hx of PE on Eliquis Hx of recurrent UTI and hx of urinary retention Past Surgical History Gastric bypass in the Cholecystectomy Lumbar spine surgeries Dilaudid pain pump Father at 87 y/o related to complications from diabetes Social History Denies any alcohol, tobacco or illicit drug use Pt is and has two children She is on disability - Diagnosis (1) Urinary tract infection Inpatient Certification: I certify that the inpatient services were ordered in accordance with Medicare regulations governing the order. This includes certification that hospital inpatient services are reasonable and necessary and in the case of services not specified as inpatient-only under 42 CFR 419.22(n), that they are appropriately provided as inpatient services in accordance to with the 2-midnight benchmark under 43 CFR 412.3(e) Review of Systems All other systems reviewed negative except as stated in HPI PMFSH - History History Provided By: Patient, Family Member - Medical History Medical History: Medical History (Last Updated 10/20/17 @ 01:59 by Elva Miller) History of frequent urinary tract infections Renal failure Sepsis Stroke - Tobacco History Smoking Status: Former smoker - Alcohol History How Often Do You Have a Drink Containing Alcohol: Never - Substance Use History Substance History: No History of Abuse - Travel History Recent Travel in the [place] Within the Last 8 Weeks: No Recent Travel Out of the Country Within the Last 8 Weeks: No - Immunization History Tetanus Immunization: Unsure Medications and Allergies Active Medications: Active Medications Ceftriaxone Sodium 1,000 mg/ (Sodium Chloride) 100 mls @ 200 mls/hr IV.SIG Q24H JULIANA Sodium Chloride (Ns Inj) 1,000 mls @ 75 mls/hr IV.SIG .[id number] JULIANA Last Admin: 10/20/17 03:00 Dose: 75 mls/hr Morphine Sulfate (Morphine Inj) 4 mg IV.PUSH Q8H PRN PRN Reason: PAIN 1-10 Ondansetron HCl (Zofran Inj) 4 mg IV.PUSH Q8H PRN PRN Reason: NAUSEA OR VOMITING Allergies Allergy/AdvReac Type Severity Reaction Status Date / Time furosemide AdvReac Severe Itching Verified 10/19/17 23:40 MRI PRECAUTION AdvReac Severe SPINAL Uncoded 08/16/17 13:12 CORD STIMULATOR Home Medications Medication Instructions Recorded Confirmed Type fentanyl 25 mcg TOPICAL Q3D 10/19/17 10/20/17 History albuterol sulfate 0.63 mg INHALATION QID 10/20/17 10/20/17 History apixaban [Eliquis] 2.5 mg PO BID 10/20/17 10/20/17 History duloxetine 60 mg PO DAILY 10/20/17 10/20/17 History gabapentin 800 mg PO QID 10/20/17 10/20/17 History metoprolol tartrate 12.5 mg PO BID 10/20/17 10/20/17 History morphine 30 mg PO Q6H 10/20/17 10/20/17 History omeprazole 20 mg PO DAILY 10/20/17 10/20/17 History Exam Vital signs: Vital Signs 10/19/17 21:41 10/19/17 23:15 10/19/17 23:44 Temperature 98.1 F Pulse Rate 103 H 106 H Respiratory Rate 18 16 Blood Pressure 110/55 L 140/104 H Pulse Oximetry 92 L 95 98 10/20/17 00:16 10/20/17 02:00 10/20/17 03:00 Temperature Pulse Rate 102 H 96 H 100 H Respiratory Rate 16 Blood Pressure 99/58 L 99/58 L 109/67 Pulse Oximetry 98 100 10/20/17 06:00 10/20/17 07:05 Temperature 97.8 F Pulse Rate 98 H 102 H Respiratory Rate 14 18 Blood Pressure 144/53 H 132/67 Pulse Oximetry 98 Intake & Output 10/19/17 10/20/17 10/20/17 18:59 06:59 18:59 Weight 136.078 kg Narrative: GENERAL: This is a morbidly obese female, in no acute distress. SKIN: left thigh erythema and papules noted in the shape of mosquera securing patch HEENT: Atraumatic. Normocephalic. No temporal or scalp tenderness. No scleral icterus. Airway patent. NECK: Trachea midline, supple, nontender. CARDIO: Regular. RESP: CTA bilaterally. No wheezes, rales, or rhonchi. ABD: Abdomen soft, obese, non-tender, nondistended. EXT: Chronic bilateral LE edema. NEURO: Awake and alert. 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 Results - Labs CBC & Chem 7: 10/19/17 23:25 10/19/17 23:25 Labs: Laboratory Results - last 24 hr 10/19/17 10/19/1718 00:00 23:20 23:25 WBC RBC Hgb Hct MCV MCH MCHC RDW Plt Count MPV Neut % (Auto) Lymph % (Auto) [place] % (Auto) Eos % (Auto) Baso % (Auto) Neut # (Auto) Lymph # (Auto) [place] # (Auto) Eos # (Auto) Baso # (Auto) WBC Differential Differential Comment PT 10.7 INR 1.1 APTT 28.0 Sodium Potassium Chloride Carbon Dioxide Anion Gap BUN Creatinine Estimated GFR Random Glucose Lactic Acid 1.9 Calcium Magnesium Total Bilirubin AST ALT Alkaline Phosphatase Total Creatine Kinase Troponin I C-Reactive Protein Total Protein Albumin Lipase Urine Color Yellow Urine Clarity Turbid H Urine pH 5.0 Ur Specific [place] 1.024 Urine Protein 100 H Urine Glucose (UA) Negative Urine Ketones Trace H Urine Occult Blood Moderate H Urine Nitrate Negative Urine Bilirubin Small H Urine Urobilinogen 2.0 H Ur Leukocyte Esterase Moderate H Urine RBC 34 H Urine WBC Urine WBC Clumps Many H Ur Squamous Epith Cells 21 Urine Bacteria Occasional H Urine Mucus Many H Micro UA Comment Culture indicated Urine Culture Comments Culture indicated 10/19/17 10/19/17 23:25 23:25 WBC 9.7 RBC 4.31 Hgb 12.0 Hct 39.0 MCV 90.5 MCH 27.9 MCHC 30.8 L RDW 17.8 H Plt Count 312 MPV 8.8 Neut % (Auto) 74.2 H Lymph % (Auto) 18.6 [place] % (Auto) 6.0 Eos % (Auto) 0.6 Baso % (Auto) 0.6 Neut # (Auto) 7.2 Lymph # (Auto) 1.8 [place] # (Auto) 0.6 Eos # (Auto) 0.1 Baso # (Auto) 0.1 WBC Differential . Differential Comment Auto diff final PT INR APTT Sodium 142 Potassium 4.4 Chloride 107 Carbon Dioxide 25.2 Anion Gap 10 BUN 21 H Creatinine 1.68 H Estimated GFR 39 L Random Glucose 102 Lactic Acid Calcium 8.4 L Magnesium 1.7 Total Bilirubin 0.4 AST 17 ALT 13 Alkaline Phosphatase 141 H Total Creatine Kinase 73 Troponin I Less than 0.02 L C-Reactive Protein 2.20 H Total Protein 8.8 H Albumin 2.9 L Lipase 40 L Urine Color Urine Clarity Urine pH Ur Specific [place] Urine Protein Urine Glucose (UA) Urine Ketones Urine Occult Blood Urine Nitrate Urine Bilirubin Urine Urobilinogen Ur Leukocyte Esterase Urine RBC Urine WBC Urine WBC Clumps Ur Squamous Epith Cells Urine Bacteria Urine Mucus Micro UA Comment Urine Culture Comments - Imaging Impressions Chest X-Ray 10/19/17 23:03 CONCLUSION: Chronic elevation of the right hemidiaphragm with mild linear right basilar atelectasis. No acute cardiopulmonary disease. Caprini VTE Risk Assessment Caprini VTE Risk Assessment: Moderate/High Risk (score >= 2) Caprini Risk Assessment Model: Point Value = 1 Point Value = 2 Point Value = 3 Point Value = 5 Age 41-60 Minor surgery BMI > 25 kg/m2 Swollen legs Varicose veins or History of unexplained or recurrent spontaneous Oral contraceptives or hormone replacement Sepsis (< 1 month) Serious lung disease, including pneumonia (< 1 month) Abnormal pulmonary function Acute myocardial infarction Congestive heart failure (< 1 month) History of inflammatory bowel disease Medical patient at bed rest Age 61-74 Arthroscopic surgery Major open surgery (> 45 min) Laparoscopic surgery (> 45 min) Malignancy Confined to bed (> 72 hours) Immobilizing plaster cast Central venous access Age >= 75 History of VTE Family history of VTE Factor V Leiden Prothrombin [id number] Lupus anticoagulant Anticardiolipin antibodies Elevated serum homocysteine Heparin-induced thrombocytopenia Other congenital or acquired thrombophilia Stroke (< 1 month) Elective arthroplasty Hip, pelvis, or leg fracture Acute spinal cord injury (< 1 month) Prophylaxis Regimen: Total Risk Factor Score Risk Level Prophylaxis Regimen 0-1 Low Early ambulation 2 Moderate Order ONE of the following: *Sequential Compression Device (SCD) *Heparin 5000 units SQ BID 3-4 Higher Order ONE of the following medications: *Heparin 5000 units SQ TID *Enoxaparin/Lovenox 40 mg SQ daily (WT < 150 kg, CrCl > 30 mL/min) *Enoxaparin/Lovenox 30 mg SQ daily (WT < 150 kg, CrCl > 10-29 mL/min) *Enoxaparin/Lovenox 30 mg SQ BID (WT < 150 kg, CrCl > 30 mL/min) AND/OR *Sequential Compression Device (SCD) 5 or more Highest Order ONE of the following medications: *Heparin 5000 units SQ TID (Preferred with Epidurals) *Enoxaparin/Lovenox 40 mg SQ daily (WT < 150 kg, CrCl > 30 mL/min) *Enoxaparin/Lovenox 30 mg SQ daily (WT < 150 kg, CrCl > 10-29 mL/min) *Enoxaparin/Lovenox 30 mg SQ BID (WT < 150 kg, CrCl > 30 mL/min) AND *Sequential Compression Device (SCD) Assessment and Plan - Assessment (1) Urinary tract infection Code(s): N39.0 - Urinary tract infection, site not specified Status: Acute Plan: MICHAEL UTI, hx of recurrent UTI Urinary retention - Pt is a 51 y/o AAF with HTN, asthma, morbid obesity, chronic back pain with implanted Dilaudid pump ( which is currently nonfunctioning), and is bed bound with limited use of her LE reportedly related to previous failed back surgeries. She has had issues in the past with urinary retention and recurrent UTIs. She requires prolonged Mosquera catheter.. Last Mosquera change was in ER 10/19/17 - Patient was treated at [facility] from 06/05/17 to 06/07/17 for UTI. Patient discharged home on Zyvox for 10 days - Urine culture 06/05 grew VRE. Sensitivity to Zyvox and Daptomycin - started on Rocephin in the ER will continue and await urine culture results - IV hydration - recheck BMP in AM DVT prophylaxis patient on Eliquis Hx of deep venous thrombosis - Cont. home dose of Eliquis 2.5 mg PO BID Tachycardia - Cont. pts Metoprolol 12.5mg po BID as Chronic back pain Chronic back pain with implanted Dilaudid pain pump LE weakness, chronic - Chronic indwelling pain pump which is currently not functioning - Morphine 4 mg Q8H as needed for pain - continue fentanyl 25 mcg patch - Pt reports she has an appointment with Dr. Brewster (10/21/17) N/V/D - resolved - possibly from Dilaudid withdraw - supportive care and continue to monitor Diabetes mellitus - Pt is diet controlled - diabetic diet (1) Urinary tract infection Qualifiers: Urinary tract infection type: catheter-associated UTI Indwelling urinary catheter type: indwelling urethral catheter Encounter type: initial encounter Qualified Code(s): T83.511A - Infection and inflammatory reaction due to indwelling urethral catheter, initial encounter; N39.0 - Urinary tract infection , site not specified
[2017-10-20] MEDS: Morphine Inj 4 MG/ML Vial IV.PUSH PRN ×2 (08:17→15:49)
--- NOTE | 2017-10-20 15:36 | P.DCO ---
- Home Health Nursing Instructions: continue current [facility] orders including wound care. - Certification I have seen patient Asha Cook on 10/20/17. My clinical findings support the need for the requested home health care services because: Limited mobility due to disease progression I certify that my clinical findings support that this patient is homebound because: Unsteady gait/balance
--- NOTE | 2017-10-20 16:40 | P.DS ---
Date of admission: 10/20/17 02:17 Primary care physician: Junior Magdaleno Attending physician on discharge: Arben Serna Anticipated date of discharge: 10/21/17 Brief History from admission: Mrs. Cook is a 51 y/o AAF with HTN, asthma, morbid obesity, chronic back pain with implanted Dilaudid pump, and is bed bound with limited use of her LE reportedly related to previous failed back surgeries. She has had issues in the past with urinary retention and recurrent UTIs. She has required prolonged Mosquera catheter use in the past follows with Dr. Santos. Patient presented to the ER with presents to the [facility] emergency department with a history of reportedly not feeling well since the end of August/first september. She reports that it began with intermitted nausea, vomiting, and diarrhea. last episode of N/V/D was 4 days ago. 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 The patient reports that a week ago the Dilaudid was removed from her pain pump by her pain management doctor and replaced with saline on October 09, 2017. She reports that she has a follow-up appointment scheduled for Thursday (10/21/17) to assess how the pump is functioning. In the meantime, this past week she was placed on fentanyl 25 mcg patch every 3 days. She last placed her patch on Thursday. She reports that it is not adhering well. She reports that for breakthrough pain she takes morphine liquid form 7.5 mL every 6 hours. She reports that the pain is "all over". The patient also reports that over the last few days she has had a strong odor to her urine and clouding of her urine. The patient has a history of chronic urinary retention with a chronic indwelling Mosquera catheter that was last changed approximately 3 weeks ago. She reports a concern for a possible urinary tract infection. She reports that she has frequent urinary tract infections. She reports that she did have a fever last on Thursday with a T- max of 101. On review of systems otherwise, the patient denies having any cough , congestion, new neck pain or back pain, abdominal pain, or new neurologic symptoms. The patient has a history of using an wheelchair for mobility. Past Medical History HTN Diabetes mellitus, diet controlled Anxiety Asthma Chronic back pain/post-laminectomy syndrome and has implanted Dilaudid pain pump Failed back syndrome and prior lumbar spine surgeries IBD Osteoarthritis Myelomalacia Peripheral neuropathy GERD Morbid obesity Chronic anemia Hx of DVT in upper and lower extremities and hx of PE on Eliquis Hx of recurrent UTI and hx of urinary retention Past Surgical History Gastric bypass in the Cholecystectomy Lumbar spine surgeries Dilaudid pain pump Father at 87 y/o related to complications from diabetes Social History Denies any alcohol, tobacco or illicit drug use Pt is and has two children She is on disability DS: Diagnosis - Discharge Diagnosis (1) Possible urinary tract infection Status: Acute DS: Summary Hospital Course: MICHAEL possible UTI, hx of recurrent UTI Urinary retention - Pt is a 51 y/o AAF with HTN, asthma, morbid obesity, chronic back pain with implanted Dilaudid pump ( which is currently nonfunctioning), and is bed bound with limited use of her LE reportedly related to previous failed back surgeries. She has had issues in the past with urinary retention and recurrent UTIs. She requires prolonged Mosquera catheter.. Last Mosquera change was in ER 10/19/17 - Patient was treated at [facility] from 06/05/17 to 06/07/17 for UTI. Patient discharged home on Zyvox for 10 days - Urine culture 06/05 grew VRE. Sensitivity to Zyvox and Daptomycin - Urinalysis 10/19/2017 reveals high protein, trace ketones, moderate occult blood, negative nitrates, moderate leukocyte esterase, many white blood cells with clumps, 21 squamous epithelial cell,s occasional bacteria, culture pending - started on Rocephin in the ER will continue and await urine culture results - IV hydration - recheck BMP in AM DVT prophylaxis patient on Eliquis Hx of deep venous thrombosis - Cont. home dose of Eliquis 2.5 mg PO BID Tachycardia - Cont. pts Metoprolol 12.5mg po BID as Chronic back pain Chronic back pain with implanted Dilaudid pain pump LE weakness, chronic - Chronic indwelling pain pump which is currently not functioning - Morphine 4 mg Q8H as needed for pain - continue fentanyl 25 mcg patch - Pt reports she has an appointment with Dr. Brewster (10/21/17) N/V/D - resolved - possibly from Dilaudid withdraw - supportive care and continue to monitor Diabetes mellitus - Pt is diet controlled - diabetic diet Patient reports that she has an appointment tomorrow 10/21/17 -with her pain management doctor Dr. Mckeon asking to be discharged tomorrow morning prior to her appointment. Patient is very concerned with her pain management appointment and refuses to say in the hospital past 10/21/17 AM. - Time Spent with Patient Total time spent providing and/or coordinating discharge services: Greater than 30 minutes Exam Vital signs: Vital Signs 10/19/17 21:41 10/19/17 23:15 10/19/17 23:44 Temperature 98.1 F Pulse Rate 103 H 106 H Respiratory Rate 18 16 Blood Pressure 110/55 L 140/104 H Pulse Oximetry 92 L 95 98 10/20/17 00:16 10/20/17 02:00 10/20/17 03:00 Temperature Pulse Rate 102 H 96 H 100 H Respiratory Rate 16 Blood Pressure 99/58 L 99/58 L 109/67 Pulse Oximetry 98 100 10/20/17 06:00 10/20/17 07:05 10/20/17 08:20 Temperature 97.8 F Pulse Rate 98 H 102 H Respiratory Rate 14 18 17 Blood Pressure 144/53 H 132/67 Pulse Oximetry 98 10/20/17 08:53 10/20/17 11:06 10/20/17 11:44 Temperature 97.9 F 97.9 F Pulse Rate 103 H 108 H Respiratory Rate 20 18 18 Blood Pressure 122/75 133/81 Pulse Oximetry 99 98 10/20/17 11:49 10/20/17 12:00 10/20/17 16:00 Temperature 97.8 F 99.2 F 99.8 F H Pulse Rate 106 H 113 H 114 H Respiratory Rate 17 17 17 Blood Pressure 124/83 146/78 H 116/56 L Pulse Oximetry 97 94 L 94 L Intake & Output 10/19/17 10/20/17 10/20/17 18:59 06:59 18:59 Intake Total 1400 / 1400 Output Total 400 / 400 Balance 1000 / 1000 Weight 136.078 kg Intake: IV 1100 / 1100 Oral 300 / 300 Output: Urine Amount (Catheter) 400 / 400 Indwelling Urethral Catheter 400 / 400 Narrative: GENERAL: This is a morbidly obese female, in no acute distress. SKIN: left thigh erythema and papules noted in the shape of mosquera securing patch HEENT: Atraumatic. Normocephalic. No temporal or scalp tenderness. No scleral icterus. Airway patent. NECK: Trachea midline, supple, nontender. CARDIO: Regular. RESP: CTA bilaterally. No wheezes, rales, or rhonchi. ABD: Abdomen soft, obese, non-tender, nondistended. EXT: Chronic bilateral LE edema. NEURO: Awake and alert. 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 Differential Comment Auto diff final PT 10.7 INR 1.1 APTT 28.0 Sodium 142 Potassium 4.4 Chloride 107 Carbon Dioxide 25.2 Anion Gap 10 BUN 21 H Creatinine 1.68 H Estimated GFR 39 L Random Glucose 102 Lactic Acid Calcium 8.4 L Magnesium 1.7 Total Bilirubin 0.4 AST 17 ALT 13 Alkaline Phosphatase 141 H Total Creatine Kinase 73 Troponin I Less than 0.02 L C-Reactive Protein 2.20 H Total Protein 8.8 H Albumin 2.9 L Lipase 40 L Urine Color Urine Clarity Urine pH Ur Specific [place] Urine Protein Urine Glucose (UA) Urine Ketones Urine Occult Blood Urine Nitrate Urine Bilirubin Urine Urobilinogen Ur Leukocyte Esterase Urine RBC Urine WBC Urine WBC Clumps Ur Squamous Epith Cells Urine Bacteria Urine Mucus Micro UA Comment Urine Culture Comments 10/19/17 10/19/17 23:20 00:00 WBC RBC Hgb Hct MCV MCH MCHC RDW Plt Count MPV Neut % (Auto) Lymph % (Auto) [place] % (Auto) Eos % (Auto) Baso % (Auto) Neut # (Auto) Lymph # (Auto) [place] # (Auto) Eos # (Auto) Baso # (Auto) WBC Differential Differential Comment PT INR APTT Sodium Potassium Chloride Carbon Dioxide Anion Gap BUN Creatinine Estimated GFR Random Glucose Lactic Acid 1.9 Calcium Magnesium Total Bilirubin AST ALT Alkaline Phosphatase Total Creatine Kinase Troponin I C-Reactive Protein Total Protein Albumin Lipase Urine Color Yellow Urine Clarity Turbid H Urine pH 5.0 Ur Specific [place] 1.024 Urine Protein 100 H Urine Glucose (UA) Negative Urine Ketones Trace H Urine Occult Blood Moderate H Urine Nitrate Negative Urine Bilirubin Small H Urine Urobilinogen 2.0 H Ur Leukocyte Esterase Moderate H Urine RBC 34 H Urine WBC Urine WBC Clumps Many H Ur Squamous Epith Cells 21 Urine Bacteria Occasional H Urine Mucus Many H Micro UA Comment Culture indicated Urine Culture Comments Culture indicated Preliminary micro results at discharge 10/19/17 00:00 Urine Culture - Preliminary Clean Catch Urine gram negative rods 10/19/17 23:20 Aerobic Blood Culture - Preliminary Blood - Peripheral No growth in 1 day Anaerobic Blood Culture - Preliminary No growth in 1 day 10/19/17 23:20 Aerobic Blood Culture - Preliminary Blood - Peripheral No growth in 1 day Anaerobic Blood Culture - Preliminary No growth in 1 day - Impressions ITS Impressions Chest X-Ray 10/19/17 23:03 CONCLUSION: Chronic elevation of the right hemidiaphragm with mild linear right basilar atelectasis. No acute cardiopulmonary disease. Discharge Plan - Discharge Disposition Patient Disposition: W/Home Health Service - Discharge Condition Condition: Stable - Discharge Details Anticipated Discharge Date: 10/21/17 - Physicians Team Primary Care Provider: Junior Magdaleno Attending Provider: Arben Serna Other Providers: [employer],
--- NOTE | 2017-10-20 20:00 | ECG ---
Date Performed: 10/20/2017 Time Performed: 02:29:11 PTAGE: 51 years EKG: Sinus rhythm LOW QRS VOLTAGE IN PRECORDIAL LEADS PATTERN CONSISTENT WITH PULMONARY DISEASE ABNORMAL ECG PREVIOUS TRACING : 07/18/2017 06.13 Since the previous tracing, no significant change noted DOCTOR: Bandar Garcia Interpretating Date/Time 10/20/2017 19:56:56
[2017-10-20] MEDS: Metoprolol Tartrate 25 MG Tablet PO SCH (21:52)
[2017-10-21] MEDS: Morphine Inj 4 MG/ML Vial IV.PUSH PRN (00:22)
[2017-10-21] MEDS: Sod Chloride 0.9% Inj 1,000 ML IV.SIG SCH (07:56)
[2017-10-21] MEDS: Metoprolol Tartrate 25 MG Tablet PO SCH (08:00)
[2017-10-21] MEDS ORDERED: Duloxetine 60 MG DR Capsule PO SCH (09:00)
[2017-10-21] MEDS ORDERED: Pantoprazole Sodium 20 MG DR Tablet PO SCH (09:00)
--- NOTE | 2017-10-21 09:47 | P.PNIM ---
Subjective Interval history: eager for dc to pain doctor office today..for scheduled appt. denies f/c or n/v/d. she is aware of the urine cx findings so far...gnr...she says she is not interested in antibiotics as overtreatment of colonization is a concern. She will notify her pcp if any concerning fevers/chills or uti sx arise after dc Physical Exam Vital signs: Vital Signs 10/20/17 11:06 10/20/17 11:44 10/20/17 11:49 Temperature 97.9 F 97.8 F Pulse Rate 108 H 106 H Respiratory Rate 18 18 17 Blood Pressure 133/81 124/83 Pulse Oximetry 98 97 10/20/17 12:00 10/20/17 16:00 10/20/17 20:00 Temperature 99.2 F 99.8 F H 97.8 F Pulse Rate 113 H 114 H 98 H Respiratory Rate 17 17 18 Blood Pressure 146/78 H 116/56 L 122/69 Pulse Oximetry 94 L 94 L 94 L 10/21/17 00:00 10/21/17 08:00 Temperature 99.4 F 98.1 F Pulse Rate 87 73 Respiratory Rate 18 17 Blood Pressure 125/76 144/69 H Pulse Oximetry 92 L 95 Intake & Output 10/20/17 10/21/17 10/21/17 18:59 06:59 18:59 Intake Total 3040 / 3040 100 / 100 1000 / 1000 Output Total 1200 / 1200 1300 / 1300 Balance 1840 / 1840 -1200 / -1200 1000 / 1000 Weight 132.4 kg Intake: IV 2100 / 2100 100 / 100 1000 / 1000 NS Inj 1,000 ML @ 75 mls/hr IV. 1000 / 1000 1000 / 1000 SIG .[id number] JULIANA Rx#:[id number] Rocephin Inj 1,000 MG In NS Inj 100 / 100 100 ML @ 200 mls/hr IV.SIG Q24H JULIANA Rx#:[id number] Oral 940 / 940 Output: Urine 800 / 800 1300 / 1300 Urine Amount (Catheter) 400 / 400 Indwelling Urethral Catheter 400 / 400 nad heart reg lung cta abd s/nt ext no edema - Urinary Catheter Management Indwelling Urethral Catheter Cath placed during this visit: yes Reason for continuing: Chronic Urinary Retention Insertion date: 10/19/17 Insertion time: 23:55 Results - Labs CBC & Chem 7: 10/19/17 23:25 10/19/17 23:25 Laboratory Results - last 24 hr 10/19/17 00:00 Urine Color Yellow Urine Clarity Turbid H Urine pH 5.0 Ur Specific Broadbent 1.024 Urine Protein 100 H Urine Glucose (UA) Negative Urine Ketones Trace H Urine Occult Blood Moderate H Urine Nitrate Negative Urine Bilirubin Small H Urine Urobilinogen 2.0 H Ur Leukocyte Esterase Moderate H Urine RBC 34 H Urine WBC Urine WBC Clumps Many H Ur Squamous Epith Cells 21 Urine Bacteria Occasional H Urine Mucus Many H Micro UA Comment Culture indicated Urine Culture Comments Culture indicated Microbiology 10/19/17 00:00 Clean Catch Urine Urine Culture - Preliminary gram negative rods 10/19/17 23:20 Blood - Peripheral Aerobic Blood Culture - Preliminary No growth in 1 day 10/19/17 23:20 Blood - Peripheral Anaerobic Blood Culture - Preliminary No growth in 1 day 10/19/17 23:20 Blood - Peripheral Aerobic Blood Culture - Preliminary No growth in 1 day 10/19/17 23:20 Blood - Peripheral Anaerobic Blood Culture - Preliminary No growth in 1 day - Procedures None Assessment and Plan - Assessment (1) Failed back syndrome Code(s): M96.1 - Postlaminectomy syndrome, not elsewhere classified Status: Acute Plan: - Pt is a 51 y/o AAFwith HTN, asthma, morbid obesity, chronic back pain with implanted Dilaudid pump ( which is currently nonfunctioning), and is bed bound with limited use of her LE reportedly related to previous failed back surgeries. She has had issues in the past with urinary retention and recurrent UTIs. She requires prolonged Mosquera catheter.. Last Mosquera change was in ER 10/19/17 Pt was [place] [facility] [place] w/d and possible uti. Pt is following with cp pain management and recently had dilaudid drained from pump as concern for "kink" in the tubing pt placed on fentanyl patch and has liquid morphine. pt feeling better now. I spoke to her pain doctor Dr Brewster. He will increase her fentanyl patch in the clinic. He is also going to evaluate the tubing for a kink/obstruction Pt had mosquera change. We had long discussion about uti vs colonization of mosquera lines. She is not interested in abx at this time as she is concerned about overtreatment. She will monitor for uti sx's and notify her pcp immediately. dc today for her 2:30appt.
== END 2017-10-21 10:42 | disposition home health service (06) ==
LOC: NEPE 20:36 → NEDA 10-20 02:17 → NEDH 10-20 08:18 → N07 10-20 12:15
PROVIDERS: ADMIT Hospitalist; ATTEND Hospitalist